=== PATIENT | female | born 1945 | race Caucasian/White ===

== ENCOUNTER → 2018-03-24 09:36 | Outpatient (CLI) | payer MEDICARE, SELFPAY ==
[2018-03-24 11:10] LABS: Add Manual Diff / Slide Review NO; Basophils Percent Auto 0.6 % (0-2); Eosinophils Percent Auto 1.4 % (2-4); Hematocrit 39.4 % (36-46); Hemoglobin 13.6 g/dL (12.0-16.0); Lymphocytes Percent Auto 14.6 % (25-40); Mean Corpuscular HGB Conc 34.4 % (30-36); Mean Corpuscular Hemoglobin 32.2 PG (26-34); Mean Corpuscular Volume 93.5 fL (80-100); Monocytes Percent Auto 11.1 % (3-14); Neutrophils Absolute Auto 6100 /uL (3000-5900); Neutrophils Percent Auto 72.3 % (50-75); Platelet Count 194 X10^3/uL (150-400); Red Blood Cell Count 4.21 X10^6/uL (4.0-5.2); Red Cell Distribution Width 13.6 % (11.6-14.8); White Blood Cell Count 8.5 X10^3/uL (4.5-11.0)
[2018-03-24 11:45] LABS: Alanine Aminotransferase 27 IU/L (9-52); Albumin 3.9 g/dL (3.5-5.0); Albumin Globulin Ratio 1.4 (1.0-2.8); Alkaline Phosphatase 66 U/L (38-126); Aspartate Aminotransferase 23 IU/L (14-36); BUN Creatinine Ratio 18.9 (6-22); Bilirubin Total 1.2 mg/dL (0.2-1.3); Blood Urea Nitrogen 17 mg/dL (7-17); Calcium 9.1 mg/dL (8.4-10.2); Carbon Dioxide 32 mmol/L (22-32); Chloride 102 mmol/L (98-107); Cholesterol 144 mg/dL (140-199); Estimated Glomerular Filt Rate > 60.0 mL/min (>60); Globulin 2.7 g/dL (1.7-4.1); Glucose 86 mg/dL (80-110); HDL Cholesterol 42 mg/dL (40-60); HEMOLYSIS < 15 (0-50); LDL Cholesterol Calculated 84 mg/dL (<100); Potassium 3.9 mmol/L (3.4-5.1); Sodium 142 mmol/L (137-145); Total Protein 6.6 g/dL (6.3-8.2); Triglycerides 92 mg/dL (35-150)
== END ==
PROVIDERS: Visit Provider Physician Assistant
DX: I10 Essential (primary) hypertension (principal); E78.2 Mixed hyperlipidemia
CPT/HCPCS: 36415; 80053; 80061; 85025

== ENCOUNTER 2018-05-20 07:08 | Day surgery (SDC) | payer MEDICARE, SELFPAY ==
[2018-05-20 08:13] VITALS: BP 179/83; PULSE 58; RESP 15; TEMP 36.6; O2SAT 98; BMI 34.0
[2018-05-20] MEDS: PROPARACAINE 0.5% OPHTH SOL 2 DROPS EYE-OP (08:20)
[2018-05-20] MEDS: CATARACT EYE COMPOUND (10 DROPS/SYRINGE) 3 DROPS EYE-OP (08:26)
--- NOTE | 2018-05-20 09:17 | PM.PREOP ---
Pre-operative Note Interval Note Changes: No
--- NOTE | 2018-05-20 09:18 | P.OP.PRE_ITS ---
Pre-operative Note Interval Note Changes: No
--- NOTE | 2018-05-20 09:18 | P.OP_ITS ---
Operative Date/Time/Diagnoses Pre-op diagnosis: Nuclear cataract right eye Procedure & Clinicians Procedure: Cataract Surgery Same procedure as scheduled: Yes Surgeon: Tommy Leiva Anesthesia Type: MAC +/- and Sedation Operative Notes Procedure in detail: Patient brought to the operating suite. Tetracaine drops placed in the right eye. Patient was prepped and draped in sterile manner. Wire lid speculum was placed in the eye. Betadine drops were placed on the eye. This was irrigated. Lidocaine jelly was placed on the eye. A paracentesis port was created with a side-port blade. 0.1 mL 1% preservative free lidocaine was injected into the anterior chamber. The anterior chamber was deepened with viscoelastic. 2.6 mm keratome was used to create a temporal clear corneal incision. Cystotome and Utrata forceps were used to create continuous tear capsulorrhexis. Balanced salt solution was used to hydro dissect the nucleus. The phacoemulsification handpiece was inserted and the nucleus was removed using the stop and chop technique. The irrigation aspiration handpiece was inserted and the remaining cortex was removed. Anterior chamber was deepened with viscoelastic. An Crowley ZCB00 intraocular lens with a power of 19.0 was injected into the capsular bag. Irrigation aspiration handpiece was inserted and the remaining viscoelastic was removed. Incision was hydrated with balanced salt solution and found to be leak free with pressure with Weck- Prisca sponges. 0.1 mL Vigamox injected anterior chamber. 0.3 mL Kenalog 10 mg was injected subconjunctivally. Lid speculum was removed. The patient left the operating room in excellent condition. Complications: none Condition: stable Disposition: same day surgery
[2018-05-20] MEDS: CHONDROIDTIN/SOD HYALURONATE 1.05 ML SYRINGE INTRAOCULA (09:32)
[2018-05-20] MEDS: LIDOCAINE JELLY 2% 5 ML 1 APPLIC TOP (09:33)
[2018-05-20] MEDS: PHENYLEPHRINE/LIDOCAINE VIAL (OR) 0.2 ML EYE-OP (09:33)
[2018-05-20] MEDS: MOXIFLOXACIN OPHTH DROPS 3 ML BOTTLE 2 DROPS INJ (09:33)
[2018-05-20] MEDS: BALANCED SALT IRRIG SOLN NO.2 500 ML, EPINEPHrine 1 MG IRR (09:34)
[2018-05-20] MEDS: TETRACAINE 0.5% OPHTH DROPS 15 ML 2 DROPS EYE-RIGHT (09:34)
[2018-05-20] MEDS: TRIAMCINOLONE 50 MG/5 ML VIAL INJ (09:34)
[2018-05-20 09:45] VITALS: BP 170/85; PULSE 60; RESP 16; TEMP 36.4; O2SAT 100
== END 2018-05-20 09:57 | disposition home or self-care (01) ==
LOC: OR 07:09
PROVIDERS: PCP Physician Assistant; Visit Provider Ophthalmology
DX: H25.11 Age-related nuclear cataract, right eye (principal); I10 Essential (primary) hypertension
CPT/HCPCS: J0171; J3301

== ENCOUNTER 2018-06-03 08:19 | Day surgery (SDC) | payer MEDICARE, SELFPAY ==
[2018-06-03 09:06] VITALS: BP 189/85; PULSE 63; RESP 16; TEMP 36.8; O2SAT 98; BMI 33.6
[2018-06-03] MEDS: CATARACT EYE COMPOUND (10 DROPS/SYRINGE) 3 DROPS EYE-OP (09:11)
[2018-06-03] MEDS: PROPARACAINE 0.5% OPHTH SOL 2 DROPS EYE-OP (09:11)
--- NOTE | 2018-06-03 09:50 | P.OP.PRE_ITS ---
Pre-operative Note Interval Note Changes: No
--- NOTE | 2018-06-03 09:50 | PM.PREOP ---
Pre-operative Note Interval Note Changes: No
--- NOTE | 2018-06-03 09:53 | P.OP_ITS ---
Operative Date/Time/Diagnoses Pre-op diagnosis: Nuclear Cataract Left eye Post-op diagnosis: same Procedure & Clinicians Surgeon: Tommy Leiva Anesthesia Type: MAC +/- and Sedation Operative Notes Procedure in detail: Patient brought to the operating suite. Tetracaine drops placed in the left eye. Patient was prepped and draped in sterile manner. Wire lid speculum was placed in the eye. Betadine drops were placed on the eye. This was irrigated. Lidocaine jelly was placed on the eye. A paracentesis port was created with a side-port blade. 0.1 mL 1% preservative free lidocaine was injected into the anterior chamber. The anterior chamber was deepened with viscoelastic. 2.6 mm keratome was used to create a temporal clear corneal incision. Cystotome and Utrata forceps were used to create continuous tear capsulorrhexis. Balanced salt solution was used to hydro dissect the nucleus. The phacoemulsification handpiece was inserted and the nucleus was removed using the stop and chop technique. The irrigation aspiration handpiece was inserted and the remaining cortex was removed. Anterior chamber was deepened with viscoelastic. An Crowley ZCB00 intraocular lens with a power of 20.5 was injected into the capsular bag. Irrigation aspiration handpiece was inserted and the remaining viscoelastic was removed. Incision was hydrated with balanced salt solution and found to be leak free with pressure with Weck- Prisca sponges. 0.1 mL Vigamox injected anterior chamber. 0.3 mL Kenalog 10 mg was injected subconjunctivally. Lid speculum was removed. The patient left the operating room in excellent condition. Complications: none Condition: stable Disposition: same day surgery
--- NOTE | 2018-06-03 10:01 | SUR.OPER ---
Supine on eye stretcher, head on extension cradle secured with tape. Arms tucked at sides with blanket. Pillow under knees.
[2018-06-03] MEDS: CHONDROIDTIN/SOD HYALURONATE 1.05 ML SYRINGE INTRAOCULA (10:03)
[2018-06-03] MEDS: MOXIFLOXACIN OPHTH DROPS 3 ML BOTTLE 2 DROPS INJ (10:04)
[2018-06-03] MEDS: LIDOCAINE JELLY 2% 5 ML 1 APPLIC TOP (10:04)
[2018-06-03] MEDS: TETRACAINE 0.5% OPHTH DROPS 15 ML 2 DROPS EYE-LEFT (10:04)
[2018-06-03] MEDS: PHENYLEPHRINE/LIDOCAINE VIAL (OR) 0.2 ML EYE-OP (10:04)
[2018-06-03] MEDS: TRIAMCINOLONE 50 MG/5 ML VIAL INJ (10:05)
[2018-06-03] MEDS: BALANCED SALT IRRIG SOLN NO.2 500 ML, EPINEPHrine 1 MG IRR (10:05)
[2018-06-03 10:20] VITALS: BP 132/72; PULSE 57; RESP 16; TEMP 36.6; O2SAT 98
== END 2018-06-03 10:30 | disposition home or self-care (01) ==
LOC: OR 08:22
PROVIDERS: PCP Physician Assistant; Visit Provider Ophthalmology
DX: H25.12 Age-related nuclear cataract, left eye (principal); I10 Essential (primary) hypertension
CPT/HCPCS: J0171; J2250; J3010; J3301

== ENCOUNTER → 2018-12-27 08:29 | Outpatient (CLI) | payer MEDICARE, SELFPAY ==
[2018-12-27 10:09] LABS: Add Manual Diff / Slide Review NO; Basophils Absolute Auto 0 /uL (0-100); Basophils Percent Auto 0.8 % (0-2); Eosinophils Absolute Auto 100 /uL (0-450); Eosinophils Percent Auto 3.4 % (2-4); Hematocrit 44.1 % (36-46); Hemoglobin 14.7 g/dL (12.0-16.0); Lymphocytes Absolute Auto 1600 /uL (1100-4500); Lymphocytes Percent Auto 36.7 % (25-40); Mean Corpuscular HGB Conc 33.3 % (30-36); Mean Corpuscular Hemoglobin 31.1 PG (26-34); Mean Corpuscular Volume 93.3 fL (80-100); Monocytes Absolute Auto 500 /uL (0-900); Monocytes Percent Auto 10.6 % (3-14); Neutrophils Absolute Auto 2100 /uL (1500-7000); Neutrophils Percent Auto 48.5 % (50-75); Platelet Count 214 X10^3/uL (150-400); Red Blood Cell Count 4.73 X10^6/uL (4.0-5.2); Red Cell Distribution Width 13.4 % (11.6-14.8); White Blood Cell Count 4.4 X10^3/uL (4.5-11.0)
[2018-12-27 10:30] LABS: Alanine Aminotransferase 25 IU/L (9-52); Albumin Globulin Ratio 1.6 (1.0-2.8); Alkaline Phosphatase 70 U/L (38-126); Aspartate Aminotransferase 21 IU/L (14-36); Bilirubin Total 1.1 mg/dL (0.2-1.3); Blood Urea Nitrogen 15 mg/dL (7-17); Calcium 9.1 mg/dL (8.4-10.2); Carbon Dioxide 31 mmol/L (22-32); Chloride 103 mmol/L (98-107); Cholesterol 174 mg/dL (140-199); Estimated Glomerular Filt Rate 54.5 mL/min (>60); Globulin 2.5 g/dL (1.7-4.1); Glucose 91 mg/dL (80-110); HDL Cholesterol 47 mg/dL (40-60); HEMOLYSIS < 15 (0-50); LDL Cholesterol Calculated 108 mg/dL (<100); Potassium 4.1 mmol/L (3.4-5.1); Sodium 141 mmol/L (137-145); Total Protein 6.5 g/dL (6.3-8.2); Triglycerides 97 mg/dL (35-150)
== END ==
PROVIDERS: PCP Physician Assistant; Visit Provider Physician Assistant
DX: I10 Essential (primary) hypertension (principal); E78.2 Mixed hyperlipidemia
CPT/HCPCS: 36415; 80053; 80061; 85025

== ENCOUNTER → 2020-04-07 19:34 | Outpatient (ROUT) | payer MEDICARE, SELFPAY ==
[2020-04-07 19:45] LABS: Add Manual Diff / Slide Review NO; Basophils Absolute Auto 0 /uL (0-100); Eosinophils Absolute Auto 200 /uL (0-450); Eosinophils Percent Auto 3.5 % (2-4); Hematocrit 40.9 % (36-46); Hemoglobin 13.5 g/dL (12.0-16.0); Lymphocytes Absolute Auto 1800 /uL (1100-4500); Lymphocytes Percent Auto 39.3 % (25-40); Mean Corpuscular HGB Conc 32.9 % (30-36); Mean Corpuscular Volume 94.2 fL (80-100); Monocytes Absolute Auto 600 /uL (0-900); Monocytes Percent Auto 12.2 % (3-14); Neutrophils Absolute Auto 2000 /uL (1500-7000); Platelet Count 192 X10^3/uL (150-400); Red Blood Cell Count 4.35 X10^6/uL (4.0-5.2); Red Cell Distribution Width 13.6 % (11.6-14.8); White Blood Cell Count 4.6 X10^3/uL (4.5-11.0)
[2020-04-07 19:52] LABS: Alanine Aminotransferase 21 IU/L (<35); Albumin 3.9 g/dL (3.5-5.0); Albumin Globulin Ratio 1.7 (1.0-2.8); Alkaline Phosphatase 63 U/L (38-126); Aspartate Aminotransferase 25 IU/L (14-36); BUN Creatinine Ratio 19.1 (6-22); Bilirubin Total 0.8 mg/dL (0.2-1.3); Blood Urea Nitrogen 17 mg/dL (7-17); Calcium 9.2 mg/dL (8.4-10.2); Carbon Dioxide 29 mmol/L (22-32); Chloride 105 mmol/L (98-107); Cholesterol 162 mg/dL (140-199); Estimated Glomerular Filt Rate > 60.0 mL/min (>60); Globulin 2.3 g/dL (1.7-4.1); Glucose 88 mg/dL (80-110); HDL Cholesterol 46 mg/dL (40-60); HEMOLYSIS 18 (0-50); LDL Cholesterol Calculated 99 mg/dL (<100); Potassium 4.3 mmol/L (3.4-5.1); Sodium 139 mmol/L (137-145); Total Protein 6.2 g/dL (6.3-8.2); Triglycerides 86 mg/dL (35-150)
== END ==
PROVIDERS: Visit Provider Physician Assistant
DX: I10 Essential (primary) hypertension (principal); E21.0 Primary hyperparathyroidism; E78.2 Mixed hyperlipidemia; K21.9 Gastro-esophageal reflux disease without esophagitis
CPT/HCPCS: 80053; 80061; 85025

== ENCOUNTER → 2021-10-26 15:19 | Outpatient (CLI) | payer MEDICARE, SELFPAY ==
--- NOTE | 2021-10-26 | DI.RAD.S_ITS ---
PROCEDURE: XR CHEST 2V INDICATIONS: shortness of breath on exertion TECHNIQUE: 2 views of the chest were acquired. COMPARISON: [facility], CR, XR CHEST 2 VIEWS, 10/05/2019, 10:52. [facility], CR, XR CHEST 2 VIEWS, 05/08/2021, 15:55. FINDINGS: Surgical changes and devices: None. Lungs and pleura: Lungs are clear, aside from right upper and right lower lobe scar-like opacity.. No pleural effusions or pneumothorax. Mediastinum: Mediastinal contours are normal. Heart size is normal. Bones and chest wall: No suspicious bony abnormalities. Soft tissues appear unremarkable. IMPRESSION: 1. Scar-like opacities within the right upper and right lower lobes which may represent postinflammatory scarring as this patient has had previous right pneumonia. Recommend continued radiographic follow-up to confirm stability. 2. No acute cardiopulmonary disease. Dictated by: Agusto Oneil RRA Interpreted: Rula Gomez MD on 10/26/2021 at 15:57 Transcribed by: MARIA LUISA on 10/26/2021 at 15:59 Approved by: Rula Gomez MD, PhD on 10/26/2021 at 16:18
== END ==
PROVIDERS: PCP Physician Assistant; Referring Provider Physician Assistant; Visit Provider Physician Assistant
DX: R06.02 Shortness of breath (principal)
CPT/HCPCS: 71046

== ENCOUNTER → 2022-02-23 09:10 | Outpatient (CLI) | payer OTHER, SELFPAY ==
--- NOTE | 2022-02-23 | DI.NM.S_ITS ---
PROCEDURE: NM JEFFERSON PERF SPECT R&S PHARM Rest and pharmacological stress myocardial perfusion SPECT with gated imaging and ejection fraction RADIOPHARMACEUTICAL: 12.6 mCi Tc-99m tetrafosmin IV at rest and 26.4 mCi Tc-99m tetrafosmin IV at peak effect of pharmacological stress. [id number] was performed. INDICATIONS: Shortness of breath TECHNIQUE: Radiopharmaceutical was injected at peak stress test, and also at rest. SPECT images were obtained. SPECT myocardial perfusion images were displayed in short axis, horizontal long axis, and vertical long axis views. Gated images were reviewed using BookNow software. COMPARISON: None. CARDIAC STRESS: A pharmacologic stress test was performed under the supervision of an attending staff, using an infusion of lexiscan 0.4mg IV X1. Hemodynamic data: There is normal blood pressure and heart rate response to pharmacologic stress. Symptoms: The patient denied anginal chest pain. Aminophylline: none EKG: No diagnostic changes of ischemia; no ectopy. FINDINGS: Raw data: There is good myocardial uptake of radiotracer. No significant motion artifacts. Left ventricle function: Gated images demonstrate normal left ventricular wall thickening. No segmental wall motion abnormalities. No transient ischemic dilation; TID is 0.95 (normal less than 1.3). Left ventricle resting end diastolic volume is 78 mL. Left ventricle stress ejection fraction is 77%; normal range is above 45%. Myocardial perfusion: There is normal distribution of activity in the right and left ventricular myocardium. No fixed or reversible perfusion defects. IMPRESSION: Low risk, normal pharmaceutical nuclear stress test 1) No perfusion evidence of ischemia or infarction based on normal stress prone images. 2) Normal left ventricular size, wall motion, and systolic function (EF post stress 77%). 3) No ST changes with lexiscan. 4) No angina during the study. 5) No prior nuclear stress test available for comparison. Dictated by: Velasquez Gaxiola MD on 02/26/2022 at 13:31 Approved by: Velasquez Gaxiola MD on 02/26/2022 at 13:32
[2022-02-23 10:01] LABS: COVID19 -Nasal RAPID Negative (Negative)
== END ==
PROVIDERS: PCP Physician Assistant; Referring Provider Physician Assistant; Visit Provider Physician Assistant
DX: R06.02 Shortness of breath (principal); Z20.822 Contact with and (suspected) exposure to COVID-19
CPT/HCPCS: 78452; 87635; 93017; A9502; J2785

== ENCOUNTER 2022-06-12 23:58 | Observation (INO) | payer OTHER, SELFPAY ==
[2022-06-13] VITALS (24 sets, daily range): BP systolic 112–145; BP diastolic 54–97; PULSE 90–155; RESP 10–26; TEMP 36–36.9; O2SAT 96–98; BMI 35.8
--- NOTE | 2022-06-13 00:04 | DI.RAD.S_ITS ---
PROCEDURE: XR CHEST 1V INDICATIONS: chest pain TECHNIQUE: One view of the chest was acquired. COMPARISON: [facility], CHEST 2 VIEW, 03/28/2012, 13:53. [facility], , XR CHEST 2V, 10/26/2021, 15:34. FINDINGS: Surgical changes and devices: None. Lungs and pleura: Lungs are clear. No pleural effusions or pneumothorax. Mediastinum: Mediastinal contours appear normal. Heart size is normal. Bones and chest wall: No suspicious bony lesions. Overlying soft tissues appear unremarkable. IMPRESSION: 1. No acute cardiopulmonary disease. Dictated by: Gregg Briggs M.D. on 06/13/2022 at 1:19 Approved by: Gregg Briggs M.D. on 06/13/2022 at 1:20
[2022-06-13] MEDS: dilTIAZem 5 MG/ML SDV 10 MG IV ×2 (00:23→00:30)
--- NOTE | 2022-06-13 00:24 | ED_ITS ---
HPI - Arrhythmia/Palpitations General Chief Complaint: Arrhythmia/Palpitations Stated Complaint: heartbeat over 150 Time Seen by Provider: 06/13/22 00:06 Source: patient Mode of arrival: Ambulatory History of Present Illness HPI narrative: Patient is a 77-year-old female who presents today with heart palpitations. She said it started just before midnight. She did has some strep mild shortness of breath no actual chest pain dizziness or lightheadedness. She was feeling well earlier. She does not remember if she has a history of atrial fibrillation there is no report of it. She is currently in AFib with RVR and heart rate in the 150s. She says she does not lie flat it sounds like it is more for comfort reason rather than orthopnea. She does have some mild peripheral edema noted. She states that she recently has had complete cardiac workup at [facility] including echocardiogram for some wheezing. She is unable to provide these records for me. Previous reports state that she with the metoprolol in 2019 unclear why. She thinks she may have had atrial fibrillation when she had COVID in 2019 not really sure. Related Data Home Medications Medication Instructions Recorded Confirmed ASPIRIN (Aspirin Low Dose) 81 mg PO Q DAY ##0 11/11/10 05/18/19 metoprolol succinate 50 mg 50 mg PO BID 05/20/18 05/18/19 tablet,extended release 24 hr Zicam intranasal 05/18/19 calcium carbonate 500 mg calcium 500 mg PO DAILY 05/18/19 05/18/19 (1,250 mg) tablet (Calcium 500) cholecalciferol (vitamin D3) 125 5,000 unit PO DAILY 05/18/19 05/18/19 mcg (5,000 unit) capsule estradiol 0.01% (0.1 mg/gram) 1 gram vaginal DAILY PRN 05/18/19 05/18/19 vaginal cream irbesartan 75 mg tablet 75 mg PO DAILY 05/18/19 05/18/19 mecobalamin (vitamin B12) 5,000 mcg PO 05/18/19 05/18/19 mcg disintegrating tablet omeprazole 20 mg capsule,delayed 20 mg PO DAILY 05/18/19 05/18/19 release tumeric root PO 05/18/19 Previous Rx's Medication Instructions Recorded meloxicam 7.5 mg tablet (Mobic) 7.5 mg PO [facility] 10 days #0 tabs 09/30/16 Allergies Allergy/AdvReac Type Severity Reaction Status Date / Time milk [MILK] Allergy Unknown ACHE ALL Unverified 05/18/19 16:13 OVER LIKE COMING DOWN WITH FLU X3 DAYS lisinopril [LISINOPRIL] AdvReac Unknown COUGH Unverified 05/18/19 16:13 Review of Systems Review of Systems Narrative: GENERAL: Denies chills, fatigue, malaise, fever, sweats, travel HEENT: Denies sinus pain, ear pain, sore throat, difficulty swallowing, neck pain RESPIRATORY: Denies dyspnea, cough, wheezing, hemoptysis, sputum. CARDIOVASCULAR: See HPI GASTROINTESTINAL: Denies nausea, vomiting, abdominal pain, diarrhea, constipation, melena. : Denies dysuria, frequency, incontinence, hematuria, urinary retention, flank pain. MUSCULOSKELETAL: Denies weakness, joint pain, or bony pain SKIN: No rash, no erythema, no pruritus NEUROLOGIC: Denies weakness, dizziness, headache, numbness, change in speech, confusion PSYCHIATRIC: No concerning psychosocial issues. 12 point review of systems is negative except for those stated above and HPI Patient History Medical History Pelvic relaxation Postmenopausal atrophic vaginitis Surgical History (Updated 06/13/22 @ 05:02 by NESTOR Pichardo) History of cataract surgery Social History household members: friend(s) Exam Initial Vital Signs Initial Vital Signs: Vital Signs Temperature 98.4 F 06/13/22 00:01 Pulse Rate 91 H 06/13/22 00:01 Respiratory Rate 22 06/13/22 00:01 Blood Pressure 144/86 H 06/13/22 00:01 Pulse Oximetry 97 06/13/22 00:01 Oxygen Delivery Method 06/13/22 00:01 GENERAL: Alert pleasant 77-year-old female and in no acute distress. HEENT: Head atraumatic,EOMI, pupils reactive, face symmetric, moist mucous membranes CARDIOVASCULAR: Tachycardic irregular no murmurs RESPIRATORY: Breath sounds equal bilaterally, no wheezes rales or rhonchi. ABDOMEN: Soft, nontender. Normoactive bowel sounds all 4 quadrants. No guarding or rebound. EXTREMITIES: Normal range of motion, no clubbing or edema. Neurovascularly intact NEUROLOGICAL: Alert and oriented x4.Normal gait and speech. SKIN: Warm, dry, no laceration, no petechiae, no rashes or lesions. Course Orders Ordered: ED Orders 06/13/22 00:04 XR chest 1V Stat EKG-12 Lead Stat 06/13/22 00:16 BNP [NT-proBNP (BNP-Adult 18+)] Stat Complete Blood Count AUTO DIFF Stat Comprehensive Metabolic Panel Stat Lipase Stat Magnesium Stat Troponin & CK Cardiac Panel Stat 06/13/22 04:23 Ethanol (ETOH) Urgent 06/13/22 04:26 Prothrombin Time INR Urgent 06/13/22 05:00 Basic Metabolic Panel Routine Free T4, Direct Thyroxine Routine Magnesium Routine Thyroid Stimulating Hormone Routine Troponin I Q6H 06/13/22 11:00 Troponin I Q6H Acetaminophen (Acetaminophen 325 Mg Tablet) 650 mg PO Q6H PRN PRN Reason: Fever/Mild Pain (1-3) Apixaban (Apixaban 5 Mg Tablet) 2.5 mg PO BID STACIE Metoprolol Succinate (Metoprolol Er 25 Mg Tablet) 75 mg PO BID STACIE Naloxone HCl (Naloxone 0.4 Mg/Ml Vial) 0.2 mg IV Q2MIN PRN PRN Reason: Opiate Reversal Discontinued Medications Diltiazem HCl (Diltiazem 5 Mg/Ml Sdv) 10 mg IV NOW ONE Stop: 06/13/22 00:15 Last Admin: 06/13/22 00:23 Dose: 10 mg Documented By: CRISTÓBAL Diltiazem HCl (Diltiazem 5 Mg/Ml Sdv) 10 mg IV NOW ONE Stop: 06/13/22 00:27 Last Admin: 06/13/22 00:30 Dose: 10 mg Documented By: CRISTÓBAL Metoprolol Succinate (Metoprolol Er 25 Mg Tablet) 25 mg PO NOW ONE Stop: 06/13/22 04:17 Last Admin: 06/13/22 04:40 Dose: 25 mg Documented By: SALONI Metoprolol Tartrate (Metoprolol Tartrate 5 Mg/5 Ml Inj) 5 mg IV NOW ONE Stop: 06/13/22 01:42 Last Admin: 06/13/22 01:45 Dose: 5 mg Documented By: MISTI Metoprolol Tartrate (Metoprolol Tartrate 5 Mg/5 Ml Inj) 5 mg IV NOW ONE Stop: 06/13/22 02:01 Last Admin: 06/13/22 02:03 Dose: 5 mg Documented By: MISTI Metoprolol Tartrate (Metoprolol Tartrate 5 Mg/5 Ml Inj) 5 mg IV NOW ONE Stop: 06/13/22 04:21 Last Admin: 06/13/22 04:40 Dose: 5 mg Documented By: SALONI Potassium Chloride (Potassium Chloride 20 Meq Tab) 40 meq PO NOW ONE Stop: 06/13/22 04:39 Propofol (Propofol 200 Mg/20 Ml Vial) 80 mg 1 mg/kg (80 mg) IV NOW ONE Stop: 06/13/22 02:55 Last Admin: 06/13/22 05:16 Dose: Not Given Documented By: SALONI Vital Signs Vital signs: Vital Signs - 8 hr 06/13/22 00:01 06/13/22 00:23 06/13/22 01:57 Temperature 98.4 F Pulse Rate 91 H 155 H 126 H Respiratory Rate 22 24 Blood Pressure 144/86 H 112/54 L 125/91 H Pulse Oximetry 97 97 96 Oxygen Delivery Method Room Air Room Air Room Air 06/13/22 01:57 06/13/22 02:00 06/13/22 02:00 Temperature Pulse Rate 125 H 128 H Respiratory Rate 13 10 L Blood Pressure 119/79 Pulse Oximetry 97 96 Oxygen Delivery Method 06/13/22 02:30 06/13/22 02:30 06/13/22 02:46 Temperature Pulse Rate 126 H Respiratory Rate 17 Blood Pressure 116/76 145/80 H Pulse Oximetry 96 Oxygen Delivery Method 06/13/22 02:46 06/13/22 03:00 06/13/22 03:00 Temperature Pulse Rate 124 H 128 H Respiratory Rate 18 19 Blood Pressure 133/89 Pulse Oximetry 96 97 Oxygen Delivery Method 06/13/22 03:15 06/13/22 03:15 06/13/22 03:30 Temperature Pulse Rate 130 H 130 H Respiratory Rate 13 13 Blood Pressure 136/89 Pulse Oximetry 97 97 Oxygen Delivery Method 06/13/22 03:31 06/13/22 03:31 06/13/22 03:45 Temperature Pulse Rate 129 H Respiratory Rate 12 Blood Pressure 137/85 143/87 H Pulse Oximetry 96 Oxygen Delivery Method 06/13/22 03:45 06/13/22 04:00 06/13/22 04:00 Temperature Pulse Rate 133 H 130 H Respiratory Rate 12 14 Blood Pressure 139/88 Pulse Oximetry 97 97 Oxygen Delivery Method 06/13/22 04:15 06/13/22 04:15 Temperature Pulse Rate 130 H Respiratory Rate 11 L Blood Pressure 131/94 H Pulse Oximetry 97 Oxygen Delivery Method MDM - Arrhythmia/Palpitations Lab Data Result diagrams: 06/13/22 00:16 06/13/22 00:16 Labs: Lab Results 06/13/22 06/13/22 06/13/22 Range/Units 00:16 00:16 00:16 WBC 8.2 (4.5-11.0) X10^3/uL RBC 4.76 (4.0-5.2) X10^6/uL Hgb 14.8 (12.0-16.0) g/dL Hct 44.1 (36-46) % MCV 92.7 (80-100) fL MCH 31.1 (26-34) PG MCHC 33.6 (30-36) % RDW 13.6 (11.6-14.8) % Plt Count 259 (150-400) X10^3/uL Neut % (Auto) 60.0 (50-75) % Lymph % (Auto) 28.2 (25-40) % [place] % (Auto) 9.0 (3-14) % Eos % (Auto) 2.1 (2-4) % Baso % (Auto) 0.7 (0-2) % Neut # (Auto) 4900 (6596-9336) /uL Lymph # (Auto) 2300 (0227-2979) /uL [place] # (Auto) 700 (0-900) /uL Eos # (Auto) 200 (0-450) /uL Baso # (Auto) 100 (0-100) /uL Sodium 139 (137-145) mmol/L Potassium 3.2 L (3.4-5.1) mmol/L Chloride 105 (98-107) mmol/L Carbon Dioxide 23 (22-32) mmol/L BUN 11 (7-17) mg/dL Creatinine 0.90 (0.52-1.04) mg/dL Estimated GFR > 60 (>60) mL/min BUN/Creatinine Ratio 12.2 (6-22) Glucose 108 (80-110) mg/dL Calcium 8.7 (8.4-10.2) mg/dL Magnesium 1.8 (1.6-2.3) mg/dL Total Bilirubin 0.9 (0.2-1.3) mg/dL AST 18 (14-36) IU/L ALT 18 (<35) IU/L Alkaline Phosphatase 73 (38-126) U/L Total Creatine Kinase 48 (30-135) U/L CK-MB (CK-2) TNP CK-MB (CK-2) Rel Index TNP Troponin I < 0.012 (0.01-0.034) ng/mL NT-Pro-B Natriuret Pep 404 (<450) pg/mL Total Protein 7.6 (6.3-8.2) g/dL Albumin 4.1 (3.5-5.0) g/dL Globulin 3.5 (1.7-4.1) g/dL Albumin/Globulin Ratio 1.2 (1.0-2.8) Lipase 106 (23-300) U/L Imaging Data Chest x-ray: Radiologist's Impresson: ODELL [place] [id number] XRay Report Signed Patient: Irma Agudelo MR#: [id number] : 1945 Acct:[id number] Age/Sex: 77 / F Date of Service: 06/13/22 Loc: Accession Number: [id number] ?? Procedure: XR chest 1V Ordering Provider: Kelly Sotelo D.O. PROCEDURE:? XR CHEST 1V ? INDICATIONS:? chest pain ? TECHNIQUE:? One view of the chest was acquired.? ? COMPARISON:? [facility], , CHEST 2 VIEW, 03/28/2012, 13:53.? Located within [facility], XR CHEST 2V, 10/26/2021, 15:34. ? FINDINGS:? ? Surgical changes and devices:? None.? ? Lungs and pleura:? Lungs are clear.? No pleural effusions or pneumothorax.? ? Mediastinum:? Mediastinal contours appear normal.? Heart size is normal.? ? Bones and chest wall:? No suspicious bony lesions.? Overlying soft tissues appear unremarkable.? ? IMPRESSION:? ? 1.? No acute cardiopulmonary disease. ? ? ? Dictated by: Gregg Briggs M.D. on 06/13/2022 at 1:19 ? ? ECG Data Interpretation: Atrial fibrillation rate 159 no priors to compare no ST changes MDM Narrative Medical decision making narrative: Unusually discussed cardioversion with patient. It sounded as though it started just a couple of hours ago which would make her a good candidate. However after further conversations with her patient is confused difficult to get history from even saying maybe this is her heart rhythm at night. Overall I do not feel comfortable cardioverting this patient. She is probably a poor candidate. She initially was given Cardizem 10 mg x 2 doses for rate control which she did not respond to. She then was given Lopressor which seemed to work much better. We discussed risk of stroke as well with atrial fibrillation. The patient's heart rate remained in the 120s to 130s after Lopressor never spontaneous we cardioverted. Admit to [facility] Discharge Plan Departure Patient Disposition: Admitted as Observation Clinical Impression: Atrial fibrillation with rapid ventricular response Admit Date/Time: 06/13/22 04:25 Admit Provider: Leora Walters
[2022-06-13 00:31] LABS: Add Manual Diff / Slide Review NO; Basophils Absolute Auto 100 /uL (0-100); Basophils Percent Auto 0.7 % (0-2); Eosinophils Absolute Auto 200 /uL (0-450); Eosinophils Percent Auto 2.1 % (2-4); Hematocrit 44.1 % (36-46); Hemoglobin 14.8 g/dL (12.0-16.0); Lymphocytes Absolute Auto 2300 /uL (1100-4500); Lymphocytes Percent Auto 28.2 % (25-40); Mean Corpuscular HGB Conc 33.6 % (30-36); Mean Corpuscular Hemoglobin 31.1 PG (26-34); Mean Corpuscular Volume 92.7 fL (80-100); Monocytes Absolute Auto 700 /uL (0-900); Neutrophils Absolute Auto 4900 /uL (1500-7000); Platelet Count 259 X10^3/uL (150-400); Red Blood Cell Count 4.76 X10^6/uL (4.0-5.2); Red Cell Distribution Width 13.6 % (11.6-14.8); White Blood Cell Count 8.2 X10^3/uL (4.5-11.0)
[2022-06-13 00:38] LABS: Alanine Aminotransferase 18 IU/L (<35); Albumin 4.1 g/dL (3.5-5.0); Albumin Globulin Ratio 1.2 (1.0-2.8); Alkaline Phosphatase 73 U/L (38-126); Aspartate Aminotransferase 18 IU/L (14-36); BUN Creatinine Ratio 12.2 (6-22); Bilirubin Total 0.9 mg/dL (0.2-1.3); Blood Urea Nitrogen 11 mg/dL (7-17); Calcium 8.7 mg/dL (8.4-10.2); Carbon Dioxide 23 mmol/L (22-32); Chloride 105 mmol/L (98-107); Creatine Kinase 48 U/L (30-135); Estimated Glomerular Filt Rate > 60 mL/min (>60); Globulin 3.5 g/dL (1.7-4.1); Glucose 108 mg/dL (80-110); HEMOLYSIS < 15 (0-50); Lipase 106 U/L (23-300); Magnesium 1.8 mg/dL (1.6-2.3); Potassium 3.2 mmol/L (3.4-5.1); Sodium 139 mmol/L (137-145); Total Protein 7.6 g/dL (6.3-8.2)
[2022-06-13 00:50] LABS: Troponin I < 0.012 ng/mL (0.01-0.034)
--- NOTE | 2022-06-13 01:30 | PC.NURSE ---
Ambulatory to the bathroom with steady gait - no needs voiced
[2022-06-13] MEDS: METOPROLOL TARTRATE 5 MG/5 ML INJ IV ×3 (01:45→04:40)
--- NOTE | 2022-06-13 02:00 | PC.NURSE ---
Resting quietly in her room - playing on her phone - no needs voiced - HR responsive very minimally to intervention - plan of treatment o cardiovert - NAD noted - pt speaking clearly - unclear if the HR is a new onset of a-fib or if she has had the rhythm for years - the pt does not seem to know.
[2022-06-13 02:22] LABS: NT-proBNP (BNP-Adult 18+) 404 pg/mL (<450)
--- NOTE | 2022-06-13 02:30 | PC.NURSE ---
No changes in pt status at this time - HR remains elevated and information from the pt changes as she interacts with staff - states that she has had irregular HR's before but 150 is high - does not show any signs/symptoms of distress - denies CP or shortness of breath - alert and oriented - speaking in full clear sentences with speech clear
--- NOTE | 2022-06-13 03:00 | PC.NURSE ---
No changes in pt status
--- NOTE | 2022-06-13 03:30 | PC.NURSE ---
No changes in pt status
--- NOTE | 2022-06-13 04:00 | PC.NURSE ---
At bedside to set up room for cardioversion - RT to bedside - MD at bedside speaking with pt - the patient states that she has had this rhythm her whole life - states that she has been told multiple times that her heart rate is fast and irregular - no previous diagnosis of atrial fibrillation per patient - cardioversion held at this time and POC changed for admission of the patient
--- NOTE | 2022-06-13 04:30 | PC.NURSE ---
COVID nasal swab performed - labelled at bedside and sent to lab - tolerated well
[2022-06-13] MEDS: METOPROLOL ER 25 MG TABLET PO (04:40)
--- NOTE | 2022-06-13 04:40 | PC.NURSE ---
Medicated and updated on status for admit - resting quietly in NAD - no needs voiced - denies pain or discomfort
--- NOTE | 2022-06-13 04:45 | PM.HP.1 ---
History of Present Illness History of Present Illness Date Patient Seen: 06/13/22 Time Patient Seen: 04:45 Chief complaint: heartbeat over 150 Narrative: Irma Sanis a 77-year-old female who presented to the ED complaining of heart palpitations, that started just before midnight. She initially reported to Dr. Sotelo that she had no known history of atrial fibrillation, and that the heart palpitations onset this evening. Then her story continued to change, that perhaps she did have a history of atrial fibrillation or not, and that she is been having these chest palpitations for some time or onset tonight, and that she may have had a recent complete cardiac workup/echocardiogram at [facility]. is her primary healthcare center. Last records in our system from 2019 (i personally reviewed) shows a medication list of aspirin, long-acting metoprolol 50 mg b.i.d., irbesartan, and omeprazole suggesting she has a history of hypertension, AFib, and GERD. She endorsed some mild shortness of breath, no chest pain, arm /jaw pain, dizziness or lightheadedness. She was found to be in AFib with RVR and heart rate in the 150s. And has some mild peripheral edema noted. Patient's laboratory workup an EKG have been unremarkable, other than her elevated heart rate she remained hemodynamically stable and asymptomatic. Patient is a poor historian, poor recall, and presenting story and history continued to change. The patient also appeared apprehensive regarding electrical cardioversion and so will attempt medication cardioversion with PO medication upon admit. Patient was given 2 doses of 10 mg Cardizem IV push, & 15 mg total metoprolol IVP, with additional extended release p.o. 25 mg metoprolol dose. As patient is a poor historian unable to obtain accurate HPI, ROS, medication, surgical, and or family history-will request [facility] records. Upon admit I found the patients interview equally confounding, unable to obtain accurate HPI, ROS, or medication reconciliation. Patient states that she is unable to recall her medications, and states that she had a complete cardiac workup because of her shortness of breath. She is up walking around the room using the restroom in no distress or discomfort. Patient currently denies chest pain, shortness in breath, headache, changes in vision, dizziness, lightheadedness, congestion, cough, URI symptoms, fever, body aches, chills, abdominal pain, nausea, vomiting, diarrhea, constipation, dysuria, urinary symptoms, recent illness injury or trauma, or skin infections. Temp 98.4?, BP 119/79, HR 128, RR 10, O2 saturation 96% on room air. Patient's CBC CMP Mag and liver panel are all WNL with the exception of potassium of 3.2, troponin, BNP, lipase are all within normal limits. Chest x-ray is negative for any acute cardiopulmonary processes. EKG demonstrates atrial fibrillation with a rate of [address] or T-wave changes. Patient admitted for atrial fibrillation with RVR (unsure if this is acute new onset or chronic), mild hypokalemia. Patient History Medical History Pelvic relaxation Postmenopausal atrophic vaginitis Surgical History (Updated 06/13/22 @ 05:02 by NESTOR Pichardo) History of cataract surgery Family & Social History Family History Mother Congestive heart failure Brother CAD (coronary artery disease) of artery bypass graft Social History: household members friend(s) Meds Home Medications and Allergies Home Medications Medication Instructions Recorded Confirmed Type ASPIRIN (Aspirin Low Dose) 81 mg PO Q DAY ##0 11/11/10 05/18/19 History meloxicam 7.5 mg tablet (Mobic) 7.5 mg PO [facility] 10 days #0 tabs 09/30/16 05/18/19 Rx metoprolol succinate 50 mg 50 mg PO BID 05/20/18 05/18/19 History tablet,extended release 24 hr Zicam intranasal 05/18/19 History calcium carbonate 500 mg calcium 500 mg PO DAILY 05/18/19 05/18/19 History (1,250 mg) tablet (Calcium 500) cholecalciferol (vitamin D3) 125 5,000 unit PO DAILY 05/18/19 05/18/19 History mcg (5,000 unit) capsule estradiol 0.01% (0.1 mg/gram) 1 gram vaginal DAILY PRN 05/18/19 05/18/19 History vaginal cream irbesartan 75 mg tablet 75 mg PO DAILY 05/18/19 05/18/19 History mecobalamin (vitamin B12) 5,000 mcg PO 05/18/19 05/18/19 History mcg disintegrating tablet omeprazole 20 mg capsule,delayed 20 mg PO DAILY 05/18/19 05/18/19 History release tumeric root PO 05/18/19 History Allergies Allergy/AdvReac Type Severity Reaction Status Date / Time milk [MILK] Allergy Unknown ACHE ALL Unverified 05/18/19 16:13 OVER LIKE COMING DOWN WITH FLU X3 DAYS lisinopril [LISINOPRIL] AdvReac Unknown COUGH Unverified 05/18/19 16:13 Review of Systems Review of Systems Narrative: Please note ROS may be inaccurate as pt is a very poor historian. All 12 point systems reviewed with the patient and are negative except otherwise documented. Exam Vital Signs (past 8 hours): - 06/13/22 00:01 06/13/22 00:23 06/13/22 01:57 Temperature 98.4 F Pulse Rate 91 H 155 H 126 H Respiratory Rate 22 24 Blood Pressure 144/86 H 112/54 L 125/91 H Pulse Oximetry 97 97 96 Oxygen Delivery Method Room Air Room Air Room Air 06/13/22 01:57 06/13/22 02:00 06/13/22 02:00 Temperature Pulse Rate 125 H 128 H Respiratory Rate 13 10 L Blood Pressure 119/79 Pulse Oximetry 97 96 Oxygen Delivery Method Oxygen Delivery Method Room Air Narrative Exam Narrative: General: Patient is a well-developed, well-nourished in no distress at this time. Patient was very restless at the time of admit was up walking around the room, in no distress. HEENT: Normocephalic, atraumatic, extraocular muscles intact, oral pharynx is clear and mucous membranes are moist. Neck is supple and symmetric, trachea is midline, no adenopathy, no thyroid enlargement, nontender, no masses palpated. Negative for JVD Chest: Normal AP diameter and contour without kyphoscoliosis, no nasal flaring, retractions, or tachypneic labored Lungs: Auscultation of all lung palm are clear without adventitious sounds, wheezes, rhonchi, or rales. Cardio: S1 & S2 with regular rate and rhythm without murmur, rubs, or gallops, no carotid bruit, no cardiac pulsations present. Abdomen: Soft nontender, negative for organomegaly, or masses. Bowel sounds are present in all 4 quadrants without guarding or rebound, no CVA tenderness. Musculoskeletal: Muscle strength and tone are equal within normal limits, no deformity, crepitus, effusions, cyanosis, clubbing present. Mild bilateral equal lower extremity edema, nonpitting. Full range of motion intact radial and pedal pulses are normal. Skin: Warm dry and intact without rashes, ulcerations or petechiae. Neuro: Alert and orientated x3, moves all extremities, sensation to touch intact, no gross deficits noted of cranial nerves. Psych: Patient has a well-kept appearance, odd affect, poor historian, erratic conflicting thought process, thought context and judgment are inappropriate for age. This does not appear to be either dementia or encephalopathy type altered mental status suspect more likely this is base line for the patient-mental health in origin. Objective Labs Result Diagrams: 06/13/22 00:16 06/13/22 00:16 Labs: Laboratory Results - last 24 hr 06/13/22 06/13/22 06/13/22 00:16 00:16 00:16 WBC 8.2 RBC 4.76 Hgb 14.8 Hct 44.1 MCV 92.7 MCH 31.1 MCHC 33.6 RDW 13.6 Plt Count 259 Neut % (Auto) 60.0 Lymph % (Auto) 28.2 [place] % (Auto) 9.0 Eos % (Auto) 2.1 Baso % (Auto) 0.7 Neut # (Auto) 4900 Lymph # (Auto) 2300 [place] # (Auto) 700 Eos # (Auto) 200 Baso # (Auto) 100 Sodium 139 Potassium 3.2 L Chloride 105 Carbon Dioxide 23 BUN 11 Creatinine 0.90 Estimated GFR > 60 BUN/Creatinine Ratio 12.2 Glucose 108 Calcium 8.7 Magnesium 1.8 Total Bilirubin 0.9 AST 18 ALT 18 Alkaline Phosphatase 73 Total Creatine Kinase 48 CK-MB (CK-2) TNP CK-MB (CK-2) Rel Index TNP Troponin I < 0.012 NT-Pro-B Natriuret Pep 404 Total Protein 7.6 Albumin 4.1 Globulin 3.5 Albumin/Globulin Ratio 1.2 Lipase 106 Assessment & Plan Assessment & Plan narrative: Irma Agudelo ?is a 77-year-old female who is a poor historian with poor recall who presented to the ED complaining of acute onset heart palpitations, that started just before midnight. She initially reported to Dr. Sotelo that she had no known history of atrial fibrillation, or maybe she did, and heart palpitations onset this evening or perhaps they have been chronic. Her HPI and ROS continued to change throughout her ED visit, reporting at 1 point that she had had a full cardiac workup at [facility] recently. Her admit was equally challenging and confusing. It is unclear if this is a new onset atrial fibrillation with RVR, I suspect that this is chronic that the patient in addition has essential hypertension and GERD. Very likely as patient is unable to recall medications or when she last took them that she has been noncompliant. Will admit the patient for observation to attempt oral medication cardioversion as she continues to be hemodynamically stable and asymptomatic. And will also obtain medical records/echocardiogram results from before ordering further cardiac workup. 1. Atrial fibrillation with RVR, acute versus chronic, with HTN, chronic, present on admission -patient is hemodynamically stable and asymptomatic without distress. -HR: 126-155 -EKG demonstrated atrial fibrillation rate [address] or T-wave changes no comparison EKGs available in chart. -initial troponin< 0.012, will trend x3 -Will request records from /echocardiogram -in ED 20 mg IVP Cardizem, 15 mg IVP metoprolol, p.o. 25 mg metoprolol extended release -initiate Eliquis 2.5 mg b.i.d., continue ASA -suspect possible medication noncompliance: Will attempt p.o. medication cardioversion: continue metoprolol extended release may increase to 75 mg b.i.d., continue irbesarten -Continue on tele monitoring -ordered: Urine tox, TSH free T4, UA, Mag, BNP, ETOH 2. Hypokalemia, mild, acute, present on admit -40 mEq p.o.Supplement ordered -monitor electrolytes 3. Essential hypertension, chronic, present on admission -continue irbesarten 4. GERD, chronic, present on admission -continue omeprazole Code status:Full Surrogate decision maker: Loc Agudelo- Family COVID PCR:Negative DVT/VTE prophylaxis:Eliquis & SCD's Disposition: Patient admitted for observation who obtain medication cardioversion for atrial fibrillation with RVR, expected length of stay less than 2 midnights. I have utilized all available immediate resources to obtain, update, or review the patient's medications, last documented in the chart notes from 2019. Exception-the patient is a poor historian impeding accurate Medical hx, HPI, ROS, and medication reconciliation. I confirmed that the patient's advanced care plan is present, Code status is documented and/or surrogate decision maker is listed in the patient's medical record. I have personally reviewed patient's chart notes from PCP, specialists, diagnostic imaging, and laboratory, Time Spent With Patient Critical Care time: I spent a total of [] minutes of critical care time on this patient's care today; this time is exclusive of procedural time.
--- NOTE | 2022-06-13 05:05 | PC.NURSE ---
Report called to ADIS Cain pt to be transported to room 220
[2022-06-13 06:11] LABS: INR 1.1 (0.9-1.3); Prothrombin Time 12.9 SECONDS (10.1-12.7)
[2022-06-13 06:17] LABS: Ethanol (ETOH) < 10 mg/dL
[2022-06-13 06:18] LABS: Appearance Urine UA CLEAR; Bilirubin Urine UA NEGATIVE (NEGATIVE); Color Urine UA YELLOW; Glucose Urine UA NEGATIVE (Negative); Ketones Urine UA TRACE (NEGATIVE); Leukocyte Esterase Urine UA TRACE (NEGATIVE); Nitrite Urine UA NEGATIVE (Negative); Occult Blood Urine UA TRACE-INTACT (Negative); Protein Urine UA NEGATIVE (Negative); Urobilinogen Urine UA 0.2 E.U./dL (0.2)
[2022-06-13] MEDS: POTASSIUM CHLORIDE 20 MEQ TAB 40 MEQ PO (06:21)
[2022-06-13] MEDS: PANTOPRAZOLE DR 20 MG TABLET PO (06:21)
[2022-06-13 06:27] LABS: pH Urine UA 7.5 (4.5-8.0)
[2022-06-13 06:28] LABS: BUN Creatinine Ratio 12.7 (6-22); Blood Urea Nitrogen 10 mg/dL (7-17); Calcium 8.6 mg/dL (8.4-10.2); Carbon Dioxide 25 mmol/L (22-32); Chloride 106 mmol/L (98-107); Estimated Glomerular Filt Rate > 60 mL/min (>60); Glucose 105 mg/dL (80-110); HEMOLYSIS < 15 (0-50); Potassium 3.7 mmol/L (3.4-5.1); Sodium 140 mmol/L (137-145)
[2022-06-13 06:29] LABS: UR Morphine/Opiate cutoff 300 Negative (Negative); Ur Creatinine 20 (Normal); Urine Amphetamines Negative (Negative); Urine Barbiturates Negative (Negative); Urine Benzodiazepines Negative (Negative); Urine Cocaine Negative (Negative); Urine MDMA Negative (Negative); Urine Methadone Negative (Negative); Urine Methamphetamines Negative (Negative); Urine Oxycodone Negative (Negative); Urine Phencyclidine Negative (Negative); Urine Tetrahydrocannabinol Negative (Negative); Urine Tricyclic Antidepressant Negative (Negative); Urine pH 7.5 (Normal)
[2022-06-13 06:38] LABS: NT-proBNP (BNP-Adult 18+) 597 pg/mL (<450)
[2022-06-13 06:41] LABS: Troponin I 0.036 ng/mL (0.01-0.034)
[2022-06-13 06:51] LABS: Free T4, Direct Thyroxine 1.31 ng/dL (0.78-2.19)
--- NOTE | 2022-06-13 07:03 | PC.NURSE ---
Admit/NOC Shift Note- Patient arrived to room via wheelchair at 0555. Patient alert and oriented and able to make needs known to staff. Patient very hard of hearing, did not bring hearing aids with her. Admit questions done, medications reviewed, physical assessment done, and skin check completed. Patient agrees to call for assistance. Patient oriented to bed and bed controls, room, bathroom, lights, phone, menu, and call martinez/tv remote. Bed alarm activated. Call martinez and phone within reach. will continue to monitor.
[2022-06-13 07:05] LABS: Thyroid Stimulating Hormone 3.84 uIU/mL (0.47-4.68)
[2022-06-13 07:06] LABS: Bacteria Urine None Seen; Culture Indicated Urine Specimen Cultured; RBC Urine None Seen (0-5/HPF); Squamous Epithelial Cell Urine 1-5 /HPF (0-5/HPF); WBC Urine 0-1/HPF (0-5/HPF)
[2022-06-13 07:41] LABS: COVID19 -Nasal RAPID Negative (Negative)
--- NOTE | 2022-06-13 08:46 | CM.DANOTE ---
DCP Assessment: PCP confirmed: Alda Cross MD Payor confirmed: [facility] Pt is a 77 y.o. F who presented to the ER with a complaint of heart palpitations. Pt was admitted for further evaluation and management of symptoms. DCP met with pt this morning to discuss discharge needs. Pt sitting up in bed eating breakfast. DCP introduced herself and role. Pt states she lives with a roommate in a duplex. Pt denies any steps in the home she uses other than the few to get into the house. Pt states that she rents a room from this roommate. Pt states that she still works and drives to [employer] often. Pt states that she is very active at baseline and does not use any DME at baseline. Pt denies any resources at this time but is aware of the resources if needed. White board updated and instructed to call. Pt thankful for discussion. P: Unclear needs at this time. DCP to continue to follow. Pt states she will drive herself home with POV and if cannot, her friend will come and pick her up. Ivon Sheth RN/SVITLANA Discharge Planning/Care Management Advanced directive, confirm from CLIN[facility] Start: 06/13/22 06:34 Freq: Q24H Status: Active Protocol: Document 06/13/22 06:34 AGW (Rec: 06/13/22 06:43 [email or web address] [id number]) Advance Directive, confirm on record Time 06:30 Person contacted patient Copy received No CM Discharge Assessment Start: 06/13/22 08:44 Freq: Status: Active Protocol: Document 06/13/22 08:45 DAVID (Rec: 06/13/22 08:45 AJ [id number]) Discharge Planning Assessment Assigned [employer] Ivon Sheth RN/SVITLANA Advance Directives? Yes Advance Directives on File No History Provided By Patient Prior Living Arrangements House Household Members friend(s) Comment Roommate. Pt states she rents a room from this friend. Type of transporation used prior to Drives own vehicle admit Independent with ADL's Yes Is patient alert and oriented? Yes Caregiver for Another No Discharge Plan Home Transportation Arrangement POV Referrals Initiated None needed Additional Comment At this time. Whiteboard Updated in Patient Room with Yes name and ext. 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
[2022-06-13] MEDS: METOPROLOL ER 50 MG TABLET PO (09:11)
[2022-06-13] MEDS: APIXABAN 5 MG TABLET 2.5 MG PO (09:11)
[2022-06-13] MEDS: LOSARTAN 25 MG TABLET PO (09:12)
[2022-06-13] MEDS: ASPIRIN EC 81 MG TABLET PO (09:12)
--- NOTE | 2022-06-13 18:13 | P.DS_ITS ---
History of Present Illness History of Present Illness Date Patient Seen: 06/13/22 Time Patient Seen: 04:45 Chief complaint: heartbeat over 150 Narrative: Per admitting provider: Irmasilvina Sanis a 77-year-old female who presented to the ED complaining of heart palpitations, that started just before midnight. She initially reported to Dr. Sotelo that she had no known history of atrial fibrillation, and that the heart palpitations onset this evening. Then her story continued to change, that perhaps she did have a history of atrial fibrillation or not, and that she is been having these chest palpitations for some time or onset tonight, and that she may have had a recent complete cardiac workup/echocardiogram at [facility]. is her primary healthcare center. Last records in our system from 2019 (i personally reviewed) shows a medication list of aspirin, long-acting metoprolol 50 mg b.i.d., irbesartan, and omeprazole suggesting she has a history of hypertension, AFib, and GERD. She endorsed some mild shortness of breath, no chest pain, arm /jaw pain, dizziness or lightheadedness. She was found to be in AFib with RVR and heart rate in the 150s. And has some mild peripheral edema noted. Patient's laboratory workup an EKG have been unremarkable, other than her elevated heart rate she remained hemodynamically stable and asymptomatic. Patient is a poor historian, poor recall, and presenting story and history continued to change. The patient also appeared apprehensive regarding electrical cardioversion and so will attempt med ication cardioversion with PO medication upon admit. Patient was given 2 doses of 10 mg Cardizem IV push, & 15 mg total metoprolol IVP, with additional extended release p.o. 25 mg metoprolol dose. As patient is a poor historian unable to obtain accurate HPI, ROS, medication, surgical, and or family history- will request [facility] records. Upon admit I found the patients interview equally confounding, unable to obtain accurate HPI, ROS, or medication reconciliation. Patient states that she is unable to recall her medications, and states that she had a complete cardiac workup because of her shortness of breath. She is up walking around the room using the restroom in no distress or discomfort. Patient currently denies chest pain, shortness in breath, headache, changes in vision, dizziness, lightheadedness, congestion, cough, URI symptoms, fever, body aches, chills, abdominal pain, nausea, vomiting, diarrhea, constipation, dysuria, urinary symptoms, recent illness injury or trauma, or skin infections. Temp 98.4?, BP 119/79, HR 128, RR 10, O2 saturation 96% on room air. Patient's CBC CMP Mag and liver panel are all WNL with the exception of potassium of 3.2, troponin, BNP, lipase are all within normal limits. Chest x-ray is negative for any acute cardiopulmonary processes. EKG demonstrates atrial fibrillation with a rate of [address] or T-wave changes. Patient admitted for atrial fibrillation with RVR (unsure if this is acute new onset or chronic), mild hypokalemia. Discharge Providers Provider Date of admission: 06/13/22 04:25 Discharge Date: 06/13/22 Primary care physician: Alda Cross PA-C Discharge provider: Dewayne Sandoval MD Summary Hospital Course Discharge Diagnosis: 1. Atrial fibrillation with RVR 2. Hypertension 3. GERD Hospital Course: Ms. Agudelo was admitted with tachycardia. She was noted to be in afib with RVR. The time course for this was not clear per her history. Therefore cardioversion was deemed not apporpriate. She was started on rate control medication and with oral metoprolol she converted back to sinus rhythm quickly. She was continued to her home dose of metoprolol and given a prescription for this. She was also started on apixaban for stroke prevention, and recommended to stop aspirin while taking apixaban. She had an ECHO per her within the last two weeks so a repeat was not indicated here. She was recommended to follow up with PCP within one week. Exam Vital Signs (past 8 hours): Oxygen Delivery Method Room Air Oxygen Flow Rate 0 Narrative Exam Narrative: GEN: no acute distress CV: regular rate and rhythm, no murmurs PULM: clear bilaterally ABD: soft, nontender, nondistended Objective Labs Result Diagrams: 06/13/22 00:16 06/13/22 05:42 Labs: Laboratory Results - last 24 hr 06/13/22 06/13/22 06/13/22 00:16 00:16 00:16 WBC 8.2 RBC 4.76 Hgb 14.8 Hct 44.1 MCV 92.7 MCH 31.1 MCHC 33.6 RDW 13.6 Plt Count 259 Neut % (Auto) 60.0 Lymph % (Auto) 28.2 [place] % (Auto) 9.0 Eos % (Auto) 2.1 Baso % (Auto) 0.7 Neut # (Auto) 4900 Lymph # (Auto) 2300 [place] # (Auto) 700 Eos # (Auto) 200 Baso # (Auto) 100 PT INR Sodium 139 Potassium 3.2 L Chloride 105 Carbon Dioxide 23 BUN 11 Creatinine 0.90 Estimated GFR > 60 BUN/Creatinine Ratio 12.2 Glucose 108 Calcium 8.7 Magnesium 1.8 Total Bilirubin 0.9 AST 18 ALT 18 Alkaline Phosphatase 73 Total Creatine Kinase 48 CK-MB (CK-2) TNP CK-MB (CK-2) Rel Index TNP Troponin I < 0.012 NT-Pro-B Natriuret Pep 404 Total Protein 7.6 Albumin 4.1 Globulin 3.5 Albumin/Globulin Ratio 1.2 Lipase 106 TSH Free T4 Urine Color Urine Appearance Urine pH Ur Specific [place] Urine Protein Urine Glucose (UA) Urine Ketones Urine Occult Blood Urine Nitrate Urine Bilirubin Urine Urobilinogen Ur Leukocyte Esterase Urine RBC Urine WBC Ur Squamous Epith Cells Urine Bacteria Ur Culture Indicated? U Opiates 300ng/mL cut Ur Oxycodone Screen Urine Methadone Screen Ur Barbiturates Screen U Tricyclic Antidepress Ur Phencyclidine Scrn Ur Amphetamines Screen U Methamphetamines Scrn Ur MDMA Scrn (Ecstasy) U Benzodiazepines Scrn Urine Cocaine Screen U Marijuana (THC) Screen Ethyl Alcohol SARS-CoV-2 (PCR) 06/13/22 06/13/22 06/13/22 04:50 05:42 05:42 WBC RBC Hgb Hct MCV MCH MCHC RDW Plt Count Neut % (Auto) Lymph % (Auto) [place] % (Auto) Eos % (Auto) Baso % (Auto) Neut # (Auto) Lymph # (Auto) [place] # (Auto) Eos # (Auto) Baso # (Auto) PT 12.9 H INR 1.1 Sodium Potassium Chloride Carbon Dioxide BUN Creatinine Estimated GFR BUN/Creatinine Ratio Glucose Calcium Magnesium Total Bilirubin AST ALT Alkaline Phosphatase Total Creatine Kinase CK-MB (CK-2) CK-MB (CK-2) Rel Index Troponin I NT-Pro-B Natriuret Pep Total Protein Albumin Globulin Albumin/Globulin Ratio Lipase TSH Free T4 Urine Color Urine Appearance Urine pH Ur Specific [place] Urine Protein Urine Glucose (UA) Urine Ketones Urine Occult Blood Urine Nitrate Urine Bilirubin Urine Urobilinogen Ur Leukocyte Esterase Urine RBC Urine WBC Ur Squamous Epith Cells Urine Bacteria Ur Culture Indicated? U Opiates 300ng/mL cut Ur Oxycodone Screen Urine Methadone Screen Ur Barbiturates Screen U Tricyclic Antidepress Ur Phencyclidine Scrn Ur Amphetamines Screen U Methamphetamines Scrn Ur MDMA Scrn (Ecstasy) U Benzodiazepines Scrn Urine Cocaine Screen U Marijuana (THC) Screen Ethyl Alcohol < 10 SARS-CoV-2 (PCR) Negative 06/13/22 06/13/22 06/13/22 05:42 05:42 05:42 WBC RBC Hgb Hct MCV MCH MCHC RDW Plt Count Neut % (Auto) Lymph % (Auto) [place] % (Auto) Eos % (Auto) Baso % (Auto) Neut # (Auto) Lymph # (Auto) [place] # (Auto) Eos # (Auto) Baso # (Auto) PT INR Sodium 140 Potassium 3.7 Chloride 106 Carbon Dioxide 25 BUN 10 Creatinine 0.79 Estimated GFR > 60 BUN/Creatinine Ratio 12.7 Glucose 105 Calcium 8.6 Magnesium 2.0 Total Bilirubin AST ALT Alkaline Phosphatase Total Creatine Kinase CK-MB (CK-2) CK-MB (CK-2) Rel Index Troponin I 0.036 H NT-Pro-B Natriuret Pep 597 H Total Protein Albumin Globulin Albumin/Globulin Ratio Lipase TSH 3.84 Free T4 1.31 Urine Color Urine Appearance Urine pH Ur Specific [place] Urine Protein Urine Glucose (UA) Urine Ketones Urine Occult Blood Urine Nitrate Urine Bilirubin Urine Urobilinogen Ur Leukocyte Esterase Urine RBC Urine WBC Ur Squamous Epith Cells Urine Bacteria Ur Culture Indicated? U Opiates 300ng/mL cut Ur Oxycodone Screen Urine Methadone Screen Ur Barbiturates Screen U Tricyclic Antidepress Ur Phencyclidine Scrn Ur Amphetamines Screen U Methamphetamines Scrn Ur MDMA Scrn (Ecstasy) U Benzodiazepines Scrn Urine Cocaine Screen U Marijuana (THC) Screen Ethyl Alcohol SARS-CoV-2 (PCR) 06/13/22 06/13/22 06:15 06:15 WBC RBC Hgb Hct MCV MCH MCHC RDW Plt Count Neut % (Auto) Lymph % (Auto) [place] % (Auto) Eos % (Auto) Baso % (Auto) Neut # (Auto) Lymph # (Auto) [place] # (Auto) Eos # (Auto) Baso # (Auto) PT INR Sodium Potassium Chloride Carbon Dioxide BUN Creatinine Estimated GFR BUN/Creatinine Ratio Glucose Calcium Magnesium Total Bilirubin AST ALT Alkaline Phosphatase Total Creatine Kinase CK-MB (CK-2) CK-MB (CK-2) Rel Index Troponin I NT-Pro-B Natriuret Pep Total Protein Albumin Globulin Albumin/Globulin Ratio Lipase TSH Free T4 Urine Color Yellow Urine Appearance Clear Urine pH 7.5 Ur Specific [place] 1.010 Urine Protein Negative Urine Glucose (UA) Negative Urine Ketones Trace H Urine Occult Blood Trace-intact Urine Nitrate Negative Urine Bilirubin Negative Urine Urobilinogen 0.2 Ur Leukocyte Esterase Trace H Urine RBC None seen Urine WBC 0-1/hpf Ur Squamous Epith Cells 1-5 /hpf Urine Bacteria None seen Ur Culture Indicated? Specimen cultured U Opiates 300ng/mL cut Negative Ur Oxycodone Screen Negative Urine Methadone Screen Negative Ur Barbiturates Screen Negative U Tricyclic Antidepress Negative Ur Phencyclidine Scrn Negative Ur Amphetamines Screen Negative U Methamphetamines Scrn Negative Ur MDMA Scrn (Ecstasy) Negative U Benzodiazepines Scrn Negative Urine Cocaine Screen Negative U Marijuana (THC) Screen Negative Ethyl Alcohol SARS-CoV-2 (PCR) [facility] Medical History Pelvic relaxation Postmenopausal atrophic vaginitis Surgical History (Updated 06/13/22 @ 05:02 by NESTOR Pichardo) History of cataract surgery Family History Mother Congestive heart failure Brother CAD (coronary artery disease) of artery bypass graft Social History household members: friend(s) Smoking Status: Never smoker Discharge Plan Discharge Plan Patient Disposition: Home Provider Discharge Comment: Ms. Agudelo came in to the hospital with feeling like her heart was racing. She had atrial fibrillation. Her heart rate flipped back to a normal rhythm with some pill medications. She is started on blood thinner to prevent strokes. Because of starting this new blood thinner she should stop aspirin. She should see her PCP this week or early next week. Discharge orders & Medications Prescriptions: New apixaban 5 mg tablet 5 mg PO BID Qty: 60 0RF Continued meloxicam [Mobic] 7.5 MG tablet 7.5 mg PO [facility] 10 Days Qty: 0 0RF calcium carbonate [Calcium 500] 500 mg calcium (1,250 mg) tablet 500 mg PO DAILY estradiol 0.01 % (0.1 mg/gram) cream 1 gram VAG DAILY PRN irbesartan 75 mg tablet 75 mg PO DAILY omeprazole 20 mg capsule,delayed release(DR/EC) 20 mg PO DAILY tumeric root PO mecobalamin (vitamin B12) 5,000 mcg tablet,disintegrating PO cholecalciferol (vitamin D3) 5,000 unit capsule 5,000 unit PO DAILY Zicam intranasal metoprolol succinate 50 mg Tablet Extended Release 24 Hr 50 mg PO BID Qty: 60 0RF Discontinued ASPIRIN (Aspirin Low Dose) 81 mg PO Q DAY Qty: 0 Follow up/Referrals: Alda Cross PA-C [Primary Care Provider] - 06/18/22 2:00 pm (Appt:06/18 @ 2:00 w/ kCl @ [address] [place] [address] please bring photo id and insurance card if you need to cancel please give 24 hr notice ) Diet/Activity/Treatments Diet: Regular Visit Report/Discharge Packet Instructions: DI for Atrial Fibrillation Discharge Data Primary Care Provider: Alda Cross Attending Provider: Leora Walters VTE Deep Vein Thrombosis/Pulmonary Embolism Present on Admission: No
== END 2022-06-13 09:41 | disposition home or self-care (01) ==
LOC: ED 06-13 04:22 → AC 06-13 04:26
PROVIDERS: Admitting Provider Nurse Practitioner Family; Emergency Provider Emergency Medicine; PCP Physician Assistant; Referring Provider Emergency Medicine; Visit Provider Nurse Practitioner Family
DX: I48.91 Unspecified atrial fibrillation (principal); E87.6 Hypokalemia; I10 Essential (primary) hypertension; K21.9 Gastro-esophageal reflux disease without esophagitis; Z20.822 Contact with and (suspected) exposure to COVID-19
CPT/HCPCS: 36415; 71045; 80048; 80053; 80305; 80320; 81001; 82550; 83690; 83735; 83880; 84439; 84443; 84484; 85025; 85610; 87086; 87635; 93005; 93010; 96374; 96375; 96376; 99284; C9803; G0378

== ENCOUNTER 2022-07-16 22:33 | Emergency (ER) | payer OTHER, SELFPAY ==
[2022-06-13 04:51] VITALS: BMI 35.8
[2022-07-16 22:53] VITALS: BP 125/93; PULSE 157; RESP 16; TEMP 36.6; O2SAT 97; BMI 77.0
--- NOTE | 2022-07-16 23:10 | DI.RAD.S_ITS ---
PROCEDURE: XR CHEST 1V INDICATIONS: chest pain TECHNIQUE: One view of the chest was acquired. COMPARISON: [facility], CR, XR CHEST 1V, 06/13/2022, 0:35. FINDINGS: Surgical changes and devices: None. Lungs and pleura: There are few scattered linear opacities redemonstrated within the right lung likely representing scarring. No definite acute consolidation. No pleural effusions or pneumothorax. Mediastinum: Mediastinal contours appear normal. Heart size is normal. Bones and chest wall: No suspicious bony lesions. Overlying soft tissues appear unremarkable. IMPRESSION: 1. No definite acute cardiopulmonary disease. 2. Probable linear areas of scarring redemonstrated in the right lung. Dictated by: Gregg Briggs M.D. on 07/17/2022 at 0:42 Approved by: Gregg Briggs M.D. on 07/17/2022 at 0:42
[2022-07-16 23:32] LABS: Prothrombin Time 11.6 SECONDS (10.1-12.7)
[2022-07-16 23:35] LABS: PTT Partial Thromboplastin Tim 31 SECONDS (26-36)
[2022-07-16 23:47] LABS: Add Manual Diff / Slide Review NO; Basophils Absolute Auto 100 /uL (0-100); Eosinophils Absolute Auto 200 /uL (0-450); Eosinophils Percent Auto 3.3 % (2-4); Hematocrit 42.3 % (36-46); Hemoglobin 14.2 g/dL (12.0-16.0); Lymphocytes Absolute Auto 2000 /uL (1100-4500); Lymphocytes Percent Auto 31.9 % (25-40); Mean Corpuscular HGB Conc 33.5 % (30-36); Mean Corpuscular Hemoglobin 31.3 PG (26-34); Mean Corpuscular Volume 93.4 fL (80-100); Monocytes Absolute Auto 600 /uL (0-900); Monocytes Percent Auto 10.1 % (3-14); Neutrophils Absolute Auto 3400 /uL (1500-7000); Neutrophils Percent Auto 53.7 % (50-75); Platelet Count 253 X10^3/uL (150-400); Red Blood Cell Count 4.52 X10^6/uL (4.0-5.2); Red Cell Distribution Width 13.6 % (11.6-14.8); White Blood Cell Count 6.4 X10^3/uL (4.5-11.0)
[2022-07-16 23:54] LABS: Alanine Aminotransferase 20 IU/L (<35); Albumin 4.3 g/dL (3.5-5.0); Albumin Globulin Ratio 1.4 (1.0-2.8); Alkaline Phosphatase 64 U/L (38-126); Aspartate Aminotransferase 26 IU/L (14-36); BUN Creatinine Ratio 12.9 (6-22); Bilirubin Total 0.6 mg/dL (0.2-1.3); Blood Urea Nitrogen 12 mg/dL (7-17); Carbon Dioxide 27 mmol/L (22-32); Chloride 106 mmol/L (98-107); Creatine Kinase 312 U/L (30-135); Estimated Glomerular Filt Rate > 60 mL/min (>60); Globulin 3.1 g/dL (1.7-4.1); Glucose 118 mg/dL (80-110); Lipase 126 U/L (23-300); Magnesium 1.9 mg/dL (1.6-2.3); Potassium 3.1 mmol/L (3.4-5.1); Sodium 141 mmol/L (137-145); Total Protein 7.4 g/dL (6.3-8.2)
[2022-07-16 23:59] VITALS: PULSE 138; RESP 8; O2SAT 97
[2022-07-17] VITALS (28 sets, daily range): BP systolic 93–163; BP diastolic 59–84; PULSE 44–144; RESP 8–35; O2SAT 93–98
[2022-07-17 00:06] LABS: Troponin I < 0.012 ng/mL (0.01-0.034)
[2022-07-17 00:09] LABS: CKMB % Relative Index 0.6 % (1.5-5.0); Creatine Kinase MB 1.78 ng/mL (<2.37); HEMOLYSIS 17 (0-50)
--- NOTE | 2022-07-17 00:13 | PC.NURSE ---
Pt states that she had her first episode of atrial fibrillation a month ago - was seen here and started on metoprolol and eliquis - no cardioversion performed - states that she was supposed to take the medication for a month and it ended 3 days ago - no episodes of atrial fibrillation while on the medication - states that she is not having any s/sx at this time - does not feel any more SOB then her normal level - states that she attempted to go back to sleep but the HR was up and down so she came in
--- NOTE | 2022-07-17 00:30 | PC.NURSE ---
Ambulatory to bathroom - steady gait
[2022-07-17] MEDS: ASPIRIN 81 MG CHEW TAB 324 MG PO (00:39)
--- NOTE | 2022-07-17 00:58 | ED.ARRPALP ---
HPI - Arrhythmia/Palpitations <Diego Logan MD - Last Filed: 07/18/22 06:30> General Chief Complaint: Arrhythmia/Palpitations Stated Complaint: States heartrate up to 176 Time Seen by Provider: 07/17/22 00:49 Source: patient Mode of arrival: Ambulatory History of Present Illness HPI narrative: Patient here for palpitations that started at 7:00 a.m. tonight. Denies any chest pain syncope or dyspnea. Patient admitted here last month for new onset atrial fibrillation. Family doctor had her on Eliquis twice a day as well as metoprolol however it was 1 month prescription and family doctor decided to discontinue metoprolol and Eliquis 3 days ago. Patient in no distress at this time. Patient EKG does show AFib with RVR. She does agree for admit and will try Cardizem drip. She did not get cardioverted last time. She states that she was told it was too high of a risk to cardiovert Related Data Home Medications Medication Instructions Recorded Confirmed Zicam intranasal 05/18/19 calcium carbonate 500 mg calcium 500 mg PO DAILY 05/18/19 05/18/19 (1,250 mg) tablet (Calcium 500) cholecalciferol (vitamin D3) 125 5,000 unit PO DAILY 05/18/19 05/18/19 mcg (5,000 unit) capsule estradiol 0.01% (0.1 mg/gram) 1 gram vaginal DAILY PRN 05/18/19 05/18/19 vaginal cream irbesartan 75 mg tablet 75 mg PO DAILY 05/18/19 05/18/19 mecobalamin (vitamin B12) 5,000 mcg PO 05/18/19 05/18/19 mcg disintegrating tablet omeprazole 20 mg capsule,delayed 20 mg PO DAILY 05/18/19 05/18/19 release tumeric root PO 05/18/19 Previous Rx's Medication Instructions Recorded meloxicam 7.5 mg tablet (Mobic) 7.5 mg PO [facility] 10 days #0 tabs 09/30/16 apixaban 5 mg tablet 5 mg PO BID #60 tabs 07/17/22 metoprolol succinate 50 mg 50 mg PO BID #60 tabs 07/17/22 tablet,extended release 24 hr Allergies Allergy/AdvReac Type Severity Reaction Status Date / Time milk [MILK] Allergy Unknown ACHE ALL Unverified 06/14/22 10:25 OVER LIKE COMING DOWN WITH FLU X3 DAYS lisinopril [LISINOPRIL] AdvReac Unknown COUGH Unverified 06/14/22 10:25 Review of Systems <Diego Logan MD - Last Filed: 07/18/22 06:30> Review of Systems Narrative: GENERAL: negative chills, fatigue, malaise, fever, sweats. HEENT: negative sinus pain, ear pain, sore throat RESPIRATORY: negative dyspnea, cough CARDIOVASCULAR: negative chest pain, positive palpitations GASTROINTESTINAL: negative nausea, vomiting, abdominal pain : negative dysuria, frequency, hematuria MUSCULOSKELETAL: negative muscle or bony pain SKIN: negative rash, skin lesions NEUROLOGIC: negative weakness, numbness ROS Unobtainable: All systems reviewed & are unremarkable except as noted in HPI and below Patient History <Diego Logan MD - Last Filed: 07/18/22 06:30> Medical History Pelvic relaxation Postmenopausal atrophic vaginitis Surgical History History of cataract surgery Family History Mother Congestive heart failure Brother CAD (coronary artery disease) of artery bypass graft Social History household members: friend(s) Smoking Status: Never smoker Smoking Status: Never smoker alcohol intake frequency: holidays/special occasions only Substance Use Type: does not use Exam <Diego Logan MD - Last Filed: 07/18/22 06:30> Narrative Exam Narrative: GENERAL: in no distress, not toxic not dyspneic HEAD: Normocephalic. EYES: Pupils equal round No scleral icterus. ENT: Mucous membranes moist. NECK: Trachea midline. CARDIOVASCULAR: Irregular irregular, tachycardic RESPIRATORY: Clear to auscultation. Breath sounds equal bilaterally. No wheezes, rales, or rhonchi. GASTROINTESTINAL: Abdomen soft, non-tender EXTREMITIES: No gross deformities. BACK: No flank tenderness. NEURO: AOx4. SKIN: Warm and dry PSYCH: Not anxious, is cooperative Initial Vital Signs Initial Vital Signs: Vital Signs Temperature 97.8 F 07/16/22 22:53 Pulse Rate 157 H 07/16/22 22:53 Respiratory Rate 16 07/16/22 22:53 Blood Pressure 125/93 H 07/16/22 22:53 Pulse Oximetry 97 07/16/22 22:53 Oxygen Delivery Method 07/16/22 22:53 <Kelly Sotelo DO - Last Filed: 07/17/22 19:33> Initial Vital Signs Initial Vital Signs: Vital Signs Temperature 97.8 F 07/16/22 22:53 Pulse Rate 157 H 07/16/22 22:53 Respiratory Rate 16 07/16/22 22:53 Blood Pressure 125/93 H 07/16/22 22:53 Pulse Oximetry 97 07/16/22 22:53 Oxygen Delivery Method 07/16/22 22:53 Course <Diego Logan MD - Last Filed: 07/18/22 06:30> Course Course Narrative: July 17, 2022 at 7:[address] Sotelo, patient currently on Cardizem drip as well as oral metoprolol. Rhythm has been transitioning between sinus rhythm and AFib. However will likely need admission, hospitalist was reviewing patient's case and would like to try more aggressive oral medication before admitting. Decision to Admit Date: 07/17/22 Decision to Admit time: 01:00 Orders Ordered: Discontinued Medications Apixaban (Apixaban 5 Mg Tablet) 5 mg PO NOW ONE Stop: 07/17/22 01:02 Last Admin: 07/17/22 01:10 Dose: 5 mg Documented By: SALONI Aspirin (Aspirin 81 Mg Chew Tab) 324 mg PO NOW ONE Stop: 07/16/22 23:11 Last Admin: 07/17/22 00:39 Dose: 324 mg Documented By: SALONI(2) Diltiazem HCl (Diltiazem 5 Mg/Ml Sdv) 10 mg IV NOW ONE Stop: 07/17/22 00:57 Last Admin: 07/17/22 01:06 Dose: 10 mg Documented By: SALONI DILTIAZEM (Diltiazem 125 Mg/125 Ml-D5w) 125 mg in 125 mls @ 5 mls/hr IV TITRATE STACIE; Protocol Last Titration: 07/17/22 08:38 Dose: 0 mg/hr, 0 mls/hr Documented By: Titration: 07/17/22 06:50 Dose: 15 mg/hr, 15 mls/hr Documented By: Titration: 07/17/22 04:45 Dose: 5 mg/hr, 5 mls/hr Documented By: Titration: 07/17/22 03:20 Dose: 15 mg/hr, 15 mls/hr Documented By: Titration: 07/17/22 02:40 Dose: 10 mg/hr, 10 mls/hr Documented By: Admin: 07/17/22 01:11 Dose: 5 mg/hr, 5 mls/hr Documented By: SB Metoprolol Succinate (Metoprolol Er 50 Mg Tablet) 50 mg PO NOW ONE Stop: 07/17/22 04:26 Last Admin: 07/17/22 05:55 Dose: 50 mg Documented By: SALONI Metoprolol Tartrate (Metoprolol Tartrate 5 Mg/5 Ml Inj) 5 mg IV NOW ONE Stop: 07/17/22 03:35 Last Admin: 07/17/22 04:15 Dose: 5 mg Documented By: SALONI Vital Signs Vital signs: Vital Signs - 8 hr 07/17/22 10:30 07/17/22 10:31 07/17/22 10:31 Pulse Rate 47 L 59 L Respiratory Rate 12 31 H Blood Pressure 122/67 Pulse Oximetry 97 96 07/17/22 11:00 Pulse Rate 53 L Respiratory Rate 27 H Blood Pressure Pulse Oximetry <Kelly Sotelo, - Last Filed: 07/17/22 19:33> Orders Ordered: Discontinued Medications Apixaban (Apixaban 5 Mg Tablet) 5 mg PO NOW ONE Stop: 07/17/22 01:02 Last Admin: 07/17/22 01:10 Dose: 5 mg Documented By: SALONI Aspirin (Aspirin 81 Mg Chew Tab) 324 mg PO NOW ONE Stop: 07/16/22 23:11 Last Admin: 07/17/22 00:39 Dose: 324 mg Documented By: SALONI(2) Diltiazem HCl (Diltiazem 5 Mg/Ml Sdv) 10 mg IV NOW ONE Stop: 07/17/22 00:57 Last Admin: 07/17/22 01:06 Dose: 10 mg Documented By: SALONI DILTIAZEM (Diltiazem 125 Mg/125 Ml-D5w) 125 mg in 125 mls @ 5 mls/hr IV TITRATE [facility]; Protocol Last Titration: 07/17/22 08:38 Dose: 0 mg/hr, 0 mls/hr Documented By: Titration: 07/17/22 06:50 Dose: 15 mg/hr, 15 mls/hr Documented By: Titration: 07/17/22 04:45 Dose: 5 mg/hr, 5 mls/hr Documented By: Titration: 07/17/22 03:20 Dose: 15 mg/hr, 15 mls/hr Documented By: Titration: 07/17/22 02:40 Dose: 10 mg/hr, 10 mls/hr Documented By: Admin: 07/17/22 01:11 Dose: 5 mg/hr, 5 mls/hr Documented By: SB Metoprolol Succinate (Metoprolol Er 50 Mg Tablet) 50 mg PO NOW ONE Stop: 07/17/22 04:26 Last Admin: 07/17/22 05:55 Dose: 50 mg Documented By: SB Metoprolol Tartrate (Metoprolol Tartrate 5 Mg/5 Ml Inj) 5 mg IV NOW ONE Stop: 07/17/22 03:35 Last Admin: 07/17/22 04:15 Dose: 5 mg Documented By: SB Vital Signs Vital signs: Vital Signs - 8 hr 07/17/22 10:30 07/17/22 10:31 07/17/22 10:31 Pulse Rate 47 L 59 L Respiratory Rate 12 31 H Blood Pressure 122/67 Pulse Oximetry 97 96 07/17/22 11:00 Pulse Rate 53 L Respiratory Rate 27 H Blood Pressure Pulse Oximetry MDM - Arrhythmia/Palpitations <Diego Logan MD - Last Filed: 07/18/22 06:30> Differential Diagnosis Differential diagnosis: Likely palpitations, anxiety, artial fibrillation, artial flutter, supraventricular tachycardia and ventricular tachycardia Lab Data Result diagrams: 07/16/22 23:08 07/16/22 23:08 Labs: Lab Results 07/16/22 07/16/22 07/16/22 Range/Units 23:08 23:08 23:08 WBC 6.4 (4.5-11.0) X10^3/uL RBC 4.52 (4.0-5.2) X10^6/uL Hgb 14.2 (12.0-16.0) g/dL Hct 42.3 (36-46) % MCV 93.4 (80-100) fL MCH 31.3 (26-34) PG MCHC 33.5 (30-36) % RDW 13.6 (11.6-14.8) % Plt Count 253 (150-400) X10^3/uL Neut % (Auto) 53.7 (50-75) % Lymph % (Auto) 31.9 (25-40) % [place] % (Auto) 10.1 (3-14) % Eos % (Auto) 3.3 (2-4) % Baso % (Auto) 1.0 (0-2) % Neut # (Auto) 3400 (8645-5157) /uL Lymph # (Auto) 2000 (5543-6750) /uL [place] # (Auto) 600 (0-900) /uL Eos # (Auto) 200 (0-450) /uL Baso # (Auto) 100 (0-100) /uL PT 11.6 (10.1-12.7) SECONDS INR 1.0 (0.9-1.3) APTT 31 (26-36) SECONDS Sodium 141 (137-145) mmol/L Potassium 3.1 L (3.4-5.1) mmol/L Chloride 106 (98-107) mmol/L Carbon Dioxide 27 (22-32) mmol/L BUN 12 (7-17) mg/dL Creatinine 0.93 (0.52-1.04) mg/dL Estimated GFR > 60 (>60) mL/min BUN/Creatinine Ratio 12.9 (6-22) Glucose 118 H (80-110) mg/dL Calcium 9.0 (8.4-10.2) mg/dL Magnesium 1.9 (1.6-2.3) mg/dL Total Bilirubin 0.6 (0.2-1.3) mg/dL AST 26 (14-36) IU/L ALT 20 (<35) IU/L Alkaline Phosphatase 64 (38-126) U/L Total Creatine Kinase 312 H (30-135) U/L CK-MB (CK-2) 1.78 (<2.37) ng/mL CK-MB (CK-2) Rel Index 0.6 L (1.5-5.0) % Troponin I < 0.012 (0.01-0.034) ng/mL Total Protein 7.4 (6.3-8.2) g/dL Albumin 4.3 (3.5-5.0) g/dL Globulin 3.1 (1.7-4.1) g/dL Albumin/Globulin Ratio 1.4 (1.0-2.8) Lipase 126 (23-300) U/L SARS-CoV-2 (PCR) (Negative) 07/17/22 Range/Units 01:15 WBC (4.5-11.0) X10^3/uL RBC (4.0-5.2) X10^6/uL Hgb (12.0-16.0) g/dL Hct (36-46) % MCV (80-100) fL MCH (26-34) PG MCHC (30-36) % RDW (11.6-14.8) % Plt Count (150-400) X10^3/uL Neut % (Auto) (50-75) % Lymph % (Auto) (25-40) % [place] % (Auto) (3-14) % Eos % (Auto) (2-4) % Baso % (Auto) (0-2) % Neut # (Auto) (0694-6094) /uL Lymph # (Auto) (3445-8126) /uL [place] # (Auto) (0-900) /uL Eos # (Auto) (0-450) /uL Baso # (Auto) (0-100) /uL PT (10.1-12.7) SECONDS INR (0.9-1.3) APTT (26-36) SECONDS Sodium (137-145) mmol/L Potassium (3.4-5.1) mmol/L Chloride (98-107) mmol/L Carbon Dioxide (22-32) mmol/L BUN (7-17) mg/dL Creatinine (0.52-1.04) mg/dL Estimated GFR (>60) mL/min BUN/Creatinine Ratio (6-22) Glucose (80-110) mg/dL Calcium (8.4-10.2) mg/dL Magnesium (1.6-2.3) mg/dL Total Bilirubin (0.2-1.3) mg/dL AST (14-36) IU/L ALT (<35) IU/L Alkaline Phosphatase (38-126) U/L Total Creatine Kinase (30-135) U/L CK-MB (CK-2) (<2.37) ng/mL CK-MB (CK-2) Rel Index (1.5-5.0) % Troponin I (0.01-0.034) ng/mL Total Protein (6.3-8.2) g/dL Albumin (3.5-5.0) g/dL Globulin (1.7-4.1) g/dL Albumin/Globulin Ratio (1.0-2.8) Lipase (23-300) U/L SARS-CoV-2 (PCR) Negative (Negative) Imaging Data Chest x-ray: Radiologist's Impresson: [address] [address] XRay Report Signed Patient: Irma Agudelo MR#: [id number] : 1945 Acct:[id number] Age/Sex: 77 / F Date of Service: 07/16/22 Loc: ED Accession Number: [id number] ?? Procedure: XR chest 1V Ordering Provider: Diego Logan MD PROCEDURE:? XR CHEST 1V ? INDICATIONS:? chest pain ? TECHNIQUE:? One view of the chest was acquired.? ? COMPARISON:? [facility], , XR CHEST 1V, 06/13/2022, 0:35. ? FINDINGS:? ? Surgical changes and devices:? None.? ? Lungs and pleura:? There are few scattered linear opacities redemonstrated within the right lung likely representing scarring.? No definite acute consolidation.? No pleural effusions or pneumothorax.? ? Mediastinum:? Mediastinal contours appear normal.? Heart size is normal.? ? Bones and chest wall:? No suspicious bony lesions.? Overlying soft tissues appear unremarkable.? ? IMPRESSION:? ? 1. No definite acute cardiopulmonary disease. ? 2. Probable linear areas of scarring redemonstrated in the right lung.? ? ? Dictated by: Gregg Briggs M.D. on 07/17/2022 at 0:42 ? ? Approved by: Gregg Briggs M.D. on 07/17/2022 at 0:42 ? ECG Data Interpretation: Atrial fibrillation with RVR rate 150 MDM Narrative Medical decision making narrative: Appropriate for admission for AFib with RVR on Cardizem drip. Patient denies any chest pain. <Kelly Sotelo, DO - Last Filed: 07/17/22 19:33> Lab Data Labs: Lab Results 07/16/22 07/16/22 07/16/22 Range/Units 23:08 23:08 23:08 WBC 6.4 (4.5-11.0) X10^3/uL RBC 4.52 (4.0-5.2) X10^6/uL Hgb 14.2 (12.0-16.0) g/dL Hct 42.3 (36-46) % MCV 93.4 (80-100) fL MCH 31.3 (26-34) PG MCHC 33.5 (30-36) % RDW 13.6 (11.6-14.8) % Plt Count 253 (150-400) X10^3/uL Neut % (Auto) 53.7 (50-75) % Lymph % (Auto) 31.9 (25-40) % [place] % (Auto) 10.1 (3-14) % Eos % (Auto) 3.3 (2-4) % Baso % (Auto) 1.0 (0-2) % Neut # (Auto) 3400 (4696-7815) /uL Lymph # (Auto) 2000 (7504-1979) /uL [place] # (Auto) 600 (0-900) /uL Eos # (Auto) 200 (0-450) /uL Baso # (Auto) 100 (0-100) /uL PT 11.6 (10.1-12.7) SECONDS INR 1.0 (0.9-1.3) APTT 31 (26-36) SECONDS Sodium 141 (137-145) mmol/L Potassium 3.1 L (3.4-5.1) mmol/L Chloride 106 (98-107) mmol/L Carbon Dioxide 27 (22-32) mmol/L BUN 12 (7-17) mg/dL Creatinine 0.93 (0.52-1.04) mg/dL Estimated GFR > 60 (>60) mL/min BUN/Creatinine Ratio 12.9 (6-22) Glucose 118 H (80-110) mg/dL Calcium 9.0 (8.4-10.2) mg/dL Magnesium 1.9 (1.6-2.3) mg/dL Total Bilirubin 0.6 (0.2-1.3) mg/dL AST 26 (14-36) IU/L ALT 20 (<35) IU/L Alkaline Phosphatase 64 (38-126) U/L Total Creatine Kinase 312 H (30-135) U/L CK-MB (CK-2) 1.78 (<2.37) ng/mL CK-MB (CK-2) Rel Index 0.6 L (1.5-5.0) % Troponin I < 0.012 (0.01-0.034) ng/mL Total Protein 7.4 (6.3-8.2) g/dL Albumin 4.3 (3.5-5.0) g/dL Globulin 3.1 (1.7-4.1) g/dL Albumin/Globulin Ratio 1.4 (1.0-2.8) Lipase 126 (23-300) U/L SARS-CoV-2 (PCR) (Negative) 07/17/22 Range/Units 01:15 WBC (4.5-11.0) X10^3/uL RBC (4.0-5.2) X10^6/uL Hgb (12.0-16.0) g/dL Hct (36-46) % MCV (80-100) fL MCH (26-34) PG MCHC (30-36) % RDW (11.6-14.8) % Plt Count (150-400) X10^3/uL Neut % (Auto) (50-75) % Lymph % (Auto) (25-40) % [place] % (Auto) (3-14) % Eos % (Auto) (2-4) % Baso % (Auto) (0-2) % Neut # (Auto) (4911-6730) /uL Lymph # (Auto) (2729-2270) /uL [place] # (Auto) (0-900) /uL Eos # (Auto) (0-450) /uL Baso # (Auto) (0-100) /uL PT (10.1-12.7) SECONDS INR (0.9-1.3) APTT (26-36) SECONDS Sodium (137-145) mmol/L Potassium (3.4-5.1) mmol/L Chloride (98-107) mmol/L Carbon Dioxide (22-32) mmol/L BUN (7-17) mg/dL Creatinine (0.52-1.04) mg/dL Estimated GFR (>60) mL/min BUN/Creatinine Ratio (6-22) Glucose (80-110) mg/dL Calcium (8.4-10.2) mg/dL Magnesium (1.6-2.3) mg/dL Total Bilirubin (0.2-1.3) mg/dL AST (14-36) IU/L ALT (<35) IU/L Alkaline Phosphatase (38-126) U/L Total Creatine Kinase (30-135) U/L CK-MB (CK-2) (<2.37) ng/mL CK-MB (CK-2) Rel Index (1.5-5.0) % Troponin I (0.01-0.034) ng/mL Total Protein (6.3-8.2) g/dL Albumin (3.5-5.0) g/dL Globulin (1.7-4.1) g/dL Albumin/Globulin Ratio (1.0-2.8) Lipase (23-300) U/L SARS-CoV-2 (PCR) Negative (Negative) ECG Data Interpretation: Atrial fibrillation with RVR rate 150 Sinus bradycardia rate 36 TN interval 100 QRS [address] changes or T-wave inversions MDM Narrative Medical decision making narrative: Appropriate for admission for AFib with RVR on Cardizem drip. Patient denies any chest pain. Patient signed out to me by Dr. Logan I have seen evaluated patient myself. She continues to be on a Cardizem drip at 15 milligrams/hour, despite oral metoprolol. Her heart rate is actually now well controlled in the 80s. However she is now been in the emergency department for 8 hours and continues to require diltiazem drip. She is been restarted on her Eliquis. She has no complaints at this time. Dr. Sandoval agrees to admission. Patient suddenly became bradycardic heart rate in the 30s. She did not feel well lightheaded. Diltiazem drip immediately stopped. Patient self converted into a normal sinus rhythm. Heart rate remained a little bit unstable in the 40s but seemed to level off and patient remained in sinus rhythm. Overall feeling better. Discharged home by hospitalist on Eliquis and metoprolol. Critical Care Time <Diego Logan MD - Last Filed: 07/18/22 06:30> Critical Care Time Attestation: Critical Care Time 35 minutes: Critical care time is separate from other billable procedures. This critical care time includes consultation with family and other consulting doctors, review of records, and interpretation of data from labs, EKGs, imaging, etc. Discharge Plan Departure Patient Disposition: Admitted as Observation Clinical Impression: Atrial fibrillation Visit Report Forms: Patient Portal/API, Stroke Signs & Symptoms
[2022-07-17] MEDS: dilTIAZem 5 MG/ML SDV 10 MG IV (01:06)
[2022-07-17] MEDS: APIXABAN 5 MG TABLET PO (01:10)
[2022-07-17] MEDS: DILTIAZEM 125 MG/125 ML PIGGYBACK IV (01:11)
--- NOTE | 2022-07-17 01:30 | PC.NURSE ---
Sitting on the bed in NAD - playing on her phone at this time - denies needs - denies s/sx of palpitations - denies SOB
[2022-07-17 01:57] LABS: COVID19 -Nasal RAPID Negative (Negative)
--- NOTE | 2022-07-17 02:30 | PC.NURSE ---
No changes in pt status - states that she is feeling fine - aware HR is elevated - no s/sx of distress noted
--- NOTE | 2022-07-17 03:30 | PC.NURSE ---
No changes in pt status at this time
[2022-07-17] MEDS: METOPROLOL TARTRATE 5 MG/5 ML INJ IV (04:15)
--- NOTE | 2022-07-17 04:30 | PC.NURSE ---
No changes in pt status at this time
--- NOTE | 2022-07-17 05:30 | PC.NURSE ---
Ambulatory to the bathroom with steady gait - tolerates well - NAD - no SOB
[2022-07-17] MEDS: METOPROLOL ER 50 MG TABLET PO (05:55)
--- NOTE | 2022-07-17 06:30 | PC.NURSE ---
Resting quietly in NAD - no needs voiced - PWD with respirations equal and unlabored bilaterally - no s/sx of distress noted
--- NOTE | 2022-07-17 07:30 | PC.NURSE ---
Resting quietly in NAD - no needs voiced - texting with son - laughing - denies concerns
--- NOTE | 2022-07-17 08:00 | PC.NURSE ---
at bedside for admit
--- NOTE | 2022-07-17 08:20 | P.HP_ITS ---
History of Present Illness History of Present Illness Date Patient Seen: 07/17/22 Time Patient Seen: 08:00 Chief complaint: States heartrate up to 176 Narrative: Ms. Agudelo is a 77W with PMH atrial fibrillation who presents to the hospital with palpitations and shortness of breath. She was admitted last month with similar presentation and was newly diagnosed with afib with RVR. She was started on a diltiazem drip and ultimately converted to sinus rhythm quickly and was discharged home. She was discharged with metoprolol and eliquis, and apparently saw her PCP who decided that she did not need to be on these medications longer than one month. She ran out of these medications 3 days ago and subsequently developed these symtpoms. In the ED workup was done, vitals notable initially for tachycardia with rate in the 150s. Labs notable for WBC 6.4, hgb 14.2, plts 253, creatinine 0.93. Trop negative. EKG showed afib with RVR. Chest xray showed no acute process. She was given IV diltiazem push, continued to be tachycardic and started on dilt gtt. Her heart rate improved to the 120s. She was given push dose of metoprolol which improved her heart rate below 100s. She was then started on oral metoprolol. Diltiazem had been maxed at 15mg/hr, and was then weaned to 5mg/hr. She then became tachycardic once again and dilt rate was increased to 15mg/hr. She was admitted for further treatment. Patient History Medical History Pelvic relaxation Postmenopausal atrophic vaginitis Surgical History History of cataract surgery Family & Social History Family History Mother Congestive heart failure Brother CAD (coronary artery disease) of artery bypass graft Social History: household members friend(s) Safety & Behavioral: Feels Safe in Current Yes Environment Been Physically Hurt or No Threatened By a Person Tobacco & Substance use: Smoking Status Never smoker alcohol intake frequency holiday/special occasion Substance Use Type does not use Meds Home Medications and Allergies Home Medications Medication Instructions Recorded Confirmed Type meloxicam 7.5 mg tablet (Mobic) 7.5 mg PO [facility] 10 days #0 tabs 09/30/16 05/18/19 Rx Zicam intranasal 05/18/19 History calcium carbonate 500 mg calcium 500 mg PO DAILY 05/18/19 05/18/19 History (1,250 mg) tablet (Calcium 500) cholecalciferol (vitamin D3) 125 5,000 unit PO DAILY 05/18/19 05/18/19 History mcg (5,000 unit) capsule estradiol 0.01% (0.1 mg/gram) 1 gram vaginal DAILY PRN 05/18/19 05/18/19 History vaginal cream irbesartan 75 mg tablet 75 mg PO DAILY 05/18/19 05/18/19 History mecobalamin (vitamin B12) 5,000 mcg PO 05/18/19 05/18/19 History mcg disintegrating tablet omeprazole 20 mg capsule,delayed 20 mg PO DAILY 05/18/19 05/18/19 History release tumeric root PO 05/18/19 History apixaban 5 mg tablet 5 mg PO BID #60 tabs 06/13/22 Rx metoprolol succinate 50 mg 50 mg PO BID #60 tabs 06/13/22 Rx tablet,extended release 24 hr Allergies Allergy/AdvReac Type Severity Reaction Status Date / Time milk [MILK] Allergy Unknown ACHE ALL Unverified 06/14/22 10:25 OVER LIKE COMING DOWN WITH FLU X3 DAYS lisinopril [LISINOPRIL] AdvReac Unknown COUGH Unverified 06/14/22 10:25 Review of Systems Review of Systems Narrative: 14 systems reviewed and negative aside from what is noted in HPI Exam Vital Signs (past 8 hours): - 07/17/22 00:30 07/17/22 00:30 07/17/22 01:00 Pulse Rate 138 H Respiratory Rate 8 L Blood Pressure 133/76 163/72 H Pulse Oximetry 98 07/17/22 01:00 07/17/22 01:30 07/17/22 01:31 Pulse Rate 144 H 133 H Respiratory Rate 18 21 Blood Pressure 120/69 Pulse Oximetry 97 96 07/17/22 01:31 07/17/22 02:00 07/17/22 02:00 Pulse Rate 134 H 139 H Respiratory Rate 14 12 Blood Pressure 129/84 Pulse Oximetry 96 98 07/17/22 02:30 07/17/22 02:30 07/17/22 03:00 Pulse Rate 129 H Respiratory Rate 12 Blood Pressure 141/64 H 125/65 Pulse Oximetry 97 07/17/22 03:00 07/17/22 03:30 07/17/22 03:30 Pulse Rate 137 H 133 H Respiratory Rate 13 16 Blood Pressure 114/74 Pulse Oximetry 93 95 07/17/22 04:00 07/17/22 04:00 07/17/22 04:30 Pulse Rate 125 H Respiratory Rate 10 L Blood Pressure 125/67 93/69 Pulse Oximetry 95 07/17/22 04:30 07/17/22 04:44 07/17/22 04:44 Pulse Rate 102 H 108 H Respiratory Rate 14 11 L Blood Pressure 95/72 Pulse Oximetry 94 94 07/17/22 05:00 07/17/22 05:00 07/17/22 05:30 Pulse Rate 95 H Respiratory Rate 8 L Blood Pressure 110/77 104/74 Pulse Oximetry 95 07/17/22 05:30 07/17/22 06:00 07/17/22 06:00 Pulse Rate 100 H 114 H Respiratory Rate 14 9 L Blood Pressure 93/66 Pulse Oximetry 95 95 07/17/22 06:30 07/17/22 06:30 07/17/22 07:00 Pulse Rate 109 H Respiratory Rate 24 Blood Pressure 119/75 120/78 Pulse Oximetry 95 07/17/22 07:00 Pulse Rate 107 H Respiratory Rate 16 Blood Pressure Pulse Oximetry 95 Oxygen Delivery Method Room Air Narrative Exam Narrative: GEN: no acute distress HEENT: moist mucous membranes, PERRL NECK: trachea midline, no JVD PULM: harsh breath sounds and cough CV: irregular ABD: soft, nontender, nondistended, no organomegaly EXT: warm and well perfused with no edema NEURO: awake, alert, oriented no focal deficits Objective Labs Result Diagrams: 07/16/22 23:08 07/16/22 23:08 Labs: Laboratory Results - last 24 hr 07/16/22 07/16/22 07/16/22 23:08 23:08 23:08 WBC 6.4 RBC 4.52 Hgb 14.2 Hct 42.3 MCV 93.4 MCH 31.3 MCHC 33.5 RDW 13.6 Plt Count 253 Neut % (Auto) 53.7 Lymph % (Auto) 31.9 [place] % (Auto) 10.1 Eos % (Auto) 3.3 Baso % (Auto) 1.0 Neut # (Auto) 3400 Lymph # (Auto) 2000 [place] # (Auto) 600 Eos # (Auto) 200 Baso # (Auto) 100 PT 11.6 INR 1.0 APTT 31 Sodium 141 Potassium 3.1 L Chloride 106 Carbon Dioxide 27 BUN 12 Creatinine 0.93 Estimated GFR > 60 BUN/Creatinine Ratio 12.9 Glucose 118 H Calcium 9.0 Magnesium 1.9 Total Bilirubin 0.6 AST 26 ALT 20 Alkaline Phosphatase 64 Total Creatine Kinase 312 H CK-MB (CK-2) 1.78 CK-MB (CK-2) Rel Index 0.6 L Troponin I < 0.012 Total Protein 7.4 Albumin 4.3 Globulin 3.1 Albumin/Globulin Ratio 1.4 Lipase 126 SARS-CoV-2 (PCR) 07/17/22 01:15 WBC RBC Hgb Hct MCV MCH MCHC RDW Plt Count Neut % (Auto) Lymph % (Auto) [place] % (Auto) Eos % (Auto) Baso % (Auto) Neut # (Auto) Lymph # (Auto) [place] # (Auto) Eos # (Auto) Baso # (Auto) PT INR APTT Sodium Potassium Chloride Carbon Dioxide BUN Creatinine Estimated GFR BUN/Creatinine Ratio Glucose Calcium Magnesium Total Bilirubin AST ALT Alkaline Phosphatase Total Creatine Kinase CK-MB (CK-2) CK-MB (CK-2) Rel Index Troponin I Total Protein Albumin Globulin Albumin/Globulin Ratio Lipase SARS-CoV-2 (PCR) Negative Assessment & Plan Assessment & Plan narrative: 1. Atrial fibrillation with RVR -exacerbated in setting of stopping both beta-era and eliquis -reordered eliquis, would recommend continue this indefinitely -rate improved with dilt gtt, have started oral metoprolol and plan to wean off diltiazem -once on oral medications can go home -ordered ECHO for further evaluation -tele monitoring 2. Hypertension CODE: FUll Proxy: Loc Agudelo, family I have utilized all available resources to reconcile the patient's home medications Time Spent With Patient Critical Care time: I spent a total of [] minutes of critical care time on this patient's care today; this time is exclusive of procedural time.
--- NOTE | 2022-07-17 08:36 | PC.NURSE ---
Pt's rhythm slows to 30 - states that she felt flushed and hot and not good - MD to bedside
--- NOTE | 2022-07-17 08:57 | PM.DS.1 ---
History of Present Illness History of Present Illness Chief complaint: States heartrate up to 176 Narrative: Ms. Agudelo is a 77W with PMH atrial fibrillation who presents to the hospital with palpitations and shortness of breath. She was admitted last month with similar presentation and was newly diagnosed with afib with RVR. She was started on a diltiazem drip and ultimately converted to sinus rhythm quickly and was discharged home. She was discharged with metoprolol and eliquis, and apparently saw her PCP who decided that she did not need to be on these medications longer than one month. She ran out of these medications 3 days ago and subsequently developed these symtpoms. In the ED workup was done, vitals notable initially for tachycardia with rate in the 150s. Labs notable for WBC 6.4, hgb 14.2, plts 253, creatinine 0.93. Trop negative. EKG showed afib with RVR. Chest xray showed no acute process. She was given IV diltiazem push, continued to be tachycardic and started on dilt gtt. Her heart rate improved to the 120s. She was given push dose of metoprolol which improved her heart rate below 100s. She was then started on oral metoprolol. Diltiazem had been maxed at 15mg/hr, and was then weaned to 5mg/hr. She then became tachycardic once again and dilt rate was increased to 15mg/hr. She was admitted for further treatment. Discharge Providers Provider Date of admission: 07/17/22 08:32 Discharge Date: 07/17/22 Primary care physician: Alda Cross PA-C Discharge provider: Dewayne Sandoval MD Summary Hospital Course Discharge Diagnosis: 1. Atrial fibrillation with RVR 2. Hypertension Hospital Course: Ms. Agudelo was admitted with tachycardia. She was noted to be in afib with RVR. She had just run out of her eliquis and metoprolol 3 days prior to admit and then switched back into atrial fibrillation from sinus which prompted her visit. She was started on rate control medication and with oral metoprolol she converted back to sinus rhythm quickly. After converting she did have some brief symptomatic sinus bradycardia. She was continued to her home dose of metoprolol and apixaban and given a prescription for this. She was recommended to follow up with PCP within one week. Exam Vital Signs (past 8 hours): - 12/13/22 01:00 07/17/22 01:00 07/17/22 01:30 Pulse Rate 144 H 133 H Respiratory Rate 18 21 Blood Pressure 163/72 H Pulse Oximetry 97 96 07/17/22 01:31 07/17/22 01:31 07/17/22 02:00 Pulse Rate 134 H Respiratory Rate 14 Blood Pressure 120/69 129/84 Pulse Oximetry 96 07/17/22 02:00 07/17/22 02:30 07/17/22 02:30 Pulse Rate 139 H 129 H Respiratory Rate 12 12 Blood Pressure 141/64 H Pulse Oximetry 98 97 07/17/22 03:00 07/17/22 03:00 07/17/22 03:30 Pulse Rate 137 H Respiratory Rate 13 Blood Pressure 125/65 114/74 Pulse Oximetry 93 07/17/22 03:30 07/17/22 04:00 07/17/22 04:00 Pulse Rate 133 H 125 H Respiratory Rate 16 10 L Blood Pressure 125/67 Pulse Oximetry 95 95 07/17/22 04:30 07/17/22 04:30 07/17/22 04:44 Pulse Rate 102 H Respiratory Rate 14 Blood Pressure 93/69 95/72 Pulse Oximetry 94 07/17/22 04:44 07/17/22 05:00 07/17/22 05:00 Pulse Rate 108 H 95 H Respiratory Rate 11 L 8 L Blood Pressure 110/77 Pulse Oximetry 94 95 07/17/22 05:30 07/17/22 05:30 07/17/22 06:00 Pulse Rate 100 H Respiratory Rate 14 Blood Pressure 104/74 93/66 Pulse Oximetry 95 07/17/22 06:00 07/17/22 06:30 07/17/22 06:30 Pulse Rate 114 H 109 H Respiratory Rate 9 L 24 Blood Pressure 119/75 Pulse Oximetry 95 95 07/17/22 07:00 07/17/22 07:00 Pulse Rate 107 H Respiratory Rate 16 Blood Pressure 120/78 Pulse Oximetry 95 Oxygen Delivery Method Room Air Narrative Exam Narrative: GEN: no acute distress HEENT: moist mucous membranes, PERRL NECK: trachea midline, no JVD PULM: harsh breath sounds and cough CV: irregular ABD: soft, nontender, nondistended, no organomegaly EXT: warm and well perfused with no edema NEURO: awake, alert, oriented no focal deficits Objective Labs Result Diagrams: 07/16/22 23:08 07/16/22 23:08 Labs: Laboratory Results - last 24 hr 07/16/22 07/16/22 07/16/22 23:08 23:08 23:08 WBC 6.4 RBC 4.52 Hgb 14.2 Hct 42.3 MCV 93.4 MCH 31.3 MCHC 33.5 RDW 13.6 Plt Count 253 Neut % (Auto) 53.7 Lymph % (Auto) 31.9 [place] % (Auto) 10.1 Eos % (Auto) 3.3 Baso % (Auto) 1.0 Neut # (Auto) 3400 Lymph # (Auto) 2000 [place] # (Auto) 600 Eos # (Auto) 200 Baso # (Auto) 100 PT 11.6 INR 1.0 APTT 31 Sodium 141 Potassium 3.1 L Chloride 106 Carbon Dioxide 27 BUN 12 Creatinine 0.93 Estimated GFR > 60 BUN/Creatinine Ratio 12.9 Glucose 118 H Calcium 9.0 Magnesium 1.9 Total Bilirubin 0.6 AST 26 ALT 20 Alkaline Phosphatase 64 Total Creatine Kinase 312 H CK-MB (CK-2) 1.78 CK-MB (CK-2) Rel Index 0.6 L Troponin I < 0.012 Total Protein 7.4 Albumin 4.3 Globulin 3.1 Albumin/Globulin Ratio 1.4 Lipase 126 SARS-CoV-2 (PCR) 07/17/22 01:15 WBC RBC Hgb Hct MCV MCH MCHC RDW Plt Count Neut % (Auto) Lymph % (Auto) [place] % (Auto) Eos % (Auto) Baso % (Auto) Neut # (Auto) Lymph # (Auto) [place] # (Auto) Eos # (Auto) Baso # (Auto) PT INR APTT Sodium Potassium Chloride Carbon Dioxide BUN Creatinine Estimated GFR BUN/Creatinine Ratio Glucose Calcium Magnesium Total Bilirubin AST ALT Alkaline Phosphatase Total Creatine Kinase CK-MB (CK-2) CK-MB (CK-2) Rel Index Troponin I Total Protein Albumin Globulin Albumin/Globulin Ratio Lipase SARS-CoV-2 (PCR) Negative [facility] Medical History Pelvic relaxation Postmenopausal atrophic vaginitis Surgical History History of cataract surgery Family History Mother Congestive heart failure Brother CAD (coronary artery disease) of artery bypass graft Social History household members: friend(s) Smoking Status: Never smoker Discharge Plan Discharge Plan Patient Disposition: Home Provider Discharge Comment: Ms. Agudelo came in to the hospital with a fast heart rate (atrial fibrillation). She was restarted on her medications and then converted back into sinus and was able to go home. She was restarted on her metoprolol and eliquis Discharge orders & Medications Prescriptions: Continued meloxicam [Mobic] 7.5 MG tablet 7.5 mg PO AMCC 10 Days Qty: 0 0RF calcium carbonate [Calcium 500] 500 mg calcium (1,250 mg) tablet 500 mg PO DAILY estradiol 0.01 % (0.1 mg/gram) cream 1 gram VAG DAILY PRN irbesartan 75 mg tablet 75 mg PO DAILY omeprazole 20 mg capsule,delayed release(DR/EC) 20 mg PO DAILY tumeric root PO mecobalamin (vitamin B12) 5,000 mcg tablet,disintegrating PO cholecalciferol (vitamin D3) 5,000 unit capsule 5,000 unit PO DAILY Zicam intranasal metoprolol succinate 50 mg Tablet Extended Release 24 Hr 50 mg PO BID Qty: 60 0RF apixaban 5 mg tablet 5 mg PO BID Qty: 60 0RF Follow up/Referrals: Alda Cross PA-C [Primary Care Provider] - 07/23/22 1:20 pm (APPT: 07/23 @ 1:20 w/[facility] for hospitalized for afib rvr) Diet/Activity/Treatments Diet: Regular Discharge Data Primary Care Provider: Alda Cross
--- NOTE | 2022-07-17 09:06 | PC.NURSE ---
pt in sinus rhythm - tolerating well report to dayshift RN team - care relinquished at this time
== END 2022-07-17 11:07 | disposition admitted as inpatient to this hospital (09) ==
LOC: ED 07-17 07:11 → AC 07-17 08:51
PROVIDERS: Emergency Medicine; Emergency Provider Emergency Medicine; PCP Physician Assistant; Referring Provider Emergency Medicine
DX: I48.91 Unspecified atrial fibrillation (principal); R00.1 Bradycardia, unspecified; R07.9 Chest pain, unspecified; Z79.01 Long term (current) use of anticoagulants; Z79.899 Other long term (current) drug therapy; Z20.822 Contact with and (suspected) exposure to COVID-19
CPT/HCPCS: 36415; 71045; 80053; 82550; 82553; 83690; 83735; 84484; 85025; 85610; 85730; 87635; 93005; 93010; 96365; 96366; 96375; 99284; 99291; C9803

== ENCOUNTER 2022-11-24 18:50 | Inpatient (IN) | payer OTHER, SELFPAY ==
[2022-06-13 04:51] VITALS: BMI 35.8
[2022-11-24] VITALS (18 sets, daily range): BP systolic 109–134; BP diastolic 56–91; PULSE 112–153; RESP 16–35; TEMP 37.1–37.2; O2SAT 89–92; BMI 35.4
--- NOTE | 2022-11-24 19:12 | DI.RAD.S_ITS ---
PROCEDURE: XR CHEST 1V INDICATIONS: chest pain TECHNIQUE: One view of the chest was acquired. COMPARISON: [facility], CR, XR CHEST 1V, 07/16/2022, 23:21. FINDINGS: Surgical changes and devices: None. Lungs and pleura: Infiltrate in the left lower lung zone. Bilateral interstitial prominence. No pleural effusions or pneumothorax. Mediastinum: Mediastinal contours appear normal. Heart size is normal. Bones and chest wall: No suspicious bony lesions. Overlying soft tissues appear unremarkable. IMPRESSION: Infiltrate in the left lower lung zone suspicious for pneumonia. Dictated by: Patrizia Berumen M.D. on 11/24/2022 at 19:59 Approved by: Patrizia Berumen M.D. on 11/24/2022 at 20:00
--- NOTE | 2022-11-24 19:40 | ED_ITS ---
HPI - Arrhythmia/Palpitations General Chief Complaint: Arrhythmia/Palpitations Stated Complaint: oxygen level dropped to 80/pulse 134 Time Seen by Provider: 11/24/22 19:30 Source: patient Mode of arrival: Family Vehicle History of Present Illness HPI narrative: 77-year-old female. Does have a history of paroxysmal atrial fibrillation. Is on anticoagulation and also metoprolol. States that on Saturday of this week started to have cough and shortness of breath. She thought that maybe she had pneumonia. Has a nonproductive cough. No chest pain or palpitations. Yesterday had a couple episodes where she did have palpitations that lasted a very short period of time resolved on its own. She was not having any chest pain at the time. No lightheadedness. She states that this morning she developed palpitations he states he has been consistent throughout the day. She is also having some shortness of breath on exertion. No chest pain. No lightheadedness. She has been taking all of her medications as directed. She does have a way of checking her oxygen saturations at home and she states she did so she noticed that her oxygen saturations were dipping down into the upper to mid 80s and she also had a fast heart rate. Related Data Home Medications Medication Instructions Recorded Confirmed Zicam intranasal 05/18/19 calcium carbonate 500 mg calcium 500 mg PO DAILY 05/18/19 05/18/19 (1,250 mg) tablet (Calcium 500) cholecalciferol (vitamin D3) 125 5,000 unit PO DAILY 05/18/19 05/18/19 mcg (5,000 unit) capsule estradiol 0.01% (0.1 mg/gram) 1 gram vaginal DAILY PRN 05/18/19 05/18/19 vaginal cream irbesartan 75 mg tablet 75 mg PO DAILY 05/18/19 05/18/19 mecobalamin (vitamin B12) 5,000 mcg PO 05/18/19 05/18/19 mcg disintegrating tablet omeprazole 20 mg capsule,delayed 20 mg PO DAILY 05/18/19 05/18/19 release tumeric root PO 05/18/19 Previous Rx's Medication Instructions Recorded meloxicam 7.5 mg tablet (Mobic) 7.5 mg PO [facility] 10 days #0 tabs 09/30/16 apixaban 5 mg tablet 5 mg PO BID #60 tabs 07/17/22 metoprolol succinate 50 mg 50 mg PO BID #60 tabs 07/17/22 tablet,extended release 24 hr Allergies Allergy/AdvReac Type Severity Reaction Status Date / Time milk [MILK] Allergy Unknown ACHE ALL Verified 11/24/22 19:04 OVER LIKE COMING DOWN WITH FLU X3 DAYS lisinopril [LISINOPRIL] AdvReac Unknown COUGH Verified 11/24/22 19:04 Review of Systems Constitutional Constitutional: Reports system reviewed and no additional complaints, except as documented Cardiovascular Cardiovascular: Reports system reviewed and no additional complaints, except as documented Respiratory Respiratory: Reports system reviewed and no additional complaints, except as documented Gastrointestinal Gastrointestinal: Reports system reviewed and no additional complaints, except as documented Integumentary/Breasts Skin/Breast: Reports system reviewed and no additional complaints, except as documented Neurologic Neurologic: Reports system reviewed and no additional complaints, except as documented Hematologic/Lymphatic On Anticoagulants: Yes Patient History Medical History Paroxysmal atrial fibrillation Pelvic relaxation Postmenopausal atrophic vaginitis Surgical History History of cataract surgery Family History Mother Congestive heart failure Brother CAD (coronary artery disease) of artery bypass graft Social History household members: friend(s) Smoking Status: Never smoker Smoking Status: Never smoker alcohol intake frequency: holidays/special occasions only Substance Use Type: does not use Exam Initial Vital Signs Initial Vital Signs: Vital Signs Temperature 98.8 F 11/24/22 19:05 Pulse Rate 146 H 11/24/22 19:05 Respiratory Rate 24 11/24/22 19:05 Blood Pressure 133/91 H 11/24/22 19:05 Pulse Oximetry 91 11/24/22 19:05 Oxygen Delivery Method Room Air 11/24/22 19:05 Const General: cooperative, comfortable and No ill appearing HENMT Head: normal to inspection and normocephalic Resp Effort & Inspection: normal respiratory effort Auscultation: clear to auscultation bilaterally Cardio Rate: tachycardic Rhythm: abnormal rhythm GI Inspection: normal to inspection Skin General: no rashes or lesions noted Neuro General: patient alert, patient awake, patient oriented x3 and moves all extremities Extrem General: normal to inspection and capillary refill normal Course Orders Ordered: ED Orders 11/24/22 19:12 XR chest 1V Stat EKG-12 Lead Stat 11/24/22 19:20 Respiratory Panel (Film Array) Stat 11/24/22 19:41 Lactate (Lactic Acid) Stat 11/24/22 19:42 Complete Blood Count AUTO DIFF Stat Comprehensive Metabolic Panel Stat Lipase Stat Magnesium Stat NT-proBNP (BNP-Adult 18+) Urgent PTT Partial Thromboplastin Lars Stat Procalcitonin Stat Prothrombin Time INR Stat Troponin & CK Cardiac Panel Stat 11/24/22 20:47 Blood Culture Stat 11/24/22 22:15 Education, smoking cessation ONGOING 11/24/22 22:26 Consult to Dietitian, Adult Routine Consult to Discharge Planning Routine 11/24/22 23:16 Urinalysis and Microscopic Urgent 11/25/22 05:00 Basic Metabolic Panel Routine Complete Blood Count AUTO DIFF Routine Thyroid Stimulating Hormone Routine Acetaminophen (Acetaminophen 325 Mg Tablet) 650 mg PO Q6H PRN PRN Reason: Fever/Mild Pain (1-3) Albuterol/Ipratropium (Albuterol/Ipratropium 3 Ml Ampul) 3 ml INH [id number] PRN PRN Reason: Cough Apixaban (Apixaban 5 Mg Tablet) 5 mg PO BID [facility] Last Admin: 11/25/22 00:23 Dose: 5 mg Documented By: BENJAMIN Benzonatate (Benzonatate 100 Mg Capsule) 100 mg PO TID PRN PRN Reason: Cough Last Admin: 11/25/22 00:20 Dose: 100 mg Documented By: BENJAMIN Guaifenesin/Codeine Phosphate (Codeine/Guaifenesin Liquid 5ml Udc) 5 ml PO Q6H PRN PRN Reason: Cough DILTIAZEM (Diltiazem 125 Mg/125 Ml-D5w) 125 mg in 125 mls @ 5 mls/hr IV TITRATE [facility]; Protocol Last Titration: 11/25/22 01:44 Dose: 5 mg/hr, 5 mls/hr Documented By: Titration: 11/25/22 01:06 Dose: 0 mg/hr, 0 mls/hr Documented By: Titration: 11/25/22 00:59 Dose: 5 mg/hr, 5 mls/hr Documented By: Titration: 11/25/22 00:27 Dose: 10 mg/hr, 10 mls/hr Documented By: Titration: 11/24/22 21:15 Dose: 15 mg/hr, 15 mls/hr Documented By: Titration: 11/24/22 20:45 Dose: 10 mg/hr, 10 mls/hr Documented By: Admin: 11/24/22 20:36 Dose: 5 mg/hr, 5 mls/hr Documented By: STEPHANIE Sodium Chloride (Normal Saline 0.9%) 1,000 mls @ 60 mls/hr IV CONT STACIE Stop: 11/25/22 08:00 Last Admin: 11/24/22 20:39 Dose: 125 mls/hr Documented By: STEPHANIE Losartan Potassium (Losartan 25 Mg Tablet) 25 mg PO DAILY [facility] Metoprolol Succinate (Metoprolol Er 50 Mg Tablet) 50 mg PO BID [facility] Naloxone HCl (Naloxone 0.4 Mg/Ml Vial) 0.2 mg IV Q2MIN PRN PRN Reason: Opiate Reversal Ondansetron HCl (Ondansetron 4 Mg Odt) 4 mg PO Q8HR PRN PRN Reason: Nausea And Vomiting Pantoprazole Sodium (Pantoprazole Dr 20 Mg Tablet) 20 mg PO DAILY [facility] Prednisone (Prednisone 20 Mg Tablet) 50 mg PO DAILY [facility] Stop: 11/29/22 08:59 Sennosides (Sennosides 8.6 Mg Tablet) 17.2 mg PO BEDTIME [facility] Discontinued Medications Aspirin (Aspirin 81 Mg Chew Tab) 324 mg PO NOW ONE Stop: 11/24/22 19:13 Last Admin: 11/24/22 19:46 Dose: 324 mg Documented By: MISTI Diltiazem HCl (Diltiazem 5 Mg/Ml Sdv) 10 mg IV NOW ONE Stop: 11/24/22 19:42 Last Admin: 11/24/22 19:46 Dose: 10 mg Documented By: MISTI Azithromycin 500 mg/ Dextrose 250 mls @ 250 mls/hr IV NOW ONE Stop: 11/24/22 20:07 Last Infusion: 11/24/22 22:04 Dose: 0 mls/hr Documented By: Admin: 11/24/22 20:40 Dose: 250 mls/hr Documented By: STEPHANIE Metoprolol Succinate (Metoprolol Er 50 Mg Tablet) 50 mg PO NOW ONE Stop: 11/24/22 23:57 Last Admin: 11/25/22 00:20 Dose: 50 mg Documented By: AC Vital Signs Vital signs: Vital Signs - 8 hr 11/24/22 19:05 11/24/22 19:46 11/24/22 19:18 Temperature 98.8 F Pulse Rate 146 H 145 H 153 H Respiratory Rate 24 30 H Blood Pressure 133/91 H 133/73 Pulse Oximetry 91 Oxygen Delivery Method Room Air 11/24/22 19:30 11/24/22 19:45 11/24/22 19:48 Temperature Pulse Rate 143 H 137 H 138 H Respiratory Rate 21 28 H 19 Blood Pressure Pulse Oximetry 92 91 92 Oxygen Delivery Method 11/24/22 19:48 11/24/22 20:00 11/24/22 20:00 Temperature Pulse Rate 132 H Respiratory Rate 26 H Blood Pressure 133/73 131/69 Pulse Oximetry 91 Oxygen Delivery Method Room Air 11/24/22 20:15 11/24/22 20:30 11/24/22 20:30 Temperature Pulse Rate 134 H 136 H Respiratory Rate 25 H 29 H Blood Pressure 134/75 Pulse Oximetry 91 91 Oxygen Delivery Method 11/24/22 20:45 11/24/22 21:00 11/24/22 21:00 Temperature Pulse Rate 131 H 130 H Respiratory Rate 31 H 28 H Blood Pressure 109/74 Pulse Oximetry 91 91 Oxygen Delivery Method 11/24/22 21:15 11/24/22 21:30 11/24/22 21:30 Temperature Pulse Rate 128 H 121 H Respiratory Rate 28 H 35 H Blood Pressure 130/56 L Pulse Oximetry 91 Oxygen Delivery Method 11/24/22 21:45 11/24/22 22:00 11/24/22 22:00 Temperature Pulse Rate 112 H 122 H Respiratory Rate 21 30 H Blood Pressure 129/66 Pulse Oximetry 91 Oxygen Delivery Method 11/24/22 22:18 Temperature 99.0 F Pulse Rate 120 H Respiratory Rate 25 H Blood Pressure 130/70 Pulse Oximetry 91 Oxygen Delivery Method MDM - Arrhythmia/Palpitations Medical Records Attestation: I reviewed the patient's medical records. Lab Data Attestation: I reviewed the patient's lab results. 11/24/22 19:42 11/24/22 19:42 Labs: Lab Results 11/24/22 11/24/2223 Range/Units 19:20 19:41 19:42 WBC 5.7 (4.5-11.0) X10^3/uL RBC 4.58 (4.0-5.2) X10^6/uL Hgb 14.2 (12.0-16.0) g/dL Hct 40.8 (36-46) % MCV 89.0 (80-100) fL MCH 31.0 (26-34) PG MCHC 34.8 (30-36) % RDW 13.3 (11.6-14.8) % Plt Count 196 (150-400) X10^3/uL Neut % (Auto) 64.4 (50-75) % Lymph % (Auto) 17.4 L (25-40) % [place] % (Auto) 16.2 H (3-14) % Eos % (Auto) 1.3 L (2-4) % Baso % (Auto) 0.7 (0-2) % Neut # (Auto) 3700 (9037-9700) /uL Lymph # (Auto) 1000 L (2652-0084) /uL [place] # (Auto) 900 (0-900) /uL Eos # (Auto) 100 (0-450) /uL Baso # (Auto) 0 (0-100) /uL PT (10.1-12.7) SECONDS INR (0.9-1.3) APTT (26-36) SECONDS Sodium (137-145) mmol/L Potassium (3.4-5.1) mmol/L Chloride (98-107) mmol/L Carbon Dioxide (22-32) mmol/L BUN (7-17) mg/dL Creatinine (0.52-1.04) mg/dL Estimated GFR (>60) mL/min BUN/Creatinine Ratio (6-22) Glucose (80-110) mg/dL Lactate 1.5 (0.7-2.1) mmol/L Calcium (8.4-10.2) mg/dL Magnesium (1.6-2.3) mg/dL Total Bilirubin (0.2-1.3) mg/dL AST (14-36) IU/L ALT (<35) IU/L Alkaline Phosphatase (38-126) U/L Total Creatine Kinase (30-135) U/L CK-MB (CK-2) (<2.37) ng/mL CK-MB (CK-2) Rel Index (1.5-5.0) % Troponin I (0.01-0.034) ng/mL NT-Pro-B Natriuret Pep (<450) pg/mL Total Protein (6.3-8.2) g/dL Albumin (3.5-5.0) g/dL Globulin (1.7-4.1) g/dL Albumin/Globulin Ratio (1.0-2.8) Lipase (23-300) U/L Procalcitonin (<0.5) ng/mL Chlamy pneumoniae PCR Not detected (Not Detect) Adenovirus (PCR) Not detected (Not Detect) B. pertussis DNA (PCR) Not detected (Not Detecte) B.parapertussis DNA PCR Not detected (Not Detecte) Coronavirus OC43 (PCR) Not detected (Not Detect) Coronavirus HKU1 (PCR) Not detected (Not Detect) Coronavirus 229E (PCR) Not detected (Not Detect) SARS-CoV-2 (PCR) Not detected (Not Detecte) Coronavirus NL63 (PCR) Not detected (Not Detect) Human Metapneumovir PCR Detected H (Not Detect) Influenza Type A (PCR) Not detected (Not Detect) Influenza Type B (PCR) Not detected (Not Detect) M. pneumoniae (PCR) Not detected (Not Detect) Parainfluenza 1 (PCR) Not detected (Not Detect) Parainfluenza 2 (PCR) Not detected (Not Detect) Parainfluenza 3 (PCR) Not detected (Not Detect) Parainfluenza 4 (PCR) Not detected (Not Detect) RSV (PCR) Not detected (Not Detect) Entero/Rhino (PCR) Not detected (Not Detect) 11/24/22 11/24/22 11/24/22 Range/Units 19:42 19:42 19:42 WBC (4.5-11.0) X10^3/uL RBC (4.0-5.2) X10^6/uL Hgb (12.0-16.0) g/dL Hct (36-46) % MCV (80-100) fL MCH (26-34) PG MCHC (30-36) % RDW (11.6-14.8) % Plt Count (150-400) X10^3/uL Neut % (Auto) (50-75) % Lymph % (Auto) (25-40) % [place] % (Auto) (3-14) % Eos % (Auto) (2-4) % Baso % (Auto) (0-2) % Neut # (Auto) (2580-7427) /uL Lymph # (Auto) (0123-5775) /uL [place] # (Auto) (0-900) /uL Eos # (Auto) (0-450) /uL Baso # (Auto) (0-100) /uL PT 17.0 H (10.1-12.7) SECONDS INR 1.5 H (0.9-1.3) APTT 32 (26-36) SECONDS Sodium 131 L (137-145) mmol/L Potassium 3.8 (3.4-5.1) mmol/L Chloride 99 (98-107) mmol/L Carbon Dioxide 25 (22-32) mmol/L BUN 11 (7-17) mg/dL Creatinine 0.81 (0.52-1.04) mg/dL Estimated GFR > 60 (>60) mL/min BUN/Creatinine Ratio 13.6 (6-22) Glucose 127 H (80-110) mg/dL Lactate (0.7-2.1) mmol/L Calcium 8.4 (8.4-10.2) mg/dL Magnesium 1.8 (1.6-2.3) mg/dL Total Bilirubin 1.0 (0.2-1.3) mg/dL AST 23 (14-36) IU/L ALT 20 (<35) IU/L Alkaline Phosphatase 59 (38-126) U/L Total Creatine Kinase 127 (30-135) U/L CK-MB (CK-2) 1.11 (<2.37) ng/mL CK-MB (CK-2) Rel Index 0.9 L (1.5-5.0) % Troponin I < 0.012 (0.01-0.034) ng/mL NT-Pro-B Natriuret Pep (<450) pg/mL Total Protein 7.0 (6.3-8.2) g/dL Albumin 4.0 (3.5-5.0) g/dL Globulin 3.0 (1.7-4.1) g/dL Albumin/Globulin Ratio 1.3 (1.0-2.8) Lipase 137 (23-300) U/L Procalcitonin 0.05 (<0.5) ng/mL Chlamy pneumoniae PCR (Not Detect) Adenovirus (PCR) (Not Detect) B. pertussis DNA (PCR) (Not Detecte) B.parapertussis DNA PCR (Not Detecte) Coronavirus OC43 (PCR) (Not Detect) Coronavirus HKU1 (PCR) (Not Detect) Coronavirus 229E (PCR) (Not Detect) SARS-CoV-2 (PCR) (Not Detecte) Coronavirus NL63 (PCR) (Not Detect) Human Metapneumovir PCR (Not Detect) Influenza Type A (PCR) (Not Detect) Influenza Type B (PCR) (Not Detect) M. pneumoniae (PCR) (Not Detect) Parainfluenza 1 (PCR) (Not Detect) Parainfluenza 2 (PCR) (Not Detect) Parainfluenza 3 (PCR) (Not Detect) Parainfluenza 4 (PCR) (Not Detect) RSV (PCR) (Not Detect) Entero/Rhino (PCR) (Not Detect) 11/24/22 Range/Units 19:42 WBC (4.5-11.0) X10^3/uL RBC (4.0-5.2) X10^6/uL Hgb (12.0-16.0) g/dL Hct (36-46) % MCV (80-100) fL MCH (26-34) PG MCHC (30-36) % RDW (11.6-14.8) % Plt Count (150-400) X10^3/uL Neut % (Auto) (50-75) % Lymph % (Auto) (25-40) % [place] % (Auto) (3-14) % Eos % (Auto) (2-4) % Baso % (Auto) (0-2) % Neut # (Auto) (6093-8056) /uL Lymph # (Auto) (7545-9188) /uL [place] # (Auto) (0-900) /uL Eos # (Auto) (0-450) /uL Baso # (Auto) (0-100) /uL PT (10.1-12.7) SECONDS INR (0.9-1.3) APTT (26-36) SECONDS Sodium (137-145) mmol/L Potassium (3.4-5.1) mmol/L Chloride (98-107) mmol/L Carbon Dioxide (22-32) mmol/L BUN (7-17) mg/dL Creatinine (0.52-1.04) mg/dL Estimated GFR (>60) mL/min BUN/Creatinine Ratio (6-22) Glucose (80-110) mg/dL Lactate (0.7-2.1) mmol/L Calcium (8.4-10.2) mg/dL Magnesium (1.6-2.3) mg/dL Total Bilirubin (0.2-1.3) mg/dL AST (14-36) IU/L ALT (<35) IU/L Alkaline Phosphatase (38-126) U/L Total Creatine Kinase (30-135) U/L CK-MB (CK-2) (<2.37) ng/mL CK-MB (CK-2) Rel Index (1.5-5.0) % Troponin I (0.01-0.034) ng/mL NT-Pro-B Natriuret Pep 3560 H (<450) pg/mL Total Protein (6.3-8.2) g/dL Albumin (3.5-5.0) g/dL Globulin (1.7-4.1) g/dL Albumin/Globulin Ratio (1.0-2.8) Lipase (23-300) U/L Procalcitonin (<0.5) ng/mL Chlamy pneumoniae PCR (Not Detect) Adenovirus (PCR) (Not Detect) B. pertussis DNA (PCR) (Not Detecte) B.parapertussis DNA PCR (Not Detecte) Coronavirus OC43 (PCR) (Not Detect) Coronavirus HKU1 (PCR) (Not Detect) Coronavirus 229E (PCR) (Not Detect) SARS-CoV-2 (PCR) (Not Detecte) Coronavirus NL63 (PCR) (Not Detect) Human Metapneumovir PCR (Not Detect) Influenza Type A (PCR) (Not Detect) Influenza Type B (PCR) (Not Detect) M. pneumoniae (PCR) (Not Detect) Parainfluenza 1 (PCR) (Not Detect) Parainfluenza 2 (PCR) (Not Detect) Parainfluenza 3 (PCR) (Not Detect) Parainfluenza 4 (PCR) (Not Detect) RSV (PCR) (Not Detect) Entero/Rhino (PCR) (Not Detect) Imaging Data Chest x-ray: Radiologist's Impresson: PROCEDURE:? XR CHEST 1V ? INDICATIONS:? chest pain ? TECHNIQUE:? One view of the chest was acquired.? ? COMPARISON:? [facility], , XR CHEST 1V, 07/16/2022, 23:21. ? FINDINGS:? ? Surgical changes and devices:? None.? ? Lungs and pleura:? Infiltrate in the left lower lung zone.? Bilateral interstitial prominence.? No pleural effusions or pneumothorax.? ? Mediastinum:? Mediastinal contours appear normal.? Heart size is normal.? ? Bones and chest wall:? No suspicious bony lesions.? Overlying soft tissues appear unremarkable.? ? IMPRESSION:? Infiltrate in the left lower lung zone suspicious for pneumonia. ECG Data Attestation: I personally reviewed and interpreted this ECG as follows: Interpretation: Atrial fibrillation Ventricular rate 141 Normal axis Normal QRS Nonspecific ST T wave changes MDM Narrative Medical decision making narrative: Patient not hypoxic. The ER but is tachycardic and in atrial fibrillation. She is on anti coagulation so I did discuss with her that she is a candidate for rhythm control/cardioversion. We discussed the risks and benefits of this however the patient states she does not want cardioverted. She states she was concerned about ?jumping off the bed? when the cardioversion occurred. She was informed that she would be sedated during the received your however after this discussion she still stated that she does not want to be cardioverted. She understands that we do need to rate control her this could potentially mean admission to the hospital versus discharge home. She was again expressed understanding of this. Patient was started on a Cardizem drip. Her heart rate did improve somewhat. Patient's chest x-ray is also concerning for pneumonia. She was given azithromycin. This very well could be why she is in atrial fibrillation. Blood cultures were obtained. Her respiratory panel was positive for human metapneumovirus. This could be the cause of her pneumonia but given the issues that she is having namely the atrial fibrillation in the admission to the hospital we will continue with the antibiotics. I did discuss the case with the GENERATION TECHNICIAN Romeo the night hospitalist. Will admit for further evaluation treatment. The patient expressed understanding and agreement with this plan. Discharge Plan Departure Patient Disposition: Admitted As Inpatient Clinical Impression: Atrial fibrillation, Pneumonia, Infection due to human metapneumovirus (hMPV) Admit Date/Time: 11/24/22 22:23 Admit Provider: Leora Walters
[2022-11-24] MEDS: dilTIAZem 5 MG/ML SDV 10 MG IV (19:46)
[2022-11-24] MEDS: ASPIRIN 81 MG CHEW TAB 324 MG PO (19:46)
[2022-11-24 19:49] LABS: Add Manual Diff / Slide Review NO; Basophils Absolute Auto 0 /uL (0-100); Basophils Percent Auto 0.7 % (0-2); Eosinophils Absolute Auto 100 /uL (0-450); Eosinophils Percent Auto 1.3 % (2-4); Hematocrit 40.8 % (36-46); Hemoglobin 14.2 g/dL (12.0-16.0); Lymphocytes Absolute Auto 1000 /uL (1100-4500); Lymphocytes Percent Auto 17.4 % (25-40); Mean Corpuscular HGB Conc 34.8 % (30-36); Monocytes Absolute Auto 900 /uL (0-900); Monocytes Percent Auto 16.2 % (3-14); Neutrophils Absolute Auto 3700 /uL (1500-7000); Neutrophils Percent Auto 64.4 % (50-75); Platelet Count 196 X10^3/uL (150-400); Red Blood Cell Count 4.58 X10^6/uL (4.0-5.2); Red Cell Distribution Width 13.3 % (11.6-14.8); White Blood Cell Count 5.7 X10^3/uL (4.5-11.0)
[2022-11-24 19:58] LABS: INR 1.5 (0.9-1.3)
[2022-11-24 20:01] LABS: PTT Partial Thromboplastin Tim 32 SECONDS (26-36)
[2022-11-24 20:03] LABS: Alanine Aminotransferase 20 IU/L (<35); Albumin Globulin Ratio 1.3 (1.0-2.8); Alkaline Phosphatase 59 U/L (38-126); Aspartate Aminotransferase 23 IU/L (14-36); BUN Creatinine Ratio 13.6 (6-22); Blood Urea Nitrogen 11 mg/dL (7-17); Calcium 8.4 mg/dL (8.4-10.2); Carbon Dioxide 25 mmol/L (22-32); Chloride 99 mmol/L (98-107); Creatine Kinase 127 U/L (30-135); Estimated Glomerular Filt Rate > 60 mL/min (>60); Glucose 127 mg/dL (80-110); HEMOLYSIS < 15 (0-50); Lipase 137 U/L (23-300); Magnesium 1.8 mg/dL (1.6-2.3); Potassium 3.8 mmol/L (3.4-5.1); Sodium 131 mmol/L (137-145)
[2022-11-24 20:14] LABS: Troponin I < 0.012 ng/mL (0.01-0.034)
[2022-11-24 20:18] LABS: CKMB % Relative Index 0.9 % (1.5-5.0); Creatine Kinase MB 1.11 ng/mL (<2.37)
[2022-11-24 20:26] LABS: Adenovirus Not Detected (Not Detect); B. parapertussis Not Detected (Not Detecte); Bordetella pertussis Not Detected (Not Detecte); Chlamydophila pneumoniae Not Detected (Not Detect); Coronavirus 229E Not Detected (Not Detect); Coronavirus HKU1 Not Detected (Not Detect); Coronavirus NL 63 Not Detected (Not Detect); Coronavirus OC43 Not Detected (Not Detect); Human Metapneumovirus Detected (Not Detect); Human Rhinovirus/Enterovirus Not Detected (Not Detect); Influenza A Not Detected (Not Detect); Influenza B Not Detected (Not Detect); Mycoplasma pneumoniae Not Detected (Not Detect); Parainfluenza Virus 1 Not Detected (Not Detect); Parainfluenza Virus 2 Not Detected (Not Detect); Parainfluenza Virus 3 Not Detected (Not Detect); Parainfluenza Virus 4 Not Detected (Not Detect); Respiratory Syncytial Virus Not Detected (Not Detect); SARS- CoV-2 Not Detected (Not Detecte)
[2022-11-24 20:30] LABS: Lactate (Lactic Acid) 1.5 mmol/L (0.7-2.1)
[2022-11-24] MEDS: DILTIAZEM 125 MG/125 ML PIGGYBACK IV (20:36)
[2022-11-24] MEDS: SODIUM CHLORIDE 0.9% 1,000 ML 125 ML IV (20:39)
[2022-11-24] MEDS: AZITHROMYCIN 500 MG in DEXTROSE 5% IN WATER 250 ML 250 MG IV (20:40)
[2022-11-24 20:48] LABS: Procalcitonin 0.05 ng/mL (<0.5)
--- NOTE | 2022-11-24 22:28 | DI.ECHO.S_ITS ---
[facility] +---------+ [facility] +---------+ : : [address] [place] [address] : : : : [id number] : : : : Phone: [phone] Echocardiogram Report + + :Name: MEGHNA ROSALES Study Date: 11/25/2022 Height: 59 in : :[facility] ReadingLocation: Weight: 175 lb : : Gender: Female BSA: 1.7 m2 : :: 1945 Age: 77 yrs BP: 138/77 mmHg: :Reason For Study: ATRIAL FIBRILLATION : :Ordering Physician: ZHANNA, : :RASTA Performed By: Gwendolyn Fuentes : :Referring: RASTA CHAO : + + Interpretation Summary The patient was in sinus bradycardia with heart rates between 49-61 bpm during the exam. The patient had frequent PACs during the exam. The patient had occasional PVCs during the exam. The left ventricle is normal in size and wall thickness. The ejection fraction is estimated to be 50-55%. There appears to be hypokinesis of mid to distal inferior lateral wall. During PVCs, LV dyssynchrony seen. The right ventricle is normal in size and function. There is mild to moderate mitral regurgitation. There is moderate tricuspid regurgitation. Right ventricular systolic pressure is estimated to be 25 mmHg plus the clinically estimated CVP which cannot be estimated on this exam. Mild atherosclerotic plaque(s) in the aortic arch. Procedure: A two-dimensional transthoracic echocardiogram with color flow and Doppler was performed. The study quality was technically adequate. There is no prior echocardiogram noted for this patient. The patient was in sinus bradycardia with heart rates between 49-61 bpm during the exam. The patient had frequent PACs during the exam. The patient had occasional PVCs during the exam. Left Ventricle: The left ventricle is normal in size and wall thickness. There is no thrombus. The ejection fraction is estimated to be 50-55%. There appears to be hypokinesis of mid to distal inferior lateral wall. During PVCs, LV dyssynchrony seen. Diastolic parameters suggest probable normal left ventricular diastolic function and normal filling pressures. Right Ventricle: The right ventricle is normal in size and function. Atria: The left atrium is moderately dilated. The right atrium is mild to moderately dilated. There is no Doppler evidence for an interatrial shunt. Mitral Valve: There is mild mitral annular calcification. There is mild to moderate mitral regurgitation. Aortic Valve: The aortic valve is trileaflet. The aortic valve opens well. There is no aortic valve stenosis. No aortic regurgitation is present. Tricuspid Valve: The tricuspid valve is not well visualized, but is grossly normal. There is moderate tricuspid regurgitation. Right ventricular systolic pressure is estimated to be 25 mmHg plus the clinically estimated CVP which cannot be estimated on this exam. Pulmonic Valve: The pulmonic valve is not well seen, but is grossly normal. There is trace pulmonic regurgitation. Great Vessels: The aortic root is normal size. The dimensions of the ascending aorta are normal. Mild atherosclerotic plaque(s) in the aortic arch. The inferior vena cava was not well visualized. Pericardium/ Pleura There is no pericardial effusion. There is an anterior echo-free space consistent with a fat pad. There is no pleural effusion. MMode/2D Measurements & Calculations LVIDd: 4.3 cm LVOT diam: 1.9 cm LVIDs: 2.9 cm Ao root diam: 2.7 cm FS: 33.5 % asc Aorta Diam: 2.8 cm EPSS: 0.50 cm IVSd: 0.65 cm LVPWd: 0.71 cm LV brown. diameter/BSA (cm/m^2): 2.5 LV sys. diameter/BSA (cm/m^2): 1.7 LA A2 area: 23.8 cm2 RA long axis: 5.4 cm LA A4 area: 23.5 cm2 RA area: 19.7 cm2 LA length (vol): 6.3 cm RA vol: 60.7 ml LA vol: 75.5 ml RA : 34.8 ml/m2 LA vol index: 43.3 ml/m2 RVD1 (basal): 3.3 cm RVD2 (mid): 2.3 cm TAPSE: 2.0 cm Doppler Measurements & Calculations Ao V2 max: 115.3 cm/sec LVOT Max Christopher: 84.9 cm/sec Ao V2 mean: 79.2 cm/sec LV V1 max P.9 mmHg Ao max P.3 mmHg LV V1 VTI: 19.8 cm Ao mean P.9 mmHg LA(I,D): 2.1 cm2 Ao V2 VTI: 27.7 cm LA(V,D): 2.2 cm2 sev ratio: 0.71 LA indexed to BSA (cm^2/m^2): 1.2 MV E max christopher: 82.8 cm/sec TR max christopher: 248.5 cm/sec MV A max christopher: 39.5 cm/sec TR max P.7 mmHg MV E/A: 2.1 PA V2 max: 66.9 cm/sec Med Peak E' Christopher: 11.3 cm/sec PA V2 mean: 49.6 cm/sec E/E' med: 7.3 PA mean P.1 mmHg Lat Peak E' Christopher: 7.6 cm/sec PA pr(Accel): 10.5 mmHg E/E' lat: 10.9 E/e' average: 9.1 MV dec time: 0.21 sec SV(LVOT): 58.6 ml Reading Physician:12:05 PM
--- NOTE | 2022-11-24 22:34 | P.HP_ITS ---
History of Present Illness History of Present Illness Date Patient Seen: 11/24/22 Time Patient Seen: 21:45 Chief complaint: oxygen level dropped to 80/pulse 134 Narrative: Irma Agudelo is a 77-year-old female with a history of proximal atrial fibrillation on Eliquis, has had repeated hospitalizations for AFib with RVR last 1 being 07/26/2022, presented to the ED with 1 week of cough shortness of breath feeling poorly and episodes of rapid heart rate patient reported being hypoxic at home, was not found to be hypoxic in the ED but was found to have [place] b with RVR HR 130-140. Patient refused cardioversion in the ED as she was concerned for her safety as she would jump off the bed. Patient was given 10 mg bolus of diltiazem with some minor improvement and then was placed on diltiazem drip. Patient's laboratory findings were unremarkable, lactate and procalcitonin were negative, chest x-ray demonstrated left lower lobe focal infiltrate possible pneumonia, respiratory panel was positive for human metapneumovirus, she was also mildly hyponatremic sodium of 131, troponins were negative. On admit patient denies chest pain, headache, changes in vision, difficulty swallowing, speech impairment,numbness, tingling, difficulty with ambulation, recent falls, head injury, LOC, fever, body aches, chills, recent exposure to illness, abdominal pain, nausea, vomiting, urinary incontinence/retention, dysuria, frequency, urgency, hematuria, bowel changes, constipation, incontinence, melena, rashes, recent changes to medication, illness, injury, or trauma. Patient admitted for proximal atrial fibrillation with RVR, human metapneumovirus, and mild hyponatremia. [facility] Medical History Paroxysmal atrial fibrillation Pelvic relaxation Postmenopausal atrophic vaginitis Surgical History History of cataract surgery Family History Mother Congestive heart failure Brother CAD (coronary artery disease) of artery bypass graft Social History household members: friend(s) Smoking Status: Never smoker Meds Home Medications and Allergies Home Medications Medication Instructions Recorded Confirmed Type meloxicam 7.5 mg tablet (Mobic) 7.5 mg PO AMCC 10 days #0 tabs 09/30/16 05/18/19 Rx Zicam intranasal 05/18/19 History calcium carbonate 500 mg calcium 500 mg PO DAILY 05/18/19 05/18/19 History (1,250 mg) tablet (Calcium 500) cholecalciferol (vitamin D3) 125 5,000 unit PO DAILY 05/18/19 05/18/19 History mcg (5,000 unit) capsule estradiol 0.01% (0.1 mg/gram) 1 gram vaginal DAILY PRN 05/18/19 05/18/19 History vaginal cream irbesartan 75 mg tablet 75 mg PO DAILY 05/18/19 05/18/19 History mecobalamin (vitamin B12) 5,000 mcg PO 05/18/19 05/18/19 History mcg disintegrating tablet omeprazole 20 mg capsule,delayed 20 mg PO DAILY 05/18/19 05/18/19 History release tumeric root PO 05/18/19 History apixaban 5 mg tablet 5 mg PO BID #60 tabs 07/17/22 Rx metoprolol succinate 50 mg 50 mg PO BID #60 tabs 07/17/22 Rx tablet,extended release 24 hr Allergies Allergy/AdvReac Type Severity Reaction Status Date / Time milk [MILK] Allergy Unknown ACHE ALL Verified 11/24/22 19:04 OVER LIKE COMING DOWN WITH FLU X3 DAYS lisinopril [LISINOPRIL] AdvReac Unknown COUGH Verified 11/24/22 19:04 Review of Systems Review of Systems Narrative: All 12 point systems reviewed with the patient and are negative except otherwise documented. Exam Vital Signs (past 8 hours): - 11/24/22 19:05 11/24/22 19:46 11/24/22 19:18 Temperature 98.8 F Pulse Rate 146 H 145 H 153 H Respiratory Rate 24 30 H Blood Pressure 133/91 H 133/73 Pulse Oximetry 91 Oxygen Delivery Method Room Air 11/24/22 19:30 11/24/22 19:45 11/24/22 19:48 Temperature Pulse Rate 143 H 137 H 138 H Respiratory Rate 21 28 H 19 Blood Pressure Pulse Oximetry 92 91 92 Oxygen Delivery Method 11/24/22 19:48 11/24/22 20:00 11/24/22 20:00 Temperature Pulse Rate 132 H Respiratory Rate 26 H Blood Pressure 133/73 131/69 Pulse Oximetry 91 Oxygen Delivery Method Room Air 11/24/22 20:15 11/24/22 20:30 11/24/22 20:30 Temperature Pulse Rate 134 H 136 H Respiratory Rate 25 H 29 H Blood Pressure 134/75 Pulse Oximetry 91 91 Oxygen Delivery Method 11/24/22 20:45 11/24/22 21:00 11/24/22 21:00 Temperature Pulse Rate 131 H 130 H Respiratory Rate 31 H 28 H Blood Pressure 109/74 Pulse Oximetry 91 91 Oxygen Delivery Method 11/24/22 21:15 11/24/22 21:30 11/24/22 21:30 Temperature Pulse Rate 128 H 121 H Respiratory Rate 28 H 35 H Blood Pressure 130/56 L Pulse Oximetry 91 Oxygen Delivery Method 11/24/22 21:45 11/24/22 22:00 11/24/22 22:00 Temperature Pulse Rate 112 H 122 H Respiratory Rate 21 30 H Blood Pressure 129/66 Pulse Oximetry 91 Oxygen Delivery Method Oxygen Delivery Method Room Air Narrative Exam Narrative: General: Patient is a well-developed, well-nourished in no distress at this time. HEENT: Normocephalic, atraumatic, extraocular muscles intact, oral pharynx is clear and mucous membranes are moist. Neck is supple and symmetric, trachea is midline, no adenopathy, no thyroid enlargement, nontender, no masses palpated. Negative for JVD Chest: Normal AP diameter and contour without kyphoscoliosis, no nasal flaring, retractions, or tachypneic labored Lungs: Auscultation of all lung palm are clear without adventitious sounds, wheezes, rhonchi, or rales. Cardio: Irregular rate (afib) and rhythm without murmur, rubs, or gallops, no carotid bruit, no cardiac pulsations present. Abdomen: Soft nontender, negative for organomegaly, or masses. Bowel sounds a re present in all 4 quadrants without guarding or rebound, no CVA tenderness. Musculoskeletal: Muscle strength and tone are equal within normal limits, no deformity, crepitus, effusions, cyanosis, clubbing or edema present. Full range of motion intact radial and pedal pulses are normal. Skin: Warm dry and intact without rashes, ulcerations or petechiae. Neuro: Alert and orientated x3, moves all extremities, sensation to touch intact, no gross deficits noted of cranial nerves. Psych: Patient has a well-kept appearance, very anxious, mental status attitude thought context and judgment are some what appropriate for age. Objective Labs 11/24/22 19:42 11/24/22 19:42 Labs: Laboratory Results - last 24 hr 11/24/22 11/24/22 11/24/22 19:20 19:41 19:42 WBC 5.7 RBC 4.58 Hgb 14.2 Hct 40.8 MCV 89.0 MCH 31.0 MCHC 34.8 RDW 13.3 Plt Count 196 Neut % (Auto) 64.4 Lymph % (Auto) 17.4 L [place] % (Auto) 16.2 H Eos % (Auto) 1.3 L Baso % (Auto) 0.7 Neut # (Auto) 3700 Lymph # (Auto) 1000 L [place] # (Auto) 900 Eos # (Auto) 100 Baso # (Auto) 0 PT INR APTT Sodium Potassium Chloride Carbon Dioxide BUN Creatinine Estimated GFR BUN/Creatinine Ratio Glucose Lactate 1.5 Calcium Magnesium Total Bilirubin AST ALT Alkaline Phosphatase Total Creatine Kinase CK-MB (CK-2) CK-MB (CK-2) Rel Index Troponin I Total Protein Albumin Globulin Albumin/Globulin Ratio Lipase Procalcitonin Chlamy pneumoniae PCR Not detected Adenovirus (PCR) Not detected B. pertussis DNA (PCR) Not detected B.parapertussis DNA PCR Not detected Coronavirus OC43 (PCR) Not detected Coronavirus HKU1 (PCR) Not detected Coronavirus 229E (PCR) Not detected SARS-CoV-2 (PCR) Not detected Coronavirus NL63 (PCR) Not detected Human Metapneumovir PCR Detected H Influenza Type A (PCR) Not detected Influenza Type B (PCR) Not detected M. pneumoniae (PCR) Not detected Parainfluenza 1 (PCR) Not detected Parainfluenza 2 (PCR) Not detected Parainfluenza 3 (PCR) Not detected Parainfluenza 4 (PCR) Not detected RSV (PCR) Not detected Entero/Rhino (PCR) Not detected 11/24/22 11/24/22 11/24/22 19:42 19:42 19:42 WBC RBC Hgb Hct MCV MCH MCHC RDW Plt Count Neut % (Auto) Lymph % (Auto) [place] % (Auto) Eos % (Auto) Baso % (Auto) Neut # (Auto) Lymph # (Auto) [place] # (Auto) Eos # (Auto) Baso # (Auto) PT 17.0 H INR 1.5 H APTT 32 Sodium 131 L Potassium 3.8 Chloride 99 Carbon Dioxide 25 BUN 11 Creatinine 0.81 Estimated GFR > 60 BUN/Creatinine Ratio 13.6 Glucose 127 H Lactate Calcium 8.4 Magnesium 1.8 Total Bilirubin 1.0 AST 23 ALT 20 Alkaline Phosphatase 59 Total Creatine Kinase 127 CK-MB (CK-2) 1.11 CK-MB (CK-2) Rel Index 0.9 L Troponin I < 0.012 Total Protein 7.0 Albumin 4.0 Globulin 3.0 Albumin/Globulin Ratio 1.3 Lipase 137 Procalcitonin 0.05 Chlamy pneumoniae PCR Adenovirus (PCR) B. pertussis DNA (PCR) B.parapertussis DNA PCR Coronavirus OC43 (PCR) Coronavirus HKU1 (PCR) Coronavirus 229E (PCR) SARS-CoV-2 (PCR) Coronavirus NL63 (PCR) Human Metapneumovir PCR Influenza Type A (PCR) Influenza Type B (PCR) M. pneumoniae (PCR) Parainfluenza 1 (PCR) Parainfluenza 2 (PCR) Parainfluenza 3 (PCR) Parainfluenza 4 (PCR) RSV (PCR) Entero/Rhino (PCR) Assessment & Plan Assessment & Plan narrative: 1. Atrial fibrillation with RVR, paroxysmal, acute on chronic, present on admission -last admit for AFib with RVR 07/07/2022 -suspect possible medication noncompliance, dehydration & virus resulting in atrial fibrillation irritability. -rate improved with dilt gtt, have started oral metoprolol and plan to wean off diltiazem -once on oral medications can go home -ordered ECHO for further evaluation-as echo was not performed on last admit -tele monitoring -PT 17, INR 1.5, PTT 32 2. Hyponatremia, mild, acute, present on admission -sodium 131-1 L bolus provided, followed by 100 cc/hr initial -gentle rehydration NS at 60 cc/HR -likely secondary to dehydration 3. Human metapneumovirus, acute, present on admission -supportive care-Tessalon Perles, guaifenesin with codeine -respiratory consult PRN -DuoNeb q.4 hours while awake as needed -prednisone 50 mg q.day times 3 days -incentive spirometry 4. Hypertension, essential, chronic, present on admission -continue irbesartan 5. Obesity, moderate, acute on chronic, present on admission -BMI 35.4 -dietary consult ordered regarding nutritional education and information for dietary, lifestyle, exercise, and weight changes. -the patient is at much higher risk for medical and surgical complications due to obesity as it relates to chronic illnesses:, and acute illness. The patient's obesity increases the difficulty and complexity of medical and/or surgical interventions, management and increases the chances of poor outcome such as morbidity and mortality as well as impaired wound healing. 6. GERD, chronic, present on admission -continue omeprazole CODE: FUll Proxy: Loc Agudelo, family CARLITAID PCR: Negative DVT/VTE prophylaxis: Patient on Eliquis, SCDs only Disposition: Patient admitted to ICU for observation expected length of stay less than 2 midnights. I have utilized all available immediate resources to obtain, update, or review the patient's current medications. I confirmed that the patient's advanced care plan is present, Code status is documented and/or surrogate decision maker is listed in the patient's medical record. I have personally reviewed patient's chart notes from PCP, specialists, diagnostic imaging, and laboratory results.
[2022-11-24 22:54] LABS: NT-proBNP (BNP-Adult 18+) 3560 pg/mL (<450)
[2022-11-24 23:38] LABS: Appearance Urine UA CLEAR; Bilirubin Urine UA NEGATIVE (NEGATIVE); Color Urine UA YELLOW; Glucose Urine UA NEGATIVE (Negative); Ketones Urine UA NEGATIVE (NEGATIVE); Leukocyte Esterase Urine UA NEGATIVE (NEGATIVE); Nitrite Urine UA NEGATIVE (Negative); Occult Blood Urine UA TRACE-INTACT (Negative); Protein Urine UA TRACE (Negative); Urobilinogen Urine UA 0.2 E.U./dL (0.2)
[2022-11-24 23:47] LABS: Bacteria Urine None Seen; Culture Indicated Urine Cult Not Indicated; Mucus Urine 2+ (Negative); RBC Urine 0-1/HPF (0-5/HPF); Squamous Epithelial Cell Urine 1-5 /HPF (0-5/HPF); WBC Urine None Seen (0-5/HPF)
[2022-11-25] VITALS (76 sets, daily range): BP systolic 117–171; BP diastolic 64–91; PULSE 48–134; RESP 14–46; TEMP 36.6–37.3; O2SAT 87–95
[2022-11-25] MEDS: METOPROLOL ER 50 MG TABLET PO (00:20)
[2022-11-25] MEDS: BENZONATATE 100 MG CAPSULE PO ×2 (00:20→21:26)
[2022-11-25] MEDS: APIXABAN 5 MG TABLET PO ×3 (00:23→21:26)
[2022-11-25 00:57] LABS: MRSA (Nasal) PCR Not Detected (Not Detect)
[2022-11-25 05:26] LABS: BUN Creatinine Ratio 13.3 (6-22); Blood Urea Nitrogen 8 mg/dL (7-17); C-Reactive Protein Quant 5.1 mg/dL (<1.0); Calcium 7.8 mg/dL (8.4-10.2); Carbon Dioxide 24 mmol/L (22-32); Chloride 103 mmol/L (98-107); Estimated Glomerular Filt Rate > 60 mL/min (>60); Glucose 115 mg/dL (80-110); HEMOLYSIS < 15 (0-50); Potassium 3.2 mmol/L (3.4-5.1); Sodium 134 mmol/L (137-145)
[2022-11-25 05:27] LABS: Add Manual Diff / Slide Review NO; Basophils Absolute Auto 0 /uL (0-100); Basophils Percent Auto 0.6 % (0-2); Eosinophils Absolute Auto 200 /uL (0-450); Eosinophils Percent Auto 3.3 % (2-4); Hematocrit 38.7 % (36-46); Hemoglobin 13.2 g/dL (12.0-16.0); Lymphocytes Absolute Auto 1200 /uL (1100-4500); Lymphocytes Percent Auto 20.2 % (25-40); Mean Corpuscular HGB Conc 34.1 % (30-36); Mean Corpuscular Hemoglobin 30.7 PG (26-34); Mean Corpuscular Volume 89.8 fL (80-100); Monocytes Absolute Auto 900 /uL (0-900); Monocytes Percent Auto 16.1 % (3-14); Neutrophils Absolute Auto 3400 /uL (1500-7000); Neutrophils Percent Auto 59.8 % (50-75); Platelet Count 174 X10^3/uL (150-400); Red Blood Cell Count 4.31 X10^6/uL (4.0-5.2); Red Cell Distribution Width 13.3 % (11.6-14.8); White Blood Cell Count 5.7 X10^3/uL (4.5-11.0)
[2022-11-25 05:28] LABS: Lactate (Lactic Acid) 0.8 mmol/L (0.7-2.1)
[2022-11-25 05:35] LABS: Troponin I < 0.012 ng/mL (0.01-0.034)
[2022-11-25 05:40] LABS: Procalcitonin 0.05 ng/mL (<0.5)
[2022-11-25] MEDS: DILTIAZEM 125 MG/125 ML PIGGYBACK 12.5 MG IV (05:40)
[2022-11-25 06:00] LABS: Thyroid Stimulating Hormone 2.07 uIU/mL (0.47-4.68)
[2022-11-25] MEDS: POTASSIUM CHLORIDE 20 MEQ TAB 40 MEQ PO (07:47)
[2022-11-25] MEDS: PANTOPRAZOLE DR 20 MG TABLET PO (08:29)
[2022-11-25] MEDS: LOSARTAN 25 MG TABLET PO (08:29)
[2022-11-25] MEDS: METOPROLOL IR 25 MG TABLET PO ×3 (08:29→21:28)
[2022-11-25] MEDS: predniSONE 20 MG TABLET 50 MG PO (08:29)
[2022-11-25] MEDS: CODEINE/GUAIFENESIN LIQUID 5ML UDC 5 ML PO (11:37)
--- NOTE | 2022-11-25 11:39 | CM.DANOTE ---
Initial Discharge Assessment Note: Case reviewed, met with patient. Introduced self and role. Payer: [facility] and Self Pay PCP: Alda Cross 77 yo female with hx Afib with RVR (on Eliquis) admitted with human metapneumovirus and mild hyponatremia. Patient feeling weak, fatigued. Patient lives in a rented portion of her friend's house in [place]. She is independent at baseline and drives. She works 80 hours a week for [employer]. Plan: When medically cleared, discharge home to previous living arrangement. Friend to transport. Discharge Planning/Care Management CM Discharge Assessment Start: 11/25/22 11:38 Freq: Status: Active Protocol: Document 11/25/22 11:38 (Rec: 11/25/22 11:39 [id number]) Discharge Planning Assessment Assigned Concreter Qi Soto RN/DCP Advance Directives? Yes Advance Directives on File No History Provided By Patient Prior Living Arrangements Other Comment renting room in [place] [facility]hold Members friend(s) Comment Lives alone in her unit Type of transporation used prior to Drives own vehicle admit Independent with ADL's Yes Is patient alert and oriented? Yes Caregiver for Another No Discharge Plan Home Transportation Arrangement POV Referrals Initiated None needed Additional Comment At this time. Review Status In Process Next Review Type Continued Stay Review
[2022-11-25 11:44] LABS: Troponin I < 0.012 ng/mL (0.01-0.034)
[2022-11-25] MEDS: ALBUTEROL/IPRATROPIUM 3 ML AMPUL INH ×2 (12:03→20:32)
--- NOTE | 2022-11-25 16:23 | P.PN_ITS ---
Exam Vital Signs (past 8 hours): - 11/25/22 08:29 11/25/22 08:30 11/25/22 08:45 Temperature Pulse Rate 98 H 119 H 121 H Respiratory Rate 27 H 29 H Blood Pressure 154/74 H Pulse Oximetry 93 93 Oxygen Delivery Method Oxygen Flow Rate 11/25/22 09:00 11/25/22 09:00 11/25/22 10:00 Temperature Pulse Rate 117 H 60 Respiratory Rate 26 H 22 Blood Pressure 151/87 H 138/77 Pulse Oximetry 93 92 Oxygen Delivery Method Oxygen Flow Rate 1 11/25/22 12:03 11/25/22 09:15 11/25/22 09:30 Temperature Pulse Rate 66 112 H 96 H Respiratory Rate 14 35 H 33 H Blood Pressure Pulse Oximetry 92 93 93 Oxygen Delivery Method Nasal Cannula Oxygen Flow Rate 2 11/25/22 09:45 11/25/22 10:00 11/25/22 10:00 Temperature Pulse Rate 87 83 Respiratory Rate 36 H 27 H Blood Pressure 138/77 Pulse Oximetry 93 93 Oxygen Delivery Method Oxygen Flow Rate 11/25/22 10:15 11/25/22 10:30 11/25/22 10:45 Temperature Pulse Rate 69 48 L 51 L Respiratory Rate 21 21 35 H Blood Pressure Pulse Oximetry 93 92 92 Oxygen Delivery Method Oxygen Flow Rate 11/25/22 11:00 11/25/22 11:00 11/25/22 11:15 Temperature Pulse Rate 63 59 L Respiratory Rate 46 H 46 H Blood Pressure 153/89 H Pulse Oximetry 90 L 90 L Oxygen Delivery Method Oxygen Flow Rate 11/25/22 11:30 11/25/22 11:45 11/25/22 12:00 Temperature Pulse Rate 66 62 62 Respiratory Rate Blood Pressure Pulse Oximetry 87 L 92 93 Oxygen Delivery Method Oxygen Flow Rate 11/25/22 12:02 11/25/22 12:02 11/25/22 12:15 Temperature Pulse Rate 64 65 Respiratory Rate Blood Pressure 140/74 Pulse Oximetry 92 93 Oxygen Delivery Method Oxygen Flow Rate 11/25/22 12:30 11/25/22 12:45 11/25/22 13:00 Temperature Pulse Rate 67 65 69 Respiratory Rate Blood Pressure Pulse Oximetry 94 94 93 Oxygen Delivery Method Oxygen Flow Rate 11/25/22 13:00 11/25/22 13:15 11/25/22 13:30 Temperature Pulse Rate 69 70 Respiratory Rate Blood Pressure 144/72 H Pulse Oximetry 94 94 Oxygen Delivery Method Oxygen Flow Rate 11/25/22 13:45 11/25/22 14:00 11/25/22 14:00 Temperature 97.8 F Pulse Rate 67 67 Respiratory Rate 18 Blood Pressure 138/67 Pulse Oximetry 95 95 Oxygen Delivery Method Oxygen Flow Rate 11/25/22 14:15 11/25/22 14:30 11/25/22 14:45 Temperature Pulse Rate 72 71 67 Respiratory Rate Blood Pressure Pulse Oximetry 94 94 95 Oxygen Delivery Method Oxygen Flow Rate 11/25/22 15:00 11/25/22 15:00 11/25/22 15:15 Temperature Pulse Rate 67 67 Respiratory Rate Blood Pressure 131/87 Pulse Oximetry 94 94 Oxygen Delivery Method Oxygen Flow Rate 11/25/22 15:30 Temperature 98 F Pulse Rate 67 Respiratory Rate 17 Blood Pressure Pulse Oximetry 95 Oxygen Delivery Method Oxygen Flow Rate Oxygen Delivery Method Nasal Cannula Oxygen Flow Rate 2 Objective Labs 11/25/22 04:25 11/25/22 04:25 Labs: Laboratory Results - last 24 hr 11/24/22 11/24/22 11/24/22 19:20 19:41 19:42 WBC 5.7 RBC 4.58 Hgb 14.2 Hct 40.8 MCV 89.0 MCH 31.0 MCHC 34.8 RDW 13.3 Plt Count 196 Neut % (Auto) 64.4 Lymph % (Auto) 17.4 L [place] % (Auto) 16.2 H Eos % (Auto) 1.3 L Baso % (Auto) 0.7 Neut # (Auto) 3700 Lymph # (Auto) 1000 L [place] # (Auto) 900 Eos # (Auto) 100 Baso # (Auto) 0 PT INR APTT Sodium Potassium Chloride Carbon Dioxide BUN Creatinine Estimated GFR BUN/Creatinine Ratio Glucose Lactate 1.5 Calcium Magnesium Total Bilirubin AST ALT Alkaline Phosphatase Total Creatine Kinase CK-MB (CK-2) CK-MB (CK-2) Rel Index Troponin I C-Reactive Protein NT-Pro-B Natriuret Pep Total Protein Albumin Globulin Albumin/Globulin Ratio Lipase Procalcitonin TSH Urine Color Urine Appearance Urine pH Ur Specific [place] Urine Protein Urine Glucose (UA) Urine Ketones Urine Occult Blood Urine Nitrate Urine Bilirubin Urine Urobilinogen Ur Leukocyte Esterase Urine RBC Urine WBC Ur Squamous Epith Cells Urine Bacteria Urine Mucus Ur Culture Indicated? Nasal Screen MRSA (PCR) Chlamy pneumoniae PCR Not detected Adenovirus (PCR) Not detected B. pertussis DNA (PCR) Not detected B.parapertussis DNA PCR Not detected Coronavirus OC43 (PCR) Not detected Coronavirus HKU1 (PCR) Not detected Coronavirus 229E (PCR) Not detected SARS-CoV-2 (PCR) Not detected Coronavirus NL63 (PCR) Not detected Human Metapneumovir PCR Detected H Influenza Type A (PCR) Not detected Influenza Type B (PCR) Not detected M. pneumoniae (PCR) Not detected Parainfluenza 1 (PCR) Not detected Parainfluenza 2 (PCR) Not detected Parainfluenza 3 (PCR) Not detected Parainfluenza 4 (PCR) Not detected RSV (PCR) Not detected Entero/Rhino (PCR) Not detected 11/24/22 11/24/22 11/24/22 19:42 19:42 19:42 WBC RBC Hgb Hct MCV MCH MCHC RDW Plt Count Neut % (Auto) Lymph % (Auto) [place] % (Auto) Eos % (Auto) Baso % (Auto) Neut # (Auto) Lymph # (Auto) [place] # (Auto) Eos # (Auto) Baso # (Auto) PT 17.0 H INR 1.5 H APTT 32 Sodium 131 L Potassium 3.8 Chloride 99 Carbon Dioxide 25 BUN 11 Creatinine 0.81 Estimated GFR > 60 BUN/Creatinine Ratio 13.6 Glucose 127 H Lactate Calcium 8.4 Magnesium 1.8 Total Bilirubin 1.0 AST 23 ALT 20 Alkaline Phosphatase 59 Total Creatine Kinase 127 CK-MB (CK-2) 1.11 CK-MB (CK-2) Rel Index 0.9 L Troponin I < 0.012 C-Reactive Protein NT-Pro-B Natriuret Pep Total Protein 7.0 Albumin 4.0 Globulin 3.0 Albumin/Globulin Ratio 1.3 Lipase 137 Procalcitonin 0.05 TSH Urine Color Urine Appearance Urine pH Ur Specific [place] Urine Protein Urine Glucose (UA) Urine Ketones Urine Occult Blood Urine Nitrate Urine Bilirubin Urine Urobilinogen Ur Leukocyte Esterase Urine RBC Urine WBC Ur Squamous Epith Cells Urine Bacteria Urine Mucus Ur Culture Indicated? Nasal Screen MRSA (PCR) Chlamy pneumoniae PCR Adenovirus (PCR) B. pertussis DNA (PCR) B.parapertussis DNA PCR Coronavirus OC43 (PCR) Coronavirus HKU1 (PCR) Coronavirus 229E (PCR) SARS-CoV-2 (PCR) Coronavirus NL63 (PCR) Human Metapneumovir PCR Influenza Type A (PCR) Influenza Type B (PCR) M. pneumoniae (PCR) Parainfluenza 1 (PCR) Parainfluenza 2 (PCR) Parainfluenza 3 (PCR) Parainfluenza 4 (PCR) RSV (PCR) Entero/Rhino (PCR) 11/24/22 11/24/22 11/24/22 19:42 23:16 23:41 WBC RBC Hgb Hct MCV MCH MCHC RDW Plt Count Neut % (Auto) Lymph % (Auto) [place] % (Auto) Eos % (Auto) Baso % (Auto) Neut # (Auto) Lymph # (Auto) [place] # (Auto) Eos # (Auto) Baso # (Auto) PT INR APTT Sodium Potassium Chloride Carbon Dioxide BUN Creatinine Estimated GFR BUN/Creatinine Ratio Glucose Lactate Calcium Magnesium Total Bilirubin AST ALT Alkaline Phosphatase Total Creatine Kinase CK-MB (CK-2) CK-MB (CK-2) Rel Index Troponin I C-Reactive Protein NT-Pro-B Natriuret Pep 3560 H Total Protein Albumin Globulin Albumin/Globulin Ratio Lipase Procalcitonin TSH Urine Color Yellow Urine Appearance Clear Urine pH 6.0 Ur Specific [place] 1.020 Urine Protein Trace H Urine Glucose (UA) Negative Urine Ketones Negative Urine Occult Blood Trace-intact Urine Nitrate Negative Urine Bilirubin Negative Urine Urobilinogen 0.2 Ur Leukocyte Esterase Negative Urine RBC 0-1/hpf Urine WBC None seen Ur Squamous Epith Cells 1-5 /hpf Urine Bacteria None seen Urine Mucus 2+ H Ur Culture Indicated? Cult not indicated Nasal Screen MRSA (PCR) Not detected Chlamy pneumoniae PCR Adenovirus (PCR) B. pertussis DNA (PCR) B.parapertussis DNA PCR Coronavirus OC43 (PCR) Coronavirus HKU1 (PCR) Coronavirus 229E (PCR) SARS-CoV-2 (PCR) Coronavirus NL63 (PCR) Human Metapneumovir PCR Influenza Type A (PCR) Influenza Type B (PCR) M. pneumoniae (PCR) Parainfluenza 1 (PCR) Parainfluenza 2 (PCR) Parainfluenza 3 (PCR) Parainfluenza 4 (PCR) RSV (PCR) Entero/Rhino (PCR) 11/25/22 11/25/2223 04:25 04:25 04:25 WBC 5.7 RBC 4.31 Hgb 13.2 Hct 38.7 MCV 89.8 MCH 30.7 MCHC 34.1 RDW 13.3 Plt Count 174 Neut % (Auto) 59.8 Lymph % (Auto) 20.2 L [place] % (Auto) 16.1 H Eos % (Auto) 3.3 Baso % (Auto) 0.6 Neut # (Auto) 3400 Lymph # (Auto) 1200 [place] # (Auto) 900 Eos # (Auto) 200 Baso # (Auto) 0 PT INR APTT Sodium 134 L Potassium 3.2 L Chloride 103 Carbon Dioxide 24 BUN 8 Creatinine 0.60 Estimated GFR > 60 BUN/Creatinine Ratio 13.3 Glucose 115 H Lactate 0.8 Calcium 7.8 L Magnesium Total Bilirubin AST ALT Alkaline Phosphatase Total Creatine Kinase CK-MB (CK-2) CK-MB (CK-2) Rel Index Troponin I C-Reactive Protein 5.1 H NT-Pro-B Natriuret Pep Total Protein Albumin Globulin Albumin/Globulin Ratio Lipase Procalcitonin 0.05 TSH Urine Color Urine Appearance Urine pH Ur Specific [place] Urine Protein Urine Glucose (UA) Urine Ketones Urine Occult Blood Urine Nitrate Urine Bilirubin Urine Urobilinogen Ur Leukocyte Esterase Urine RBC Urine WBC Ur Squamous Epith Cells Urine Bacteria Urine Mucus Ur Culture Indicated? Nasal Screen MRSA (PCR) Chlamy pneumoniae PCR Adenovirus (PCR) B. pertussis DNA (PCR) B.parapertussis DNA PCR Coronavirus OC43 (PCR) Coronavirus HKU1 (PCR) Coronavirus 229E (PCR) SARS-CoV-2 (PCR) Coronavirus NL63 (PCR) Human Metapneumovir PCR Influenza Type A (PCR) Influenza Type B (PCR) M. pneumoniae (PCR) Parainfluenza 1 (PCR) Parainfluenza 2 (PCR) Parainfluenza 3 (PCR) Parainfluenza 4 (PCR) RSV (PCR) Entero/Rhino (PCR) 11/25/22 11/25/22 11/25/22 04:25 04:25 11:05 WBC RBC Hgb Hct MCV MCH MCHC RDW Plt Count Neut % (Auto) Lymph % (Auto) [place] % (Auto) Eos % (Auto) Baso % (Auto) Neut # (Auto) Lymph # (Auto) [place] # (Auto) Eos # (Auto) Baso # (Auto) PT INR APTT Sodium Potassium Chloride Carbon Dioxide BUN Creatinine Estimated GFR BUN/Creatinine Ratio Glucose Lactate Calcium Magnesium Total Bilirubin AST ALT Alkaline Phosphatase Total Creatine Kinase CK-MB (CK-2) CK-MB (CK-2) Rel Index Troponin I < 0.012 < 0.012 C-Reactive Protein NT-Pro-B Natriuret Pep Total Protein Albumin Globulin Albumin/Globulin Ratio Lipase Procalcitonin TSH 2.07 Urine Color Urine Appearance Urine pH Ur Specific [place] Urine Protein Urine Glucose (UA) Urine Ketones Urine Occult Blood Urine Nitrate Urine Bilirubin Urine Urobilinogen Ur Leukocyte Esterase Urine RBC Urine WBC Ur Squamous Epith Cells Urine Bacteria Urine Mucus Ur Culture Indicated? Nasal Screen MRSA (PCR) Chlamy pneumoniae PCR Adenovirus (PCR) B. pertussis DNA (PCR) B.parapertussis DNA PCR Coronavirus OC43 (PCR) Coronavirus HKU1 (PCR) Coronavirus 229E (PCR) SARS-CoV-2 (PCR) Coronavirus NL63 (PCR) Human Metapneumovir PCR Influenza Type A (PCR) Influenza Type B (PCR) M. pneumoniae (PCR) Parainfluenza 1 (PCR) Parainfluenza 2 (PCR) Parainfluenza 3 (PCR) Parainfluenza 4 (PCR) RSV (PCR) Entero/Rhino (PCR) [facility] Medical History Paroxysmal atrial fibrillation Pelvic relaxation Postmenopausal atrophic vaginitis Surgical History History of cataract surgery Family History Mother Congestive heart failure Brother CAD (coronary artery disease) of artery bypass graft Social History household members: friend(s) Smoking Status: Never smoker Assessment & Plan Assessment & Plan narrative: 1. Atrial fibrillation with RVR, paroxysmal, acute on chronic, present on admission -last admit for AFib with RVR 07/07/2022 -suspect possible medication noncompliance, dehydration & virus resulting in atrial fibrillation irritability. -rate improved with dilt gtt, have started oral metoprolol and plan to wean off diltiazem -once on oral medications can go home when stable -ordered ECHO for further evaluation-as echo was not performed on last admit - ejection fraction 50-55% -tele monitoring -PT 17, INR 1.5, PTT 32 2. Hyponatremia, mild, acute, present on admission -sodium 131-1 L bolus provided, followed by 100 cc/hr initial, improved today to 134 -gentle rehydration NS at 60 cc/HR -likely secondary to dehydration 3. Human metapneumovirus, acute, present on admission -supportive care-Tessalon Perles, guaifenesin with codeine -respiratory consult PRN -DuoNeb q.4 hours while awake as needed -prednisone 50 mg q.day times 3 days -incentive spirometry -azithromycin given in the ER but continuation of antibiotics not warranted. 4. Hypertension, essential, chronic, present on admission -stable today -continue irbesartan 5. Obesity, moderate, acute on chronic, present on admission -BMI 35.4 -dietary consult ordered regarding nutritional education and information for dietary, lifestyle, exercise, and weight changes. -the patient is at much higher risk for medical and surgical complications due to obesity as it relates to chronic illnesses:, and acute illness.? The patient's obesity increases the difficulty and complexity of medical and/or surgical interventions, management and increases the chances of poor outcome such as morbidity and mortality as well as impaired wound healing.? 6. GERD, chronic, present on admission -continue omeprazole Follow labs and stability of the patient with possible discharge tomorrow. CODE: FUll Proxy: Loc Agudelo, family COVID PCR:? Negative DVT/VTE prophylaxis:? Patient on Eliquis, SCDs only Quality VTE Deep Vein Thrombosis/Pulmonary Embolism Present on Admission: No
[2022-11-25] MEDS: SENNOSIDES 8.6 MG TABLET 17.2 MG PO (21:26)
[2022-11-26] VITALS (19 sets, daily range): BP systolic 108–180; BP diastolic 65–92; PULSE 66–136; RESP 14–28; TEMP 36.6–37.3; O2SAT 92–95
[2022-11-26] MEDS: METOPROLOL IR 25 MG TABLET PO ×3 (03:39→14:54)
[2022-11-26] MEDS: CODEINE/GUAIFENESIN LIQUID 5ML UDC 5 ML PO ×3 (03:39→20:11)
[2022-11-26 04:41] LABS: Add Manual Diff / Slide Review NO; Basophils Absolute Auto 0 /uL (0-100); Basophils Percent Auto 0.2 % (0-2); Eosinophils Absolute Auto 0 /uL (0-450); Hematocrit 37.4 % (36-46); Hemoglobin 12.9 g/dL (12.0-16.0); Lymphocytes Absolute Auto 1000 /uL (1100-4500); Lymphocytes Percent Auto 19.1 % (25-40); Mean Corpuscular HGB Conc 34.6 % (30-36); Mean Corpuscular Hemoglobin 30.8 PG (26-34); Monocytes Absolute Auto 600 /uL (0-900); Monocytes Percent Auto 10.8 % (3-14); Neutrophils Absolute Auto 3700 /uL (1500-7000); Neutrophils Percent Auto 69.9 % (50-75); Platelet Count 197 X10^3/uL (150-400); Red Cell Distribution Width 13.6 % (11.6-14.8); White Blood Cell Count 5.3 X10^3/uL (4.5-11.0)
[2022-11-26 04:53] LABS: BUN Creatinine Ratio 19.1 (6-22); Blood Urea Nitrogen 13 mg/dL (7-17); Calcium 8.5 mg/dL (8.4-10.2); Carbon Dioxide 25 mmol/L (22-32); Chloride 103 mmol/L (98-107); Estimated Glomerular Filt Rate > 60 mL/min (>60); Glucose 129 mg/dL (80-110); HEMOLYSIS < 15 (0-50); Potassium 4.1 mmol/L (3.4-5.1); Sodium 134 mmol/L (137-145)
[2022-11-26] MEDS: LOSARTAN 25 MG TABLET PO (09:32)
[2022-11-26] MEDS: PANTOPRAZOLE DR 20 MG TABLET PO (09:33)
[2022-11-26] MEDS: predniSONE 20 MG TABLET 50 MG PO (09:33)
[2022-11-26] MEDS: APIXABAN 5 MG TABLET PO ×2 (09:34→20:11)
[2022-11-26] MEDS: SODIUM CHLORIDE 0.9% FLUSH 10 ML IV ×3 (09:55→20:11)
[2022-11-26] MEDS: dilTIAZem 5 MG/ML SDV 20 MG IV ×2 (11:57→13:19)
--- NOTE | 2022-11-26 12:59 | PC.NURSE ---
Addendum entered by Tulio Alonso R.N. 11/26/22 13:18: Verified with Dr. Plascencia to give 2nd dose of IV diltiazem as ordered. COntinue to monitor patient. Original Note: Notified by ICU that patient had converted to AFIB rate of 120-130's. BP stable upon assessment at 130/80's. Patient denies chest pain or palpitations but endorses fatigue and lightheaded today. Dr. Plascencia notified, VORB for IV cardizem 20mg received and given. At 1300 heart rate remains upto 110-130 while patient resting in bed. Dr. Plascencia updated on vital signs. Will continue to monitor patient and watch for orders.
--- NOTE | 2022-11-26 13:26 | PM.PN.1 ---
Subjective Subjective Interval history: Patient getting intermittent increase in heart rate then sustained atrial fibrillation at greater than 130 today. Initially given a push of diltiazem 20 mg. This is not sustain a lower rate. A 2nd dose has been ordered at this time. If that is not so will transitioned to a infusion at 5 milligrams/hour increasing to 15 milligrams/hour needed based on heart rate response. Otherwise the patient is feeling better today. More energy and not as much coughing. Exam Vital Signs (past 8 hours): - 11/26/22 08:00 11/26/22 11:57 Temperature 98.0 F Pulse Rate 72 131 H Respiratory Rate 24 Blood Pressure 168/77 H 126/82 Pulse Oximetry 95 Oxygen Flow Rate 0 Oxygen Delivery Method Nasal Cannula Oxygen Flow Rate 0 Narrative Exam Narrative: General:? Patient is a well-developed, well-nourished in no distress at this time, although feeling somewhat agitated from the elevated heart rate. HEENT:? Normocephalic, atraumatic, extraocular muscles intact, oral pharynx is clear and mucous membranes are moist.? Neck is supple and symmetric, trachea is midline, no adenopathy, no thyroid enlargement, nontender, no masses palpated.? Negative for JVD Chest:? Normal AP diameter and contour without kyphoscoliosis, no nasal flaring, retractions, or tachypneic labored Lungs:? Auscultation of all lung palm are clear without adventitious sounds, wheezes, rhonchi, or rales. Cardio:? Irregular rate (afib) and rhythm without murmur, rubs, or gallops, no carotid bruit, no cardiac pulsations present. Tachycardia present. Abdomen:? Soft nontender, negative for organomegaly, or masses.? Bowel sounds are present in all 4 quadrants without guarding or rebound, no CVA tenderness. Musculoskeletal:? Muscle strength and tone are equal within normal limits, no deformity, crepitus, effusions, cyanosis, clubbing or edema present.? Full range of motion intact radial and pedal pulses are normal. Skin:? Warm dry and intact without rashes, ulcerations or petechiae.? Neuro:? Alert and orientated x3, moves all extremities, sensation to touch intact, no gross deficits noted of cranial nerves. Psych:? Patient has a well-kept appearance, very anxious, mental status attitude thought context and judgment are some what appropriate for age. Objective Labs 11/26/22 04:18 11/26/22 04:18 Labs: Laboratory Results - last 24 hr 11/26/22 11/26/22 04:18 04:18 WBC 5.3 RBC 4.20 Hgb 12.9 Hct 37.4 MCV 89.0 MCH 30.8 MCHC 34.6 RDW 13.6 Plt Count 197 Neut % (Auto) 69.9 Lymph % (Auto) 19.1 L [place] % (Auto) 10.8 Eos % (Auto) 0.0 L Baso % (Auto) 0.2 Neut # (Auto) 3700 Lymph # (Auto) 1000 L [place] # (Auto) 600 Eos # (Auto) 0 Baso # (Auto) 0 Sodium 134 L Potassium 4.1 Chloride 103 Carbon Dioxide 25 BUN 13 Creatinine 0.68 Estimated GFR > 60 BUN/Creatinine Ratio 19.1 Glucose 129 H Calcium 8.5 PFSH Medical History Paroxysmal atrial fibrillation Pelvic relaxation Postmenopausal atrophic vaginitis Surgical History History of cataract surgery Family History Mother Congestive heart failure Brother CAD (coronary artery disease) of artery bypass graft Social History household members: friend(s) Smoking Status: Never smoker Assessment & Plan Assessment & Plan narrative: 1. Atrial fibrillation with RVR, paroxysmal, acute on chronic, present on admission -last admit for AFib with RVR 07/07/2022 -suspect possible medication noncompliance, dehydration & virus resulting in atrial fibrillation irritability. -rate improved with dilt gtt, have started oral metoprolol and was weaned off diltiazem, however this morning patient had atrial fibrillation again with a rate greater than 130 and sustained. Now treating with diltiazem IV -once on oral medications can go home when stable -ECHO-as echo was not performed on last admit -ejection fraction 50-55% -tele monitoring -PT 17, INR 1.5, PTT 32 on presentation. 2. Hyponatremia, mild, acute, present on admission -sodium 131-1 L bolus provided, followed by 100 cc/hr initial, improved today to 134 -gentle rehydration NS at 60 cc/HR -likely secondary to dehydration 3. Human metapneumovirus, acute, present on admission -supportive care-Tessalon Perles, guaifenesin with codeine -respiratory consult PRN -DuoNeb q.4 hours while awake as needed -prednisone 50 mg q.day times 3 days -incentive spirometry -azithromycin given in the ER but continuation of antibiotics not warranted. 4. Hypertension, essential, chronic, present on admission -stable today -continue irbesartan 5. Obesity, moderate, acute on chronic, present on admission -BMI 35.4 -dietary consult ordered regarding nutritional education and information for dietary, lifestyle, exercise, and weight changes. -the patient is at much higher risk for medical and surgical complications due to obesity as it relates to chronic illnesses:, and acute illness.? The patient's obesity increases the difficulty and complexity of medical and/or surgical interventions, management and increases the chances of poor outcome such as morbidity and mortality as well as impaired wound healing.? 6. GERD, chronic, present on admission -continue omeprazole Follow labs and stability of the patient. CODE: FUll Proxy: Loc Agudelo, family COVID PCR:? Negative DVT/VTE prophylaxis:? Patient on Eliquis, SCDs only Quality VTE Deep Vein Thrombosis/Pulmonary Embolism Present on Admission: No
[2022-11-26] MEDS: BENZONATATE 100 MG CAPSULE PO (14:54)
--- NOTE | 2022-11-26 20:08 | PC.NURSE ---
1949: [employer] made this Rn aware of tele reading, 130s afib. This RN made Hospitalist Dr. Sandoval aware. 50mg metoprolol ER ordered BID.
[2022-11-26] MEDS: SENNOSIDES 8.6 MG TABLET 17.2 MG PO (20:10)
[2022-11-26] MEDS: METOPROLOL ER 50 MG TABLET PO (20:11)
[2022-11-26] MEDS: DIGOXIN 500 MCG/2 ML AMPUL 250 MCG IV (22:16)
[2022-11-26] MEDS: dilTIAZem 5 MG/ML SDV 10 MG IV (23:21)
[2022-11-27] VITALS (53 sets, daily range): BP systolic 96–142; BP diastolic 56–95; PULSE 72–133; RESP 16–44; TEMP 36.3–37.1; O2SAT 92–95
[2022-11-27] MEDS: dilTIAZem 30 MG TABLET PO ×2 (00:36→06:50)
[2022-11-27] MEDS: METOPROLOL ER 50 MG TABLET PO ×2 (03:08→20:36)
[2022-11-27 04:57] LABS: Add Manual Diff / Slide Review NO; Basophils Absolute Auto 0 /uL (0-100); Basophils Percent Auto 0.2 % (0-2); Eosinophils Absolute Auto 0 /uL (0-450); Hematocrit 37.8 % (36-46); Hemoglobin 13.1 g/dL (12.0-16.0); Lymphocytes Absolute Auto 1300 /uL (1100-4500); Lymphocytes Percent Auto 16.5 % (25-40); Mean Corpuscular HGB Conc 34.6 % (30-36); Mean Corpuscular Hemoglobin 31.1 PG (26-34); Mean Corpuscular Volume 89.9 fL (80-100); Monocytes Absolute Auto 500 /uL (0-900); Monocytes Percent Auto 6.5 % (3-14); Neutrophils Absolute Auto 6100 /uL (1500-7000); Neutrophils Percent Auto 76.8 % (50-75); Platelet Count 257 X10^3/uL (150-400); Red Blood Cell Count 4.21 X10^6/uL (4.0-5.2); Red Cell Distribution Width 13.4 % (11.6-14.8)
[2022-11-27 05:04] LABS: BUN Creatinine Ratio 23.4 (6-22); Blood Urea Nitrogen 18 mg/dL (7-17); Calcium 8.4 mg/dL (8.4-10.2); Carbon Dioxide 23 mmol/L (22-32); Chloride 105 mmol/L (98-107); Estimated Glomerular Filt Rate > 60 mL/min (>60); Glucose 115 mg/dL (80-110); HEMOLYSIS < 15 (0-50); Potassium 3.9 mmol/L (3.4-5.1); Sodium 136 mmol/L (137-145)
[2022-11-27] MEDS: DILTIAZEM 125 MG/125 ML PIGGYBACK IV (08:14)
[2022-11-27] MEDS: APIXABAN 5 MG TABLET PO ×2 (09:10→20:36)
[2022-11-27] MEDS: predniSONE 20 MG TABLET 50 MG PO (09:22)
[2022-11-27] MEDS: SODIUM CHLORIDE 0.9% FLUSH 10 ML IV ×2 (09:24→20:42)
[2022-11-27] MEDS: PANTOPRAZOLE DR 20 MG TABLET PO (09:24)
--- NOTE | 2022-11-27 09:44 | P.PN_ITS ---
Subjective Subjective Interval history: HR still in 120-130's at rest so placed back on dilt drip. Now in 80-90's at 10mg/hr. Patient feels well currently and denies palpitations or CP. Exam Vital Signs (past 8 hours): - 11/27/22 03:08 11/27/22 04:00 11/27/22 06:50 Temperature 97.3 F L Pulse Rate 121 H 89 125 H Respiratory Rate 19 Blood Pressure 104/73 96/75 142/91 H Pulse Oximetry 95 Oxygen Flow Rate 11/27/22 08:00 11/27/22 08:00 11/27/22 08:00 Temperature 98.3 F Pulse Rate 133 H 108 H Respiratory Rate 16 Blood Pressure 140/95 H 139/78 Pulse Oximetry 94 92 Oxygen Flow Rate 0 11/27/22 08:15 11/27/22 08:27 11/27/22 08:27 Temperature Pulse Rate 103 H 130 H Respiratory Rate 22 Blood Pressure 140/95 H Pulse Oximetry 92 94 Oxygen Flow Rate 11/27/22 08:30 11/27/22 08:45 11/27/22 09:00 Temperature Pulse Rate 112 H 119 H 87 Respiratory Rate 21 19 23 Blood Pressure Pulse Oximetry 94 93 93 Oxygen Flow Rate Oxygen Delivery Method Room Air Oxygen Flow Rate 0 Narrative Exam Narrative: General:? Patient is a well-developed, well-nourished in no distress at this time, although feeling somewhat agitated from the elevated heart rate. HEENT:? Normocephalic, atraumatic, extraocular muscles intact, oral pharynx is clear and mucous membranes are moist.? Neck is supple and symmetric, trachea is midline, no adenopathy, no thyroid enlargement, nontender, no masses palpated.? Negative for JVD Chest:? Normal AP diameter and contour without kyphoscoliosis, no nasal flaring, retractions, or tachypneic labored Lungs:? Auscultation of all lung palm are clear without adventitious sounds, wheezes, rhonchi, or rales. Cardio:? Irregular rate (afib) and rhythm without murmur, rubs, or gallops, no carotid bruit, no cardiac pulsations present. Tachycardia present. Abdomen:? Soft nontender, negative for organomegaly, or masses.? Bowel sounds are present in all 4 quadrants without guarding or rebound, no CVA tenderness. Musculoskeletal:? Muscle strength and tone are equal within normal limits, no deformity, crepitus, effusions, cyanosis, clubbing or edema present.? Full range of motion intact radial and pedal pulses are normal. Skin:? Warm dry and intact without rashes, ulcerations or petechiae.? Neuro:? Alert and orientated x3, moves all extremities, sensation to touch intact, no gross deficits noted of cranial nerves. Psych:? Patient has a well-kept appearance, very anxious, mental status attitude thought context and judgment are some what appropriate for age. Objective Labs 11/27/22 04:23 11/27/22 04:23 Labs: Laboratory Results - last 24 hr 11/27/22 11/27/22 04: 04:23 WBC 8.0 D RBC 4.21 Hgb 13.1 Hct 37.8 MCV 89.9 MCH 31.1 MCHC 34.6 RDW 13.4 Plt Count 257 Neut % (Auto) 76.8 H Lymph % (Auto) 16.5 L [place] % (Auto) 6.5 Eos % (Auto) 0.0 L Baso % (Auto) 0.2 Neut # (Auto) 6100 Lymph # (Auto) 1300 [place] # (Auto) 500 Eos # (Auto) 0 Baso # (Auto) 0 Sodium 136 L Potassium 3.9 Chloride 105 Carbon Dioxide 23 BUN 18 H Creatinine 0.77 Estimated GFR > 60 BUN/Creatinine Ratio 23.4 H Glucose 115 H Calcium 8.4 PFSH Medical History Paroxysmal atrial fibrillation Pelvic relaxation Postmenopausal atrophic vaginitis Surgical History History of cataract surgery Family History Mother Congestive heart failure Brother CAD (coronary artery disease) of artery bypass graft Social History household members: friend(s) Smoking Status: Never smoker Assessment & Plan Assessment & Plan narrative: 1. Atrial fibrillation with RVR, paroxysmal, acute on chronic, present on admission -last admit for AFib with RVR 07/07/2022 -suspect possible medication noncompliance, dehydration & virus resulting in atrial fibrillation irritability. -rate improved with dilt gtt, and now transitioning to po long acting dilt plus home metoprolol -start dilt po ER 300mg daily -ECHO-as echo was not performed on last admit -ejection fraction 50-55% -tele monitoring 2. Hyponatremia, mild, acute, present on admission -sodium 131-1 L bolus provided, followed by 100 cc/hr initial, improved today to 134 -gentle rehydration NS at 60 cc/HR -likely secondary to dehydration 3. Human metapneumovirus, acute, present on admission -supportive care-Tessalon Perles, guaifenesin with codeine -respiratory consult PRN -DuoNeb q.4 hours while awake as needed -incentive spirometry -azithromycin given in the ER but continuation of antibiotics not warranted. 4. Hypertension, essential, chronic, present on admission -continue irbesartan 5. Obesity, moderate, acute on chronic, present on admission -BMI 35.4 -dietary consult ordered regarding nutritional education and information for dietary, lifestyle, exercise, and weight changes. -the patient is at much higher risk for medical and surgical complications due to obesity as it relates to chronic illnesses:, and acute illness.? The patient's obesity increases the difficulty and complexity of medical and/or surgical interventions, management and increases the chances of poor outcome such as morbidity and mortality as well as impaired wound healing.? 6. GERD, chronic, present on admission -continue omeprazole CODE: FUll Proxy: Loc Agudelo, family COVID PCR:? Negative DVT/VTE prophylaxis:? Patient on Eliquis, SCDs only Dispo: Home in 1-2 days pending improvement in HR. Quality VTE Deep Vein Thrombosis/Pulmonary Embolism Present on Admission: No
[2022-11-27] MEDS: POTASSIUM CHLORIDE 20 MEQ TAB PO (10:45)
[2022-11-27] MEDS: MAGNESIUM SULFATE 2 GM/50 ML PIGGYBACK IV (11:05)
[2022-11-27] MEDS: dilTIAZem CD 120 MG CAP PO (14:17)
[2022-11-27] MEDS: dilTIAZem CD 180 MG CAP PO (14:17)
--- NOTE | 2022-11-27 14:21 | PC.NURSE ---
Reviewed medication cardizem orders with Dr. Delarosa. He states to give oral cardizem as ordered and wait and hour to turn off cardizem gtt as tolerated. Patient agrees with plan of care. Call light within reach.
--- NOTE | 2022-11-27 14:35 | CM.DPC ---
DCP Cont: Per MD, pt's AFIB remains uncontrolled and moved back to ICU status for having to go back on Dilt Drip and not medically stable to discharge today. Plan: SW to follow for plan of d/c home when medically stable and any further identified needs. MANJINDER [place]
[2022-11-27] MEDS: SENNOSIDES 8.6 MG TABLET 17.2 MG PO (20:36)
[2022-11-27] MEDS: BENZONATATE 100 MG CAPSULE PO (21:06)
[2022-11-27] MEDS: CODEINE/GUAIFENESIN LIQUID 5ML UDC 5 ML PO (21:06)
[2022-11-28] VITALS: BP 124/65; PULSE 103; RESP 16; TEMP 36.5; O2SAT 94
[2022-11-28 04:00] VITALS: BP 126/74; PULSE 111; RESP 21; TEMP 37.1; O2SAT 93
[2022-11-28 05:21] LABS: Add Manual Diff / Slide Review NO; Basophils Absolute Auto 0 /uL (0-100); Basophils Percent Auto 0.1 % (0-2); Eosinophils Absolute Auto 0 /uL (0-450); Hematocrit 38.7 % (36-46); Hemoglobin 13.2 g/dL (12.0-16.0); Lymphocytes Absolute Auto 1500 /uL (1100-4500); Lymphocytes Percent Auto 11.8 % (25-40); Mean Corpuscular HGB Conc 34.1 % (30-36); Mean Corpuscular Hemoglobin 30.4 PG (26-34); Mean Corpuscular Volume 89.2 fL (80-100); Monocytes Absolute Auto 900 /uL (0-900); Monocytes Percent Auto 7.2 % (3-14); Neutrophils Absolute Auto 10300 /uL (1500-7000); Neutrophils Percent Auto 80.9 % (50-75); Platelet Count 287 X10^3/uL (150-400); Red Blood Cell Count 4.34 X10^6/uL (4.0-5.2); Red Cell Distribution Width 13.5 % (11.6-14.8); White Blood Cell Count 12.7 X10^3/uL (4.5-11.0)
[2022-11-28 05:25] LABS: Magnesium 2.2 mg/dL (1.6-2.3)
[2022-11-28 05:26] LABS: BUN Creatinine Ratio 23.9 (6-22); Blood Urea Nitrogen 21 mg/dL (7-17); Calcium 8.2 mg/dL (8.4-10.2); Carbon Dioxide 25 mmol/L (22-32); Chloride 103 mmol/L (98-107); Estimated Glomerular Filt Rate > 60 mL/min (>60); Glucose 108 mg/dL (80-110); HEMOLYSIS < 15 (0-50); Potassium 4.2 mmol/L (3.4-5.1); Sodium 135 mmol/L (137-145)
--- NOTE | 2022-11-28 06:05 | PC.NURSE ---
Patient with heart rate stable, increasing rapidly to 110's after walking to bathroom or coughing, but quickly decreasing to 70-90's.
[2022-11-28 08:24] VITALS: BP 122/83; PULSE 76
[2022-11-28] MEDS: PANTOPRAZOLE DR 20 MG TABLET PO (08:24)
[2022-11-28] MEDS: dilTIAZem CD 120 MG CAP PO (08:24)
[2022-11-28] MEDS: APIXABAN 5 MG TABLET PO (08:24)
[2022-11-28] MEDS: METOPROLOL ER 50 MG TABLET PO (08:24)
[2022-11-28] MEDS: dilTIAZem CD 180 MG CAP PO (08:25)
[2022-11-28] MEDS: SODIUM CHLORIDE 0.9% FLUSH 10 ML IV (08:26)
[2022-11-28 08:32] VITALS: BP 122/83; PULSE 76; RESP 17; TEMP 36.6; O2SAT 94
[2022-11-28 09:44] VITALS: BP 122/83; PULSE 76
--- NOTE | 2022-11-28 12:33 | P.DS_ITS ---
History of Present Illness History of Present Illness Date Patient Seen: 11/24/22 Time Patient Seen: 21:45 Chief complaint: oxygen level dropped to 80/pulse 134 Narrative: Irma Agudelo is a 77-year-old female with a history of proximal atrial fibrillation on Eliquis, has had repeated hospitalizations for AFib with RVR last 1 being 07/26/2022, presented to the ED with 1 week of cough shortness of breath feeling poorly and episodes of rapid heart rate patient reported being hypoxic at home, was not found to be hypoxic in the ED but was found to have [place] b with RVR HR 130-140. Patient refused cardioversion in the ED as she was concerned for her safety as she would jump off the bed. Patient was given 10 mg bolus of diltiazem with some minor improvement and then was placed on diltiazem drip. Patient's laboratory findings were unremarkable, lactate and procalcitonin were negative, chest x-ray demonstrated left lower lobe focal infiltrate possible pneumonia, respiratory panel was positive for human metapneumovirus, she was also mildly hyponatremic sodium of 131, troponins were negative. On admit patient denies chest pain, headache, changes in vision, difficulty swallowing, speech impairment,numbness, tingling, difficulty with ambulation, recent falls, head injury, LOC, fever, body aches, chills, recent exposure to illness, abdominal pain, nausea, vomiting, urinary incontinence/retention, dysuria, frequency, urgency, hematuria, bowel changes, constipation, incontinence, melena, rashes, recent changes to medication, illness, injury, or trauma. Patient admitted for proximal atrial fibrillation with RVR, human metapneumovirus, and mild hyponatremia. Discharge Providers Provider Date of admission: 11/24/22 22:23 Discharge Date: 11/28/22 Primary care physician: Alda Cross PA-C Consults: 11/24/22 22:26 Consult to Dietitian, Adult Routine Comment: Reason For Exam: BMI 35.4 Consult to Discharge Planning Routine Comment: Discharge provider: Luis F Delarosa DO Summary Hospital Course Discharge Diagnosis: 1. Atrial fibrillation with RVR, paroxysmal, acute on chronic, present on admission -last admit for AFib with RVR 07/07/2022 -suspect possible medication noncompliance, dehydration & virus resulting in atrial fibrillation irritability. -rate improved with dilt gtt, and now transitioning to po long acting dilt plus home metoprolol -start dilt po ER 300mg daily -ECHO-as echo was not performed on last admit -ejection fraction 50-55% -tele monitoring 2. Hyponatremia, mild, acute, present on admission -sodium 131-1 L bolus provided, followed by 100 cc/hr initial, improved today to 134 -gentle rehydration NS at 60 cc/HR -likely secondary to dehydration 3. Human metapneumovirus, acute, present on admission -supportive care-Tessalon Perles, guaifenesin with codeine -respiratory consult PRN -DuoNeb q.4 hours while awake as needed -incentive spirometry -azithromycin given in the ER but continuation of antibiotics not warranted. 4. Hypertension, essential, chronic, present on admission -continue irbesartan 5. Obesity, moderate, acute on chronic, present on admission -BMI 35.4 -dietary consult ordered regarding nutritional education and information for dietary, lifestyle, exercise, and weight changes. -the patient is at much higher risk for medical and surgical complications due to obesity as it relates to chronic illnesses:, and acute illness.? The patient's obesity increases the difficulty and complexity of medical and/or surgical interventions, management and increases the chances of poor outcome such as morbidity and mortality as well as impaired wound healing.? 6. GERD, chronic, present on admission -continue omeprazole Hospital Course: Admitted for A-fib RVR requiring dilt drip in ICU. Found to have metopneumovirus given supportive care. Responded well but attempt to transition to po metoprolol failed and patient had to go back on dilt drip. Started on po dilt XR 300mg along with home metop 50mg BID and HR remained in 80-90's. Discharged home to f/u with cardiology. Time Spent with Patient Time spent: Greater than 30 minutes Exam Vital Signs (past 8 hours): - 11/28/22 08:24 11/28/22 08:32 11/28/22 07:00 Temperature 98 F Pulse Rate 76 76 Respiratory Rate 17 Blood Pressure 122/83 122/83 Pulse Oximetry 94 Oxygen Delivery Method Room Air Oxygen Flow Rate 0 11/28/22 09:44 Temperature Pulse Rate 76 Respiratory Rate Blood Pressure 122/83 Pulse Oximetry Oxygen Delivery Method Oxygen Flow Rate Oxygen Delivery Method Room Air Oxygen Flow Rate 0 Narrative Exam Narrative: General:? Patient is a well-developed, well-nourished in no distress at this time, although feeling somewhat agitated from the elevated heart rate. HEENT:? Normocephalic, atraumatic, extraocular muscles intact, oral pharynx is clear and mucous membranes are moist.? Neck is supple and symmetric, trachea is midline, no adenopathy, no thyroid enlargement, nontender, no masses palpated.? Negative for JVD Chest:? Normal AP diameter and contour without kyphoscoliosis, no nasal flaring, retractions, or tachypneic labored Lungs:? Auscultation of all lung palm are clear without adventitious sounds, wheezes, rhonchi, or rales. Cardio:? Irregular rate (afib) and rhythm without murmur, rubs, or gallops, no carotid bruit, no cardiac pulsations present. Tachycardia present. Abdomen:? Soft nontender, negative for organomegaly, or masses.? Bowel sounds are present in all 4 quadrants without guarding or rebound, no CVA tenderness. Musculoskeletal:? Muscle strength and tone are equal within normal limits, no deformity, crepitus, effusions, cyanosis, clubbing or edema present.? Full range of motion intact radial and pedal pulses are normal. Skin:? Warm dry and intact without rashes, ulcerations or petechiae.? Neuro:? Alert and orientated x3, moves all extremities, sensation to touch intact, no gross deficits noted of cranial nerves. Psych:? Patient has a well-kept appearance, very anxious, mental status attitude thought context and judgment are some what appropriate for age. Objective Labs 11/28/22 04:31 11/28/22 04:31 Labs: Laboratory Results - last 24 hr 11/28/22 11/28/22 11/28/22 04:31 04:31 04:31 WBC 12.7 H D RBC 4.34 Hgb 13.2 Hct 38.7 MCV 89.2 MCH 30.4 MCHC 34.1 RDW 13.5 Plt Count 287 Neut % (Auto) 80.9 H Lymph % (Auto) 11.8 L [place] % (Auto) 7.2 Eos % (Auto) 0.0 L Baso % (Auto) 0.1 Neut # (Auto) 13416 H Lymph # (Auto) 1500 [place] # (Auto) 900 Eos # (Auto) 0 Baso # (Auto) 0 Sodium 135 L Potassium 4.2 Chloride 103 Carbon Dioxide 25 BUN 21 H Creatinine 0.88 Estimated GFR > 60 BUN/Creatinine Ratio 23.9 H Glucose 108 Calcium 8.2 L Magnesium 2.2 PFSH Medical History Paroxysmal atrial fibrillation Pelvic relaxation Postmenopausal atrophic vaginitis Surgical History History of cataract surgery Family History Mother Congestive heart failure Brother CAD (coronary artery disease) of artery bypass graft Social History household members: friend(s) Smoking Status: Never smoker Discharge Plan Discharge Plan Patient Disposition: Home Provider Discharge Comment: You were admitted for rapid A-fib in the setting of human metapneumovirus infection. This improved with diltiazem medication in addition to your metoprolol so you will now be going home on daily diltiazem plus metoprolol to control your heart rate. Goal is heart rate <110 at rest. Please follow-up with your brine tank tender for ongoing management of your A-fib. Discharge orders & Medications Prescriptions: New diltiazem HCl 300 mg capsule,extended release 24hr 300 mg PO DAILY Qty: 30 0RF Continued irbesartan 75 mg tablet 75 mg PO DAILY omeprazole 20 mg capsule,delayed release(DR/EC) 20 mg PO DAILY tumeric root 500 mg capsule 500 mg PO 1XD Zicam 1 dose intranasal 1XD amlodipine [Norvasc] 5 mg Tablet 5 mg PO DAILY garlic Capsule 1 cap PO 1XD clobetasol [Temovate] 0.05 % Ointment 1 applic TOPICAL BID acetylcysteine 600 mg Capsule 600 mg PO DAILY diclofenac sodium 1 % Gel 4 g TOPICAL 3-4XD triamcinolone acetonide 0.1 % Cream 1 applic TOPICAL BID quercetin 500 mg Capsule 50 mg PO 1XD metoprolol succinate 50 mg Tablet Extended Release 24 Hr 50 mg PO BID Qty: 60 0RF apixaban 5 mg tablet 5 mg PO BID Qty: 60 0RF No Action diclofenac sodium [Arthritis Pain (diclofenac)] 1 % gel 2 g topical QID PRN (Reason: arm pain) Qty: 100 0RF Rx Instructions: apply to arm as needed for pain hydrocodone-acetaminophen 5-325 mg tablet 1 tab PO TID PRN (Reason: pain) Qty: 10 0RF Follow up/Referrals: Alda Cross PA-C [Primary Care Provider] - 2 Weeks Visit Report/Discharge Packet Stand Alone Forms: Patient Portal/API, Stroke Signs & Symptoms Discharge Data Primary Care Provider: Alda Cross Discharges patient from system. Discharge Date/Time: 11/28/22 13:46 Quality VTE Deep Vein Thrombosis/Pulmonary Embolism Present on Admission: No
== END 2022-11-28 13:46 | disposition home or self-care (01) | DRG 309 ==
LOC: ED 20:29 → ICU 11-25 10:59 → AC 11-26 09:29 → ICU 11-26 09:29
PROVIDERS: Neuromusculoskeletal Medicine, Sports Medicine; Student in an Organized Health Care Education/Training Program; Admitting Provider Nurse Practitioner Family; Emergency Provider Emergency Medicine; PCP Physician Assistant; Visit Provider Nurse Practitioner Family
DX: I48.0 Paroxysmal atrial fibrillation (principal); E87.1 Hypo-osmolality and hyponatremia; B97.81 Human metapneumovirus as the cause of diseases classified elsewhere; I10 Essential (primary) hypertension; E66.9 Obesity, unspecified; K21.9 Gastro-esophageal reflux disease without esophagitis; E86.0 Dehydration; Z79.01 Long term (current) use of anticoagulants; Z20.822 Contact with and (suspected) exposure to COVID-19; Z91.148 Patient's other noncompliance with medication regimen for other reason; Z68.35 Body mass index [BMI] 35.0-35.9, adult
CPT/HCPCS: 36415; 71045; 80048; 80053; 81001; 82550; 82553; 83605; 83690; 83735; 83880; 84145; 84443; 84484; 85025; 85610; 85730; 86140; 87040; 87633; 87797; 93005; 93010; 93306; 94640; 94667; 96365; 96367; 96368; 96376; 99284; J1160; J3475

== ENCOUNTER 2022-11-29 12:06 | Emergency (ER) | payer MEDICARE, SELFPAY ==
[2022-11-24 22:37] VITALS: BMI 35.4
[2022-11-29 12:18] VITALS: BP 125/62; PULSE 70; RESP 24; TEMP 36.6; O2SAT 93; BMI 35.5
--- NOTE | 2022-11-29 12:55 | DI.US.S_ITS ---
PROCEDURE: US PERIPH VENOUS UP EXTREM LT INDICATIONS: thrombophlebitis vs cellulitis TECHNIQUE: Real-time imaging, as well as color and pulse Doppler interrogation, was performed of the left upper extremity deep veins from the inferior neck to the antecubital fossa. COMPARISON: None. FINDINGS: The internal jugular vein, visualized portions of the subclavian vein, axillary, and brachial veins are free of intraluminal thrombus. Where physically possible, the veins are normally compressible. Color and pulse Doppler demonstrate normal intraluminal flow, with expected phasicity and pulsatility. Within the left cephalic vein from the mid arm through the antecubital fossa, there is occlusive superficial venous thrombosis seen. IMPRESSION: Negative for deep venous thrombosis. Superficial venous thrombosis can be seen within the cephalic vein. Dictated by: Adelfo Casas M.D. on 11/29/2022 at 12:39 Approved by: Adelfo Casas M.D. on 11/29/2022 at 12:41
[2022-11-29] MEDS: cephALEXin 250 MG CAPSULE 500 MG PO (13:05)
[2022-11-29] MEDS: LIDOCAINE/PRILOCAINE 5 GM TOP (13:05)
[2022-11-29] MEDS: HYDROCODONE/ACET 5/325 TABLET 1 TAB PO (13:06)
--- NOTE | 2022-11-29 13:24 | ED_ITS ---
HPI - Skin/Abscess/Foreign Bdy <July Winter, KNUCKLER - Last Filed: 11/29/22 13:53> General Chief complaint: Skin/Abscess/Foreign Body Stated complaint: Infected arm Time Seen by Provider: 11/29/22 12:46 Source: patient Mode of arrival: Ambulatory Limitations: no limitations History of Present Illness HPI narrative: This is a 77-year-old female presents to the emergency department the day after hospital admission for atrial fibrillation due to viral illness who is now anticoagulated on apixaban and presents for concern about left arm redness, swelling, pain from an IV that was in her left AC yesterday. She states that the IV was discontinued and put into her right hand but she is had increased pain and swelling since this and came back today for this. She is not had recent antibiotics, denies history of skin infections in the past, is not currently on antibiotics and states that she has had good pain control with [id number] remedies. She denies any drainage, denies fever, Related Data Home Medications Medication Instructions Recorded Confirmed Zicam 1 dose intranasal 1XD 05/18/19 11/25/22 irbesartan 75 mg tablet 75 mg PO DAILY 05/18/19 11/25/22 omeprazole 20 mg capsule,delayed 20 mg PO DAILY 05/18/19 11/25/22 release tumeric root 500 mg PO 1XD 05/18/19 11/25/22 acetylcysteine 600 mg capsule 600 mg PO DAILY 11/25/22 11/25/22 amlodipine 5 mg tablet (Norvasc) 5 mg PO DAILY 11/25/22 11/25/22 clobetasol 0.05 % topical ointment 1 applic topical BID 11/25/22 11/25/22 (Temovate) diclofenac sodium 1 % topical gel 4 g topical 3-4XD 11/25/22 11/25/22 garlic 1 cap PO 1XD 11/25/22 11/25/22 quercetin 500 mg capsule 50 mg PO 1XD 11/25/22 11/25/22 triamcinolone acetonide 0.1 % 1 applic topical BID 11/25/22 11/25/22 topical cream Previous Rx's Medication Instructions Recorded apixaban 5 mg tablet 5 mg PO BID #60 tabs 07/17/22 metoprolol succinate 50 mg 50 mg PO BID #60 tabs 07/17/22 tablet,extended release 24 hr diltiazem HCl 300 mg 300 mg PO DAILY #30 caps 11/28/22 capsule,extended release 24 hr diclofenac sodium 1 % topical gel 2 g topical QID PRN arm pain #100 11/29/22 (Arthritis Pain (diclofenac)) grams hydrocodone 5 mg-acetaminophen 325 1 tab PO TID PRN pain #10 tabs 11/29/22 mg tablet Allergies Allergy/AdvReac Type Severity Reaction Status Date / Time milk [MILK] Allergy Unknown ACHE ALL Verified 11/29/22 12:24 OVER LIKE COMING DOWN WITH FLU X3 DAYS lisinopril [LISINOPRIL] AdvReac Unknown COUGH Verified 11/29/22 12:24 Review of Systems <TERENCE Madrigal - Last Filed: 11/29/22 13:53> Review of Systems ROS Unobtainable: All systems reviewed & are unremarkable except as noted in HPI and below Patient History <TERENCE Madrigal - Last Filed: 11/29/22 13:53> Medical History Paroxysmal atrial fibrillation Pelvic relaxation Postmenopausal atrophic vaginitis Surgical History History of cataract surgery Family History Mother Congestive heart failure Brother CAD (coronary artery disease) of artery bypass graft Social History household members: friend(s) Smoking Status: Never smoker Smoking Status: Never smoker alcohol intake frequency: holidays/special occasions only Substance Use Type: does not use Exam <TERENCE Madrigal - Last Filed: 11/29/22 13:53> Narrative Exam Narrative: Reviewed vitals signs and nursing notes. General: Pleasant, sitting upright, in no acute distress, well groomed, afebrile HEENT: symmetrical facial expressions, moist mucous membranes, neck is supple MSK: moves all extremities, no weakness, normal tone, ambulatory without deficit Skin: brisk capillary refill, without rash or wound Neuro: clear speech and normal cognition, A&O x3, GCS 15, no focal motor or sensation deficits Initial Vital Signs Initial Vital Signs: Vital Signs Temperature 97.9 F 11/29/22 12:18 Pulse Rate 70 11/29/22 12:18 Respiratory Rate 24 11/29/22 12:18 Blood Pressure 125/62 11/29/22 12:18 Pulse Oximetry 93 11/29/22 12:18 Oxygen Delivery Method Room Air 11/29/22 12:18 <Brien Jones DO - Last Filed: 11/29/22 22:18> Initial Vital Signs Initial Vital Signs: Vital Signs Temperature 97.9 F 11/29/22 12:18 Pulse Rate 70 11/29/22 12:18 Respiratory Rate 24 11/29/22 12:18 Blood Pressure 125/62 11/29/22 12:18 Pulse Oximetry 93 11/29/22 12:18 Oxygen Delivery Method Room Air 11/29/22 12:18 Course <TERENCE Madrigal - Last Filed: 11/29/22 13:53> Orders Ordered: Discontinued Medications Hydrocodone Bitart/Acetaminophen (Hydrocodone/Acet 5/325 Tablet) 1 tab PO NOW ONE Stop: 11/29/22 12:56 Last Admin: 11/29/22 13:06 Dose: 1 tab Documented By: LIU Cephalexin HCl (Cephalexin 250 Mg Capsule) 500 mg PO NOW ONE Stop: 11/29/22 13:00 Last Admin: 11/29/22 13:05 Dose: 250 mg Documented By: LIU Lidocaine/Prilocaine (Lidocaine/Prilocaine 5 Gm) 5 gm TOP NOW ONE Stop: 11/29/22 12:53 Last Admin: 11/29/22 13:05 Dose: 5 gm Documented By: LIU Vital Signs Vital signs: Vital Signs - 8 hr 11/29/22 12:18 Temperature 97.9 F Pulse Rate 70 Respiratory Rate 24 Blood Pressure 125/62 Pulse Oximetry 93 Oxygen Delivery Method Room Air <Brien Jones DO - Last Filed: 11/29/22 22:18> Orders Ordered: Discontinued Medications Hydrocodone Bitart/Acetaminophen (Hydrocodone/Acet 5/325 Tablet) 1 tab PO NOW ONE Stop: 11/29/22 12:56 Last Admin: 11/29/22 13:06 Dose: 1 tab Documented By: LIU Cephalexin HCl (Cephalexin 250 Mg Capsule) 500 mg PO NOW ONE Stop: 11/29/22 13:00 Last Admin: 11/29/22 13:05 Dose: 250 mg Documented By: LIU Lidocaine/Prilocaine (Lidocaine/Prilocaine 5 Gm) 5 gm TOP NOW ONE Stop: 11/29/22 12:53 Last Admin: 11/29/22 13:05 Dose: 5 gm Documented By: LIU Vital Signs Vital signs: Vital Signs - 8 hr 11/29/22 12:18 Temperature 97.9 F Pulse Rate 70 Respiratory Rate 24 Blood Pressure 125/62 Pulse Oximetry 93 Oxygen Delivery Method Room Air MDM - Skin/Abscess/Foreign Bdy <July Winter, KNUCKLER - Last Filed: 11/29/22 13:53> MDM Narrative Medical decision making narrative: Chief Complaint: arm pain Independent historian: Patient Multiple etiologies for patient's symptoms considered including, but not limited to: Cellulitis, gout, superficial thrombophlebitis I have independently reviewed the patient's vital signs and nursing notes as well as prior records if available. Pertinent records include: History showing patient takes apixaban daily since July 2022 My interpretation of imaging: Ultrasound of upper extremity is positive for superficial venous thrombosis greater than 10 cm in length Consultations: Consultion with Dr. Hurst from hematology about superficial thrombosis on anticoagulation breakthrough regarding treatment Course of care: Ultrasound of patient's left upper arm is positive for superficial thrombosis approximately 10 cm in length, consultation with Dr. Hurst who recommends continuing with Eliquis, no dose adjustments, patient has been taking this dose since July 2022 and has not missed any doses. She states that she still feels well, no fever, no chills, no increased fatigue, and no streaking up her arm. There is no crepitus or wound drainage, appears to be t hrombophlebitis without cellulitis at this time. She is recommended to return to the emergency department for new worsening condition, fever chills, or any streaking up her arm. Social considerations that may affect disposition: none Questions are addressed and there is agreement with the plan and for follow-up. I consulted with the ED attending physician Dr. Jones as needed for higher level of care considerations and they were available for discussion and recommendations regarding plan of care and diagnostic testing. Patient is appropriate for outpatient management. Discharge Plan Departure Patient Disposition: Home Clinical Impression: Superficial venous thrombosis of arm Qualifiers: Laterality: left Qualified Code(s): I82.612 - Acute embolism and thrombosis of superficial veins of left upper extremity Instructions: Superficial Thrombophlebitis Activity Restrictions/Additional Instructions: *You have been diagnosed with a superficial venous thrombosis although you are anticoagulated on Eliquis. Since this is superficial, it is not dangerous like a deep vein thrombosis as it can not travel. The superficial vein becomes inflammatory and causes all of the pain that you have. Please use cool compresses, topical diclofenac gel, arnica, or other topical agent of your choice. Use Tylenol and hydrocodone as needed for your pain, and follow-up with her primary care provider tomorrow. I have spoke with the Hematology doctors who do not recommend any change to your Eliquis at this time. They recommend continuing with your normal dosing and do not miss those doses. I wish you a good rest of the week, no antibiotics are indicated. I hope you feel better soon. *What to do: *Please continue to take your regular medications as directed. [x ] New medication prescriptions sent to your pharmacy: [[facility] ] [ ] New medication written as a paper prescription [ ] No new medications given *Please call and schedule follow up with your primary care provider in 2-3 days, at least for an update. Let them know you were seen in the Emergency Department for the above problem. We will electronically transmit a record of today's note if your PCP or specialist is in our system. *If you do not have a primary care provider please contact [phone] to establish care with one of the [facility] primary care providers. *Return to the Emergency Department for worsening symptoms, inability to keep liquids down, fever greater than 101F, chills, or other concerning symptom. Prescriptions: New diclofenac sodium [Arthritis Pain (diclofenac)] 1 % gel 2 g topical QID PRN (Reason: arm pain) Qty: 100 0RF Rx Instructions: apply to arm as needed for pain hydrocodone-acetaminophen 5-325 mg tablet 1 tab PO TID PRN (Reason: pain) Qty: 10 0RF No Action irbesartan 75 mg tablet 75 mg PO DAILY omeprazole 20 mg capsule,delayed release(DR/EC) 20 mg PO DAILY tumeric root 500 mg capsule 500 mg PO 1XD Zicam 1 dose intranasal 1XD amlodipine [Norvasc] 5 mg Tablet 5 mg PO DAILY garlic Capsule 1 cap PO 1XD clobetasol [Temovate] 0.05 % Ointment 1 applic TOPICAL BID acetylcysteine 600 mg Capsule 600 mg PO DAILY diclofenac sodium 1 % Gel 4 g TOPICAL 3-4XD triamcinolone acetonide 0.1 % Cream 1 applic TOPICAL BID quercetin 500 mg Capsule 50 mg PO 1XD diltiazem HCl 300 mg capsule,extended release 24hr 300 mg PO DAILY Qty: 30 0RF metoprolol succinate 50 mg Tablet Extended Release 24 Hr 50 mg PO BID Qty: 60 0RF apixaban 5 mg tablet 5 mg PO BID Qty: 60 0RF Referrals: Alda Cross PA-C [Primary Care Provider] - Sammy Zarate MD [Physician] - Stand Alone Forms: Patient Portal/API <Brien Jones DO - Last Filed: 11/29/22 22:18> Cosign ED Attending Gil Attestation: I was immediately available in the department for consultation. Documentation has been reviewed. I agree with assessment and plan.
[2022-11-29 14:08] VITALS: BP 100/67; PULSE 70; RESP 16; O2SAT 95
== END 2022-11-29 14:09 | disposition home or self-care (01) ==
PROVIDERS: Emergency Provider Nurse Practitioner Critical Care Medicine; PCP Physician Assistant
DX: I82.612 Acute embolism and thrombosis of superficial veins of left upper extremity (principal); Z79.01 Long term (current) use of anticoagulants
CPT/HCPCS: 93971; 99283; 99284

== ENCOUNTER 2022-12-12 18:19 | Emergency (ER) | payer MEDICARE, SELFPAY ==
[2022-11-24 22:37] VITALS: BMI 35.4
[2022-12-12] VITALS (12 sets, daily range): BP systolic 124–148; BP diastolic 60–68; PULSE 46–60; RESP 13–24; TEMP 37.1; O2SAT 93–99; BMI 35.5
--- NOTE | 2022-12-12 18:40 | DI.RAD.S_ITS ---
PROCEDURE: XR CHEST 1V INDICATIONS: chest pain TECHNIQUE: One view of the chest was acquired. COMPARISON: [facility], CR, XR CHEST 1V, 11/24/2022, 19:14. [facility], CR, XR CHEST 1V, 07/16/2022, 23:21. FINDINGS: Surgical changes and devices: None. Lungs and pleura: Low lung volumes, limiting evaluation. Decreased left lower lobe opacity. Mediastinum: Mediastinal contours appear normal. Heart size is normal. Bones and chest wall: No suspicious bony lesions. Overlying soft tissues appear unremarkable. IMPRESSION: Decreased left lower lung opacity. Consider future imaging surveillance to assess for resolution. Low lung volumes, limiting evaluation. Dictated by: Jaya Gage M.D. on 12/12/2022 at 19:13 Approved by: Jaya Gage M.D. on 12/12/2022 at 19:14
[2022-12-12 18:54] LABS: Add Manual Diff / Slide Review NO; Basophils Absolute Auto 100 /uL (0-100); Basophils Percent Auto 1.1 % (0-2); Eosinophils Absolute Auto 200 /uL (0-450); Eosinophils Percent Auto 2.8 % (2-4); Hematocrit 39.7 % (36-46); Hemoglobin 13.4 g/dL (12.0-16.0); Lymphocytes Absolute Auto 2300 /uL (1100-4500); Lymphocytes Percent Auto 32.6 % (25-40); Mean Corpuscular HGB Conc 33.8 % (30-36); Mean Corpuscular Hemoglobin 30.9 PG (26-34); Mean Corpuscular Volume 91.4 fL (80-100); Monocytes Absolute Auto 700 /uL (0-900); Monocytes Percent Auto 9.5 % (3-14); Neutrophils Absolute Auto 3800 /uL (1500-7000); Platelet Count 320 X10^3/uL (150-400); Red Blood Cell Count 4.35 X10^6/uL (4.0-5.2); Red Cell Distribution Width 14.1 % (11.6-14.8)
--- NOTE | 2022-12-12 18:59 | ED_ITS ---
HPI - Arrhythmia/Palpitations General Chief Complaint: Arrhythmia/Palpitations Stated Complaint: low blood pressure/low heart beat/wic sent Time Seen by Provider: 12/12/22 18:44 Source: patient Mode of arrival: Family Vehicle History of Present Illness HPI narrative: 77-year-old man with a history of paroxysmal atrial fibrillation currently on apixaban, hypertension with hospitalization on November 24 with recurrent atrial fibrillation. She was discharged home and self converted to sinus rhythm approximately 24 hours after discharge. She was seen on November 29, the day after discharge with the superficial thrombophlebitis and placed on antibiotics. She completed her antibiotics yesterday. She notes that she is been increasingly fatigued over the last 3 days to the point that she has difficulty even walking out to her car. She does not describe significant dyspnea, more simply fatigue. She is been checking heart rate and oxygen saturations regularly and is noticing rates as low as the mid 30s. She does not report fevers, cough, orthopnea, change to her chronic lower extremity edema. He is having no headaches no chest pain. She does note that she is been having soft stool 2 or 3 times a day since being on the antibiotics. Related Data Home Medications Medication Instructions Recorded Confirmed Zicam 1 dose intranasal 1XD 05/18/19 11/25/22 irbesartan 75 mg tablet 75 mg PO DAILY 05/18/19 11/25/22 omeprazole 20 mg capsule,delayed 20 mg PO DAILY 05/18/19 11/25/22 release tumeric root 500 mg PO 1XD 05/18/19 11/25/22 acetylcysteine 600 mg capsule 600 mg PO DAILY 11/25/22 11/25/22 amlodipine 5 mg tablet (Norvasc) 5 mg PO DAILY 11/25/22 11/25/22 clobetasol 0.05 % topical ointment 1 applic topical BID 11/25/22 11/25/22 (Temovate) diclofenac sodium 1 % topical gel 4 g topical 3-4XD 11/25/22 11/25/22 garlic 1 cap PO 1XD 11/25/22 11/25/22 quercetin 500 mg capsule 50 mg PO 1XD 11/25/22 11/25/22 triamcinolone acetonide 0.1 % 1 applic topical BID 11/25/22 11/25/22 topical cream Previous Rx's Medication Instructions Recorded apixaban 5 mg tablet 5 mg PO BID #60 tabs 07/17/22 metoprolol succinate 50 mg 50 mg PO BID #60 tabs 07/17/22 tablet,extended release 24 hr diltiazem HCl 300 mg 300 mg PO DAILY #30 caps 11/28/22 capsule,extended release 24 hr diclofenac sodium 1 % topical gel 2 g topical QID PRN arm pain #100 11/29/22 (Arthritis Pain (diclofenac)) grams hydrocodone 5 mg-acetaminophen 325 1 tab PO TID PRN pain #10 tabs 11/29/22 mg tablet Allergies Allergy/AdvReac Type Severity Reaction Status Date / Time milk [MILK] Allergy Unknown ACHE ALL Verified 12/12/22 18:33 OVER LIKE COMING DOWN WITH FLU X3 DAYS lisinopril [LISINOPRIL] AdvReac Unknown COUGH Verified 12/12/22 18:33 Review of Systems Review of Systems Narrative: Pertinent positive and negative findings as per HPI Patient History Medical History Paroxysmal atrial fibrillation Pelvic relaxation Postmenopausal atrophic vaginitis Surgical History History of cataract surgery Family History Mother Congestive heart failure Brother CAD (coronary artery disease) of artery bypass graft Social History household members: friend(s) Smoking Status: Never smoker Smoking Status: Never smoker alcohol intake frequency: holidays/special occasions only Substance Use Type: does not use Exam Initial Vital Signs Initial Vital Signs: Vital Signs Temperature 98.8 F 12/12/22 18:33 Pulse Rate 46 L 12/12/22 18:33 Respiratory Rate 20 12/12/22 18:33 Blood Pressure 145/68 H 12/12/22 18:33 Pulse Oximetry 99 12/12/22 18:33 Oxygen Delivery Method Room Air 12/12/22 18:33 General: Fatigued and somewhat pale but otherwise in no acute distress. Able to give a complete and coherent history. HEENT: Moist mucous membranes, normal sclera with reactive pupils, Neck: No JVD, supple Respiratory: Lungs with minor bibasilar crackles but no wheezing or rhonchi. Full and symmetrical air movement Cardiac: Bradycardic without murmurs. Abdomen: Soft, nontender, good bowel tones, no flank pain Skin: Warm and dry, no rashes Neurologic: Grossly neurologically intact with no obvious asymmetries or abnormalities Extremities: No trauma, well perfused, 1+ bilateral lower extremity edema that patient feels is her baseline Psych: Cooperative, appropriate insight and affect Course Orders Ordered: ED Orders 12/12/22 18:40 XR chest 1V Stat COVID19 -Nasal RAPID Stat 12/12/22 18:45 Complete Blood Count AUTO DIFF Stat Comprehensive Metabolic Panel Stat Lipase Stat Magnesium Stat PTT Partial Thromboplastin Lars Stat Prothrombin Time INR Stat Troponin & CK Cardiac Panel Stat 12/12/22 18:51 EKG-12 Lead Stat Discontinued Medications Aspirin (Aspirin 81 Mg Chew Tab) 324 mg PO NOW ONE Stop: 12/12/22 18:41 Last Admin: 12/12/22 20:27 Dose: Not Given Documented By: SB Vital Signs Vital signs: Vital Signs - 8 hr 12/12/22 18:33 12/12/22 18:42 12/12/22 18:47 Temperature 98.8 F Pulse Rate 46 L 51 L 53 L Respiratory Rate 20 24 17 Blood Pressure 145/68 H Pulse Oximetry 99 96 96 Oxygen Delivery Method Room Air 12/12/22 18:47 12/12/22 19:00 12/12/22 19:00 Temperature Pulse Rate 50 L Respiratory Rate 19 Blood Pressure 136/66 124/63 Pulse Oximetry 95 Oxygen Delivery Method Room Air 12/12/22 19:30 12/12/22 19:30 12/12/22 20:00 Temperature Pulse Rate 54 L Respiratory Rate 18 Blood Pressure 124/60 137/65 Pulse Oximetry 96 Oxygen Delivery Method 12/12/22 20:00 12/12/22 20:30 12/12/22 20:30 Temperature Pulse Rate 58 L 60 Respiratory Rate 17 13 Blood Pressure 141/66 H Pulse Oximetry 97 96 Oxygen Delivery Method 12/12/22 21:00 12/12/22 21:00 12/12/22 21:30 Temperature Pulse Rate 59 L Respiratory Rate 21 Blood Pressure 145/68 H 148/68 H Pulse Oximetry 96 Oxygen Delivery Method 12/12/22 21:30 Temperature Pulse Rate 60 Respiratory Rate 15 Blood Pressure Pulse Oximetry 96 Oxygen Delivery Method MDM - Arrhythmia/Palpitations Lab Data 12/12/22 18:45 12/12/22 18:45 Labs: Lab Results 12/12/22 12/12/22 12/12/22 Range/Units 18:45 18:45 18:45 WBC 7.0 (4.5-11.0) X10^3/uL RBC 4.35 (4.0-5.2) X10^6/uL Hgb 13.4 (12.0-16.0) g/dL Hct 39.7 (36-46) % MCV 91.4 (80-100) fL MCH 30.9 (26-34) PG MCHC 33.8 (30-36) % RDW 14.1 (11.6-14.8) % Plt Count 320 (150-400) X10^3/uL Neut % (Auto) 54.0 (50-75) % Lymph % (Auto) 32.6 (25-40) % [place] % (Auto) 9.5 (3-14) % Eos % (Auto) 2.8 (2-4) % Baso % (Auto) 1.1 (0-2) % Neut # (Auto) 3800 (0527-5202) /uL Lymph # (Auto) 2300 (8786-3474) /uL [place] # (Auto) 700 (0-900) /uL Eos # (Auto) 200 (0-450) /uL Baso # (Auto) 100 (0-100) /uL PT 13.6 H (10.1-12.7) SECONDS INR 1.2 (0.9-1.3) APTT 31 (26-36) SECONDS Sodium 139 (137-145) mmol/L Potassium 4.4 (3.4-5.1) mmol/L Chloride 105 (98-107) mmol/L Carbon Dioxide 26 (22-32) mmol/L BUN 17 (7-17) mg/dL Creatinine 1.20 H (0.52-1.04) mg/dL Estimated GFR 47 L (>60) mL/min BUN/Creatinine Ratio 14.2 (6-22) Glucose 120 H (80-110) mg/dL Calcium 9.4 (8.4-10.2) mg/dL Magnesium 2.1 (1.6-2.3) mg/dL Total Bilirubin 0.5 (0.2-1.3) mg/dL AST 24 (14-36) IU/L ALT 33 (<35) IU/L Alkaline Phosphatase 71 (38-126) U/L Total Creatine Kinase 35 (30-135) U/L CK-MB (CK-2) TNP CK-MB (CK-2) Rel Index TNP Troponin I < 0.012 (0.01-0.034) ng/mL Total Protein 6.9 (6.3-8.2) g/dL Albumin 4.1 (3.5-5.0) g/dL Globulin 2.8 (1.7-4.1) g/dL Albumin/Globulin Ratio 1.5 (1.0-2.8) Lipase 169 (23-300) U/L MDM Narrative Medical decision making narrative: CC: Bradycardia with significant fatigue, new problem uncertain prognosis Complicating co-morbidities: Recent hospitalization for atrial fibrillation with medications recently added. She appears to be in sinus rhythm at this time. Data collected from: patient, Medical records reviewed: Discharge from November 24. 300 mg of extended release diltiazem was added to her prior dose of metoprolol succinate 50 mg twice a day Differential considered: Symptomatic bradycardia, third-degree block 2nd degree block, sinus Babatunde secondary to medications, acute coronary syndrome Exam documented above, pertinent findings include: Bradycardic, minimal bibasilar crackles no overt signs of congestive heart failure otherwise unremarkable Lab Test results independently reviewed as above. Pertinent findings: CBC is unremarkable Chemistries reveal an acute jump in her creatinine from 0.8-1.2. Remainder of chemistries are unremarkable Troponin is initially unremarkable Independently reviewed EKG sinus Babatunde at a rate of 51, no acute ischemic changes, normal axis. Imaging studies independently reviewed: Chest x-ray today is consistent with decreased overall lung volumes. Echocardiogram from November 24 shows frequent PACs and PVCs. Patient was in a sinus bradycardia at the time and ejection fraction was estimated at 50-55% Treatments: Withholding evening metoprolol, Discussion: Patient is re-evaluated. She is feeling better at this time. His reassured by watching her heart rate and blood pressure on the monitor. Reviewed labs with her including all benign findings. No evidence of infection, heart attack, severe life-threatening bradycardic heart rhythms, heart failure. I suspect that now that she is out of her paroxysmal atrial fibrillation and back into a sinus rhythm the extra dose of diltiazem is no longer required in his likely causing her symptoms. To that end, I suggested that she hold the diltiazem as well as tonight's metoprolol. Beginning in the morning continuing with the b.i.d. metoprolol she had been doing prior to recent admission. She does have a follow-up with her new primary care provider next Saturday. She keeps track of daily blood pressures and heart rate and will be able to review this with her provider as well as the fact that she has discontinued the diltiazem. Questions are answered and she is safe for discharge home Discharge Plan Departure Patient Disposition: Home Clinical Impression: Bradycardia, PAF (paroxysmal atrial fibrillation) Instructions: DI for Bradycardia Activity Restrictions/Additional Instructions: Thank you for coming in today Your workup was very reassuring. You are back in sinus rhythm and I suspect that the diltiazem that had been added with your recent hospitalization to control your heart rate when you are in atrial fibrillation is no longer necessary. It may be that when you are on sinus rhythm you do not need this medication and when you are in atrial fibrillation you will. At this point, I think that that is probably causing your relatively slow heart rate and the relatively slow heart rate is causing your significant fatigue . There is no evidence of heart attack, heart failure, other infection or reason for hospitalization today. Please hold the diltiazem for now. Do not take tonight's dose of metoprolol. Beginning tomorrow continue your metoprolol morning and night as you had been doing. Please continue monitoring your heart rate and blood pressure and review these numbers with your new primary care provider when you meet next week. If you find that you are getting worse or develop any new symptoms, please feel free to return to the emergency department for further evaluation. Prescriptions: No Action irbesartan 75 mg tablet 75 mg PO DAILY omeprazole 20 mg capsule,delayed release(DR/EC) 20 mg PO DAILY tumeric root 500 mg capsule 500 mg PO 1XD Zicam 1 dose intranasal 1XD amlodipine [Norvasc] 5 mg Tablet 5 mg PO DAILY garlic Capsule 1 cap PO 1XD clobetasol [Temovate] 0.05 % Ointment 1 applic TOPICAL BID acetylcysteine 600 mg Capsule 600 mg PO DAILY diclofenac sodium 1 % Gel 4 g TOPICAL 3-4XD triamcinolone acetonide 0.1 % Cream 1 applic TOPICAL BID quercetin 500 mg Capsule 50 mg PO 1XD diltiazem HCl 300 mg capsule,extended release 24hr 300 mg PO DAILY Qty: 30 0RF diclofenac sodium [Arthritis Pain (diclofenac)] 1 % gel 2 g topical QID PRN (Reason: arm pain) Qty: 100 0RF Rx Instructions: apply to arm as needed for pain hydrocodone-acetaminophen 5-325 mg tablet 1 tab PO TID PRN (Reason: pain) Qty: 10 0RF metoprolol succinate 50 mg Tablet Extended Release 24 Hr 50 mg PO BID Qty: 60 0RF apixaban 5 mg tablet 5 mg PO BID Qty: 60 0RF Referrals: Alda Cross PA-C [Primary Care Provider] - Stand Alone Forms: Patient Portal/API
[2022-12-12 19:00] LABS: INR 1.2 (0.9-1.3); Prothrombin Time 13.6 SECONDS (10.1-12.7)
[2022-12-12 19:03] LABS: PTT Partial Thromboplastin Tim 31 SECONDS (26-36)
[2022-12-12 19:05] LABS: Alanine Aminotransferase 33 IU/L (<35); Albumin 4.1 g/dL (3.5-5.0); Albumin Globulin Ratio 1.5 (1.0-2.8); Alkaline Phosphatase 71 U/L (38-126); Aspartate Aminotransferase 24 IU/L (14-36); BUN Creatinine Ratio 14.2 (6-22); Bilirubin Total 0.5 mg/dL (0.2-1.3); Blood Urea Nitrogen 17 mg/dL (7-17); Calcium 9.4 mg/dL (8.4-10.2); Carbon Dioxide 26 mmol/L (22-32); Chloride 105 mmol/L (98-107); Creatine Kinase 35 U/L (30-135); Estimated Glomerular Filt Rate 47 mL/min (>60); Globulin 2.8 g/dL (1.7-4.1); Glucose 120 mg/dL (80-110); HEMOLYSIS < 15 (0-50); Lipase 169 U/L (23-300); Magnesium 2.1 mg/dL (1.6-2.3); Potassium 4.4 mmol/L (3.4-5.1); Sodium 139 mmol/L (137-145); Total Protein 6.9 g/dL (6.3-8.2)
[2022-12-12 19:15] LABS: Troponin I < 0.012 ng/mL (0.01-0.034)
== END 2022-12-12 23:18 | disposition home or self-care (01) ==
PROVIDERS: Emergency Provider Emergency Medicine; PCP Physician Assistant
DX: I48.0 Paroxysmal atrial fibrillation (principal); R00.1 Bradycardia, unspecified
CPT/HCPCS: 36415; 71045; 80053; 82550; 83690; 83735; 84484; 85025; 85610; 85730; 93005; 99283; 99284

== ENCOUNTER 2022-12-28 13:00 | Emergency (ER) | payer MEDICARE, SELFPAY ==
[2022-11-24 22:37] VITALS: BMI 35.4
[2022-12-28] VITALS (11 sets, daily range): BP systolic 131–197; BP diastolic 63–90; PULSE 61–71; RESP 15–21; TEMP 36.6; O2SAT 94–98; BMI 35.3
--- NOTE | 2022-12-28 13:09 | DI.CT.S_ITS ---
PROCEDURE: CT HEAD/BRAIN WO CON INDICATIONS: dizzy, on eliquis TECHNIQUE: Noncontrast 4.5 mm thick angled axial sections acquired from the foramen magnum to the vertex, with coronal and sagittal reformats. For radiation dose reduction, the following was used: automated exposure control, adjustment of mA and/or kV according to patient size. COMPARISON: None. FINDINGS: Image quality: Excellent. CSF spaces: Basal cisterns are patent. No extra-axial fluid collections. The ventricles are symmetric in size and shape. Brain: No intracranial bleeds or masses. There is cerebral volume loss for age, with resultant ventricular and sulcal prominence. There are periventricular and deep white matter chronic small vessel ischemic changes. There is intracranial internal carotid artery atherosclerosis. Skull and face: Calvarium and visualized facial bones appear intact, without suspicious lesions. Sinuses: Visualized sinuses and mastoids are clear. IMPRESSION: 1. No acute intracranial abnormalities. 2. Cerebral volume loss and chronic microvascular ischemic changes. Dictated by: Patrizia Berumen M.D. on 12/28/2022 at 13:42 Approved by: Patrizia Berumen M.D. on 12/28/2022 at 13:42
[2022-12-28 13:29] LABS: Add Manual Diff / Slide Review NO; Basophils Absolute Auto 100 /uL (0-100); Basophils Percent Auto 1.2 % (0-2); Eosinophils Absolute Auto 200 /uL (0-450); Eosinophils Percent Auto 3.7 % (2-4); Hemoglobin 14.3 g/dL (12.0-16.0); Lymphocytes Absolute Auto 2000 /uL (1100-4500); Lymphocytes Percent Auto 34.7 % (25-40); Mean Corpuscular HGB Conc 34.2 % (30-36); Mean Corpuscular Hemoglobin 31.3 PG (26-34); Mean Corpuscular Volume 91.7 fL (80-100); Monocytes Absolute Auto 600 /uL (0-900); Monocytes Percent Auto 11.1 % (3-14); Neutrophils Absolute Auto 2900 /uL (1500-7000); Neutrophils Percent Auto 49.3 % (50-75); Platelet Count 265 X10^3/uL (150-400); Red Blood Cell Count 4.58 X10^6/uL (4.0-5.2); Red Cell Distribution Width 14.7 % (11.6-14.8); White Blood Cell Count 5.8 X10^3/uL (4.5-11.0)
[2022-12-28] MEDS: MECLIZINE HCL 12.5 MG TABLET 50 MG PO (13:32)
--- NOTE | 2022-12-28 13:39 | ED_ITS ---
HPI - General Adult General Chief complaint: Dizziness Stated complaint: per pt vertigo Time Seen by Provider: 12/28/22 13:09 Mode of arrival: Family Vehicle History of Present Illness HPI narrative: 77-year-old female nonsmoker with history of atrial fibrillation on anticoagulation presents from her physical therapy office with a chief complaint of vertigo. She states she is been having trouble for least a week and was actually at physical therapy receiving the David maneuver in an attempt to help treat her vertigo and when it was unsuccessful she was sent here for evaluation. She is had no trauma or injury. She denies any blurred vision or trouble with speech. She states she has intense dizziness when she moves her head and improvement with rest. She denies any runny nose, sore throat or cough. She has no ear pain or drainage. She denies chest pain, shortness of breath, palpitations or irregular heartbeat. She is had no nausea, vomiting or diarrhea. She denies dysuria, frequency or urgency Related Data Home Medications Medication Instructions Recorded Confirmed Zicam 1 dose intranasal 1XD 05/18/19 11/25/22 irbesartan 75 mg tablet 75 mg PO DAILY 05/18/19 11/25/22 omeprazole 20 mg capsule,delayed 20 mg PO DAILY 05/18/19 11/25/22 release tumeric root 500 mg PO 1XD 05/18/19 11/25/22 acetylcysteine 600 mg capsule 600 mg PO DAILY 11/25/22 11/25/22 amlodipine 5 mg tablet (Norvasc) 5 mg PO DAILY 11/25/22 11/25/22 clobetasol 0.05 % topical ointment 1 applic topical BID 11/25/22 11/25/22 (Temovate) diclofenac sodium 1 % topical gel 4 g topical 3-4XD 11/25/22 11/25/22 garlic 1 cap PO 1XD 11/25/22 11/25/22 quercetin 500 mg capsule 50 mg PO 1XD 11/25/22 11/25/22 triamcinolone acetonide 0.1 % 1 applic topical BID 11/25/22 11/25/22 topical cream Previous Rx's Medication Instructions Recorded apixaban 5 mg tablet 5 mg PO BID #60 tabs 07/17/22 metoprolol succinate 50 mg 50 mg PO BID #60 tabs 07/17/22 tablet,extended release 24 hr diltiazem HCl 300 mg 300 mg PO DAILY #30 caps 11/28/22 capsule,extended release 24 hr diclofenac sodium 1 % topical gel 2 g topical QID PRN arm pain #100 11/29/22 (Arthritis Pain (diclofenac)) grams hydrocodone 5 mg-acetaminophen 325 1 tab PO TID PRN pain #10 tabs 11/29/22 mg tablet meclizine 25 mg tablet 25 mg PO BID-TID PRN dizziness #14 12/28/22 tabs Allergies Allergy/AdvReac Type Severity Reaction Status Date / Time milk [MILK] Allergy Unknown ACHE ALL Verified 12/28/22 13:12 OVER LIKE COMING DOWN WITH FLU X3 DAYS lisinopril [LISINOPRIL] AdvReac Unknown COUGH Verified 12/28/22 13:12 Review of Systems Review of Systems Narrative: GENERAL: Denies chills, fatigue, malaise, fever, sweats. HEENT: See HPI RESPIRATORY: Denies dyspnea, cough, wheezing, hemoptysis, sputum. CARDIOVASCULAR: Denies chest pain, palpitations, orthopnea, edema, GASTROINTESTINAL: Denies nausea, vomiting, abdominal pain, diarrhea, constipation, melena. : Denies dysuria, frequency, incontinence, hematuria, urinary retention. MUSCULOSKELETAL: denies weakness, joint pain, or bony pain SKIN: Denies rash, skin lesions, or other NEUROLOGIC: See HPI PSYCHIATRIC: No concerning psychosocial issues. 12 point review of systems is negative except for those stated above Patient History Medical History Paroxysmal atrial fibrillation Pelvic relaxation Postmenopausal atrophic vaginitis Surgical History History of cataract surgery Family History Mother Congestive heart failure Brother CAD (coronary artery disease) of artery bypass graft Social History household members: friend(s) Smoking Status: Never smoker Smoking Status: Never smoker alcohol intake frequency: holidays/special occasions only Substance Use Type: does not use Exam Narrative Exam Narrative: GENERAL: [77] year old patient appears stated age. Well-developed patient, in mild distress. HEAD: Atraumatic. Normocephalic. EYES: Pupils equal round and reactive. Extraocular motions intact. No scleral icterus. No injection or drainage. Lateral nystagmus with fast which to the left, elicited with head motion ENT: Nose without bleeding, purulent drainage. Throat without erythema, tonsillar hypertrophy or exudate. Airway patent. NECK: Trachea midline. Non tender CARDIOVASCULAR: Regular rate and rhythm without murmurs, gallops, or rubs. RESPIRATORY: Clear to auscultation. Breath sounds equal bilaterally. No wheezes, rales, or rhonchi. GASTROINTESTINAL: Abdomen soft, non-tender, nondistended. EXTREMITIES: No edema or joint tenderness. BACK: Nontender without deformity or crepitance. No flank tenderness. NEURO: AOx3. SKIN: No rash or erythema of visible areas NIH Stroke Scale 1a. LOC: Patient is alert and keenly responsive (0) 1b. LOC Questions: Patient answers both LOC questions accurately (0) 1c. LOC Commands: Patient performs both tasks correctly (0) 2. Best Gaze: Normal (0) 3. Visual: No visual loss (0) 4. Facial palsy: Normal symmetrical movements (0) 5. Motor arm: No drift (0) 6. Motor leg: No drift (0) 7. Limb ataxia: Absent (0) 8. Sensory: Normal (0) 9. Best language: No aphasia; normal (0) 10. Dysarthria: Normal (0) 11. Extinction and inattention: No abnormality (0) NIHSS: 0 Initial Vital Signs Initial Vital Signs: Vital Signs Pulse Oximetry 95 12/28/22 13:04 Course Orders Ordered: ED Orders 12/28/22 13:09 CT head/brain wo con Stat 12/28/22 13:15 Complete Blood Count AUTO DIFF Stat Comprehensive Metabolic Panel Stat Lipase Stat Magnesium Stat Troponin & CK Cardiac Panel Stat Discontinued Medications Sodium Chloride (Normal Saline 0.9%) 500 mls @ 1,000 mls/hr IV BOLUS ONE Stop: 12/28/22 13:38 Last Admin: 12/28/22 13:25 Dose: Not Given Documented By: RB Meclizine HCl (Meclizine Hcl 12.5 Mg Tablet) 50 mg PO NOW ONE Stop: 12/28/22 13:10 Last Admin: 12/28/22 13:32 Dose: 50 mg Documented By: RB Vital Signs Vital signs: Vital Signs - 8 hr 12/28/22 13:09 12/28/22 13:04 12/28/22 13:05 Temperature 97.9 F Pulse Rate 71 61 Respiratory Rate 16 Blood Pressure 175/90 H Pulse Oximetry 94 95 94 Oxygen Delivery Method Room Air 12/28/22 13:05 12/28/22 13:25 12/28/22 13:25 Temperature Pulse Rate 63 Respiratory Rate Blood Pressure 175/90 H 142/72 H Pulse Oximetry 96 Oxygen Delivery Method 12/28/22 13:30 12/28/22 13:30 12/28/22 13:52 Temperature Pulse Rate 64 62 Respiratory Rate 15 Blood Pressure 131/63 Pulse Oximetry 95 98 Oxygen Delivery Method 12/28/22 13:52 Temperature Pulse Rate Respiratory Rate Blood Pressure 197/82 H Pulse Oximetry Oxygen Delivery Method Medical Decision Making Lab Data 12/28/22 13:15 12/28/22 13:15 Labs: Lab Results 12/28/22 12/28/22 12/28/22 Range/Units 13:15 13:15 13:15 WBC 5.8 (4.5-11.0) X10^3/uL RBC 4.58 (4.0-5.2) X10^6/uL Hgb 14.3 (12.0-16.0) g/dL Hct 42.0 (36-46) % MCV 91.7 (80-100) fL MCH 31.3 (26-34) PG MCHC 34.2 (30-36) % RDW 14.7 (11.6-14.8) % Plt Count 265 (150-400) X10^3/uL Neut % (Auto) 49.3 L (50-75) % Lymph % (Auto) 34.7 (25-40) % [place] % (Auto) 11.1 (3-14) % Eos % (Auto) 3.7 (2-4) % Baso % (Auto) 1.2 (0-2) % Neut # (Auto) 2900 (5125-4585) /uL Lymph # (Auto) 2000 (9544-8521) /uL [place] # (Auto) 600 (0-900) /uL Eos # (Auto) 200 (0-450) /uL Baso # (Auto) 100 (0-100) /uL Sodium 140 (137-145) mmol/L Potassium 3.9 (3.4-5.1) mmol/L Chloride 105 (98-107) mmol/L Carbon Dioxide 24 (22-32) mmol/L BUN 11 (7-17) mg/dL Creatinine 0.74 (0.52-1.04) mg/dL Estimated GFR > 60 (>60) mL/min BUN/Creatinine Ratio 14.9 (6-22) Glucose 103 (80-110) mg/dL Calcium 9.5 (8.4-10.2) mg/dL Magnesium 2.1 (1.6-2.3) mg/dL Total Bilirubin 0.9 (0.2-1.3) mg/dL AST 28 (14-36) IU/L ALT 28 (<35) IU/L Alkaline Phosphatase 72 (38-126) U/L Total Creatine Kinase 34 (30-135) U/L CK-MB (CK-2) TNP CK-MB (CK-2) Rel Index TNP Troponin I < 0.012 (0.01-0.034) ng/mL Total Protein 7.4 (6.3-8.2) g/dL Albumin 4.4 (3.5-5.0) g/dL Globulin 3.0 (1.7-4.1) g/dL Albumin/Globulin Ratio 1.5 (1.0-2.8) Lipase 123 (23-300) U/L Urine Dip Bedside Urine Glucose Negative Bedside Urine Bilirubin - Negative Bedside Urine Ketone - Negative Urine Specific [place] 1.015 Bedside Urine Occult Blood - Negative Bedside Urine pH 5.5 Bedside Urine Protein - Negative Bedside Urine Urobilinogen - Negative Bedside Urine Nitrite - Negative Bedside Urine Leukocytes - Negative Esterase Point of care testing: Urine Dip Bedside Urine Glucose Negative Bedside Urine Bilirubin - Negative Bedside Urine Ketone - Negative Urine Specific [place] 1.015 Bedside Urine Occult Blood - Negative Bedside Urine pH 5.5 Bedside Urine Protein - Negative Bedside Urine Urobilinogen - Negative Bedside Urine Nitrite - Negative Bedside Urine Leukocytes - Negative Esterase MDM Narrative Medical decision making narrative: [77] year old patient presents with vertigo Multiple etiologies for patient's symptoms considered including, but not limited to: [Peripheral vertigo versus cardiac etiology versus] Prior Charts reviewed in our EMR Primary Historian: patient Labs reviewed and interpreted by myself: No significant abnormal findings Imaging reviewed: CT of the head without acute findings Patient's symptoms improved over duration of stay with above-stated therapies. Patient no longer with visible nystagmus, no symptoms when turning her head, she is ambulatory through the department walking a straight line and no complaints o f dizziness or ataxia Multiple diagnoses considered as noted above, however the lateral gaze nystagm us, reproducibility and fatigability in the absence of other neurologic symptoms are highly suspicious of a peripheral vertigo. Furthermore her NIH stroke scale is 0, labs are unremarkable, head CT without acute findings and patient has had significant improvement in symptoms with meclizine. Findings and discharge diagnosis discussed with patient/family followed by verbalization of understanding Return precautions discussed with patient/family whom verbalize understanding of diagnosis and plan Discharge Plan Departure Patient Disposition: Home Clinical Impression: Vertigo Instructions: DI for Vertigo Activity Restrictions/Additional Instructions: *You have been diagnosed with [dizziness. As we discussed your history and physical exam, labs, CT scan and response to therapies are very reassuring.] *What to do: *Please continue to take your regular medications as directed. [x ] New medication prescriptions sent to your pharmacy: [ [facility]] [ ] New medication written as a paper prescription [ ] No new medications given *Please follow up with your primary care provider in 2-3 days, call for an appointment. Let them know you were seen in the Emergency Department and that we ask that you be seen in follow up. We will electronically transmit a record of today's note if your PCP is in our system *If you do not have a primary care provider please contact the [facility] Resource line at [phone]. They will ask some questions about your medical history and help get you set up with a doctor in the community. *Return to Emergency Department if you should have any new, worsening or concerning symptoms, such as [fever greater than 101 F, shaking chills, worsening pain, persistent vomiting or other bothersome symptoms] Prescriptions: New meclizine 25 mg tablet 25 mg PO BID-TID PRN (Reason: dizziness) Qty: 14 0RF No Action irbesartan 75 mg tablet 75 mg PO DAILY omeprazole 20 mg capsule,delayed release(DR/EC) 20 mg PO DAILY tumeric root 500 mg capsule 500 mg PO 1XD Zicam 1 dose intranasal 1XD amlodipine [Norvasc] 5 mg Tablet 5 mg PO DAILY garlic Capsule 1 cap PO 1XD clobetasol [Temovate] 0.05 % Ointment 1 applic TOPICAL BID acetylcysteine 600 mg Capsule 600 mg PO DAILY diclofenac sodium 1 % Gel 4 g TOPICAL 3-4XD triamcinolone acetonide 0.1 % Cream 1 applic TOPICAL BID quercetin 500 mg Capsule 50 mg PO 1XD diltiazem HCl 300 mg capsule,extended release 24hr 300 mg PO DAILY Qty: 30 0RF diclofenac sodium [Arthritis Pain (diclofenac)] 1 % gel 2 g topical QID PRN (Reason: arm pain) Qty: 100 0RF Rx Instructions: apply to arm as needed for pain hydrocodone-acetaminophen 5-325 mg tablet 1 tab PO TID PRN (Reason: pain) Qty: 10 0RF metoprolol succinate 50 mg Tablet Extended Release 24 Hr 50 mg PO BID Qty: 60 0RF apixaban 5 mg tablet 5 mg PO BID Qty: 60 0RF Referrals: Augustine Duque MD [Physician] - Vanessa Merino PA-C [Primary Care Provider] - Stand Alone Forms: Patient Portal/API
[2022-12-28 13:40] LABS: Alanine Aminotransferase 28 IU/L (<35); Albumin 4.4 g/dL (3.5-5.0); Albumin Globulin Ratio 1.5 (1.0-2.8); Alkaline Phosphatase 72 U/L (38-126); Aspartate Aminotransferase 28 IU/L (14-36); BUN Creatinine Ratio 14.9 (6-22); Bilirubin Total 0.9 mg/dL (0.2-1.3); Blood Urea Nitrogen 11 mg/dL (7-17); Calcium 9.5 mg/dL (8.4-10.2); Carbon Dioxide 24 mmol/L (22-32); Chloride 105 mmol/L (98-107); Estimated Glomerular Filt Rate > 60 mL/min (>60); Glucose 103 mg/dL (80-110); HEMOLYSIS 26 (0-50); Potassium 3.9 mmol/L (3.4-5.1); Sodium 140 mmol/L (137-145); Total Protein 7.4 g/dL (6.3-8.2)
[2022-12-28 13:41] LABS: Creatine Kinase 34 U/L (30-135); Lipase 123 U/L (23-300); Magnesium 2.1 mg/dL (1.6-2.3)
[2022-12-28 13:52] LABS: Troponin I < 0.012 ng/mL (0.01-0.034)
== END 2022-12-28 14:46 | disposition home or self-care (01) ==
PROVIDERS: Emergency Provider Emergency Medicine; PCP Physician Assistant
DX: R42 Dizziness and giddiness (principal)
CPT/HCPCS: 36415; 70450; 80053; 81003; 82550; 83690; 83735; 84484; 85025; 99283; 99284

== ENCOUNTER 2023-02-11 16:30 | Outpatient (RCR) | payer MEDICARE, SELFPAY ==
[2022-11-24 22:37] VITALS: BMI 35.4
--- NOTE | 2023-01-21 17:28 | PT.OIE ---
Current Diagnoses Benign paroxysmal vertigo, right ear (01/21/23) Dizziness and giddiness (01/21/23) Past Medical History (Last Reviewed 12/28/22 @ 13:41 by Brien Jones DO) Paroxysmal atrial fibrillation Pelvic relaxation Postmenopausal atrophic vaginitis Past Surgical History (Last Reviewed 12/28/22 @ 13:41 by Brien Jones DO) History of cataract surgery Visit Care Team Role Provider Type Vanessa Merino PA-C Attending Provider Advanced Slinger Sequins Family Provider Primary Care Provider Referring Provider Specialty: Medical Address: [address] [place] [address], [id number] Email: Physical Therapy Initial Evaluation PT-OP-A Visit Information Start: 01/21/23 17:12 Freq: Status: Active Protocol: Document 01/21/23 16:30 DCW (Rec: 01/21/23 17:27 DCW [id number]) Out-Patient Physical Therapy Visit Information Visit Information Visit Type Initial Evaluation Visit Start Time 16:30 Visit Stop Time 17:10 Total Visit Minutes 40 Visit Number 1 Number of GRINDER AND HONER OPERATOR AUTOMATIC Visits 0 Evaluation Information Evaluation Date 01/21/23 PT-OP-B Current Condition Start: 01/21/23 17:12 Freq: Status: Active Protocol: Document 01/21/23 16:30 DCW (Rec: 01/21/23 17:27 DCW [id number]) Current Condition History of Current Condition Onset Date Three week history Current Complaints Position-dependent vertigo History of Current Condition Pt is a 77 year old female complaining of a three week history of motion-induced vertigo. Pt reports episodes last about three seconds. Symptoms are provoked by changing position in bed , or looking up/down. Pt denies recent hearing changes, tinnitus, diplopia, dysarthria , discoordination, or decreased mentation/ consciousness. Prior Treatments and Tests Brain CT scan: IMPRESSION: 1. No acute intracranial abnormalities. 2. Cerebral volume loss and chronic microvascular ischemic changes . per Patrizia Berumen M.D. on 12/28 Future Testing and Treatments Planned Brain MRI scheduled next month Treatment Goals Patient/Caregiver Goals Eliminate dizziness PT-OP-C Subjective Start: 01/21/23 17:12 Freq: Status: Active Protocol: Document 01/21/23 16:30 DCW (Rec: 01/21/23 17:27 DCW [id number]) OP-PT Subjective Patient Comments Patient Comments I did see the ENT this morning, and he's pretty sure it's the crystals in my right ear. PT-OP-O Vestibular Start: 01/21/23 17:12 Freq: Status: Active Protocol: Document 01/21/23 16:30 DCW (Rec: 01/21/23 17:27 DCW [id number]) Vestibular Assessment Screening Tests Vestibular Artery Screen Negative Auditory Tests Monreal Test Within normal limits Rinne Test Negative Air Conduction Results Equal Visual Testing Smooth Pursuits Horizontal Negative Smooth Pursuits Vertical Negative Saccades Horizontal Negative Positional Testing Halifax-Hallpike Positive Right,Negative Left, Upbeating,< 60 Seconds PT-OP-Q Treatments Start: 01/21/23 17:12 Freq: Status: Active Protocol: Document 01/21/23 16:30 DCW (Rec: 01/21/23 17:27 DCW [id number]) Canalithic Repositioning BPPV Treatment David Affected Canal(s) Right posterior Reps x2 Comments Modified David PT-OP-T Assessment and Plan Start: 01/21/23 17:12 Freq: Status: Active Protocol: Document 01/21/23 16:30 DCW (Rec: 01/21/23 17:27 DCW [id number]) Physical Therapy Assessment Rehab Potential Rehabilitation Potential Excellent Evaluation Complexity Number of Personal Factors/Comorbidities 0 Number of Body Systems Impaired 1-2 Clinical Presentation at Evaluation Unstable Impairments Impairments Balance,Vestibular Goals Two Impairment Pt presents with positive right Paz-Hallpike Urban Sociologist Goal (LTG) Bilateral positional testing to be negative LTG Duration 02/11/23 One Impairment Pt experiences rotational vertigo with positional changes Short Term Goal (STG) Pt to report no position- dependent vertigo over one week STG Duration 01/28/23 Assessment Summary Assessment During right Halifax-Hallpike test , pt complained of vertigo and demonstrated up-beating, torsional nystagmus lasting approximately 5 seconds, consistent with diagnosis of right-sided posterior canal BPPV, canalithiasis-type. Pt was treated with a right-sided modified David maneuver. Pt complained of symptoms in the first and third position, which is normally indicative of a successful treatment. Further positional testing was largely negative, however both during initial Hallpike, following up-beating torsional nystagmus, as well as during re-testing, pt demonstrated a baseline, constant left- beating nystagmus when supine. Pt report feeling completely asymptomatic while this was present. Non-direction changing horizontal nystagmus could be a sign of potential centrally-caused vertigo, however it is also a fairly common age-related finding. With recent unremarkable CT scan, an upcoming MRI, and no symptoms associated with this nystagmus, it does not appear to be clinically significant at this time. Pt was educated on BPPV, expectations for treatment, possible recurrence (BPPV has a ~50% recurrence rate in the five years following treatment), and post -David restrictions. Pt to return in ~1 week for a follow -up appointment, and intermittently afterward as indicated for treatment of BPPV. Physical Therapy Plan Frequency and Duration Frequency of Treatment 1x/Week Plan of Care Start Date 01/21/23 Plan of Care End Date 02/11/23 Therapeutic Interventions Therapeutic Interventions Balance Training,Canalithic Repositioning,Home Exercise Program,Manual Therapy, Neuromuscular Re-education, Patient/Caregiver Education, Self-Care/Home Management, Therapeutic Activities, Therapeutic Exercises, Vestibular Rehabilitation Next Visit Focus/Plan Next Note Type Treatment Note Next Visit Plan Positional testing, CRM as indicated
--- NOTE | 2023-01-21 17:28 | PT.OPPOC ---
Physical, Occupational & Speech Therapy At [facility] Current Diagnoses Benign paroxysmal vertigo, right ear (01/21/23) Dizziness and giddiness (01/21/23) Visit Care Team Role Provider Type Vanessa Merino PA-C Attending Provider Advanced Straw Hat Plunger Operator Family Provider Primary Care Provider Referring Provider Specialty: Medical Address: [address] [place] [address], [facility] Email: Plan Of Care PT-OP-T Assessment and Plan Start: 01/21/23 17:12 Freq: Status: Active Protocol: Document 01/21/23 16:30 DCW (Rec: 01/21/23 17:27 DCW [id number]) Physical Therapy Assessment Rehab Potential Rehabilitation Potential Excellent Evaluation Complexity Number of Personal Factors/Comorbidities 0 Number of Body Systems Impaired 1-2 Clinical Presentation at Evaluation Unstable Impairments Impairments Balance,Vestibular Goals Two Impairment Pt presents with positive right Paz-Hallpike Scheduler Maintenance Goal (LTG) Bilateral positional testing to be negative LTG Duration 02/11/23 One Impairment Pt experiences rotational vertigo with positional changes Short Term Goal (STG) Pt to report no position- dependent vertigo over one week STG Duration 01/28/23 Assessment Summary Assessment During right Paz-Hallpike test , pt complained of vertigo and demonstrated up-beating, torsional nystagmus lasting approximately 5 seconds, consistent with diagnosis of right-sided posterior canal BPPV, canalithiasis-type. Pt was treated with a right-sided modified David maneuver. Pt complained of symptoms in the first and third position, which is normally indicative of a successful treatment. Further positional testing was largely negative, however both during initial Hallpike, following up-beating torsional nystagmus, as well as during re-testing, pt demonstrated a baseline, constant left- beating nystagmus when supine. Pt report feeling completely asymptomatic while this was present. Non-direction changing horizontal nystagmus could be a sign of potential centrally-caused vertigo, however it is also a fairly common age-related finding. With recent unremarkable CT scan, an upcoming MRI, and no symptoms associated with this nystagmus, it does not appear to be clinically significant at this time. Pt was educated on BPPV, expectations for treatment, possible recurrence (BPPV has a ~50% recurrence rate in the five years following treatment), and post -David restrictions. Pt to return in ~1 week for a follow -up appointment, and intermittently afterward as indicated for treatment of BPPV. Physical Therapy Plan Frequency and Duration Frequency of Treatment 1x/Week Plan of Care Start Date 01/21/23 Plan of Care End Date 02/11/23 Therapeutic Interventions Therapeutic Interventions Balance Training,Canalithic Repositioning,Home Exercise Program,Manual Therapy, Neuromuscular Re-education, Patient/Caregiver Education, Self-Care/Home Management, Therapeutic Activities, Therapeutic Exercises, Vestibular Rehabilitation Next Visit Focus/Plan Next Note Type Treatment Note Next Visit Plan Positional testing, CRM as indicated Plan of Care Dates Plan of Care Start Date 01/21/23 Plan of Care End Date 02/11/23 Electronically Signed by: Que Roberto, PT 01/21/23 4015 If you are in agreement with this Plan of Care, please return a signed and dated copy. I have reviewed this Plan of Care and certify that the skilled therapy services above are required to meet the patient?s needs. Physician Signature Date Printed Name and Credentials Clinical Instructor Signature Printed Name and Credentials
--- NOTE | 2023-01-23 11:01 | PT.OTN ---
Current Diagnoses Benign paroxysmal vertigo, right ear (01/23/23) Dizziness and giddiness (01/23/23) Physical Therapy Treatment Note PT-OP-A Visit Information Start: 01/21/23 17:12 Freq: Status: Active Protocol: Document 01/23/23 10:15 DCW (Rec: 01/23/23 11:01 DCW [id number]) Out-Patient Physical Therapy Visit Information Visit Information Visit Type Progress Note Visit Start Time 10:15 Visit Stop Time 11:00 Total Visit Minutes 45 Visit Number 2 Number of WINDOWS SECURITY ENGINEER Visits 0 Evaluation Information Evaluation Date 01/21/23 PT-OP-B Current Condition Start: 01/21/23 17:12 Freq: Status: Active Protocol: Document 01/21/23 16:30 DCW (Rec: 01/21/23 17:27 DCW [id number]) Current Condition History of Current Condition Onset Date Three week history Current Complaints Position-dependent vertigo History of Current Condition Pt is a 77 year old female complaining of a three week history of motion-induced vertigo. Pt reports episodes last about three seconds. Symptoms are provoked by changing position in bed , or looking up/down. Pt denies recent hearing changes, tinnitus, diplopia, dysarthria , discoordination, or decreased mentation/ consciousness. Prior Treatments and Tests Brain CT scan: IMPRESSION: 1. No acute intracranial abnormalities. 2. Cerebral volume loss and chronic microvascular ischemic changes . per Patrizia Berumen M.D. on 12/28 Future Testing and Treatments Planned Brain MRI scheduled next month Treatment Goals Patient/Caregiver Goals Eliminate dizziness PT-OP-C Subjective Start: 01/21/23 17:12 Freq: Status: Active Protocol: Document 01/23/23 10:15 DCW (Rec: 01/23/23 11:00 DCW [id number]) OP-PT Subjective Patient Comments Patient Comments Pt felt great yesterday, was able to go to bed with no symptoms last night, but then woke up this morning with a recurrence of symptoms, but reports they were worse, is feeling off balance even when sitting if she moves her head. PT-OP-O Vestibular Start: 01/21/23 17:12 Freq: Status: Active Protocol: Document 01/23/23 10:15 DCW (Rec: 01/23/23 11:00 DCW [id number]) Vestibular Assessment Positional Testing [place]-Hallpike Negative Left,Negative Right Rolling Test Positive Left,Positive Right, Ageotropic,> 60 Seconds PT-OP-Q Treatments Start: 01/21/23 17:12 Freq: Status: Active Protocol: Document 01/23/23 10:15 DCW (Rec: 01/23/23 11:00 DCW [id number]) Canalithic Repositioning BPPV Treatment Gufoni Affected Canal(s) Right lateral Reps x3 Comments Ageotropic Gufoni x2 Geotropic Gufoni x1 PT-OP-T Assessment and Plan Start: 01/21/23 17:12 Freq: Status: Active Protocol: Document 01/23/23 10:15 DCW (Rec: 01/23/23 11:00 DCW [id number]) Physical Therapy Assessment Impairments Impairments Balance,Vestibular Goals Two Impairment Pt presents with positive right Paz-Hallpike Sales Administration Specialist Goal (LTG) Bilateral positional testing to be negative LTG Duration 02/11/23 One Impairment Pt experiences rotational vertigo with positional changes Short Term Goal (STG) Pt to report no position- dependent vertigo over one week STG Duration 01/28/23 Assessment Summary Assessment Pt presented today with ageotropic nystagmus bilaterally on the roll test, lasting 60+ seconds, right worse than left, consistent with diagnosis of right-sided horizontal canal BPPV, cupulolithiasis-type. Ageotropic Gufoni maneuver was performed x2, followed by geotropic Gufoni x1. Pt noted feeling significantly better following last CRM. POC frequency was amended today due to recurrence of symptoms, changed from 1x/week to 1-3x/ week. Pt instructed to return for scheduled follow-up , but should also call clinic if symptoms change or worsen. Physical Therapy Plan Frequency and Duration Frequency of Treatment 1-3x/week Plan of Care Start Date 01/21/23 Plan of Care End Date 02/11/23 Therapeutic Interventions Therapeutic Interventions Balance Training,Canalithic Repositioning,Home Exercise Program,Manual Therapy, Neuromuscular Re-education, Patient/Caregiver Education, Self-Care/Home Management, Therapeutic Activities, Therapeutic Exercises, Vestibular Rehabilitation Next Visit Focus/Plan Next Note Type Treatment Note Next Visit Plan Positional testing, CRM as indicated
--- NOTE | 2023-01-23 11:01 | PT.OPPOC ---
Physical, Occupational & Speech Therapy At [facility] Current Diagnoses Benign paroxysmal vertigo, right ear (01/23/23) Dizziness and giddiness (01/23/23) Visit Care Team Role Provider Type Vanessa Merino PA-C Attending Provider Advanced Enrollment Management Director Family Provider Primary Care Provider Referring Provider Specialty: Medical Address: [address] [place] [address], [id number] Email: Plan Of Care PT-OP-T Assessment and Plan Start: 01/21/23 17:12 Freq: Status: Active Protocol: Document 01/23/23 10:15 DCW (Rec: 01/23/23 11:00 DCW [id number]) Physical Therapy Assessment Impairments Impairments Balance,Vestibular Goals Two Impairment Pt presents with positive right Paz-Hallpike Salesforce Consultant Goal (LTG) Bilateral positional testing to be negative LTG Duration 02/11/23 One Impairment Pt experiences rotational vertigo with positional changes Short Term Goal (STG) Pt to report no position- dependent vertigo over one week STG Duration 01/28/23 Assessment Summary Assessment Pt presented today with ageotropic nystagmus bilaterally on the roll test, lasting 60+ seconds, right worse than left, consistent with diagnosis of right-sided horizontal canal BPPV, cupulolithiasis-type. Ageotropic Gufoni maneuver was performed x2, followed by geotropic Gufoni x1. Pt noted feeling significantly better following last CRM. POC frequency was amended today due to recurrence of symptoms, changed from 1x/week to 1-3x/ week. Pt instructed to return for scheduled follow-up , but should also call clinic if symptoms change or worsen. Physical Therapy Plan Frequency and Duration Frequency of Treatment 1-3x/week Plan of Care Start Date 01/21/23 Plan of Care End Date 02/11/23 Therapeutic Interventions Therapeutic Interventions Balance Training,Canalithic Repositioning,Home Exercise Program,Manual Therapy, Neuromuscular Re-education, Patient/Caregiver Education, Self-Care/Home Management, Therapeutic Activities, Therapeutic Exercises, Vestibular Rehabilitation Next Visit Focus/Plan Next Note Type Treatment Note Next Visit Plan Positional testing, CRM as indicated Plan of Care Dates Plan of Care Start Date 01/21/23 Plan of Care End Date 02/11/23 Electronically Signed by: Que Roberto, PT 01/23/23 1101 If you are in agreement with this Plan of Care, please return a signed and dated copy. I have reviewed this Plan of Care and certify that the skilled therapy services above are required to meet the patient?s needs. Physician Signature Date Printed Name and Credentials Clinical Instructor Signature Printed Name and Credentials
--- NOTE | 2023-01-28 17:01 | PT.OTN ---
Current Diagnoses Benign paroxysmal vertigo, right ear (01/28/23) Dizziness and giddiness (01/28/23) Physical Therapy Treatment Note PT-OP-A Visit Information Start: 01/21/23 17:12 Freq: Status: Active Protocol: Document 01/28/23 16:30 DCW (Rec: 01/28/23 17:01 DCW [id number]) Out-Patient Physical Therapy Visit Information Visit Information Visit Type Treatment Note Visit Start Time 16:30 Visit Stop Time 16:55 Total Visit Minutes 25 Visit Number 3 Number of HANDBAG PARTS CUTTER Visits 0 Evaluation Information Evaluation Date 01/21/23 PT-OP-B Current Condition Start: 01/21/23 17:12 Freq: Status: Active Protocol: Document 01/21/23 16:30 DCW (Rec: 01/21/23 17:27 DCW [id number]) Current Condition History of Current Condition Onset Date Three week history Current Complaints Position-dependent vertigo History of Current Condition Pt is a 77 year old female complaining of a three week history of motion-induced vertigo. Pt reports episodes last about three seconds. Symptoms are provoked by changing position in bed , or looking up/down. Pt denies recent hearing changes, tinnitus, diplopia, dysarthria , discoordination, or decreased mentation/ consciousness. Prior Treatments and Tests Brain CT scan: IMPRESSION: 1. No acute intracranial abnormalities. 2. Cerebral volume loss and chronic microvascular ischemic changes . per Patrizia Berumen M.D. on 12/28 Future Testing and Treatments Planned Brain MRI scheduled next month Treatment Goals Patient/Caregiver Goals Eliminate dizziness PT-OP-C Subjective Start: 01/21/23 17:12 Freq: Status: Active Protocol: Document 01/28/23 16:30 DCW (Rec: 01/28/23 17:01 DCW [id number]) OP-PT Subjective Patient Comments Patient Comments Pretty good, but not perfect. It was fine and Saturday and most of Saturday, and we were out to eat, and I just had this dizzy sensation, but not like the room was spinning, more like it was the inside of my head. PT-OP-O Vestibular Start: 01/21/23 17:12 Freq: Status: Active Protocol: Document 01/28/23 16:30 DCW (Rec: 01/28/23 17:01 DCW [id number]) Vestibular Assessment Positional Testing [place]-Hallpike Positive Right,Negative Left, Upbeating,< 60 Seconds PT-OP-Q Treatments Start: 01/21/23 17:12 Freq: Status: Active Protocol: Document 01/28/23 16:30 DCW (Rec: 01/28/23 17:01 DCW [id number]) Canalithic Repositioning BPPV Treatment David Affected Canal(s) Right posterior Reps x2 Comments Modified David PT-OP-T Assessment and Plan Start: 01/21/23 17:12 Freq: Status: Active Protocol: Document 01/28/23 16:30 DCW (Rec: 01/28/23 17:01 DC [id number]) Physical Therapy Assessment Impairments Impairments Balance,Vestibular Goals Two Impairment Pt presents with positive right [place]-Hallpike Retirement Goal (LTG) Bilateral positional testing to be negative LTG Duration 02/11/23 One Impairment Pt experiences rotational vertigo with positional changes Short Term Goal (STG) Pt to report no position- dependent vertigo over one week STG Duration 01/28/23 Assessment Summary Assessment Pt once again demonstrated up- beating, torsional nystagmus lasting approximately 5 seconds during R Paz-Hallpike, consistent with diagnosis of right-sided posterior canal BPPV, canalithiasis-type. Pt was treated with a right-sided modified David maneuver. Pt complained of symptoms in the first and third position, which is normally indicative of a successful treatment. Further positional testing was largely negative Physical Therapy Plan Frequency and Duration Frequency of Treatment 1-3x/week Plan of Care Start Date 01/21/23 Plan of Care End Date 02/11/23 Therapeutic Interventions Therapeutic Interventions Balance Training,Canalithic Repositioning,Home Exercise Program,Manual Therapy, Neuromuscular Re-education, Patient/Caregiver Education, Self-Care/Home Management, Therapeutic Activities, Therapeutic Exercises, Vestibular Rehabilitation Next Visit Focus/Plan Next Note Type Treatment Note Next Visit Plan Positional testing, CRM as indicated
--- NOTE | 2023-02-11 16:58 | PT.OTN ---
Current Diagnoses Benign paroxysmal vertigo, right ear (02/11/23) Dizziness and giddiness (02/11/23) Physical Therapy Treatment Note PT-OP-A Visit Information Start: 01/21/23 17:12 Freq: Status: Active Protocol: Document 02/11/23 16:30 DCW (Rec: 02/11/23 16:58 DCW [id number]) Out-Patient Physical Therapy Visit Information Visit Information Visit Type Discharge Summary Visit Start Time 16:30 Visit Stop Time 16:55 Total Visit Minutes 25 Visit Number 4 Number of SWITCH REPAIRER Visits 0 Evaluation Information Evaluation Date 01/21/23 PT-OP-B Current Condition Start: 01/21/23 17:12 Freq: Status: Active Protocol: Document 01/21/23 16:30 DCW (Rec: 01/21/23 17:27 DCW [id number]) Current Condition History of Current Condition Onset Date Three week history Current Complaints Position-dependent vertigo History of Current Condition Pt is a 77 year old female complaining of a three week history of motion-induced vertigo. Pt reports episodes last about three seconds. Symptoms are provoked by changing position in bed , or looking up/down. Pt denies recent hearing changes, tinnitus, diplopia, dysarthria , discoordination, or decreased mentation/ consciousness. Prior Treatments and Tests Brain CT scan: IMPRESSION: 1. No acute intracranial abnormalities. 2. Cerebral volume loss and chronic microvascular ischemic changes . per Patrizia Berumen M.D. on 12/28 Future Testing and Treatments Planned Brain MRI scheduled next month Treatment Goals Patient/Caregiver Goals Eliminate dizziness PT-OP-C Subjective Start: 01/21/23 17:12 Freq: Status: Active Protocol: Document 02/11/23 16:30 DCW (Rec: 02/11/23 16:58 DCW [id number]) OP-PT Subjective Patient Comments Patient Comments Just a little symptomatic, but nothing at night. PT-OP-O Vestibular Start: 01/21/23 17:12 Freq: Status: Active Protocol: Document 02/11/23 16:30 DCW (Rec: 02/11/23 16:58 DCW [id number]) Vestibular Assessment Positional Testing [place]-Hallpike Negative Left,Negative Right Rolling Test Negative Left,Negative Right PT-OP-Q Treatments Start: 01/21/23 17:12 Freq: Status: Active Protocol: Document 01/28/23 16:30 DCW (Rec: 01/28/23 17:01 DCW [id number]) Canalithic Repositioning BPPV Treatment David Affected Canal(s) Right posterior Reps x2 Comments Modified David PT-OP-T Assessment and Plan Start: 01/21/23 17:12 Freq: Status: Active Protocol: Document 02/11/23 16:30 DCW (Rec: 02/11/23 16:58 DCW [id number]) Physical Therapy Assessment Impairments Impairments Balance,Vestibular Goals Two Impairment Pt presents with positive right Paz-Hallpike Diabetes Manager Goal (LTG) Bilateral positional testing to be negative LTG Duration Negative One Impairment Pt experiences rotational vertigo with positional changes Short Term Goal (STG) Pt to report no position- dependent vertigo over one week STG Duration Negative Progress Towards Goals Progress Towards Goals Goals Met Assessment Summary Assessment Positional testing negative today, no complaints of vertigo with [place]-Hallpike and Roll testing. Discussed with pt importance of challenging her balance in order to maintain current mobility and function. Pt no longer exhibiting signs or symptoms of ongoing BPPV. Pt to be discharged at this time. Physical Therapy Plan Frequency and Duration Frequency of Treatment 1-3x/week Plan of Care Start Date 01/21/23 Plan of Care End Date 02/11/23 Therapeutic Interventions Therapeutic Interventions Balance Training,Canalithic Repositioning,Home Exercise Program,Manual Therapy, Neuromuscular Re-education, Patient/Caregiver Education, Self-Care/Home Management, Therapeutic Activities, Therapeutic Exercises, Vestibular Rehabilitation Discharge Physical Therapy Discharge Reasons Goals Met Next Visit Focus/Plan Next Note Type Discharge Summary
== END 2023-02-12 10:08 | disposition home or self-care (01) ==
LOC: PHYS 16:30
PROVIDERS: Absent Provider Physician Assistant; Family Provider Physician Assistant; PCP Physician Assistant; Referring Provider Physician Assistant; Visit Provider Physician Assistant
DX: R42 Dizziness and giddiness (principal); H81.11 Benign paroxysmal vertigo, right ear
CPT/HCPCS: 95992; 97140; 97161

== ENCOUNTER 2023-02-14 01:51 | Observation (INO) | payer OTHER, SELFPAY ==
[2022-11-24 22:37] VITALS: BMI 35.4
[2023-02-14] VITALS (60 sets, daily range): BP systolic 109–165; BP diastolic 55–105; PULSE 55–132; RESP 9–28; TEMP 36.3–36.8; O2SAT 92–99; BMI 36.1
--- NOTE | 2023-02-14 02:00 | DI.RAD.S_ITS ---
PROCEDURE: XR CHEST 1V INDICATIONS: chest pain TECHNIQUE: One view of the chest was acquired. COMPARISON: [facility], CR, XR CHEST 1V, 12/12/2022, 18:36. FINDINGS: Surgical changes and devices: None. Lungs and pleura: Lungs are clear. No pleural effusions or pneumothorax. Mediastinum: Mediastinal contours appear normal. Heart size is normal. Bones and chest wall: No suspicious bony lesions. Overlying soft tissues appear unremarkable. IMPRESSION: No acute cardiopulmonary pathology. Dictated by: Milton Olea M.D. on 02/14/2023 at 8:32 Approved by: Milton Olea M.D. on 02/14/2023 at 8:37
--- NOTE | 2023-02-14 02:09 | PC.NURSE ---
pt states she was checking her pulse at home with the rate ranging from 120-140, denies cp states she just feels like she cant catch her breath and it goes thru to her back
[2023-02-14] MEDS: ASPIRIN 81 MG CHEW TAB 324 MG PO (02:15)
[2023-02-14 02:16] LABS: Add Manual Diff / Slide Review NO; Basophils Absolute Auto 100 /uL (0-100); Basophils Percent Auto 0.8 % (0-2); Eosinophils Absolute Auto 300 /uL (0-450); Eosinophils Percent Auto 4.4 % (2-4); Hematocrit 40.1 % (36-46); Hemoglobin 13.8 g/dL (12.0-16.0); Lymphocytes Absolute Auto 2500 /uL (1100-4500); Lymphocytes Percent Auto 38.6 % (25-40); Mean Corpuscular HGB Conc 34.4 % (30-36); Mean Corpuscular Hemoglobin 31.3 PG (26-34); Mean Corpuscular Volume 91.1 fL (80-100); Monocytes Absolute Auto 600 /uL (0-900); Monocytes Percent Auto 8.6 % (3-14); Neutrophils Absolute Auto 3100 /uL (1500-7000); Neutrophils Percent Auto 47.6 % (50-75); Platelet Count 221 X10^3/uL (150-400); Red Cell Distribution Width 14.4 % (11.6-14.8); White Blood Cell Count 6.5 X10^3/uL (4.5-11.0)
[2023-02-14 02:17] LABS: INR 1.1 (0.9-1.3); Prothrombin Time 12.4 SECONDS (10.1-12.7)
[2023-02-14 02:19] LABS: PTT Partial Thromboplastin Tim 34 SECONDS (26-36)
[2023-02-14 02:22] LABS: Alanine Aminotransferase 25 IU/L (<35); Albumin 4.4 g/dL (3.5-5.0); Albumin Globulin Ratio 1.5 (1.0-2.8); Alkaline Phosphatase 85 U/L (38-126); Aspartate Aminotransferase 29 IU/L (14-36); BUN Creatinine Ratio 23.7 (6-22); Bilirubin Total 0.7 mg/dL (0.2-1.3); Blood Urea Nitrogen 22 mg/dL (7-17); Calcium 8.9 mg/dL (8.4-10.2); Carbon Dioxide 27 mmol/L (22-32); Chloride 105 mmol/L (98-107); Creatine Kinase 78 U/L (30-135); Estimated Glomerular Filt Rate > 60 mL/min (>60); Glucose 106 mg/dL (80-110); HEMOLYSIS 29 (0-50); Lipase 195 U/L (23-300); Magnesium 2.1 mg/dL (1.6-2.3); Potassium 3.6 mmol/L (3.4-5.1); Sodium 141 mmol/L (137-145); Total Protein 7.4 g/dL (6.3-8.2)
[2023-02-14 02:33] LABS: Troponin I < 0.012 ng/mL (0.01-0.034)
--- NOTE | 2023-02-14 03:08 | ED_ITS ---
HPI - Arrhythmia/Palpitations General Chief Complaint: Arrhythmia/Palpitations Stated Complaint: AFIB Time Seen by Provider: 02/14/23 03:00 Source: patient Mode of arrival: Ambulatory History of Present Illness HPI narrative: Patient has history atrial fibrillation on Eliquis. Patient felt palpitations and onset of atrial fibrillation at 1:00 a.m. today. She is been seen multiple times last year for the same and has been admitted for rate control Cardizem drip. Patient does not want to be cardioverted. 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 Denies any recent illness or changes in her medications. No recent cough cold congestion fever chills. Related Data Home Medications Medication Instructions Recorded Confirmed Zicam 1 dose intranasal 1XD 05/18/19 02/14/23 irbesartan 75 mg tablet 75 mg PO DAILY 05/18/19 02/14/23 omeprazole 20 mg capsule,delayed 20 mg PO DAILY 05/18/19 02/14/23 release tumeric root 500 mg PO 1XD 05/18/19 02/14/23 acetylcysteine 600 mg capsule 600 mg PO DAILY 11/25/22 02/14/23 amlodipine 5 mg tablet (Norvasc) 5 mg PO DAILY 11/25/22 02/14/23 clobetasol 0.05 % topical ointment 1 applic topical BID 11/25/22 02/14/23 (Temovate) garlic 1 cap PO 1XD 11/25/22 02/14/23 quercetin 500 mg capsule 50 mg PO 1XD 11/25/22 02/14/23 triamcinolone acetonide 0.1 % 1 applic topical BID 11/25/22 02/14/23 topical cream Vitamin B-12 5,000 mcg sublingual DAILY 02/14/23 02/14/23 atorvastatin 20 mg tablet 20 mg PO DAILY 02/14/23 02/14/23 metoprolol succinate 50 mg 12.5 mg PO BID 02/14/23 02/14/23 tablet,extended release 24 hr Previous Rx's Medication Instructions Recorded apixaban 5 mg tablet 5 mg PO BID #60 tabs 07/17/22 diclofenac sodium 1 % topical gel 2 g topical QID PRN arm pain #100 11/29/22 (Arthritis Pain (diclofenac)) grams hydrocodone 5 mg-acetaminophen 325 1 tab PO TID PRN pain #10 tabs 11/29/22 mg tablet meclizine 25 mg tablet 25 mg PO BID-TID PRN dizziness #14 12/28/22 tabs Allergies Allergy/AdvReac Type Severity Reaction Status Date / Time milk [MILK] Allergy Unknown ACHE ALL Verified 12/28/22 13:12 OVER LIKE COMING DOWN WITH FLU X3 DAYS lisinopril [LISINOPRIL] AdvReac Unknown COUGH Verified 12/28/22 13:12 Review of Systems Review of Systems Narrative: GENERAL: negative chills, fatigue, malaise, fever, sweats. HEENT: negative sinus pain, ear pain, sore throat RESPIRATORY: negative dyspnea, cough CARDIOVASCULAR: Positive chest pain, palpitations GASTROINTESTINAL: negative nausea, vomiting, abdominal pain : negative dysuria, frequency, hematuria MUSCULOSKELETAL: negative muscle or bony pain SKIN: negative rash, skin lesions NEUROLOGIC: negative weakness, numbness ROS Unobtainable: All systems reviewed & are unremarkable except as noted in HPI and below Patient History Medical History Paroxysmal atrial fibrillation Pelvic relaxation Postmenopausal atrophic vaginitis Surgical History History of cataract surgery Family History Mother Congestive heart failure Brother CAD (coronary artery disease) of artery bypass graft Social History household members: friend(s) Smoking Status: Never smoker Smoking Status: Never smoker alcohol intake frequency: holidays/special occasions only Substance Use Type: does not use Exam Narrative Exam Narrative: GENERAL: in no distress, not toxic not dyspneic HEAD: Normocephalic. EYES: Pupils equal round ENT: Mucous membranes moist. NECK: Trachea midline. CARDIOVASCULAR: Tachycardia, irregularly irregular RESPIRATORY: Clear to auscultation. Breath sounds equal bilaterally. No wheezes, rales, or rhonchi. GASTROINTESTINAL: Abdomen soft, non-tender EXTREMITIES: No gross deformities. BACK: No flank tenderness. NEURO: AOx4. SKIN: Warm and dry PSYCH: Not anxious, is cooperative Initial Vital Signs Initial Vital Signs: Vital Signs Pulse Oximetry 94 02/14/23 01:56 Course Orders Ordered: ED Orders 02/15/23 05:00 Basic Metabolic Panel Routine Acetaminophen (Acetaminophen 325 Mg Tablet) 650 mg PO Q6H PRN PRN Reason: Fever/Mild Pain (1-3) Al Hydrox/Mg Hydrox/Simethicone (Mag Hydrox/Alum/Simeth 30 Ml Udc) 30 ml PO Q6HR PRN PRN Reason: Dyspepsia Apixaban (Apixaban 5 Mg Tablet) 5 mg PO BID [facility] Last Admin: 02/14/23 21:16 Dose: 5 mg Documented By: Admin: 02/14/23 09:14 Dose: 5 mg Documented By: GARTH Atorvastatin Calcium (Atorvastatin 20 Mg Tablet) 20 mg PO BEDTIME [facility] Last Admin: 02/14/23 21:16 Dose: 20 mg Documented By: LN Calcium Carbonate (Calcium Carbonate 500 Mg Tab) 1,000 mg PO Q4HR PRN PRN Reason: Dyspepsia DILTIAZEM (Diltiazem 125 Mg/125 Ml-D5w) 125 mg in 125 mls @ 5 mls/hr IV TITRATE [facility]; Protocol Last Titration: 02/14/23 12:10 Dose: 0 mg/hr, 0 mls/hr Documented By: Titration: 02/14/23 09:10 Dose: 5 mg/hr, 5 mls/hr Documented By: Titration: 02/14/23 08:40 Dose: 10 mg/hr, 10 mls/hr Documented By: Titration: 02/14/23 07:45 Dose: 12 mg/hr, 12 mls/hr Documented By: Titration: 02/14/23 04:56 Dose: 10 mg/hr, 10 mls/hr Documented By: Admin: 02/14/23 03:43 Dose: 5 mg/hr, 5 mls/hr Documented By: GC Metoprolol Succinate (Metoprolol Er 25 Mg Tablet) 25 mg PO BID [facility] Last Admin: 02/14/23 21:16 Dose: 12.5 mg Documented By: LN Naloxone HCl (Naloxone 0.4 Mg/Ml Vial) 0.2 mg IV Q2MIN PRN PRN Reason: Opiate Reversal Ondansetron HCl (Ondansetron 4 Mg/2 Ml Inj) 4 mg IV Q8HR PRN PRN Reason: Nausea And Vomiting Sennosides (Sennosides 8.6 Mg Tablet) 17.2 mg PO BEDTIME [facility] Last Admin: 02/14/23 20:04 Dose: Not Given Documented By: LN Discontinued Medications Aspirin (Aspirin 81 Mg Chew Tab) 324 mg PO NOW ONE Stop: 02/14/23 02:00 Last Admin: 02/14/23 02:15 Dose: 324 mg Documented By: JOSETTE Diltiazem HCl (Diltiazem 5 Mg/Ml Sdv) 15 mg IV NOW ONE Stop: 02/14/23 03:08 Last Admin: 02/14/23 03:20 Dose: 15 mg Documented By: JOSETTE Metoprolol Succinate (Metoprolol Er 25 Mg Tablet) 12.5 mg PO BID [facility] Last Admin: 02/14/23 12:34 Dose: 12.5 mg Documented By: GARTH Metoprolol Succinate (Metoprolol Er 25 Mg Tablet) 12.5 mg PO NOW ONE Stop: 02/14/23 13:18 Last Admin: 02/14/23 13:33 Dose: 12.5 mg Documented By: GARTH Vital Signs Vital signs: Vital Signs - 8 hr 02/14/23 02:00 02/14/23 01:56 02/14/23 01:57 Temperature 97.7 F Pulse Rate 124 H 124 H Respiratory Rate 19 Blood Pressure 164/105 H Pulse Oximetry 95 94 95 Oxygen Delivery Method Room Air 02/14/23 01:57 02/14/23 02:00 02/14/23 02:00 Temperature Pulse Rate 120 H Respiratory Rate Blood Pressure 165/105 H 165/90 H Pulse Oximetry 94 Oxygen Delivery Method Room Air 02/14/23 02:30 02/14/23 02:30 02/14/23 03:20 Temperature Pulse Rate 128 H 132 H Respiratory Rate 11 L Blood Pressure 154/73 H 147/94 H Pulse Oximetry 94 Oxygen Delivery Method MDM - Arrhythmia/Palpitations Lab Data 02/14/23 02:00 02/14/23 02:00 Labs: Lab Results 02/14/23 02/14/23 02/14/23 Range/Units 02:00 02:00 02:00 WBC 6.5 (4.5-11.0) X10^3/uL RBC 4.40 (4.0-5.2) X10^6/uL Hgb 13.8 (12.0-16.0) g/dL Hct 40.1 (36-46) % MCV 91.1 (80-100) fL MCH 31.3 (26-34) PG MCHC 34.4 (30-36) % RDW 14.4 (11.6-14.8) % Plt Count 221 (150-400) X10^3/uL Neut % (Auto) 47.6 L (50-75) % Lymph % (Auto) 38.6 (25-40) % Menard % (Auto) 8.6 (3-14) % Eos % (Auto) 4.4 H (2-4) % Baso % (Auto) 0.8 (0-2) % Neut # (Auto) 3100 (3597-5835) /uL Lymph # (Auto) 2500 (9789-2272) /uL Menard # (Auto) 600 (0-900) /uL Eos # (Auto) 300 (0-450) /uL Baso # (Auto) 100 (0-100) /uL PT 12.4 (10.1-12.7) SECONDS INR 1.1 (0.9-1.3) APTT 34 (26-36) SECONDS Sodium 141 (137-145) mmol/L Potassium 3.6 (3.4-5.1) mmol/L Chloride 105 (98-107) mmol/L Carbon Dioxide 27 (22-32) mmol/L BUN 22 H (7-17) mg/dL Creatinine 0.93 (0.52-1.04) mg/dL Estimated GFR > 60 (>60) mL/min BUN/Creatinine Ratio 23.7 H (6-22) Glucose 106 (80-110) mg/dL Calcium 8.9 (8.4-10.2) mg/dL Magnesium 2.1 (1.6-2.3) mg/dL Total Bilirubin 0.7 (0.2-1.3) mg/dL AST 29 (14-36) IU/L ALT 25 (<35) IU/L Alkaline Phosphatase 85 (38-126) U/L Total Creatine Kinase 78 (30-135) U/L Troponin I < 0.012 (0.01-0.034) ng/mL NT-Pro-B Natriuret Pep (<450) pg/mL Total Protein 7.4 (6.3-8.2) g/dL Albumin 4.4 (3.5-5.0) g/dL Globulin 3.0 (1.7-4.1) g/dL Albumin/Globulin Ratio 1.5 (1.0-2.8) Triglycerides (35-150) mg/dL Cholesterol (140-199) mg/dL LDL Cholesterol, Calc (<100) mg/dL HDL Cholesterol (40-60) mg/dL Lipase 195 (23-300) U/L TSH (0.47-4.68) uIU/mL Free T4 (0.78-2.19) ng/dL 02/14/23 02/14/23 02/14/23 Range/Units 02:00 02:00 02:00 WBC (4.5-11.0) X10^3/uL RBC (4.0-5.2) X10^6/uL Hgb (12.0-16.0) g/dL Hct (36-46) % MCV (80-100) fL MCH (26-34) PG MCHC (30-36) % RDW (11.6-14.8) % Plt Count (150-400) X10^3/uL Neut % (Auto) (50-75) % Lymph % (Auto) (25-40) % Menard % (Auto) (3-14) % Eos % (Auto) (2-4) % Baso % (Auto) (0-2) % Neut # (Auto) (3958-7923) /uL Lymph # (Auto) (9842-7991) /uL Menard # (Auto) (0-900) /uL Eos # (Auto) (0-450) /uL Baso # (Auto) (0-100) /uL PT (10.1-12.7) SECONDS INR (0.9-1.3) APTT (26-36) SECONDS Sodium (137-145) mmol/L Potassium (3.4-5.1) mmol/L Chloride (98-107) mmol/L Carbon Dioxide (22-32) mmol/L BUN (7-17) mg/dL Creatinine (0.52-1.04) mg/dL Estimated GFR (>60) mL/min BUN/Creatinine Ratio (6-22) Glucose (80-110) mg/dL Calcium (8.4-10.2) mg/dL Magnesium (1.6-2.3) mg/dL Total Bilirubin (0.2-1.3) mg/dL AST (14-36) IU/L ALT (<35) IU/L Alkaline Phosphatase (38-126) U/L Total Creatine Kinase (30-135) U/L Troponin I (0.01-0.034) ng/mL NT-Pro-B Natriuret Pep 325 (<450) pg/mL Total Protein (6.3-8.2) g/dL Albumin (3.5-5.0) g/dL Globulin (1.7-4.1) g/dL Albumin/Globulin Ratio (1.0-2.8) Triglycerides 134 (35-150) mg/dL Cholesterol 136 L (140-199) mg/dL LDL Cholesterol, Calc 54 (<100) mg/dL HDL Cholesterol 55 (40-60) mg/dL Lipase (23-300) U/L TSH 5.17 H (0.47-4.68) uIU/mL Free T4 1.03 (0.78-2.19) ng/dL Imaging Data Chest x-ray: Radiologist's Impresson: No acute finding MDM Narrative Medical decision making narrative: Patient has history atrial fibrillation on Eliquis. Patient felt palpitations and onset of atrial fibrillation at 1:00 a.m. today. She is been seen multiple times last year for the same and has been admitted for rate control Cardizem drip. Patient does not want to be cardioverted. 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 Denies any recent illness or changes in her medications. No recent cough cold congestion fever chills. After history and exam CBC CMP magnesium troponin chest x-ray EKG PT INR Cardizem MDM CC: Palpitations Complicating co-morbidities: Atrial fibrillation Data collected from: Patient Medical records reviewed: ER visits here for atrial fibrillation July 17, 2022, June 13, 2022 Differential considered: Includes but not limited to AFib with RVR STEMI non- STEMI angina Exam documented above, pertinent findings include: Tachycardia with irregular irregular rate and rhythm Lab Test results independently reviewed as above. Pertinent findings: WBC 6.5 hemoglobin 13.8 INR 1.1 sodium 141 potassium 3.6 troponin less than 0.012 Independently reviewed EKG atrial fibrillation with RVR rate [address] elevation or depression Imaging studies independently reviewed: Chest x-ray no acute finding. Consultations: 4 a.m., spoke with nurse practitioner hospitalist, eLora, she will see patient for admission Treatments: Cardizem and Cardizem drip Re-evaluations: Heart rate is improved. Now average 100. Discussion: Appropriate for admission, patient does not want be cardioverted. Patient will be on Cardizem drip. I did review with patient and she desires to be admitted. Reviewed with hospitalist and agrees to see patient for admission Diagnosis: AFib with RVR Critical Care Time Critical Care Time Attestation: Critical Care Time 35 minutes: Critical care time is separate from other billable procedures. This critical care time includes consultation with family and other consulting doctors, review of records, and interpretation of data from labs, EKGs, imaging, etc. Discharge Plan Departure Patient Disposition: Admitted as Observation Clinical Impression: Atrial fibrillation with rapid ventricular response Admit Date/Time: 02/14/23 03:59 Admit Provider: Leora Walters
[2023-02-14] MEDS: dilTIAZem 5 MG/ML SDV 15 MG IV (03:20)
[2023-02-14] MEDS: DILTIAZEM 125 MG/125 ML PIGGYBACK IV (03:43)
--- NOTE | 2023-02-14 04:14 | P.HP_ITS ---
History of Present Illness History of Present Illness Date Patient Seen: 02/14/23 Time Patient Seen: 04:14 Chief complaint: AFIB RVR Narrative: Irma Agudelo is a 77-year-old female with a history of GERD, HTN, HLD, and proximal atrial fibrillation on Eliquis, has had repeated hospitalizations for AFib with RVR last 1 being 11/24/2022, she frequently in the past has been non compliant with her medications. Patient reports that she felt rapid heart rate with chest tightness and mild SOB, at approximately 0130 this morning. She reports that she may have missed a few doses of her medication 2 weeks ago or 1 week ago, she is unable to recall. I will note that she stated the same on previous admit. She presented to the ED with heart rates between 130-150, hypertensive urgency 164/105. Patient was given initial push dose of diltiazem, and subsequently placed on diltiazem drip. Patient has been seen repeatedly in the ED she often initially responds to medical intervention but heart rate will spike back up requiring to go back on a drip. On admit patient denies chest pain, shortness in breath, headache, changes in vision, difficulty swallowing, speech impairment, weakness, numbness, tingling, difficulty with ambulation, recent falls, head injury, LOC, fever, body aches, chills, cough, recent exposure to illness, abdominal pain, nausea, vomiting, urinary incontinence/retention, dysuria, frequency, urgency, hematuria, bowel changes, constipation, incontinence, melena, rashes, recent changes to medication, illness, injury, or trauma. At the time of admit blood pressure has improved temp 97.7?, 147/94, HR 132, RR 11, O2 saturation 94% on room air. Patient's laboratory findings are reassuringly normal. Initial troponin negative, I personally reviewed EKG and imaging CXR negative, EKG atrial fibrillation with RVR rate [address] and T-wave abnormalities slight change from previous EKG 12/12/2022. Patient admitted for atrial fibrillation with RVR. [facility] Medical History Paroxysmal atrial fibrillation Pelvic relaxation Postmenopausal atrophic vaginitis Surgical History History of cataract surgery Family History Mother Congestive heart failure Brother CAD (coronary artery disease) of artery bypass graft Social History household members: friend(s) Smoking Status: Never smoker Meds Home Medications and Allergies Home Medications Medication Instructions Recorded Confirmed Type Zicam 1 dose intranasal 1XD 05/18/19 11/25/22 History irbesartan 75 mg tablet 75 mg PO DAILY 05/18/19 11/25/22 History omeprazole 20 mg capsule,delayed 20 mg PO DAILY 05/18/19 11/25/22 History release tumeric root 500 mg PO 1XD 05/18/19 11/25/22 History apixaban 5 mg tablet 5 mg PO BID #60 tabs 07/17/22 11/25/22 Rx metoprolol succinate 50 mg 50 mg PO BID #60 tabs 07/17/22 11/25/22 Rx tablet,extended release 24 hr acetylcysteine 600 mg capsule 600 mg PO DAILY 11/25/22 11/25/22 History amlodipine 5 mg tablet (Norvasc) 5 mg PO DAILY 11/25/22 11/25/22 History clobetasol 0.05 % topical ointment 1 applic topical BID 11/25/22 11/25/22 History (Temovate) diclofenac sodium 1 % topical gel 4 g topical 3-4XD 11/25/22 11/25/22 History garlic 1 cap PO 1XD 11/25/22 11/25/22 History quercetin 500 mg capsule 50 mg PO 1XD 11/25/22 11/25/22 History triamcinolone acetonide 0.1 % 1 applic topical BID 11/25/22 11/25/22 History topical cream diltiazem HCl 300 mg 300 mg PO DAILY #30 caps 11/28/22 Rx capsule,extended release 24 hr diclofenac sodium 1 % topical gel 2 g topical QID PRN arm pain #100 11/29/22 Rx (Arthritis Pain (diclofenac)) grams hydrocodone 5 mg-acetaminophen 325 1 tab PO TID PRN pain #10 tabs 11/29/22 Rx mg tablet meclizine 25 mg tablet 25 mg PO BID-TID PRN dizziness #14 05/26/23 Rx tabs Allergies Allergy/AdvReac Type Severity Reaction Status Date / Time milk [MILK] Allergy Unknown ACHE ALL Verified 12/28/22 13:12 OVER LIKE COMING DOWN WITH FLU X3 DAYS lisinopril [LISINOPRIL] AdvReac Unknown COUGH Verified 12/28/22 13:12 Review of Systems Review of Systems Narrative: All 12 point systems reviewed with the patient and are negative except otherwise documented. Exam Vital Signs (past 8 hours): - 02/14/23 02:00 02/14/23 01:56 02/14/23 01:57 Temperature 97.7 F Pulse Rate 124 H 124 H Respiratory Rate 19 Blood Pressure 164/105 H Pulse Oximetry 95 94 95 Oxygen Delivery Method Room Air 02/14/23 01:57 02/14/23 02:00 02/14/23 02:00 Temperature Pulse Rate 120 H Respiratory Rate Blood Pressure 165/105 H 165/90 H Pulse Oximetry 94 Oxygen Delivery Method Room Air 02/14/23 02:30 02/14/23 02:30 02/14/23 03:20 Temperature Pulse Rate 128 H 132 H Respiratory Rate 11 L Blood Pressure 154/73 H 147/94 H Pulse Oximetry 94 Oxygen Delivery Method Oxygen Delivery Method Room Air Narrative Exam Narrative: General:? Patient is a well-developed, well-nourished in no distress at this time. HEENT:? Normocephalic, atraumatic, extraocular muscles intact, oral pharynx is clear and mucous membranes are moist.? Neck is supple and symmetric, trachea is midline, no adenopathy, no thyroid enlargement, nontender, no masses palpated.? Negative for JVD Chest:? Normal AP diameter and contour without kyphoscoliosis, no nasal flaring, retractions, or tachypneic labored Lungs:? Auscultation of all lung palm are clear without adventitious sounds, wheezes, rhonchi, or rales. Cardio:? Irregular rate (afib) and rhythm without murmur, rubs, or gallops, no carotid bruit, no cardiac pulsations present. Abdomen:? Soft nontender, negative for organomegaly, or masses.? Bowel sounds are present in all 4 quadrants without guarding or rebound, no CVA tenderness. Musculoskeletal:? Muscle strength and tone are equal within normal limits, no deformity, crepitus, effusions, cyanosis, clubbing or edema present.? Full range of motion intact radial and pedal pulses are normal. Skin:? Warm dry and intact without rashes, ulcerations or petechiae.? Neuro:? Alert and orientated x3, moves all extremities, sensation to touch intact, no gross deficits noted of cranial nerves. Psych:? Patient has a well-kept appearance, very anxious, mental status attitude thought context and judgment are some what appropriate for age. Objective Labs 02/14/23 02:00 02/14/23 02:00 Labs: Laboratory Results - last 24 hr 02/14/23 02/14/23 02/14/23 02:00 02:00 02:00 WBC 6.5 RBC 4.40 Hgb 13.8 Hct 40.1 MCV 91.1 MCH 31.3 MCHC 34.4 RDW 14.4 Plt Count 221 Neut % (Auto) 47.6 L Lymph % (Auto) 38.6 Hartley % (Auto) 8.6 Eos % (Auto) 4.4 H Baso % (Auto) 0.8 Neut # (Auto) 3100 Lymph # (Auto) 2500 Hartley # (Auto) 600 Eos # (Auto) 300 Baso # (Auto) 100 PT 12.4 INR 1.1 APTT 34 Sodium 141 Potassium 3.6 Chloride 105 Carbon Dioxide 27 BUN 22 H Creatinine 0.93 Estimated GFR > 60 BUN/Creatinine Ratio 23.7 H Glucose 106 Calcium 8.9 Magnesium 2.1 Total Bilirubin 0.7 AST 29 ALT 25 Alkaline Phosphatase 85 Total Creatine Kinase 78 Troponin I < 0.012 Total Protein 7.4 Albumin 4.4 Globulin 3.0 Albumin/Globulin Ratio 1.5 Lipase 195 Assessment & Plan Assessment & Plan narrative: ?Irma Agudelo is a 77-year-old female with a history of GERD, HTN, proximal atrial fibrillation on Eliquis, has had repeated hospitalizations for AFib with RVR. Admitted to ICU OBS for atrial fib w/rvr. Atrial fibrillation with RVR, paroxysmal, acute on chronic, present on admission * last admit for AFib with RVR 11/24/2022 * suspect possible inadvertent medication noncompliance, I have placed DISTANCE EDUCATION FACULTY LIAISON consult as I think pt would benefit from some assistance with medication management. * admitted on dilt gtt protocol- transition onto oral meds * once on oral medications can go home * Last Echo:11/24/2022 sinus Babatunde, frequent PACs, occasional PVCs, EF 50-55% * Continue eliquis Hypertensive urgency, in the setting of Hypertension, essential, acute on chronic, present on admission * ED:164/105 * hold while on drip irbesartan, Norvasc Hyperlipidemia, chronic, present on admission * Continue Lipitor Obesity, moderate, acute on chronic, present on admission * BMI 36.2 * dietary consult ordered regarding nutritional education and information for dietary, lifestyle, exercise, and weight changes. * the patient is at much higher risk for medical and surgical complications due to obesity as it relates to chronic illnesses:, and acute illness.? The patient's obesity increases the difficulty and complexity of medical and/or lane rgical interventions, management and increases the chances of poor outcome such as morbidity and mortality as well as impaired wound healing.? GERD, chronic, present on admission * continue omeprazole CODE: FUll Proxy: family Zenia COVID PCR:? Negative DVT/VTE prophylaxis: Eliquis, SCDs only Disposition:? Patient admitted to ICU for observation expected length of stay less than 2 midnights. I have utilized all available immediate resources to obtain, update, or review the patient's current medications. I confirmed that the patient's advanced care plan is present, Code status is documented and/or surrogate decision maker is listed in the patient's medical record. I have personally reviewed patient's chart notes from PCP, specialists, diagnostic imaging, and laboratory results. suspect possible medication noncompliance. -rate improved with dilt gtt -once on oral medications can go home Hypertension, essential, chronic, present on admission -continue irbesartan Obesity, moderate, acute on chronic, present on admission -BMI 36.2 -dietary consult ordered regarding nutritional education and information for dietary, lifestyle, exercise, and weight changes. -the patient is at much higher risk for medical and surgical complications due to obesity as it relates to chronic illnesses:, and acute illness.? The patient's obesity increases the difficulty and complexity of medical and/or surgical interventions, management and increases the chances of poor outcome such as morbidity and mortality as well as impaired wound healing.? 6. GERD, chronic, present on admission -continue omeprazole CODE: FUll Proxy: family Zenia DVT/VTE prophylaxis:? Patient on Eliquis, SCDs only Disposition:? Patient admitted to ICU for observation expected length of stay less than 2 midnights. I have utilized all available immediate resources to obtain, update, or review the patient's current medications. I confirmed that the patient's advanced care plan is present, Code status is documented and/or surrogate decision maker is listed in the patient's medical record. I have personally reviewed patient's chart notes from PCP, specialists, diagnostic imaging, and laboratory results.
[2023-02-14 04:26] LABS: Cholesterol 136 mg/dL (140-199); HDL Cholesterol 55 mg/dL (40-60); LDL Cholesterol Calculated 54 mg/dL (<100); Triglycerides 134 mg/dL (35-150)
[2023-02-14 04:36] LABS: NT-proBNP (BNP-Adult 18+) 325 pg/mL (<450)
[2023-02-14 04:58] LABS: Thyroid Stimulating Hormone 5.17 uIU/mL (0.47-4.68)
[2023-02-14 05:00] LABS: Free T4, Direct Thyroxine 1.03 ng/dL (0.78-2.19)
[2023-02-14 05:13] LABS: Bilirubin Urine UA NEGATIVE (NEGATIVE); Color Urine UA YELLOW; Glucose Urine UA NEGATIVE (Negative); Ketones Urine UA NEGATIVE (NEGATIVE); Leukocyte Esterase Urine UA NEGATIVE (NEGATIVE); Nitrite Urine UA NEGATIVE (Negative); Occult Blood Urine UA NEGATIVE (Negative); Protein Urine UA NEGATIVE (Negative); Urobilinogen Urine UA 0.2 E.U./dL (0.2)
[2023-02-14 05:17] LABS: Appearance Urine UA SL CLOUDY; Bacteria Urine None Seen; RBC Urine None Seen (0-5/HPF); Squamous Epithelial Cell Urine 0-1 /HPF (0-5/HPF); WBC Urine None Seen (0-5/HPF); pH Urine UA 7.5 (4.5-8.0)
[2023-02-14 05:18] LABS: Amorphous Sediment Urine 2+; Culture Indicated Urine Cult Not Indicated
--- NOTE | 2023-02-14 08:07 | OT.IPNOTE ---
Pt in A-fib and to hold OT eval and to check on pt later or tomorrow as appropriate.
--- NOTE | 2023-02-14 08:07 | PT-IP ANOTE ---
Talked to RN who noted pt still in Afib w/RVR and is not appropriate for PT this AM. Plan for PT to check back later today.
[2023-02-14 08:44] LABS: Troponin I < 0.012 ng/mL (0.01-0.034)
[2023-02-14] MEDS: APIXABAN 5 MG TABLET PO ×2 (09:14→21:16)
[2023-02-14 09:16] LABS: MRSA (Nasal) PCR Not Detected (Not Detect)
--- NOTE | 2023-02-14 10:06 | OT.IPNOTE ---
Per Dr. Oneil, no OT eval needed for pt, therefore discharge OT eval orders.
[2023-02-14] MEDS: METOPROLOL ER 25 MG TABLET 12.5 MG PO ×2 (12:34→13:33)
--- NOTE | 2023-02-14 16:14 | PT-IP ANOTE ---
Per rounds, hospitalist stated no PT needs for pt and to d/c eval order.
--- NOTE | 2023-02-14 18:01 | PC.NURSE ---
Day shift: pt admitted at approximately 0720, attached to telemetry, BP taken, in Afib RVR on monitor, BP stable, afebrile. Pt A&ox4, ambulatory to BR. Pt c/o dizziness upon standing but subsides with movement, steady on feet. Diltiazem gtt titrated as charted (See MAR), paused during afternoon. Pt given PO medications as documented (See MAR). Pt converted to sinus chantal at approximately 16:00 after a 4 second pause, provider notified and aware. ECG obtained and verified sinus chantal. Pt asymptomatic with pause, BP stable. Pt tolerating a heart healthy diet, resting comfortably. Denies pain, SOB, or any more dizziness. Bed alarm active, call light within reach and pt verbalized and demonstrated understanding on use of call light, bed locked and in low position. VSS. Care ongoing.
[2023-02-14] MEDS: ATORVASTATIN 20 MG TABLET PO (21:16)
[2023-02-14] MEDS: METOPROLOL ER 25 MG TABLET PO (21:16)
[2023-02-15] VITALS (19 sets, daily range): BP systolic 115–146; BP diastolic 57–69; PULSE 59–68; RESP 12–27; TEMP 36.1–36.7; O2SAT 93–97
[2023-02-15 04:52] LABS: Add Manual Diff / Slide Review NO; Basophils Absolute Auto 100 /uL (0-100); Eosinophils Absolute Auto 300 /uL (0-450); Eosinophils Percent Auto 5.3 % (2-4); Hematocrit 37.9 % (36-46); Lymphocytes Absolute Auto 1900 /uL (1100-4500); Lymphocytes Percent Auto 33.4 % (25-40); Mean Corpuscular HGB Conc 34.2 % (30-36); Mean Corpuscular Hemoglobin 31.3 PG (26-34); Mean Corpuscular Volume 91.5 fL (80-100); Monocytes Absolute Auto 700 /uL (0-900); Monocytes Percent Auto 11.5 % (3-14); Neutrophils Absolute Auto 2800 /uL (1500-7000); Neutrophils Percent Auto 48.8 % (50-75); Platelet Count 203 X10^3/uL (150-400); Red Blood Cell Count 4.14 X10^6/uL (4.0-5.2); Red Cell Distribution Width 14.7 % (11.6-14.8); White Blood Cell Count 5.7 X10^3/uL (4.5-11.0)
[2023-02-15 05:03] LABS: BUN Creatinine Ratio 27.2 (6-22); Blood Urea Nitrogen 22 mg/dL (7-17); Calcium 8.2 mg/dL (8.4-10.2); Carbon Dioxide 26 mmol/L (22-32); Chloride 106 mmol/L (98-107); Estimated Glomerular Filt Rate > 60 mL/min (>60); Glucose 95 mg/dL (80-110); HEMOLYSIS < 15 (0-50); Potassium 3.7 mmol/L (3.4-5.1); Sodium 138 mmol/L (137-145)
--- NOTE | 2023-02-15 07:39 | PM.DS.1 ---
History of Present Illness History of Present Illness Date Patient Seen: 02/15/23 Time Patient Seen: 07:39 Chief complaint: AFIB RVR Narrative: Per admitting provider, Irma Agudelo is a 77-year-old female with a history of GERD, HTN, HLD, and proximal atrial fibrillation on Eliquis, has had repeated hospitalizations for AFib with RVR last 1 being 11/24/2022, she frequently in the past has been non compliant with her medications. Patient reports that she felt rapid heart rate with chest tightness and mild SOB, at approximately 0130 this morning. She reports that she may have missed a few doses of her medication 2 weeks ago or 1 week ago, she is unable to recall. I will note that she stated the same on previous admit. She presented to the ED with heart rates between 130-150, hypertensive urgency 164/105. Patient was given initial push dose of diltiazem, and subsequently placed on diltiazem drip. Patient has been seen repeatedly in the ED she often initially responds to medical intervention but heart rate will spike back up requiring to go back on a drip. On admit patient denies chest pain, shortness in breath, headache, changes in vision, difficulty swallowing, speech impairment, weakness, numbness, tingling, difficulty with ambulation, recent falls, head injury, LOC, fever, body aches, chills, cough, recent exposure to illness, abdominal pain, nausea, vomiting, urinary incontinence/retention, dysuria, frequency, urgency, hematuria, bowel changes, constipation, incontinence, melena, rashes, recent changes to medication, illness, injury, or trauma. At the time of admit blood pressure has improved temp 97.7?, 147/94, HR 132, RR 11, O2 saturation 94% on room air. Patient's laboratory findings are reassuringly normal. Initial troponin negative, I personally reviewed EKG and imaging CXR negative, EKG atrial fibrillation with RVR rate [address] and T-wave abnormalities slight change from previous EKG 12/12/2022. Patient admitted for atrial fibrillation with RVR. Discharge Providers Provider Date of admission: 02/14/23 03:59 Discharge Date: 02/15/23 Primary care physician: Vanessa Merino PA-C Consults: 02/14/23 04:12 Consult to Dietitian, Adult Routine Comment: Reason For Exam: BMI 36.2 Consult to Discharge Planning Routine Comment: Consult to [employer] - Administrative Support Technician Routine Comment: patient in the past has been noncompliant w/meds Consult to Occupational Therapy Evaluate & Treat Comment: Physician Instructions: Evaluate and treat Consult to Physical Therapy Evaluate & Treat Comment: Physician Instructions: Evaluate and Treat Discharge provider: Octavio Oneil DO Summary Hospital Course Discharge Diagnosis: Atrial fibrillation with RVR, paroxysmal, acute on chronic, present on admission Hypertensive urgency, in the setting of Hypertension, essential, acute on chronic, present on admission Hyperlipidemia, chronic, present on admission Obesity, moderate, acute on chronic, present on admission GERD, chronic, present on admission Hospital Course: This is a 77 year old female with PMH of HTN, obesity, paroxysmal atrial fibrillation who was admitted with afib with RVR. She was initially on a diltiazem infusion. She has had multiple medication changes recently with metoprolol and diltiazem changes due to bradycardia. She was able to be weaned from dilitiazem infusion quickly and was put on 25 mg BID of oral metoprolol. She eventually converted to sinus rhythm. She was monitored after beta blockade for further evidence of bradycardia, for which there was none. She was discharged to continue home anticoagulation with apixaban, and metoprolol 25 mg BID. Time Spent with Patient Time spent: Greater than 30 minutes Exam Vital Signs (past 8 hours): - 02/15/23 00:00 02/15/23 04:00 Temperature 98.1 F 97.0 F L Pulse Rate 65 65 Respiratory Rate 17 13 Blood Pressure 115/57 L 146/66 H Pulse Oximetry 95 95 Oxygen Flow Rate 0 0 Oxygen Delivery Method Room Air Oxygen Flow Rate 0 Narrative Exam Narrative: Gen: NAD CV: RRR no m/r/g Pulm: CTA b/l Ext: trace edema Neuro: no focal deficits, alert Objective Labs 02/15/23 04:12 02/15/23 04:12 Labs: Laboratory Results - last 24 hr 02/14/23 02/14/23 02/15/23 07:48 08:09 04:12 WBC 5.7 RBC 4.14 Hgb 13.0 Hct 37.9 MCV 91.5 MCH 31.3 MCHC 34.2 RDW 14.7 Plt Count 203 Neut % (Auto) 48.8 L Lymph % (Auto) 33.4 [place] % (Auto) 11.5 Eos % (Auto) 5.3 H Baso % (Auto) 1.0 Neut # (Auto) 2800 Lymph # (Auto) 1900 [place] # (Auto) 700 Eos # (Auto) 300 Baso # (Auto) 100 Sodium Potassium Chloride Carbon Dioxide BUN Creatinine Estimated GFR BUN/Creatinine Ratio Glucose Calcium Magnesium Troponin I < 0.012 Nasal Screen MRSA (PCR) Not detected 02/15/23 02/15/23 04:12 04:12 WBC RBC Hgb Hct MCV MCH MCHC RDW Plt Count Neut % (Auto) Lymph % (Auto) [place] % (Auto) Eos % (Auto) Baso % (Auto) Neut # (Auto) Lymph # (Auto) [place] # (Auto) Eos # (Auto) Baso # (Auto) Sodium 138 Potassium 3.7 Chloride 106 Carbon Dioxide 26 BUN 22 H Creatinine 0.81 Estimated GFR > 60 BUN/Creatinine Ratio 27.2 H Glucose 95 Calcium 8.2 L Magnesium 2.0 Troponin I Nasal Screen MRSA (PCR) [facility] Medical History Paroxysmal atrial fibrillation Pelvic relaxation Postmenopausal atrophic vaginitis Surgical History History of cataract surgery Family History Mother Congestive heart failure Brother CAD (coronary artery disease) of artery bypass graft Social History household members: friend(s) Smoking Status: Never smoker Discharge Plan Discharge Plan Patient Disposition: Home Provider Discharge Comment: You were admitted to the hospital with fast atrial fibrillation. Your medications were adjusted with improvement to sinus rhythm. Discharge orders & Medications Prescriptions: New metoprolol succinate 25 mg tablet extended release 24 hr 25 mg PO BID 30 Days Qty: 60 0RF Continued irbesartan 75 mg tablet 75 mg PO DAILY omeprazole 20 mg capsule,delayed release(DR/EC) 20 mg PO DAILY tumeric root 500 mg capsule 500 mg PO 1XD Zicam 1 dose intranasal 1XD amlodipine [Norvasc] 5 mg Tablet 5 mg PO DAILY garlic Capsule 1 cap PO 1XD clobetasol [Temovate] 0.05 % Ointment 1 applic TOPICAL BID acetylcysteine 600 mg Capsule 600 mg PO DAILY triamcinolone acetonide 0.1 % Cream 1 applic TOPICAL BID quercetin 500 mg Capsule 50 mg PO 1XD diclofenac sodium [Arthritis Pain (diclofenac)] 1 % gel 2 g topical QID PRN (Reason: arm pain) Qty: 100 0RF Rx Instructions: apply to arm as needed for pain hydrocodone-acetaminophen 5-325 mg tablet 1 tab PO TID PRN (Reason: pain) Qty: 10 0RF meclizine 25 mg tablet 25 mg PO BID-TID PRN (Reason: dizziness) Qty: 14 0RF apixaban 5 mg tablet 5 mg PO BID Qty: 60 0RF atorvastatin 20 mg tablet 20 mg PO DAILY Vitamin B-12 5,000 mcg sublingual DAILY Discontinued metoprolol succinate 50 mg tablet extended release 24 hr 12.5 mg PO BID Follow up/Referrals: Vanessa Merino, KELLY [Primary Care Provider] - (Appt on Monday, February 26 at 4:30pm with . Please provide ID and Insurance cards at check-in. [phone]) Diet/Activity/Treatments Diet: Diet as Tolerated and Low-sodium Activity: As tolerated no restrictions Visit Report/Discharge Packet Instructions: DI for Atrial Fibrillation, How to Prevent Falls, Metoprolol Stand Alone Forms: Patient Portal/API, Stroke Signs & Symptoms Discharge Data Primary Care Provider: Vanessa Merino Attending Provider: Leora Walters Admit Date/Time: 02/14/23 03:59 Discharges patient from system. Discharge Date/Time: 02/15/23 09:23 Quality VTE Deep Vein Thrombosis/Pulmonary Embolism Present on Admission: No
[2023-02-15] MEDS: METOPROLOL ER 25 MG TABLET PO (08:20)
[2023-02-15] MEDS: APIXABAN 5 MG TABLET PO (08:20)
--- NOTE | 2023-02-15 09:24 | PC.NURSE ---
Discharge: Education provided to pt on medication adjustments, fall prevention, follow up appt, and worsening symptoms. Pt verbalizes understanding and is agreeable to plan. IV discontinued, telemetry removed, pt dressed independently. Pt wheeled via wheelchair to private vehicle at approximately 09:23. Pt to drive self home in private vehicle, denies dizziness, lightheadedness and fatigue. Pt verbalizes no other transportation option. 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
== END 2023-02-15 09:23 | disposition home or self-care (01) ==
LOC: ED 03:00 → AC 04:00 → ICU 07:15
PROVIDERS: Internal Medicine; Admitting Provider Nurse Practitioner Family; Emergency Provider Emergency Medicine; Family Provider Physician Assistant; PCP Physician Assistant; Referring Provider Emergency Medicine; Visit Provider Nurse Practitioner Family
DX: I48.20 Chronic atrial fibrillation, unspecified (principal); I10 Essential (primary) hypertension; E78.5 Hyperlipidemia, unspecified; Z79.01 Long term (current) use of anticoagulants; Z79.82 Long term (current) use of aspirin
CPT/HCPCS: 36415; 71045; 80048; 80053; 80061; 81001; 82550; 83690; 83735; 83880; 84439; 84443; 84484; 85025; 85610; 85730; 87797; 93005; 96365; 96366; 96375; 99284; 99291; G0378

== ENCOUNTER 2023-03-02 09:13 | Emergency (ER) | payer OTHER, SELFPAY ==
[2023-02-14 07:28] VITALS: BMI 36.1
[2023-03-02 09:18] VITALS: BP 137/65; PULSE 60; RESP 15; TEMP 36.6; O2SAT 96; BMI 36.1
[2023-03-02 09:26] VITALS: PULSE 62; RESP 15
[2023-03-02 09:27] VITALS: BP 137/65; PULSE 60; RESP 13; O2SAT 96
[2023-03-02 09:30] VITALS: BP 135/62; PULSE 61; RESP 19; O2SAT 96
--- NOTE | 2023-03-02 09:34 | ED.GENADULT ---
HPI - General Adult General Chief complaint: Arrhythmia/Palpitations Stated complaint: Afib Time Seen by Provider: 03/02/23 09:14 History of Present Illness HPI narrative: 77-year-old female with history of AFib on Eliquis presents with a chief complaint of AFib. She was here few weeks ago and had successful cardioversion. She states that she had been in her normal state of health but her watch gave her warning this morning stating that she had been in AFib which was brief and resolved prior to her arrival. She states that she was feeling hot but denies current palpitations, chest pain or shortness of breath. She is not dizzy nor weak or lightheaded. She denies any fever or chills. She did not take her Eliquis this morning but otherwise denies any change in medications or diet Related Data Home Medications Medication Instructions Recorded Confirmed Zicam 1 dose intranasal 1XD 05/18/19 02/14/23 irbesartan 75 mg tablet 75 mg PO DAILY 05/18/19 02/14/23 omeprazole 20 mg capsule,delayed 20 mg PO DAILY 05/18/19 02/14/23 release tumeric root 500 mg PO 1XD 05/18/19 02/14/23 acetylcysteine 600 mg capsule 600 mg PO DAILY 11/25/22 02/14/23 amlodipine 5 mg tablet (Norvasc) 5 mg PO DAILY 11/25/22 02/14/23 clobetasol 0.05 % topical ointment 1 applic topical BID 11/25/22 02/14/23 (Temovate) garlic 1 cap PO 1XD 11/25/22 02/14/23 quercetin 500 mg capsule 50 mg PO 1XD 11/25/22 02/14/23 triamcinolone acetonide 0.1 % 1 applic topical BID 11/25/22 02/14/23 topical cream Vitamin B-12 5,000 mcg sublingual DAILY 02/14/23 02/14/23 atorvastatin 20 mg tablet 20 mg PO DAILY 02/14/23 02/14/23 Previous Rx's Medication Instructions Recorded apixaban 5 mg tablet 5 mg PO BID #60 tabs 07/17/22 diclofenac sodium 1 % topical gel 2 g topical QID PRN arm pain #100 11/29/22 (Arthritis Pain (diclofenac)) grams hydrocodone 5 mg-acetaminophen 325 1 tab PO TID PRN pain #10 tabs 11/29/22 mg tablet meclizine 25 mg tablet 25 mg PO BID-TID PRN dizziness #14 12/28/22 tabs metoprolol succinate 25 mg 25 mg PO BID 30 days #60 tabs 02/15/23 tablet,extended release 24 hr Allergies Allergy/AdvReac Type Severity Reaction Status Date / Time milk [MILK] Allergy Unknown ACHE ALL Verified 03/02/23 09:30 OVER LIKE COMING DOWN WITH FLU X3 DAYS lisinopril [LISINOPRIL] AdvReac Unknown COUGH Verified 03/02/23 09:30 Review of Systems Review of Systems Narrative: GENERAL see HPI HEENT: Denies sinus pain, ear pain, sore throat, difficulty swallowing, dizziness. RESPIRATORY: Denies dyspnea, cough, wheezing, hemoptysis, sputum. CARDIOVASCULAR: See HPI GASTROINTESTINAL: Denies nausea, vomiting, abdominal pain, diarrhea, constipation, melena. : Denies dysuria, frequency, incontinence, hematuria, urinary retention. MUSCULOSKELETAL: denies weakness, joint pain, or bony pain SKIN: Denies rash, skin lesions, or other NEUROLOGIC: Denies weakness, headache, numbness, change in speech, confusion, seizures, incoordination. PSYCHIATRIC: No concerning psychosocial issues. 12 point review of systems is negative except for those stated above Patient History Medical History Paroxysmal atrial fibrillation Pelvic relaxation Postmenopausal atrophic vaginitis Surgical History History of cataract surgery Family History Mother Congestive heart failure Brother CAD (coronary artery disease) of artery bypass graft Social History household members: friend(s) Smoking Status: Never smoker Smoking Status: Never smoker alcohol intake frequency: holidays/special occasions only Substance Use Type: does not use Exam Narrative Exam Narrative: GENERAL: [77] year old patient appears stated age. Well-developed patient, in mild distress. HEAD: Atraumatic. Normocephalic. EYES: Pupils equal round and reactive. Extraocular motions intact. No scleral icterus. No injection or drainage. ENT: Nose without bleeding, purulent drainage. Throat without erythema, tonsillar hypertrophy or exudate. Airway patent. NECK: Trachea midline. Non tender CARDIOVASCULAR: Regular rate and rhythm without murmurs, gallops, or rubs. RESPIRATORY: Clear to auscultation. Breath sounds equal bilaterally. No wheezes, rales, or rhonchi. GASTROINTESTINAL: Abdomen soft, non-tender, nondistended. EXTREMITIES: No edema or joint tenderness. BACK: Nontender without deformity or crepitance. No flank tenderness. NEURO: AOx3. SKIN: No rash or erythema of visible areas Initial Vital Signs Initial Vital Signs: Vital Signs Temperature 97.8 F 03/02/23 09:18 Pulse Rate 60 03/02/23 09:18 Respiratory Rate 15 03/02/23 09:18 Blood Pressure 137/65 03/02/23 09:18 Pulse Oximetry 96 03/02/23 09:18 Oxygen Delivery Method Room Air 03/02/23 09:18 Course Orders Ordered: ED Orders 03/02/23 09:45 Complete Blood Count AUTO DIFF Stat Comprehensive Metabolic Panel Stat Magnesium Stat NT-proBNP (BNP-Adult 18+) Stat Troponin & CK Cardiac Panel Stat Vital Signs Vital signs: Vital Signs - 8 hr 03/02/23 09:18 Temperature 97.8 F Pulse Rate 60 Respiratory Rate 15 Blood Pressure 137/65 Pulse Oximetry 96 Oxygen Delivery Method Room Air Medical Decision Making Lab Data 03/02/23 09:45 03/02/23 09:45 Labs: Lab Results 03/02/23 03/02/23 Range/Units 09:45 09:45 WBC 5.7 (4.5-11.0) X10^3/uL RBC 4.27 (4.0-5.2) X10^6/uL Hgb 13.3 (12.0-16.0) g/dL Hct 38.6 (36-46) % MCV 90.4 (80-100) fL MCH 31.2 (26-34) PG MCHC 34.6 (30-36) % RDW 14.2 (11.6-14.8) % Plt Count 206 (150-400) X10^3/uL Neut % (Auto) 57.5 (50-75) % Lymph % (Auto) 26.7 (25-40) % [place] % (Auto) 9.1 (3-14) % Eos % (Auto) 5.4 H (2-4) % Baso % (Auto) 1.3 (0-2) % Neut # (Auto) 3300 (1593-4982) /uL Lymph # (Auto) 1500 (8603-9006) /uL [place] # (Auto) 500 (0-900) /uL Eos # (Auto) 300 (0-450) /uL Baso # (Auto) 100 (0-100) /uL Sodium 141 (137-145) mmol/L Potassium 3.4 (3.4-5.1) mmol/L Chloride 107 (98-107) mmol/L Carbon Dioxide 27 (22-32) mmol/L BUN 13 (7-17) mg/dL Creatinine 0.79 (0.52-1.04) mg/dL Estimated GFR > 60 (>60) mL/min BUN/Creatinine Ratio 16.5 (6-22) Glucose 111 H (80-110) mg/dL Calcium 8.8 (8.4-10.2) mg/dL Magnesium 1.9 (1.6-2.3) mg/dL Total Bilirubin 1.0 (0.2-1.3) mg/dL AST 26 (14-36) IU/L ALT 24 (<35) IU/L Alkaline Phosphatase 66 (38-126) U/L Total Creatine Kinase 44 (30-135) U/L Troponin I < 0.012 (0.01-0.034) ng/mL NT-Pro-B Natriuret Pep 406 (<450) pg/mL Total Protein 6.9 (6.3-8.2) g/dL Albumin 4.1 (3.5-5.0) g/dL Globulin 2.8 (1.7-4.1) g/dL Albumin/Globulin Ratio 1.5 (1.0-2.8) MDM Narrative Medical decision making narrative: CC: 77-year-old female with very few symptoms and a watch that warned her of AFib Complicating co-morbidities: AFib on Eliquis, hypertension, hyperlipidemia Data collected from: Patient Medical records reviewed: Prior notes reviewed in our EMR Differential considered, but not limited to: AFib versus other arrhythmia versus myocardial infarction versus electrolyte abnormality versus other Exam documented above, pertinent findings include: Heart rate regular, lungs clear, slightly anxious, abdomen soft Lab Test results independently reviewed as above. Pertinent findings: Independently reviewed EKG as above Imaging studies independently reviewed: Chest x-ray without acute findings Discussion: 77-year-old female with known AFib and anticoagulation presents with a concern that she had been in AFib over the course of the night, thankfully this had resolved prior to her arrival. She is in a normal sinus rhythm for the duration of her visit, EKGs unremarkable, labs with no significant findings and patient remains asymptomatic. No further evaluation needed Disposition: see below, along with detailed discharge instructions that have been reviewed with patient as well as indications for ED re-evaluation and additional outpatient follow up Discharge Plan Departure Patient Disposition: Home Clinical Impression: Paroxysmal atrial fibrillation Instructions: DI for Atrial Fibrillation Activity Restrictions/Additional Instructions: *You have been diagnosed with [atrial fibrillation, resolved. as we discussed your history and physical exam are reassuring and labs are unremarkable. At this time there is no indication to perform further workup. ] *What to do: *Please continue to take your regular medications as directed. *Please follow up with your primary care provider in 2-3 days, call for an appointment. Let them know you were seen in the Emergency Department and that we ask that you be seen in follow up. We will electronically transmit a record of today's note if your PCP is in our system *If you do not have a primary care provider please contact the [facility] Resource line at [phone]. They will ask some questions about your medical history and help get you set up with a doctor in the community. *Return to Emergency Department if you should have any new, worsening or concerning symptoms, such as [fever greater than 101 F, shaking chills, worsening pain, persistent vomiting or other bothersome symptoms] Prescriptions: No Action irbesartan 75 mg tablet 75 mg PO DAILY omeprazole 20 mg capsule,delayed release(DR/EC) 20 mg PO DAILY tumeric root 500 mg capsule 500 mg PO 1XD Zicam 1 dose intranasal 1XD amlodipine [Norvasc] 5 mg Tablet 5 mg PO DAILY garlic Capsule 1 cap PO 1XD clobetasol [Temovate] 0.05 % Ointment 1 applic TOPICAL BID acetylcysteine 600 mg Capsule 600 mg PO DAILY triamcinolone acetonide 0.1 % Cream 1 applic TOPICAL BID quercetin 500 mg Capsule 50 mg PO 1XD diclofenac sodium [Arthritis Pain (diclofenac)] 1 % gel 2 g topical QID PRN (Reason: arm pain) Qty: 100 0RF Rx Instructions: apply to arm as needed for pain hydrocodone-acetaminophen 5-325 mg tablet 1 tab PO TID PRN (Reason: pain) Qty: 10 0RF meclizine 25 mg tablet 25 mg PO BID-TID PRN (Reason: dizziness) Qty: 14 0RF apixaban 5 mg tablet 5 mg PO BID Qty: 60 0RF atorvastatin 20 mg tablet 20 mg PO DAILY Vitamin B-12 5,000 mcg sublingual DAILY metoprolol succinate 25 mg tablet extended release 24 hr 25 mg PO BID 30 Days Qty: 60 0RF Referrals: Vanessa Merino [email or web address] [Primary Care Provider] - Stand Alone Forms: Patient Portal/API
[2023-03-02 09:54] LABS: Add Manual Diff / Slide Review NO; Basophils Absolute Auto 100 /uL (0-100); Basophils Percent Auto 1.3 % (0-2); Eosinophils Absolute Auto 300 /uL (0-450); Eosinophils Percent Auto 5.4 % (2-4); Hematocrit 38.6 % (36-46); Hemoglobin 13.3 g/dL (12.0-16.0); Lymphocytes Absolute Auto 1500 /uL (1100-4500); Lymphocytes Percent Auto 26.7 % (25-40); Mean Corpuscular HGB Conc 34.6 % (30-36); Mean Corpuscular Hemoglobin 31.2 PG (26-34); Mean Corpuscular Volume 90.4 fL (80-100); Monocytes Absolute Auto 500 /uL (0-900); Monocytes Percent Auto 9.1 % (3-14); Neutrophils Absolute Auto 3300 /uL (1500-7000); Neutrophils Percent Auto 57.5 % (50-75); Platelet Count 206 X10^3/uL (150-400); Red Blood Cell Count 4.27 X10^6/uL (4.0-5.2); Red Cell Distribution Width 14.2 % (11.6-14.8); White Blood Cell Count 5.7 X10^3/uL (4.5-11.0)
[2023-03-02 10:00] VITALS: BP 134/62; PULSE 57; RESP 20; O2SAT 98
[2023-03-02 10:06] LABS: Alanine Aminotransferase 24 IU/L (<35); Albumin 4.1 g/dL (3.5-5.0); Albumin Globulin Ratio 1.5 (1.0-2.8); Alkaline Phosphatase 66 U/L (38-126); Aspartate Aminotransferase 26 IU/L (14-36); BUN Creatinine Ratio 16.5 (6-22); Blood Urea Nitrogen 13 mg/dL (7-17); Calcium 8.8 mg/dL (8.4-10.2); Carbon Dioxide 27 mmol/L (22-32); Chloride 107 mmol/L (98-107); Creatine Kinase 44 U/L (30-135); Estimated Glomerular Filt Rate > 60 mL/min (>60); Globulin 2.8 g/dL (1.7-4.1); Glucose 111 mg/dL (80-110); HEMOLYSIS < 15 (0-50); Magnesium 1.9 mg/dL (1.6-2.3); Potassium 3.4 mmol/L (3.4-5.1); Sodium 141 mmol/L (137-145); Total Protein 6.9 g/dL (6.3-8.2)
[2023-03-02 10:17] LABS: NT-proBNP (BNP-Adult 18+) 406 pg/mL (<450); Troponin I < 0.012 ng/mL (0.01-0.034)
[2023-03-02 10:30] VITALS: BP 141/65; PULSE 54; RESP 12; O2SAT 98
== END 2023-03-02 10:52 | disposition home or self-care (01) ==
PROVIDERS: Emergency Provider Emergency Medicine; Family Provider Physician Assistant; PCP Physician Assistant
DX: I48.0 Paroxysmal atrial fibrillation (principal); Z79.01 Long term (current) use of anticoagulants
CPT/HCPCS: 36415; 80053; 82550; 83735; 83880; 84484; 85025; 93005; 99283; 99284

== ENCOUNTER 2023-05-29 08:45 | Emergency (ER) | payer OTHER, SELFPAY ==
[2023-02-14 07:28] VITALS: BMI 36.1
[2023-05-29] VITALS (49 sets, daily range): BP systolic 92–145; BP diastolic 56–95; PULSE 49–123; RESP 7–36; TEMP 37.2; O2SAT 93–99; BMI 37.0
--- NOTE | 2023-05-29 09:05 | DI.RAD.S_ITS ---
PROCEDURE: XR CHEST 1V INDICATIONS: a fib rvr TECHNIQUE: One view of the chest was acquired. COMPARISON: [facility], CR, XR CHEST 1V, 02/14/2023, 1:55. FINDINGS: Surgical changes and devices: None. Lungs and pleura: Lungs are clear. No pleural effusions or pneumothorax. Mediastinum: Mediastinal contours appear normal. Heart size is enlarged. Bones and chest wall: No suspicious bony lesions. Overlying soft tissues appear unremarkable. IMPRESSION: Portable chest within normal limits for age. Dictated by: Maribel Galan M.D. on 05/29/2023 at 9:39 Approved by: Maribel Galan M.D. on 05/29/2023 at 9:39
--- NOTE | 2023-05-29 09:06 | ED.GENADULT ---
HPI - General Adult General Chief complaint: Arrhythmia/Palpitations Stated complaint: Thinks she has AFIB Time Seen by Provider: 05/29/23 08:48 History of Present Illness HPI narrative: 77yoF with PMH atrial fibrillation presents by private vehicle for a fib. Patient states that she took her vitals this morning and noticed that her heart rate was elevated. She decided to present for evaluation. States that she is been in her usual state of health until today, she is been compliant with all of her medications, although she did not take her Eliquis or her metoprolol this morning since she knew she was coming to the hospital. Related Data Home Medications Medication Instructions Recorded Confirmed Zicam 1 dose intranasal 1XD 05/18/19 02/14/23 irbesartan 75 mg tablet 75 mg PO DAILY 05/18/19 02/14/23 omeprazole 20 mg capsule,delayed 20 mg PO DAILY 05/18/19 02/14/23 release tumeric root 500 mg PO 1XD 05/18/19 02/14/23 acetylcysteine 600 mg capsule 600 mg PO DAILY 11/25/22 02/14/23 amlodipine 5 mg tablet (Norvasc) 5 mg PO DAILY 11/25/22 02/14/23 clobetasol 0.05 % topical ointment 1 applic topical BID 11/25/22 02/14/23 (Temovate) garlic 1 cap PO 1XD 11/25/22 02/14/23 quercetin 500 mg capsule 50 mg PO 1XD 11/25/22 02/14/23 triamcinolone acetonide 0.1 % 1 applic topical BID 11/25/22 02/14/23 topical cream Vitamin B-12 5,000 mcg sublingual DAILY 02/14/23 02/14/23 atorvastatin 20 mg tablet 20 mg PO DAILY 02/14/23 02/14/23 Previous Rx's Medication Instructions Recorded apixaban 5 mg tablet 5 mg PO BID #60 tabs 07/17/22 diclofenac sodium 1 % topical gel 2 g topical QID PRN arm pain #100 11/29/22 (Arthritis Pain (diclofenac)) grams hydrocodone 5 mg-acetaminophen 325 1 tab PO TID PRN pain #10 tabs 11/29/22 mg tablet meclizine 25 mg tablet 25 mg PO BID-TID PRN dizziness #14 12/28/22 tabs metoprolol succinate 50 mg 50 mg PO BID #60 tabs 05/29/23 tablet,extended release 24 hr Allergies Allergy/AdvReac Type Severity Reaction Status Date / Time milk [MILK] Allergy Unknown ACHE ALL Verified 03/02/23 09:30 OVER LIKE COMING DOWN WITH FLU X3 DAYS lisinopril [LISINOPRIL] AdvReac Unknown COUGH Verified 03/02/23 09:30 Review of Systems Review of Systems Narrative: CONSTITUTIONAL- Denies: fever, chills, fatigue HEENT- Denies: sore throat, nosebleed, vision changes RESPIRATORY- Denies: shortness of breath, cough, wheezing CARDIAC- Denies: chest pain, edema, orthopnea GI- Denies: abdominal pain, nausea, vomiting, constipation, diarrhea - Denies: frequency, dysuria, hematuria, flank pain MSK- Denies: extremity pain, extremity swelling, joint pain, joint swelling SKIN- Denies: rash, itching, burn, swelling NEUROLOGICAL- Denies: headache, numbness, weakness, dizziness PSYCHIATRIC- Denies: anxiety, depression, suicidal ideation, homicidal ideation Patient History Medical History Paroxysmal atrial fibrillation Pelvic relaxation Postmenopausal atrophic vaginitis Surgical History History of cataract surgery Family History Mother Congestive heart failure Brother CAD (coronary artery disease) of artery bypass graft Social History household members: friend(s) Smoking Status: Never smoker Smoking Status: Never smoker alcohol intake frequency: holidays/special occasions only Substance Use Type: does not use Exam Initial Vital Signs Initial Vital Signs: Vital Signs Pulse Rate 121 H 05/29/23 08:52 Blood Pressure 135/82 05/29/23 08:52 Pulse Oximetry 93 05/29/23 08:52 Const: Awake, alert, no acute distress, nontoxic appearing Eyes: PERRL, EOMI, conjunctiva normal ENT: Atraumatic, dentition normal, mucous membranes moist Cardiac: Tachycardia, irregularly irregular RESP: unlabored, clear bilaterally, no wheezing GI: Atraumatic, soft, nontender, nondistended, no rebound, no guarding MSK: Atraumatic, full range of motion, pulses equal Skin: Warm, Dry, intact, no rashes Neuro: AO x3, CN II-XII grossly intact, moves all extremities Psych: affect normal, mood normal, not suicidal, not homicidal Procedures Cardioversion Consent Signed: Yes Indication: a fib Stability: Stable Number of attempts (shocks): 1 Joules used: 120 Cardiac rhythm post-cardioversion: sinus bradycardia Procedural Sedation Consent signed: Yes Time out performed: Yes Indication: cardioversion ASA Class: III Mallampati Airway Classification: Class II Time of Last PO Intake: 08:00 Preparation: lease examiner applied, pulse oximeter, capnometry used, supplemental O2 applied, suction/airway equipment at bedside and IV secured IV Propofol dose (mg): 100 Intraservice time/total sedation time (min): 20 ED Sedation Level: Moderate (Concious) Patient Tolerated Procedure: Well and No complications Complications: none Interventions: Assist by BVM and Oxygen applied Additional Comments: Successful cardioversion Course Course Course Narrative: Atrial fibrillation with RVR, patient states she is known history of atrial fibrillation. Laboratory work is reviewed, no acute abnormalities identified. Initially attempted 2 doses of IV metoprolol, this was unable to successfully cardiovert patient. Patient was given a bolus of diltiazem, which improved the heart rate, however she continued to be in atrial fibrillation at a rate between 80-110 beats per minute. I was able to contact patient's breaker hand at [facility], who stated that patient is actually normally in normal sinus rhythm and at her last check she has been in sinus rhythm the whole time. Her breaker hand recommended electric cardioversion to transfer patient to sinus rhythm, subsequently patient can increase her metoprolol to 50 mg b.i.d. from 25 mg b.i.d.. Discussed with patient, who reported apprehension, but did agree to the cardioversion procedure. Orders Ordered: Discontinued Medications Diltiazem HCl (Diltiazem 5 Mg/Ml Sdv) 10 mg IV NOW ONE Stop: 05/29/23 10:22 Last Admin: 05/29/23 10:55 Dose: 10 mg Documented By: AUDREY Metoprolol Tartrate (Metoprolol Tartrate 5 Mg/5 Ml Inj) 5 mg IV NOW ONE Stop: 05/29/23 09:06 Last Admin: 05/29/23 09:21 Dose: 5 mg Documented By: AUDREY Metoprolol Tartrate (Metoprolol Tartrate 5 Mg/5 Ml Inj) 5 mg IV NOW ONE Stop: 05/29/23 09:39 Last Admin: 05/29/23 10:10 Dose: 5 mg Documented By: AUDREY Metoprolol Tartrate (Metoprolol Ir 25 Mg Tablet) 50 mg PO NOW ONE Stop: 05/29/23 11:40 Last Admin: 05/29/23 12:02 Dose: 50 mg Documented By: AUDREY Propofol (Propofol 200 Mg/20 Ml Vial) 80 mg IV NOW ONE Stop: 05/29/23 12:06 Last Admin: 05/29/23 12:52 Dose: Not Given Documented By: AUDREY Propofol (Propofol 200 Mg/20 Ml Vial) 100 mg IV NOW ONE Stop: 05/29/23 12:49 Last Admin: 05/29/23 12:34 Dose: 100 mg Documented By: AUDREY Reevaluation(s) Reevaluation #1: Patient successfully cardioverted, improved post sedation. Patient has friend coming to pick her up and who will help her at home while she recovers from sedation. Medication changes requested by Cardiology discussed at bedside. Refill of medication sent to pharmacy. Vital Signs Vital signs: Vital Signs - 8 hr 05/29/23 11:25 05/29/23 11:25 05/29/23 11:30 Pulse Rate 106 H 102 H Respiratory Rate 10 L 9 L Blood Pressure 128/84 Pulse Oximetry 95 96 05/29/23 11:30 05/29/23 11:35 05/29/23 11:35 Pulse Rate 103 H Respiratory Rate 10 L Blood Pressure 129/79 138/71 Pulse Oximetry 95 05/29/23 11:40 05/29/23 11:40 05/29/23 11:45 Pulse Rate 95 H Respiratory Rate 8 L Blood Pressure 145/67 H 129/72 Pulse Oximetry 95 05/29/23 11:45 05/29/23 11:50 05/29/23 11:50 Pulse Rate 103 H 107 H Respiratory Rate 10 L 12 Blood Pressure 115/65 Pulse Oximetry 95 95 05/29/23 11:55 05/29/23 11:55 05/29/23 12:00 Pulse Rate 99 H Respiratory Rate 8 L Blood Pressure 112/63 122/85 Pulse Oximetry 96 05/29/23 12:00 05/29/23 12:20 05/29/23 12:20 Pulse Rate 108 H 115 H Respiratory Rate 21 17 Blood Pressure 127/75 Pulse Oximetry 96 05/29/23 12:30 05/29/23 12:30 05/29/23 12:35 Pulse Rate 117 H Respiratory Rate 25 H Blood Pressure 145/95 H 136/75 Pulse Oximetry 99 05/29/23 12:35 05/29/23 12:39 05/29/23 12:39 Pulse Rate 109 H 58 L Respiratory Rate 22 16 Blood Pressure 136/65 Pulse Oximetry 99 95 05/29/23 12:40 05/29/23 12:40 05/29/23 12:45 Pulse Rate 99 H 58 L Respiratory Rate 17 22 Blood Pressure 129/60 Pulse Oximetry 94 94 05/29/23 12:45 05/29/23 12:50 05/29/23 12:50 Pulse Rate 57 L Respiratory Rate 15 Blood Pressure 109/59 L 99/57 L Pulse Oximetry 95 05/29/23 12:55 05/29/23 12:55 05/29/23 13:00 Pulse Rate 53 L 51 L Respiratory Rate 20 30 H Blood Pressure 92/56 L Pulse Oximetry 96 94 05/29/23 13:01 05/29/23 13:01 05/29/23 13:05 Pulse Rate 52 L Respiratory Rate 36 H Blood Pressure 120/61 129/66 Pulse Oximetry 93 05/29/23 13:05 05/29/23 13:10 05/29/23 13:10 Pulse Rate 52 L 50 L Respiratory Rate 18 29 H Blood Pressure 120/66 Pulse Oximetry 94 95 05/29/23 13:15 05/29/23 13:15 05/29/23 13:20 Pulse Rate 49 L Respiratory Rate 21 Blood Pressure 119/60 125/62 Pulse Oximetry 95 05/29/23 13:20 05/29/23 13:25 05/29/23 13:25 Pulse Rate 50 L 56 L Respiratory Rate 10 L Blood Pressure 134/65 Pulse Oximetry 95 Medical Decision Making Differential Diagnosis Differential Diagnosis: Atrial fibrillation, AFib with RVR, electrolyte abnormality Lab Data 05/29/23 09:03 05/29/23 09:03 Labs: Lab Results 05/29/23 Range/Units 09:03 WBC 4.9 (4.5-11.0) X10^3/uL RBC 4.54 (4.0-5.2) X10^6/uL Hgb 14.1 (12.0-16.0) g/dL Hct 41.2 (36-46) % MCV 90.8 (80-100) fL MCH 31.1 (26-34) PG MCHC 34.2 (30-36) % RDW 13.4 (11.6-14.8) % Plt Count 245 (150-400) X10^3/uL Neut % (Auto) 48.1 L (50-75) % Lymph % (Auto) 34.3 (25-40) % [place] % (Auto) 12.3 (3-14) % Eos % (Auto) 4.0 (2-4) % Baso % (Auto) 1.3 (0-2) % Neut # (Auto) 2300 (0205-9379) /uL Lymph # (Auto) 1700 (2581-5286) /uL [place] # (Auto) 600 (0-900) /uL Eos # (Auto) 200 (0-450) /uL Baso # (Auto) 100 (0-100) /uL Sodium 139 (137-145) mmol/L Potassium 4.0 (3.4-5.1) mmol/L Chloride 107 (98-107) mmol/L Carbon Dioxide 24 (22-32) mmol/L BUN 16 (7-17) mg/dL Creatinine 0.84 (0.52-1.04) mg/dL Estimated GFR > 60 (>60) mL/min BUN/Creatinine Ratio 19.0 (6-22) Glucose 108 (80-110) mg/dL Calcium 9.1 (8.4-10.2) mg/dL Magnesium 2.0 (1.6-2.3) mg/dL Total Bilirubin 0.9 (0.2-1.3) mg/dL AST 27 (14-36) IU/L ALT 20 (<35) IU/L Alkaline Phosphatase 63 (38-126) U/L Total Creatine Kinase 69 (30-135) U/L Troponin I < 0.012 (0.01-0.034) ng/mL Total Protein 7.0 (6.3-8.2) g/dL Albumin 4.1 (3.5-5.0) g/dL Globulin 2.9 (1.7-4.1) g/dL Albumin/Globulin Ratio 1.4 (1.0-2.8) TSH 2.84 (0.47-4.68) uIU/mL Urine Dip Bedside Urine Glucose Negative Bedside Urine Bilirubin - Negative Bedside Urine Ketone - Negative Urine Specific [place] 1.010 Bedside Urine Occult Blood - Negative Bedside Urine pH 7.0 Bedside Urine Protein - Negative Bedside Urine Urobilinogen - Negative Bedside Urine Nitrite - Negative Bedside Urine Leukocytes - Negative Esterase Point of care testing: Urine Dip Bedside Urine Glucose Negative Bedside Urine Bilirubin - Negative Bedside Urine Ketone - Negative Urine Specific [place] 1.010 Bedside Urine Occult Blood - Negative Bedside Urine pH 7.0 Bedside Urine Protein - Negative Bedside Urine Urobilinogen - Negative Bedside Urine Nitrite - Negative Bedside Urine Leukocytes - Negative Esterase ECG Data Interpretation: Atrial fibrillation with RVR, no ST T wave changes, no STEMI EKG 2: Sinus bradycardia rate 55 beats per minute. No ST T wave changes, no ischemia Discharge Plan Departure Patient Disposition: Home Clinical Impression: Paroxysmal atrial fibrillation Instructions: DI for Atrial Fibrillation, DI for Moderate Sedation Activity Restrictions/Additional Instructions: YOUR LABORATORY WORK TODAY WAS NORMAL. I SPOKE TO YOUR MEDICAL IMAGING TECHNOLOGIST AND HE RECOMMENDS INCREASING HER METOPROLOL TO 50 MG TWICE DAILY. PLEASE MONITOR YOUR HEART RATE AND BLOOD PRESSURE, IF YOUR BLOOD PRESSURE IS TOO LOW THEN YOU MAY DECREASE YOUR METOPROLOL BACK TO 25 MG TWICE DAILY. Prescriptions: New metoprolol succinate 50 mg tablet extended release 24 hr 50 mg PO BID Qty: 60 0RF No Action irbesartan 75 mg tablet 75 mg PO DAILY omeprazole 20 mg capsule,delayed release(DR/EC) 20 mg PO DAILY tumeric root 500 mg capsule 500 mg PO 1XD Zicam 1 dose intranasal 1XD amlodipine [Norvasc] 5 mg Tablet 5 mg PO DAILY garlic Capsule 1 cap PO 1XD clobetasol [Temovate] 0.05 % Ointment 1 applic TOPICAL BID acetylcysteine 600 mg Capsule 600 mg PO DAILY triamcinolone acetonide 0.1 % Cream 1 applic TOPICAL BID quercetin 500 mg Capsule 50 mg PO 1XD diclofenac sodium [Arthritis Pain (diclofenac)] 1 % gel 2 g topical QID PRN (Reason: arm pain) Qty: 100 0RF Rx Instructions: apply to arm as needed for pain hydrocodone-acetaminophen 5-325 mg tablet 1 tab PO TID PRN (Reason: pain) Qty: 10 0RF meclizine 25 mg tablet 25 mg PO BID-TID PRN (Reason: dizziness) Qty: 14 0RF apixaban 5 mg tablet 5 mg PO BID Qty: 60 0RF atorvastatin 20 mg tablet 20 mg PO DAILY Vitamin B-12 5,000 mcg sublingual DAILY Referrals: Aye Liu MD [Primary Care Provider] - Stand Alone Forms: Patient Portal/API
[2023-05-29 09:19] LABS: Add Manual Diff / Slide Review NO; Basophils Absolute Auto 100 /uL (0-100); Basophils Percent Auto 1.3 % (0-2); Eosinophils Absolute Auto 200 /uL (0-450); Hematocrit 41.2 % (36-46); Hemoglobin 14.1 g/dL (12.0-16.0); Lymphocytes Absolute Auto 1700 /uL (1100-4500); Lymphocytes Percent Auto 34.3 % (25-40); Mean Corpuscular HGB Conc 34.2 % (30-36); Mean Corpuscular Hemoglobin 31.1 PG (26-34); Mean Corpuscular Volume 90.8 fL (80-100); Monocytes Absolute Auto 600 /uL (0-900); Monocytes Percent Auto 12.3 % (3-14); Neutrophils Absolute Auto 2300 /uL (1500-7000); Neutrophils Percent Auto 48.1 % (50-75); Platelet Count 245 X10^3/uL (150-400); Red Blood Cell Count 4.54 X10^6/uL (4.0-5.2); Red Cell Distribution Width 13.4 % (11.6-14.8); White Blood Cell Count 4.9 X10^3/uL (4.5-11.0)
[2023-05-29] MEDS: METOPROLOL TARTRATE 5 MG/5 ML INJ IV ×2 (09:21→10:10)
[2023-05-29 09:30] LABS: Alanine Aminotransferase 20 IU/L (<35); Albumin 4.1 g/dL (3.5-5.0); Albumin Globulin Ratio 1.4 (1.0-2.8); Alkaline Phosphatase 63 U/L (38-126); Aspartate Aminotransferase 27 IU/L (14-36); Bilirubin Total 0.9 mg/dL (0.2-1.3); Blood Urea Nitrogen 16 mg/dL (7-17); Calcium 9.1 mg/dL (8.4-10.2); Carbon Dioxide 24 mmol/L (22-32); Chloride 107 mmol/L (98-107); Creatine Kinase 69 U/L (30-135); Estimated Glomerular Filt Rate > 60 mL/min (>60); Globulin 2.9 g/dL (1.7-4.1); Glucose 108 mg/dL (80-110); HEMOLYSIS 39 (0-50); Sodium 139 mmol/L (137-145)
[2023-05-29 09:42] LABS: Troponin I < 0.012 ng/mL (0.01-0.034)
[2023-05-29 10:13] LABS: Thyroid Stimulating Hormone 2.84 uIU/mL (0.47-4.68)
[2023-05-29] MEDS: dilTIAZem 5 MG/ML SDV 10 MG IV (10:55)
[2023-05-29] MEDS: METOPROLOL IR 25 MG TABLET 50 MG PO (12:02)
[2023-05-29] MEDS: propofoL 200 MG/20 ML VIAL 100 MG IV (12:34)
== END 2023-05-29 13:34 | disposition home or self-care (01) ==
PROVIDERS: Emergency Provider Emergency Medicine; Family Provider Physician Assistant; PCP Internal Medicine
DX: I48.0 Paroxysmal atrial fibrillation (principal); Z79.01 Long term (current) use of anticoagulants; Z79.899 Other long term (current) drug therapy
CPT/HCPCS: 36415; 71045; 80053; 81003; 82550; 83735; 84443; 84484; 85025; 92960; 93005; 93010; 96374; 96375; 96376; 99152; 99285; J2704

== ENCOUNTER 2023-05-31 08:01 | Observation (INO) | payer OTHER, SELFPAY ==
[2023-02-14 07:28] VITALS: BMI 36.1
[2023-05-31] VITALS (99 sets, daily range): BP systolic 100–153; BP diastolic 54–92; PULSE 57–129; RESP 8–34; TEMP 36–37; O2SAT 91–100; BMI 31.4; BMI 31.8
[2023-05-31] MEDS: SODIUM CHLORIDE 0.9% 1,000 ML 1000 ML IV (08:10)
--- NOTE | 2023-05-31 08:28 | ED.ARRPALP ---
HPI - Arrhythmia/Palpitations General Chief Complaint: Arrhythmia/Palpitations Stated Complaint: heart rate 120 Time Seen by Provider: 05/31/23 08:03 Source: patient Mode of arrival: Ambulatory History of Present Illness HPI narrative: 77-year-old female with history of AFib on Eliquis, hypertension and hyperlipidemia presents with a chief complaint of palpitations and a racing heart as high as 120. She was seen and evaluated a few days ago at our facility and found to be in rapid AFib and was successfully cardioverted. She recently had her metoprolol increased from 20/5 twice daily to 50 mg twice daily. She states she started having some palpitations last night which persist this morning. She did not take her morning medications yet but otherwise has been compliant. She feels a bit short of breath and fatigued. She denies fever or chills. She has no nausea, vomiting or diarrhea. Related Data Home Medications Medication Instructions Recorded Confirmed Zicam 1 dose intranasal 1XD 05/18/19 02/14/23 irbesartan 75 mg tablet 75 mg PO DAILY 05/18/19 02/14/23 omeprazole 20 mg capsule,delayed 20 mg PO DAILY 05/18/19 02/14/23 release tumeric root 500 mg PO 1XD 05/18/19 02/14/23 acetylcysteine 600 mg capsule 600 mg PO DAILY 11/25/22 02/14/23 amlodipine 5 mg tablet (Norvasc) 5 mg PO DAILY 11/25/22 02/14/23 clobetasol 0.05 % topical ointment 1 applic topical BID 11/25/22 02/14/23 (Temovate) garlic 1 cap PO 1XD 11/25/22 02/14/23 quercetin 500 mg capsule 50 mg PO 1XD 11/25/22 02/14/23 triamcinolone acetonide 0.1 % 1 applic topical BID 11/25/22 02/14/23 topical cream Vitamin B-12 5,000 mcg sublingual DAILY 02/14/23 02/14/23 atorvastatin 20 mg tablet 20 mg PO DAILY 02/14/23 02/14/23 Previous Rx's Medication Instructions Recorded apixaban 5 mg tablet 5 mg PO BID #60 tabs 07/17/22 diclofenac sodium 1 % topical gel 2 g topical QID PRN arm pain #100 11/29/22 (Arthritis Pain (diclofenac)) grams hydrocodone 5 mg-acetaminophen 325 1 tab PO TID PRN pain #10 tabs 11/29/22 mg tablet meclizine 25 mg tablet 25 mg PO BID-TID PRN dizziness #14 12/28/22 tabs metoprolol succinate 50 mg 50 mg PO BID #60 tabs 05/29/23 tablet,extended release 24 hr Allergies Allergy/AdvReac Type Severity Reaction Status Date / Time milk [MILK] Allergy Unknown ACHE ALL Verified 03/02/23 09:30 OVER LIKE COMING DOWN WITH FLU X3 DAYS lisinopril [LISINOPRIL] AdvReac Unknown COUGH Verified 03/02/23 09:30 Review of Systems Review of Systems Narrative: GENERAL: See HPI HEENT: Denies sinus pain, ear pain, sore throat, difficulty swallowing, dizziness. RESPIRATORY: Denies dyspnea, cough, wheezing, hemoptysis, sputum. CARDIOVASCULAR: See HPI GASTROINTESTINAL: Denies nausea, vomiting, abdominal pain, diarrhea, constipation, melena. : Denies dysuria, frequency, incontinence, hematuria, urinary retention. MUSCULOSKELETAL: denies weakness, joint pain, or bony pain SKIN: Denies rash, skin lesions, or other NEUROLOGIC: Denies weakness, headache, numbness, change in speech, confusion, seizures, incoordination. PSYCHIATRIC: No concerning psychosocial issues. 12 point review of systems is negative except for those stated above Patient History Medical History Paroxysmal atrial fibrillation Pelvic relaxation Postmenopausal atrophic vaginitis Surgical History History of cataract surgery Family History Mother Congestive heart failure Brother CAD (coronary artery disease) of artery bypass graft Social History household members: friend(s) Smoking Status: Never smoker Smoking Status: Never smoker alcohol intake frequency: holidays/special occasions only Substance Use Type: does not use Exam Narrative Exam Narrative: GENERAL: [77] year old patient appears stated age. Well-developed patient, in mild distress. HEAD: Atraumatic. Normocephalic. EYES: Pupils equal round and reactive. Extraocular motions intact. No scleral icterus. No injection or drainage. ENT: Nose without bleeding, purulent drainage. Throat without erythema, tonsillar hypertrophy or exudate. Airway patent. NECK: Trachea midline. Non tender CARDIOVASCULAR: Tachycardic and irregular rhythm without murmurs, gallops, or rubs. RESPIRATORY: Clear to auscultation. Breath sounds equal bilaterally. No wheezes, rales, or rhonchi. GASTROINTESTINAL: Abdomen soft, non-tender, nondistended. EXTREMITIES: No edema or joint tenderness. BACK: Nontender without deformity or crepitance. No flank tenderness. NEURO: AOx3. SKIN: No rash or erythema of visible areas Initial Vital Signs Initial Vital Signs: Vital Signs Pulse Rate 129 H 05/31/23 08:16 Pulse Oximetry 96 05/31/23 08:16 Procedures Cardioversion Consent Signed: Yes Indication: rapid afib Stability: Stable Number of attempts (shocks): 2 Joules used: 120 and 200 Cardiac rhythm post-cardioversion: Rapid A Fib Procedural Sedation Consent signed: Yes Time out performed: Yes Indication: cardioversion ASA Class: II Mallampati Airway Classification: Class II IV Propofol dose (mg): 60 Intraservice time/total sedation time (min): 12 ED Sedation Level: Moderate (Concious) Patient Tolerated Procedure: Well Complications: none Course Orders Ordered: ED Orders 05/31/23 08:25 EKG-12 Lead Stat 05/31/23 08:42 Complete Blood Count AUTO DIFF Stat Comprehensive Metabolic Panel Stat Magnesium Stat Acetaminophen (Acetaminophen 325 Mg Tablet) 650 mg PO Q6H PRN PRN Reason: Fever/Mild Pain (1-3) Hydrocodone Bitart/Acetaminophen (Hydrocodone/Acet 5/325 Tablet) 1 tab PO TID PRN PRN Reason: pain Apixaban (Apixaban 5 Mg Tablet) 5 mg PO BID STACIE Atorvastatin Calcium (Atorvastatin 20 Mg Tablet) 20 mg PO DAILY STACIE DILTIAZEM (Diltiazem 125 Mg/125 Ml-D5w) 125 mg in 125 mls @ 5 mls/hr IV TITRATE STACIE; Protocol Last Titration: 05/31/23 12:57 Dose: 15 mg/hr, 15 mls/hr Documented By: Titration: 05/31/23 12:21 Dose: 10 mg/hr, 10 mls/hr Documented By: Admin: 05/31/23 11:46 Dose: 5 mg/hr, 5 mls/hr Documented By: MANDEEP Magnesium Sulfate (Magnesium Sulfate) 2 gm in 50 mls @ 25 mls/hr IV NOW ONE Stop: 05/31/23 15:28 Naloxone HCl (Naloxone 0.4 Mg/Ml Vial) 0.2 mg IV Q2MIN PRN PRN Reason: Opiate Reversal Nf - Quercetin 500 (Mg Capsule) 50 mg PO DAILY STACIE Pantoprazole Sodium (Pantoprazole Dr 20 Mg Tablet) 20 mg PO 0600 STACIE Polyethylene Glycol (Polyethylene Glycol 3350 17 Gm Powd.Pack) 17 gm PO DAILY PRN PRN Reason: Constipation Sennosides (Sennosides 8.6 Mg Tablet) 8.6 mg PO BID PRN PRN Reason: Constipation Discontinued Medications Apixaban (Apixaban 5 Mg Tablet) 5 mg PO NOW ONE Stop: 05/31/23 11:03 Last Admin: 05/31/23 11:47 Dose: 5 mg Documented By: MANDEEP Diltiazem HCl (Diltiazem 5 Mg/Ml Sdv) 10 mg IV NOW ONE Stop: 05/31/23 11:03 Last Admin: 05/31/23 11:43 Dose: 10 mg Documented By: MANDEEP Sodium Chloride (Normal Saline 0.9%) 1,000 mls @ 1,000 mls/hr IV BOLUS ONE Stop: 05/31/23 09:05 Last Infusion: 05/31/23 09:56 Dose: Infused Documented By: Admin: 05/31/23 08:10 Dose: 1,000 mls/hr Documented By: LIU Potassium Chloride (Potassium Chloride 20 Meq Tab) 40 meq PO NOW ONE Stop: 05/31/23 13:30 Propofol (Propofol 200 Mg/20 Ml Vial) 85 mg 1 mg/kg (85 mg) IV NOW ONE Stop: 05/31/23 08:33 Last Admin: 05/31/23 10:45 Dose: 85 mg Documented By: LIU Vital Signs Vital signs: Vital Signs - 8 hr 05/31/23 08:16 05/31/23 08:17 05/31/23 08:17 Temperature Pulse Rate 129 H 119 H Respiratory Rate Blood Pressure 110/74 Pulse Oximetry 96 96 Oxygen Delivery Method 05/31/23 08:20 05/31/23 08:30 05/31/23 08:30 Temperature 97.9 F Pulse Rate 129 H 126 H Respiratory Rate 18 24 Blood Pressure 110/74 119/64 Pulse Oximetry 97 97 Oxygen Delivery Method Room Air 05/31/23 08:47 05/31/23 08:47 05/31/23 08:53 Temperature Pulse Rate 123 H Respiratory Rate 19 Blood Pressure 115/67 110/70 Pulse Oximetry 99 Oxygen Delivery Method 05/31/23 08:53 05/31/23 09:00 05/31/23 09:00 Temperature Pulse Rate 123 H 121 H Respiratory Rate 16 16 Blood Pressure 115/72 Pulse Oximetry 100 100 Oxygen Delivery Method 05/31/23 09:15 05/31/23 09:15 05/31/23 09:30 Temperature Pulse Rate 119 H Respiratory Rate 16 Blood Pressure 120/72 Pulse Oximetry 99 91 Oxygen Delivery Method 05/31/23 09:43 05/31/23 09:43 05/31/23 09:45 Temperature Pulse Rate 118 H Respiratory Rate 14 Blood Pressure 140/84 153/79 H Pulse Oximetry 100 Oxygen Delivery Method 05/31/23 09:45 05/31/23 09:50 05/31/23 09:50 Temperature Pulse Rate 119 H 120 H Respiratory Rate 15 15 Blood Pressure 132/81 Pulse Oximetry 99 98 Oxygen Delivery Method 05/31/23 09:56 05/31/23 09:56 05/31/23 10:00 Temperature Pulse Rate 122 H Respiratory Rate 13 Blood Pressure 138/88 137/86 Pulse Oximetry 98 Oxygen Delivery Method 05/31/23 10:00 05/31/23 10:05 05/31/23 10:05 Temperature Pulse Rate 120 H 123 H Respiratory Rate 15 16 Blood Pressure 132/85 Pulse Oximetry 97 97 Oxygen Delivery Method 05/31/23 10:14 05/31/23 10:14 05/31/23 10:15 Temperature Pulse Rate 124 H Respiratory Rate 16 Blood Pressure 137/86 144/76 H Pulse Oximetry 97 Oxygen Delivery Method 05/31/23 10:15 05/31/23 10:20 05/31/23 10:20 Temperature Pulse Rate 122 H 122 H Respiratory Rate 15 16 Blood Pressure 141/83 H Pulse Oximetry 98 98 Oxygen Delivery Method 05/31/23 10:25 05/31/23 10:25 05/31/23 10:30 Temperature Pulse Rate 121 H Respiratory Rate 14 Blood Pressure 126/80 132/80 Pulse Oximetry 97 Oxygen Delivery Method 05/31/23 10:30 05/31/23 10:35 05/31/23 10:35 Temperature Pulse Rate 122 H 124 H Respiratory Rate 15 15 Blood Pressure 127/74 Pulse Oximetry 97 97 Oxygen Delivery Method 05/31/23 10:40 05/31/23 10:40 05/31/23 10:43 Temperature Pulse Rate 120 H 121 H Respiratory Rate 15 23 Blood Pressure 141/81 H Pulse Oximetry 96 97 Oxygen Delivery Method 05/31/23 10:44 05/31/23 10:44 05/31/23 10:45 Temperature Pulse Rate 120 H 120 H Respiratory Rate 21 Blood Pressure 141/73 H Pulse Oximetry 97 96 Oxygen Delivery Method 05/31/23 10:45 05/31/23 10:46 05/31/23 10:51 Temperature Pulse Rate 121 H 119 H Respiratory Rate 26 H 21 Blood Pressure 136/67 112/74 Pulse Oximetry 95 96 Oxygen Delivery Method 05/31/23 10:51 05/31/23 10:56 05/31/23 10:56 Temperature Pulse Rate 122 H Respiratory Rate 20 Blood Pressure 132/68 109/60 Pulse Oximetry 93 Oxygen Delivery Method 05/31/23 11:00 05/31/23 11:01 05/31/23 11:01 Temperature Pulse Rate 121 H 122 H Respiratory Rate 22 20 Blood Pressure 108/77 Pulse Oximetry 96 96 Oxygen Delivery Method 05/31/23 11:05 05/31/23 11:05 05/31/23 11:11 Temperature Pulse Rate 121 H Respiratory Rate 20 Blood Pressure 100/65 110/76 Pulse Oximetry 97 Oxygen Delivery Method 05/31/23 11:11 05/31/23 11:15 05/31/23 11:15 Temperature Pulse Rate 123 H 121 H Respiratory Rate 18 18 Blood Pressure 114/73 Pulse Oximetry 95 95 Oxygen Delivery Method 05/31/23 11:17 05/31/23 11:20 05/31/23 11:20 Temperature Pulse Rate 120 H 122 H Respiratory Rate 16 15 Blood Pressure 112/74 Pulse Oximetry 95 Oxygen Delivery Method 05/31/23 11:24 05/31/23 11:25 05/31/23 11:25 Temperature Pulse Rate 120 H 121 H Respiratory Rate 21 16 Blood Pressure 112/71 Pulse Oximetry 96 96 Oxygen Delivery Method 05/31/23 11:30 05/31/23 11:30 05/31/23 11:35 Temperature Pulse Rate 120 H Respiratory Rate 14 Blood Pressure 116/73 117/73 Pulse Oximetry 96 Oxygen Delivery Method 05/31/23 11:35 05/31/23 11:40 05/31/23 11:40 Temperature Pulse Rate 120 H 120 H Respiratory Rate 21 Blood Pressure 122/83 Pulse Oximetry 96 Oxygen Delivery Method 05/31/23 11:43 05/31/23 11:45 05/31/23 11:45 Temperature Pulse Rate 118 H 115 H Respiratory Rate 21 Blood Pressure 122/83 127/85 Pulse Oximetry Oxygen Delivery Method 05/31/23 11:50 05/31/23 11:50 05/31/23 11:55 Temperature Pulse Rate 115 H Respiratory Rate 25 H Blood Pressure 139/92 H 119/80 Pulse Oximetry Oxygen Delivery Method 05/31/23 11:55 05/31/23 12:00 05/31/23 12:00 Temperature Pulse Rate 114 H 117 H Respiratory Rate 12 11 L Blood Pressure 132/67 Pulse Oximetry 96 96 Oxygen Delivery Method 05/31/23 12:05 05/31/23 12:05 05/31/23 12:10 Temperature Pulse Rate 112 H Respiratory Rate 11 L Blood Pressure 114/74 115/79 Pulse Oximetry 96 Oxygen Delivery Method 05/31/23 12:10 05/31/23 12:15 05/31/23 12:15 Temperature Pulse Rate 113 H 113 H Respiratory Rate Blood Pressure 127/62 Pulse Oximetry 96 97 Oxygen Delivery Method 05/31/23 12:20 05/31/23 12:20 05/31/23 12:25 Temperature Pulse Rate 114 H Respiratory Rate 14 Blood Pressure 126/74 118/70 Pulse Oximetry 97 Oxygen Delivery Method 05/31/23 12:25 05/31/23 12:30 05/31/23 12:30 Temperature Pulse Rate 113 H 114 H Respiratory Rate 15 18 Blood Pressure 121/60 Pulse Oximetry 96 96 Oxygen Delivery Method 05/31/23 12:36 05/31/23 12:36 05/31/23 12:40 Temperature Pulse Rate 115 H Respiratory Rate Blood Pressure 123/76 120/83 Pulse Oximetry 96 Oxygen Delivery Method 05/31/23 12:40 05/31/23 12:45 05/31/23 12:45 Temperature Pulse Rate 113 H 115 H Respiratory Rate 17 Blood Pressure 124/66 Pulse Oximetry 96 95 Oxygen Delivery Method 05/31/23 12:50 05/31/23 12:50 05/31/23 12:55 Temperature Pulse Rate 113 H 113 H Respiratory Rate 14 22 Blood Pressure 115/59 L Pulse Oximetry 95 96 Oxygen Delivery Method 05/31/23 12:55 05/31/23 12:59 05/31/23 12:59 Temperature Pulse Rate 112 H Respiratory Rate 20 Blood Pressure 116/56 L 112/61 Pulse Oximetry 96 Oxygen Delivery Method 05/31/23 13:00 05/31/23 13:00 05/31/23 13:05 Temperature Pulse Rate 112 H 112 H Respiratory Rate 19 22 Blood Pressure 109/72 Pulse Oximetry 96 95 Oxygen Delivery Method 05/31/23 13:05 05/31/23 13:09 05/31/23 13:09 Temperature Pulse Rate 101 H Respiratory Rate 26 H Blood Pressure 110/60 121/58 L Pulse Oximetry 96 Oxygen Delivery Method 05/31/23 13:10 05/31/23 13:10 05/31/23 13:15 Temperature Pulse Rate 105 H Respiratory Rate 21 Blood Pressure 112/59 L 109/59 L Pulse Oximetry 96 Oxygen Delivery Method 05/31/23 13:15 05/31/23 13:20 05/31/23 13:20 Temperature Pulse Rate 90 112 H Respiratory Rate 19 23 Blood Pressure 110/57 L Pulse Oximetry 96 95 Oxygen Delivery Method 05/31/23 13:25 05/31/23 13:25 Temperature Pulse Rate 108 H Respiratory Rate 22 Blood Pressure 114/62 Pulse Oximetry 96 Oxygen Delivery Method MDM - Arrhythmia/Palpitations Lab Data 05/31/23 08:42 05/31/23 08:42 Labs: Lab Results 05/31/23 Range/Units 08:42 WBC 5.6 (4.5-11.0) X10^3/uL RBC 4.55 (4.0-5.2) X10^6/uL Hgb 14.1 (12.0-16.0) g/dL Hct 41.7 (36-46) % MCV 91.5 (80-100) fL MCH 30.9 (26-34) PG MCHC 33.8 (30-36) % RDW 13.5 (11.6-14.8) % Plt Count 255 (150-400) X10^3/uL Neut % (Auto) 58.9 (50-75) % Lymph % (Auto) 26.0 (25-40) % [place] % (Auto) 10.0 (3-14) % Eos % (Auto) 4.1 H (2-4) % Baso % (Auto) 1.0 (0-2) % Neut # (Auto) 3300 (3187-7586) /uL Lymph # (Auto) 1400 (0498-6702) /uL [place] # (Auto) 600 (0-900) /uL Eos # (Auto) 200 (0-450) /uL Baso # (Auto) 100 (0-100) /uL Sodium 139 (137-145) mmol/L Potassium 3.8 (3.4-5.1) mmol/L Chloride 106 (98-107) mmol/L Carbon Dioxide 24 (22-32) mmol/L BUN 15 (7-17) mg/dL Creatinine 0.96 (0.52-1.04) mg/dL Estimated GFR > 60 (>60) mL/min BUN/Creatinine Ratio 15.6 (6-22) Glucose 109 (80-110) mg/dL Calcium 9.4 (8.4-10.2) mg/dL Magnesium 1.9 (1.6-2.3) mg/dL Total Bilirubin 0.6 (0.2-1.3) mg/dL AST 26 (14-36) IU/L ALT 21 (<35) IU/L Alkaline Phosphatase 60 (38-126) U/L Total Protein 7.1 (6.3-8.2) g/dL Albumin 4.2 (3.5-5.0) g/dL Globulin 2.9 (1.7-4.1) g/dL Albumin/Globulin Ratio 1.4 (1.0-2.8) Urine Dip Bedside Urine Glucose Negative Bedside Urine Bilirubin - Negative Bedside Urine Ketone - Negative Urine Specific [place] 1.015 Bedside Urine Occult Blood - Negative Bedside Urine pH 6.0 Bedside Urine Protein - Negative Bedside Urine Urobilinogen - Negative Bedside Urine Nitrite - Negative Bedside Urine Leukocytes - Negative Esterase ECG Data Interpretation: [0825] EKG is rapid Atrial fib with rate 117. No ST segmental elevation or depression. No T wave inversions MDM Narrative Medical decision making narrative: [77] year old patient presents with rapid heart rate, known AFib Multiple etiologies for patient's symptoms considered including, but not limited to: [Rapid AFib versus other] Prior Charts reviewed in our EMR Primary Historian: patient Labs reviewed and interpreted by myself: No significant abnormalities requiring intervention Imaging reviewed: Chest x-ray without acute findings Treatments: Propofol and cardioversion without success Consultations: hospitalist ([place]) Discharge Plan Departure Patient Disposition: Admitted as Observation Clinical Impression: Atrial fibrillation with rapid ventricular response Admit Date/Time: 05/31/23 13:25 Admit Provider: Luis F Delarosa
[2023-05-31 09:03] LABS: Add Manual Diff / Slide Review NO; Basophils Absolute Auto 100 /uL (0-100); Eosinophils Absolute Auto 200 /uL (0-450); Eosinophils Percent Auto 4.1 % (2-4); Hematocrit 41.7 % (36-46); Hemoglobin 14.1 g/dL (12.0-16.0); Lymphocytes Absolute Auto 1400 /uL (1100-4500); Mean Corpuscular HGB Conc 33.8 % (30-36); Mean Corpuscular Hemoglobin 30.9 PG (26-34); Mean Corpuscular Volume 91.5 fL (80-100); Monocytes Absolute Auto 600 /uL (0-900); Neutrophils Absolute Auto 3300 /uL (1500-7000); Neutrophils Percent Auto 58.9 % (50-75); Platelet Count 255 X10^3/uL (150-400); Red Blood Cell Count 4.55 X10^6/uL (4.0-5.2); Red Cell Distribution Width 13.5 % (11.6-14.8); White Blood Cell Count 5.6 X10^3/uL (4.5-11.0)
[2023-05-31 09:26] LABS: Alanine Aminotransferase 21 IU/L (<35); Albumin 4.2 g/dL (3.5-5.0); Albumin Globulin Ratio 1.4 (1.0-2.8); Alkaline Phosphatase 60 U/L (38-126); Aspartate Aminotransferase 26 IU/L (14-36); BUN Creatinine Ratio 15.6 (6-22); Bilirubin Total 0.6 mg/dL (0.2-1.3); Blood Urea Nitrogen 15 mg/dL (7-17); Calcium 9.4 mg/dL (8.4-10.2); Carbon Dioxide 24 mmol/L (22-32); Chloride 106 mmol/L (98-107); Estimated Glomerular Filt Rate > 60 mL/min (>60); Globulin 2.9 g/dL (1.7-4.1); Glucose 109 mg/dL (80-110); HEMOLYSIS < 15 (0-50); Magnesium 1.9 mg/dL (1.6-2.3); Potassium 3.8 mmol/L (3.4-5.1); Sodium 139 mmol/L (137-145); Total Protein 7.1 g/dL (6.3-8.2)
[2023-05-31] MEDS: propofoL 200 MG/20 ML VIAL 85 MG IV (10:45)
[2023-05-31] MEDS: dilTIAZem 5 MG/ML SDV 10 MG IV (11:43)
[2023-05-31] MEDS: DILTIAZEM 125 MG/125 ML PIGGYBACK IV (11:46)
[2023-05-31] MEDS: APIXABAN 5 MG TABLET PO ×2 (11:47→21:27)
--- NOTE | 2023-05-31 13:32 | DI.ECHO.S_ITS ---
[facility] +---------+ : : [address] : : : : [id number] : : : : Phone: [phone] Echocardiogram Report + + :Name: MEGHNA ROSALES Study Date: 05/31/2023 Height: 65 in : :[facility] ReadingLocation: Weight: 188 lb : : Gender: Female BSA: 1.9 m2 : :: 1945 Age: 77 yrs BP: 126/89 mmHg: :Reason For Study: AFIB RVR, EF AND WALL MOTION : : Performed By: Marilyn Luu : :Referring: LORRI RODRIGUEZ : + + Interpretation Summary A two-dimensional transthoracic echocardiogram with color flow and Doppler was performed in limited views only to assess left ventricular wall motion and ejection fraction.. The ejection fraction is estimated to be 50-55%. There are no obvious focal wall motion abnormalities noted but poor endocardial definition reduces the sensitivity for the detection of such. Procedure: A two-dimensional transthoracic echocardiogram with color flow and Doppler was performed in limited views only to assess left ventricular wall motion and ejection fraction.. The study quality was technically adequate. Comparison is made with the echocardiogram of 11/25/2022. The patient was in normal sinus rhythm during the exam. Left Ventricle: The left ventricle is normal in size and wall thickness. The ejection fraction is estimated to be 50-55%. There are no obvious focal wall motion abnormalities noted but poor endocardial definition reduces the sensitivity for the detection of such. MMode/2D Measurements & Calculations LVIDd: 4.1 cm LVIDs: 3.3 cm FS: 19.4 % IVSd: 0.72 cm LVPWd: 0.77 cm LV brown. diameter/BSA (cm/m^2): 2.1 LV sys. diameter/BSA (cm/m^2): 1.7 Reading Physician:KIMBER
--- NOTE | 2023-05-31 13:36 | P.HP_ITS ---
History of Present Illness History of Present Illness Date Patient Seen: 05/31/23 Chief complaint: heart rate 120 Narrative: Irma Agudelo is a 77-year-old female with past medical history of A-fib on Eliquis and frequent admissions for RVR, hypertension, hyperlipidemia and GERD who presents for A-fib RVR. She was cardioverted successfully on 05/29 for A-fib RVR then sent home from ED. She then developed palpitations and high HR to 120's since last night so represented to the ED. Found to be in RVR again and cardioversion attempted but was unsuccessful x2. She reports her metoprolol was recently raised a few days ago from 25mg BID to 50mg BID. She reports compliance with her eliquis. Currently she is on a dilt drip at 15/hr and HR is 70-90's. She denies CP, SOB, NV, abd pain or diarrhea. [facility] Medical History Paroxysmal atrial fibrillation Pelvic relaxation Postmenopausal atrophic vaginitis Surgical History History of cataract surgery Family History Mother Congestive heart failure Brother CAD (coronary artery disease) of artery bypass graft Social History household members: friend(s) Smoking Status: Never smoker Meds Home Medications and Allergies Home Medications Medication Instructions Recorded Confirmed Type Zicam 1 dose intranasal 1XD 05/18/19 05/31/23 History irbesartan 75 mg tablet 75 mg PO DAILY 05/18/19 05/31/23 History omeprazole 20 mg capsule,delayed 20 mg PO DAILY 05/18/19 05/31/23 History release tumeric root 500 mg PO 1XD 05/18/19 05/31/23 History apixaban 5 mg tablet 5 mg PO BID #60 tabs 07/17/22 05/31/23 Rx acetylcysteine 600 mg capsule 600 mg PO DAILY 11/25/22 05/31/23 History amlodipine 5 mg tablet (Norvasc) 5 mg PO DAILY 11/25/22 05/31/23 History clobetasol 0.05 % topical ointment 1 applic topical BID 11/25/22 05/31/23 History (Temovate) garlic 1 cap PO 1XD 11/25/22 05/31/23 History quercetin 500 mg capsule 50 mg PO 1XD 11/25/22 05/31/23 History triamcinolone acetonide 0.1 % 1 applic topical BID 11/25/22 05/31/23 History topical cream diclofenac sodium 1 % topical gel 2 g topical QID PRN arm pain #100 11/29/22 05/31/23 Rx (Arthritis Pain (diclofenac)) grams hydrocodone 5 mg-acetaminophen 325 1 tab PO TID PRN pain #10 tabs 11/29/22 05/31/23 Rx mg tablet meclizine 25 mg tablet 25 mg PO BID-TID PRN dizziness #14 12/28/22 05/31/23 Rx tabs Vitamin B-12 5,000 mcg sublingual DAILY 02/14/23 05/31/23 History atorvastatin 20 mg tablet 20 mg PO DAILY 02/14/23 05/31/23 History metoprolol succinate 50 mg 50 mg PO BID #60 tabs 05/29/23 05/31/23 Rx tablet,extended release 24 hr Allergies Allergy/AdvReac Type Severity Reaction Status Date / Time milk [MILK] Allergy Unknown ACHE ALL Verified 03/02/23 09:30 OVER LIKE COMING DOWN WITH FLU X3 DAYS lisinopril [LISINOPRIL] AdvReac Unknown COUGH Verified 03/02/23 09:30 Review of Systems Review of Systems Narrative: All other systems reviewed with the patient and are negative unless otherwise stated. Exam Vital Signs (past 8 hours): - 05/31/23 08:16 05/31/23 08:17 05/31/23 08:17 Temperature Pulse Rate 129 H 119 H Respiratory Rate Blood Pressure 110/74 Pulse Oximetry 96 96 Oxygen Delivery Method 05/31/23 08:20 05/31/23 08:30 05/31/23 08:30 Temperature 97.9 F Pulse Rate 129 H 126 H Respiratory Rate 18 24 Blood Pressure 110/74 119/64 Pulse Oximetry 97 97 Oxygen Delivery Method Room Air 05/31/23 08:47 05/31/23 08:47 05/31/23 08:53 Temperature Pulse Rate 123 H Respiratory Rate 19 Blood Pressure 115/67 110/70 Pulse Oximetry 99 Oxygen Delivery Method 05/31/23 08:53 05/31/23 09:00 05/31/23 09:00 Temperature Pulse Rate 123 H 121 H Respiratory Rate 16 16 Blood Pressure 115/72 Pulse Oximetry 100 100 Oxygen Delivery Method 05/31/23 09:15 05/31/23 09:15 05/31/23 09:30 Temperature Pulse Rate 119 H Respiratory Rate 16 Blood Pressure 120/72 Pulse Oximetry 99 91 Oxygen Delivery Method 05/31/23 09:43 05/31/23 09:43 05/31/23 09:45 Temperature Pulse Rate 118 H Respiratory Rate 14 Blood Pressure 140/84 153/79 H Pulse Oximetry 100 Oxygen Delivery Method 05/31/23 09:45 05/31/23 09:50 05/31/23 09:50 Temperature Pulse Rate 119 H 120 H Respiratory Rate 15 15 Blood Pressure 132/81 Pulse Oximetry 99 98 Oxygen Delivery Method 05/31/23 09:56 05/31/23 09:56 05/31/23 10:00 Temperature Pulse Rate 122 H Respiratory Rate 13 Blood Pressure 138/88 137/86 Pulse Oximetry 98 Oxygen Delivery Method 05/31/23 10:00 05/31/23 10:05 05/31/23 10:05 Temperature Pulse Rate 120 H 123 H Respiratory Rate 15 16 Blood Pressure 132/85 Pulse Oximetry 97 97 Oxygen Delivery Method 05/31/23 10:14 05/31/23 10:14 05/31/23 10:15 Temperature Pulse Rate 124 H Respiratory Rate 16 Blood Pressure 137/86 144/76 H Pulse Oximetry 97 Oxygen Delivery Method 05/31/23 10:15 05/31/23 10:20 05/31/23 10:20 Temperature Pulse Rate 122 H 122 H Respiratory Rate 15 16 Blood Pressure 141/83 H Pulse Oximetry 98 98 Oxygen Delivery Method 05/31/23 10:25 05/31/23 10:25 05/31/23 10:30 Temperature Pulse Rate 121 H Respiratory Rate 14 Blood Pressure 126/80 132/80 Pulse Oximetry 97 Oxygen Delivery Method 05/31/23 10:30 05/31/23 10:35 05/31/23 10:35 Temperature Pulse Rate 122 H 124 H Respiratory Rate 15 15 Blood Pressure 127/74 Pulse Oximetry 97 97 Oxygen Delivery Method 05/31/23 10:40 05/31/23 10:40 05/31/23 10:43 Temperature Pulse Rate 120 H 121 H Respiratory Rate 15 23 Blood Pressure 141/81 H Pulse Oximetry 96 97 Oxygen Delivery Method 05/31/23 10:44 05/31/23 10:44 05/31/23 10:45 Temperature Pulse Rate 120 H 120 H Respiratory Rate 21 Blood Pressure 141/73 H Pulse Oximetry 97 96 Oxygen Delivery Method 05/31/23 10:45 05/31/23 10:46 05/31/23 10:51 Temperature Pulse Rate 121 H 119 H Respiratory Rate 26 H 21 Blood Pressure 136/67 112/74 Pulse Oximetry 95 96 Oxygen Delivery Method 05/31/23 10:51 05/31/23 10:56 05/31/23 10:56 Temperature Pulse Rate 122 H Respiratory Rate 20 Blood Pressure 132/68 109/60 Pulse Oximetry 93 Oxygen Delivery Method 05/31/23 11:00 05/31/23 11:01 05/31/23 11:01 Temperature Pulse Rate 121 H 122 H Respiratory Rate 22 20 Blood Pressure 108/77 Pulse Oximetry 96 96 Oxygen Delivery Method 05/31/23 11:05 05/31/23 11:05 05/31/23 11:11 Temperature Pulse Rate 121 H Respiratory Rate 20 Blood Pressure 100/65 110/76 Pulse Oximetry 97 Oxygen Delivery Method 05/31/23 11:11 05/31/23 11:15 05/31/23 11:15 Temperature Pulse Rate 123 H 121 H Respiratory Rate 18 18 Blood Pressure 114/73 Pulse Oximetry 95 95 Oxygen Delivery Method 05/31/23 11:17 05/31/23 11:20 05/31/23 11:20 Temperature Pulse Rate 120 H 122 H Respiratory Rate 16 15 Blood Pressure 112/74 Pulse Oximetry 95 Oxygen Delivery Method 05/31/23 11:24 05/31/23 11:25 05/31/23 11:25 Temperature Pulse Rate 120 H 121 H Respiratory Rate 21 16 Blood Pressure 112/71 Pulse Oximetry 96 96 Oxygen Delivery Method 05/31/23 11:30 05/31/23 11:30 05/31/23 11:35 Temperature Pulse Rate 120 H Respiratory Rate 14 Blood Pressure 116/73 117/73 Pulse Oximetry 96 Oxygen Delivery Method 05/31/23 11:35 05/31/23 11:40 05/31/23 11:40 Temperature Pulse Rate 120 H 120 H Respiratory Rate 21 Blood Pressure 122/83 Pulse Oximetry 96 Oxygen Delivery Method 05/31/23 11:43 05/31/23 11:45 05/31/23 11:45 Temperature Pulse Rate 118 H 115 H Respiratory Rate 21 Blood Pressure 122/83 127/85 Pulse Oximetry Oxygen Delivery Method 05/31/23 11:50 05/31/23 11:50 05/31/23 11:55 Temperature Pulse Rate 115 H Respiratory Rate 25 H Blood Pressure 139/92 H 119/80 Pulse Oximetry Oxygen Delivery Method 05/31/23 11:55 05/31/23 12:00 05/31/23 12:00 Temperature Pulse Rate 114 H 117 H Respiratory Rate 12 11 L Blood Pressure 132/67 Pulse Oximetry 96 96 Oxygen Delivery Method 05/31/23 12:05 05/31/23 12:05 05/31/23 12:10 Temperature Pulse Rate 112 H Respiratory Rate 11 L Blood Pressure 114/74 115/79 Pulse Oximetry 96 Oxygen Delivery Method 05/31/23 12:10 05/31/23 12:15 05/31/23 12:15 Temperature Pulse Rate 113 H 113 H Respiratory Rate Blood Pressure 127/62 Pulse Oximetry 96 97 Oxygen Delivery Method 05/31/23 12:20 05/31/23 12:20 05/31/23 12:25 Temperature Pulse Rate 114 H Respiratory Rate 14 Blood Pressure 126/74 118/70 Pulse Oximetry 97 Oxygen Delivery Method 05/31/23 12:25 05/31/23 12:30 05/31/23 12:30 Temperature Pulse Rate 113 H 114 H Respiratory Rate 15 18 Blood Pressure 121/60 Pulse Oximetry 96 96 Oxygen Delivery Method 05/31/23 12:36 05/31/23 12:36 05/31/23 12:40 Temperature Pulse Rate 115 H Respiratory Rate Blood Pressure 123/76 120/83 Pulse Oximetry 96 Oxygen Delivery Method 05/31/23 12:40 05/31/23 12:45 05/31/23 12:45 Temperature Pulse Rate 113 H 115 H Respiratory Rate 17 Blood Pressure 124/66 Pulse Oximetry 96 95 Oxygen Delivery Method 05/31/23 12:50 05/31/23 12:50 05/31/23 12:55 Temperature Pulse Rate 113 H 113 H Respiratory Rate 14 22 Blood Pressure 115/59 L Pulse Oximetry 95 96 Oxygen Delivery Method 05/31/23 12:55 05/31/23 12:59 05/31/23 12:59 Temperature Pulse Rate 112 H Respiratory Rate 20 Blood Pressure 116/56 L 112/61 Pulse Oximetry 96 Oxygen Delivery Method 05/31/23 13:00 05/31/23 13:00 05/31/23 13:05 Temperature Pulse Rate 112 H 112 H Respiratory Rate 19 22 Blood Pressure 109/72 Pulse Oximetry 96 95 Oxygen Delivery Method 05/31/23 13:05 05/31/23 13:09 05/31/23 13:09 Temperature Pulse Rate 101 H Respiratory Rate 26 H Blood Pressure 110/60 121/58 L Pulse Oximetry 96 Oxygen Delivery Method 05/31/23 13:10 05/31/23 13:10 05/31/23 13:15 Temperature Pulse Rate 105 H Respiratory Rate 21 Blood Pressure 112/59 L 109/59 L Pulse Oximetry 96 Oxygen Delivery Method 05/31/23 13:15 05/31/23 13:20 05/31/23 13:20 Temperature Pulse Rate 90 112 H Respiratory Rate 19 23 Blood Pressure 110/57 L Pulse Oximetry 96 95 Oxygen Delivery Method 05/31/23 13:25 05/31/23 13:25 Temperature Pulse Rate 108 H Respiratory Rate 22 Blood Pressure 114/62 Pulse Oximetry 96 Oxygen Delivery Method Oxygen Delivery Method Room Air Narrative Exam Narrative: GEN: no acute distress HEENT: moist mucous membranes, PERRL NECK: trachea midline, no JVD CV: irregularly irregular, no murmurs PULM: clear bilaterally ABD: soft, nontender, nondistended, no organomegaly EXT: warm and well perfused with no edema NEURO: awake, alert, oriented, no focal deficits Objective Labs 05/31/23 08:42 05/31/23 08:42 Labs: Laboratory Results - last 24 hr 05/31/23 08:42 WBC 5.6 RBC 4.55 Hgb 14.1 Hct 41.7 MCV 91.5 MCH 30.9 MCHC 33.8 RDW 13.5 Plt Count 255 Neut % (Auto) 58.9 Lymph % (Auto) 26.0 Pettis % (Auto) 10.0 Eos % (Auto) 4.1 H Baso % (Auto) 1.0 Neut # (Auto) 3300 Lymph # (Auto) 1400 Pettis # (Auto) 600 Eos # (Auto) 200 Baso # (Auto) 100 Sodium 139 Potassium 3.8 Chloride 106 Carbon Dioxide 24 BUN 15 Creatinine 0.96 Estimated GFR > 60 BUN/Creatinine Ratio 15.6 Glucose 109 Calcium 9.4 Magnesium 1.9 Total Bilirubin 0.6 AST 26 ALT 21 Alkaline Phosphatase 60 Total Protein 7.1 Albumin 4.2 Globulin 2.9 Albumin/Globulin Ratio 1.4 Assessment & Plan Assessment & Plan narrative: # atrial fibrillation with RVR -failed cardioversion x2 in ED, placed on dilt drip -last Echo 11/24/2022 with EF 50-55%, sinus chantal, frequent PACs, occasional PVCs -continue eliquis -repeat limited echo -HR now improved to 70-90's on dilt drip at 15/hr -wean dilt as able per protocol, if BP becomes soft will switch to amio -will likely transition to po dilt in AM # HTN -hold home amlodipine and irbesartan while on drip # HLD -continue Lipitor # GERD -continue omeprazole Code status is full code. DVT prophylaxis with Eliquis. Proxy is Loc Agudelo. I have reviewed home meds and used all available resources to reconcile the home meds. Case discussed with ED physician/APC and patient will be admitted to the hospitalist service for further workup and management. This patient will be admitted as ICU observation and will require less than 2 midnights of hospital time to treat AFib RVR.
[2023-05-31] MEDS: POTASSIUM CHLORIDE 20 MEQ TAB 40 MEQ PO (14:48)
[2023-05-31] MEDS: MAGNESIUM SULFATE 2 GM/50 ML PIGGYBACK IV (14:51)
[2023-05-31 17:50] LABS: MRSA (Nasal) PCR Not Detected (Not Detect)
--- NOTE | 2023-05-31 18:28 | PC.ADMIT ---
[email or web address] Admission Note: The patient,Irma Agudelo,77 y/o, was given written information regarding hospital policies, unit procedures and contact persons. Patient's smoking status: Never smoker. Vital Signs - 8 hr 05/31/23 10:30 05/31/23 10:30 05/31/23 10:35 Temperature Pulse Rate 122 H Respiratory Rate 15 Blood Pressure 132/80 127/74 Pulse Oximetry 97 Oxygen Delivery Method 05/31/23 10:35 05/31/23 10:40 05/31/23 10:40 Temperature Pulse Rate 124 H 120 H Respiratory Rate 15 15 Blood Pressure 141/81 H Pulse Oximetry 97 96 Oxygen Delivery Method 05/31/23 10:43 05/31/23 10:44 05/31/23 10:44 Temperature Pulse Rate 121 H 120 H Respiratory Rate 23 21 Blood Pressure 141/73 H Pulse Oximetry 97 97 Oxygen Delivery Method 05/31/23 10:45 05/31/23 10:45 05/31/23 10:46 Temperature Pulse Rate 120 H 121 H Respiratory Rate 26 H Blood Pressure 136/67 112/74 Pulse Oximetry 96 95 Oxygen Delivery Method 05/31/23 10:51 05/31/23 10:51 05/31/23 10:56 Temperature Pulse Rate 119 H Respiratory Rate 21 Blood Pressure 132/68 109/60 Pulse Oximetry 96 Oxygen Delivery Method 05/31/23 10:56 05/31/23 11:00 05/31/23 11:01 Temperature Pulse Rate 122 H 121 H Respiratory Rate 20 22 Blood Pressure 108/77 Pulse Oximetry 93 96 Oxygen Delivery Method 05/31/23 11:01 05/31/23 11:05 05/31/23 11:05 Temperature Pulse Rate 122 H 121 H Respiratory Rate 20 20 Blood Pressure 100/65 Pulse Oximetry 96 97 Oxygen Delivery Method 05/31/23 11:11 05/31/23 11:11 05/31/23 11:15 Temperature Pulse Rate 123 H Respiratory Rate 18 Blood Pressure 110/76 114/73 Pulse Oximetry 95 Oxygen Delivery Method 05/31/23 11:15 05/31/23 11:17 05/31/23 11:20 Temperature Pulse Rate 121 H 120 H Respiratory Rate 18 16 Blood Pressure 112/74 Pulse Oximetry 95 Oxygen Delivery Method 05/31/23 11:20 05/31/23 11:24 05/31/23 11:25 Temperature Pulse Rate 122 H 120 H Respiratory Rate 15 21 Blood Pressure 112/71 Pulse Oximetry 95 96 Oxygen Delivery Method 05/31/23 11:25 05/31/23 11:30 05/31/23 11:30 Temperature Pulse Rate 121 H 120 H Respiratory Rate 16 14 Blood Pressure 116/73 Pulse Oximetry 96 96 Oxygen Delivery Method 05/31/23 11:35 05/31/23 11:35 05/31/23 11:40 Temperature Pulse Rate 120 H 120 H Respiratory Rate 21 Blood Pressure 117/73 Pulse Oximetry 96 Oxygen Delivery Method 05/31/23 11:40 05/31/23 11:43 05/31/23 11:45 Temperature Pulse Rate 118 H Respiratory Rate Blood Pressure 122/83 122/83 127/85 Pulse Oximetry Oxygen Delivery Method 05/31/23 11:45 05/31/23 11:50 05/31/23 11:50 Temperature Pulse Rate 115 H 115 H Respiratory Rate 21 25 H Blood Pressure 139/92 H Pulse Oximetry Oxygen Delivery Method 05/31/23 11:55 05/31/23 11:55 05/31/23 12:00 Temperature Pulse Rate 114 H Respiratory Rate 12 Blood Pressure 119/80 132/67 Pulse Oximetry 96 Oxygen Delivery Method 05/31/23 12:00 05/31/23 12:05 05/31/23 12:05 Temperature Pulse Rate 117 H 112 H Respiratory Rate 11 L 11 L Blood Pressure 114/74 Pulse Oximetry 96 96 Oxygen Delivery Method 05/31/23 12:10 05/31/23 12:10 05/31/23 12:15 Temperature Pulse Rate 113 H 113 H Respiratory Rate Blood Pressure 115/79 Pulse Oximetry 96 97 Oxygen Delivery Method 05/31/23 12:15 05/31/23 12:20 05/31/23 12:20 Temperature Pulse Rate 114 H Respiratory Rate 14 Blood Pressure 127/62 126/74 Pulse Oximetry 97 Oxygen Delivery Method 05/31/23 12:25 05/31/23 12:25 05/31/23 12:30 Temperature Pulse Rate 113 H Respiratory Rate 15 Blood Pressure 118/70 121/60 Pulse Oximetry 96 Oxygen Delivery Method 05/31/23 12:30 05/31/23 12:36 05/31/23 12:36 Temperature Pulse Rate 114 H 115 H Respiratory Rate 18 Blood Pressure 123/76 Pulse Oximetry 96 96 Oxygen Delivery Method 05/31/23 12:40 05/31/23 12:40 05/31/23 12:45 Temperature Pulse Rate 113 H Respiratory Rate Blood Pressure 120/83 124/66 Pulse Oximetry 96 Oxygen Delivery Method 05/31/23 12:45 05/31/23 12:50 05/31/23 12:50 Temperature Pulse Rate 115 H 113 H Respiratory Rate 17 14 Blood Pressure 115/59 L Pulse Oximetry 95 95 Oxygen Delivery Method 05/31/23 12:55 05/31/23 12:55 05/31/23 12:59 Temperature Pulse Rate 113 H 112 H Respiratory Rate 22 20 Blood Pressure 116/56 L Pulse Oximetry 96 96 Oxygen Delivery Method 05/31/23 12:59 05/31/23 13:00 05/31/23 13:00 Temperature Pulse Rate 112 H Respiratory Rate 19 Blood Pressure 112/61 109/72 Pulse Oximetry 96 Oxygen Delivery Method 05/31/23 13:05 05/31/23 13:05 05/31/23 13:09 Temperature Pulse Rate 112 H Respiratory Rate 22 Blood Pressure 110/60 121/58 L Pulse Oximetry 95 Oxygen Delivery Method 05/31/23 13:09 05/31/23 13:10 05/31/23 13:10 Temperature Pulse Rate 101 H 105 H Respiratory Rate 26 H 21 Blood Pressure 112/59 L Pulse Oximetry 96 96 Oxygen Delivery Method 05/31/23 13:15 05/31/23 13:15 05/31/23 13:20 Temperature Pulse Rate 90 Respiratory Rate 19 Blood Pressure 109/59 L 110/57 L Pulse Oximetry 96 Oxygen Delivery Method 05/31/23 13:20 05/31/23 13:25 05/31/23 13:25 Temperature Pulse Rate 112 H 108 H Respiratory Rate 23 22 Blood Pressure 114/62 Pulse Oximetry 95 96 Oxygen Delivery Method 05/31/23 13:30 05/31/23 13:30 05/31/23 13:35 Temperature Pulse Rate 104 H Respiratory Rate 16 Blood Pressure 105/78 114/70 Pulse Oximetry 95 Oxygen Delivery Method 05/31/23 13:35 05/31/23 13:41 05/31/23 13:41 Temperature Pulse Rate 105 H 90 Respiratory Rate 19 Blood Pressure 102/54 L Pulse Oximetry 96 95 Oxygen Delivery Method 05/31/23 13:45 05/31/23 13:45 05/31/23 13:50 Temperature Pulse Rate 79 Respiratory Rate 8 L Blood Pressure 113/64 107/65 Pulse Oximetry 95 Oxygen Delivery Method 05/31/23 13:50 05/31/23 13:55 05/31/23 13:55 Temperature Pulse Rate 76 93 H Respiratory Rate 11 L 12 Blood Pressure 119/67 Pulse Oximetry 94 95 Oxygen Delivery Method 05/31/23 14:00 05/31/23 14:00 05/31/23 14:05 Temperature Pulse Rate 76 Respiratory Rate 12 Blood Pressure 102/63 109/65 Pulse Oximetry 95 Oxygen Delivery Method 05/31/23 14:05 05/31/23 14:10 05/31/23 14:10 Temperature Pulse Rate 103 H 82 Respiratory Rate 19 16 Blood Pressure 112/61 Pulse Oximetry 94 95 Oxygen Delivery Method 05/31/23 14:15 05/31/23 14:15 05/31/23 14:17 Temperature Pulse Rate 73 76 Respiratory Rate 18 29 H Blood Pressure 133/59 L Pulse Oximetry 95 96 Oxygen Delivery Method 05/31/23 14:17 05/31/23 14:20 05/31/23 14:20 Temperature Pulse Rate 73 Respiratory Rate 14 Blood Pressure 123/58 L 109/61 Pulse Oximetry 95 Oxygen Delivery Method 05/31/23 14:25 05/31/23 14:35 05/31/23 14:37 Temperature Pulse Rate 97 H Respiratory Rate Blood Pressure 125/81 Pulse Oximetry Oxygen Delivery Method Room Air 05/31/23 14:37 05/31/23 15:00 05/31/23 15:00 Temperature 98 F Pulse Rate 92 H 68 Respiratory Rate 16 19 Blood Pressure 126/89 Pulse Oximetry 95 Oxygen Delivery Method 05/31/23 15:30 05/31/23 16:00 05/31/23 16:00 Temperature Pulse Rate 64 72 Respiratory Rate 13 20 Blood Pressure 130/77 Pulse Oximetry 95 95 Oxygen Delivery Method 05/31/23 16:30 05/31/23 17:00 05/31/23 17:00 Temperature Pulse Rate 64 66 Respiratory Rate 19 24 Blood Pressure 128/73 Pulse Oximetry 96 94 Oxygen Delivery Method 05/31/23 17:30 05/31/23 18:00 05/31/23 18:01 Temperature 98.6 F Pulse Rate 68 59 L Respiratory Rate 22 26 H Blood Pressure 122/67 Pulse Oximetry 95 95 Oxygen Delivery Method 05/31/23 18:01 Temperature Pulse Rate 62 Respiratory Rate 34 H Blood Pressure Pulse Oximetry 95 Oxygen Delivery Method Pt arrived via Nancy pires, Dilt gtt infusing 15ml/hr HR 93 BP 125/81, moved to bed via slide board, connected to all monitoring equipment, oriented to room and call light system. No further needs at this time
[2023-05-31] MEDS: dilTIAZem CD 180 MG CAP PO (19:41)
[2023-06-01] VITALS (40 sets, daily range): BP systolic 105–140; BP diastolic 56–95; PULSE 49–123; RESP 13–34; TEMP 36.7–37.1; O2SAT 93–96
[2023-06-01] MEDS: PANTOPRAZOLE DR 20 MG TABLET PO (05:49)
--- NOTE | 2023-06-01 05:56 | PC.NURSE ---
transport pilot RN note Pt resting quietly in bed, A&Ox4, slighlty LANI, SHI, VSS, afebrile, PPPx4, 2+ ankle edema, initially afib 50-60s, PO dilt given per order and dilt gtt stopped, 0430 pt sustaining in 110-120s, dilt gtt restarted with effect, lungs clear, O2 sats >92% on RA, abd soft with BS, purwick in place for yellow urine, occasional leak, attends on, frequent pericare with attends on, skin warm and intact, x2 periph IV sites patent, meds and labs as ordered, call martinez within reach, continue to monitor
[2023-06-01 06:20] LABS: Add Manual Diff / Slide Review NO; Basophils Absolute Auto 100 /uL (0-100); Basophils Percent Auto 1.3 % (0-2); Eosinophils Absolute Auto 200 /uL (0-450); Eosinophils Percent Auto 3.8 % (2-4); Hematocrit 43.2 % (36-46); Hemoglobin 14.8 g/dL (12.0-16.0); Lymphocytes Absolute Auto 1900 /uL (1100-4500); Lymphocytes Percent Auto 29.4 % (25-40); Mean Corpuscular HGB Conc 34.3 % (30-36); Mean Corpuscular Hemoglobin 31.4 PG (26-34); Mean Corpuscular Volume 91.5 fL (80-100); Monocytes Absolute Auto 600 /uL (0-900); Monocytes Percent Auto 9.5 % (3-14); Neutrophils Absolute Auto 3600 /uL (1500-7000); Platelet Count 266 X10^3/uL (150-400); Red Blood Cell Count 4.72 X10^6/uL (4.0-5.2); Red Cell Distribution Width 13.5 % (11.6-14.8); White Blood Cell Count 6.4 X10^3/uL (4.5-11.0)
[2023-06-01 06:35] LABS: BUN Creatinine Ratio 24.4 (6-22); Blood Urea Nitrogen 20 mg/dL (7-17); Calcium 9.2 mg/dL (8.4-10.2); Carbon Dioxide 25 mmol/L (22-32); Chloride 106 mmol/L (98-107); Estimated Glomerular Filt Rate > 60 mL/min (>60); Glucose 105 mg/dL (80-110); HEMOLYSIS 31 (0-50); Potassium 4.4 mmol/L (3.4-5.1); Sodium 137 mmol/L (137-145)
[2023-06-01 06:36] LABS: Magnesium 2.1 mg/dL (1.6-2.3)
[2023-06-01] MEDS: DILTIAZEM 125 MG/125 ML PIGGYBACK 10 MG IV (06:48)
[2023-06-01] MEDS: ATORVASTATIN 20 MG TABLET PO (08:15)
[2023-06-01] MEDS: APIXABAN 5 MG TABLET PO ×2 (08:16→20:14)
[2023-06-01] MEDS: HYDROCODONE/ACET 5/325 TABLET 1 TAB PO (10:43)
[2023-06-01] MEDS: dilTIAZem CD 180 MG CAP 360 MG PO (10:43)
--- NOTE | 2023-06-01 14:19 | CM.DANOTE ---
Initial DCP Assessment Note Pt is a 77 yo female, resident of [place], presents with rapid heart rate, PMH includes frequent afib w/RVR. Admitted OBS for management and dilt drip- possible discharge home today on po meds. PCP: Aye iLu Payer: [employer] Reviewed chart, pt discussed in multidisciplinary rounds this morning. Patient eager to return home today and has a sleep study scheduled tonight at [facility]. Patient is indp in all aspects, drives. No barriers identified at this time to patient's safe discharge home w/family and friends to assist as needed; close outpatient f/u recommended. CM team will plan to follow closely in case any DC needs or concerns arise. MANJINDER Garcia Discharge Planning/Care Management CM Discharge Assessment Start: 06/01/23 14:18 Freq: Status: Active Protocol: Document 06/01/23 14:18 MARILYN (Rec: 06/01/23 14:19 MARILYN [id number]) Discharge Planning Assessment Assigned Delivery Recruiter MANJINDER Toth DPOA/Assigned Designee Name Herbert Agudelo, son ([place]) Contact Information [phone] Advance Directives? Yes Advance Directives on File No History Provided By Patient,Medical Record Prior Living Arrangements Apartment/Condo Household Members friend(s) Type of transporation used prior to Drives own vehicle admit Independent with ADL's Yes Is patient alert and oriented? Yes Barriers to Discharge No Comment Admitted OBS w/afib w/RVR , home w/close outpatient follow up recommended Discharge Plan Home Transportation Arrangement POV Referrals Initiated None needed Additional Comment At this time.
--- NOTE | 2023-06-01 17:20 | PM.PN.1 ---
Subjective Subjective Interval history: Patient went into RVR again at 0430 this AM. Dilt drip restarted. HR down to 40's at 10/hr so transitioned to 360mg po dilt XL. EKG with junctional rhythm HR 40's. Asymptomatic. Exam Vital Signs (past 8 hours): - 06/01/23 09:30 06/01/23 10:00 06/01/23 10:00 Pulse Rate 72 76 Respiratory Rate 28 H 17 Blood Pressure 115/58 L Pulse Oximetry 94 95 Oxygen Delivery Method 06/01/23 10:30 06/01/23 11:00 06/01/23 11:00 Pulse Rate 86 67 Respiratory Rate 28 H 23 Blood Pressure 112/65 Pulse Oximetry 95 94 Oxygen Delivery Method 06/01/23 11:30 06/01/23 12:00 06/01/23 12:00 Pulse Rate 67 64 Respiratory Rate 17 16 Blood Pressure 105/56 L Pulse Oximetry 95 95 Oxygen Delivery Method 06/01/23 12:30 06/01/23 13:00 06/01/23 13:00 Pulse Rate 76 71 Respiratory Rate 19 16 Blood Pressure Pulse Oximetry 95 94 Oxygen Delivery Method Room Air 06/01/23 13:00 06/01/23 13:30 06/01/23 14:00 Pulse Rate 69 68 Respiratory Rate 25 H 22 Blood Pressure 117/70 Pulse Oximetry 94 94 Oxygen Delivery Method 06/01/23 14:01 06/01/23 14:01 06/01/23 14:30 Pulse Rate 69 68 Respiratory Rate 19 17 Blood Pressure 120/64 Pulse Oximetry 95 94 Oxygen Delivery Method 06/01/23 15:00 06/01/23 15:01 06/01/23 15:01 Pulse Rate 68 67 Respiratory Rate 16 17 Blood Pressure 118/58 L Pulse Oximetry 94 94 Oxygen Delivery Method 06/01/23 15:30 06/01/23 16:00 06/01/23 16:00 Pulse Rate 74 49 L Respiratory Rate 21 20 Blood Pressure 118/65 Pulse Oximetry 95 94 Oxygen Delivery Method 06/01/23 16:30 Pulse Rate 51 L Respiratory Rate 25 H Blood Pressure Pulse Oximetry Oxygen Delivery Method Oxygen Delivery Method Room Air Narrative Exam Narrative: GEN: no acute distress HEENT: moist mucous membranes, PERRL NECK: trachea midline, no JVD CV: bradycardic, no murmurs PULM: clear bilaterally ABD: soft, nontender, nondistended, no organomegaly EXT: warm and well perfused with no edema NEURO: awake, alert, oriented, no focal deficits Objective Labs 06/01/23 06:08 06/01/23 06:08 Labs: Laboratory Results - last 24 hr 05/31/23 06/01/23 16:13 06:08 WBC 6.4 RBC 4.72 Hgb 14.8 Hct 43.2 MCV 91.5 MCH 31.4 MCHC 34.3 RDW 13.5 Plt Count 266 Neut % (Auto) 56.0 Lymph % (Auto) 29.4 [place] % (Auto) 9.5 Eos % (Auto) 3.8 Baso % (Auto) 1.3 Neut # (Auto) 3600 Lymph # (Auto) 1900 [place] # (Auto) 600 Eos # (Auto) 200 Baso # (Auto) 100 Sodium 137 Potassium 4.4 Chloride 106 Carbon Dioxide 25 BUN 20 H Creatinine 0.82 Estimated GFR > 60 BUN/Creatinine Ratio 24.4 H Glucose 105 Calcium 9.2 Magnesium 2.1 Nasal Screen MRSA (PCR) Not detected [facility] Medical History Paroxysmal atrial fibrillation Pelvic relaxation Postmenopausal atrophic vaginitis Surgical History History of cataract surgery Family History Mother Congestive heart failure Brother CAD (coronary artery disease) of artery bypass graft Social History household members: friend(s) Smoking Status: Never smoker Assessment & Plan Assessment & Plan narrative: # atrial fibrillation with RVR, resolved -failed cardioversion x2 in ED, placed on dilt drip -last Echo 11/24/2022 with EF 50-55%, sinus chantal, frequent PACs, occasional PVCs -continue eliquis -repeat limited echo, reassuring with EF 50-55%, no WMA -need to go back on dilt drip aftering failing 180mg dilt XL po -HR improved on dilt 10/hr so transitioned to 360mg dilt XL po -continue to monitor overnight, EKG showing junctional rhythm # HTN -hold home amlodipine and irbesartan as normotensive # HLD -continue Lipitor # GERD -continue omeprazole Code status is full code. DVT prophylaxis with Eliquis. Proxy is Loc Agudelo. Dispo: Likely home on 06/02.
[2023-06-02] VITALS: BP 127/61; PULSE 61; RESP 19; TEMP 37.1; O2SAT 94
[2023-06-02 04:00] VITALS: BP 142/63; PULSE 68; TEMP 36.5; O2SAT 95
[2023-06-02 04:57] LABS: Add Manual Diff / Slide Review NO; Basophils Absolute Auto 100 /uL (0-100); Basophils Percent Auto 1.1 % (0-2); Eosinophils Absolute Auto 400 /uL (0-450); Eosinophils Percent Auto 4.4 % (2-4); Hematocrit 41.1 % (36-46); Hemoglobin 13.9 g/dL (12.0-16.0); Lymphocytes Absolute Auto 1900 /uL (1100-4500); Lymphocytes Percent Auto 22.7 % (25-40); Mean Corpuscular HGB Conc 33.8 % (30-36); Mean Corpuscular Volume 91.8 fL (80-100); Monocytes Absolute Auto 900 /uL (0-900); Neutrophils Absolute Auto 5200 /uL (1500-7000); Neutrophils Percent Auto 60.8 % (50-75); Platelet Count 235 X10^3/uL (150-400); Red Blood Cell Count 4.48 X10^6/uL (4.0-5.2); Red Cell Distribution Width 13.5 % (11.6-14.8); White Blood Cell Count 8.5 X10^3/uL (4.5-11.0)
[2023-06-02 05:04] LABS: BUN Creatinine Ratio 35.3 (6-22); Blood Urea Nitrogen 36 mg/dL (7-17); Calcium 9.1 mg/dL (8.4-10.2); Carbon Dioxide 22 mmol/L (22-32); Chloride 107 mmol/L (98-107); Estimated Glomerular Filt Rate 57 mL/min (>60); Glucose 112 mg/dL (80-110); HEMOLYSIS 30 (0-50); Sodium 136 mmol/L (137-145)
[2023-06-02] MEDS: PANTOPRAZOLE DR 20 MG TABLET PO (05:54)
--- NOTE | 2023-06-02 06:40 | PC.NURSE ---
shift engineer RN note Pt awake in bed, A&Ox4, up with SBY assist to bathroom, slow and steady ambulation, VSS, afebrile, SB 50s, PPPx4, 2+ ankle edema, lungs clear, O2 sats >92% on RA, abd soft with BS, pt states she feels constipated, voiding yellow urine, skin warm, dry and intact, x2 periph IV sites patent, denies pain, meds and labs as ordered, continue to monitor
[2023-06-02 08:00] VITALS: BP 145/67; PULSE 65; RESP 17; TEMP 37.2; O2SAT 98
[2023-06-02] MEDS: dilTIAZem CD 180 MG CAP 360 MG PO (08:19)
[2023-06-02] MEDS: APIXABAN 5 MG TABLET PO (08:19)
[2023-06-02] MEDS: ATORVASTATIN 20 MG TABLET PO (08:19)
--- NOTE | 2023-06-02 10:35 | P.DS_ITS ---
History of Present Illness History of Present Illness Chief complaint: heart rate 120 Narrative: Irma Agudelo is a 77-year-old female with past medical history of A-fib on Eliquis and frequent admissions for RVR, hypertension, hyperlipidemia and GERD who presents for A-fib RVR. She was cardioverted successfully on 05/29 for A-fib RVR then sent home from ED. She then developed palpitations and high HR to 120's since last night so represented to the ED. Found to be in RVR again and cardioversion attempted but was unsuccessful x2. She reports her metoprolol was recently raised a few days ago from 25mg BID to 50mg BID. She reports compliance with her eliquis. Currently she is on a dilt drip at 15/hr and HR is 70-90's. She denies CP, SOB, NV, abd pain or diarrhea. Discharge Providers Provider Date of admission: 05/31/23 13:25 Discharge Date: 06/02/23 Primary care physician: Aye Liu MD Discharge provider: Luis F Delarosa DO Summary Hospital Course Discharge Diagnosis: # atrial fibrillation with RVR, resolved -failed cardioversion x2 in ED, placed on dilt drip -last Echo 11/24/2022 with EF 50-55%, sinus chantal, frequent PACs, occasional PVCs -continue eliquis -repeat limited echo, reassuring with EF 50-55%, no WMA -need to go back on dilt drip aftering failing 180mg dilt XL po -HR improved on dilt 10/hr so transitioned to 360mg dilt XL po -continue to monitor overnight, EKG showing junctional rhythm -dilt po worked well and HR in 60-70's, so continued this and stopped her home metoprolol # HTN -hold home amlodipine and irbesartan as normotensive, restarted on dc # HLD -continue Lipitor # GERD -continue omeprazole Hospital Course: Admitted for A-fib RVR nonresponsive to cardioversion in ED x2. Put on dilt drip and responded nicely. Transitioned to po dilt and HR held in 60-70's without RVR for 24 hours. Discharged home on po dilt and stopped her metoprolol. Exam Vital Signs (past 8 hours): - 06/02/23 04:00 06/02/23 08:00 Temperature 97.7 F 98.9 F Pulse Rate 68 65 Respiratory Rate 17 Blood Pressure 142/63 H 145/67 H Pulse Oximetry 95 98 Oxygen Flow Rate 0 Oxygen Delivery Method Room Air Oxygen Flow Rate 0 Narrative Exam Narrative: GEN: no acute distress HEENT: moist mucous membranes, PERRL NECK: trachea midline, no JVD CV: regular rate, junctional rhythm, no murmurs PULM: clear bilaterally ABD: soft, nontender, nondistended, no organomegaly EXT: warm and well perfused with no edema NEURO: awake, alert, oriented, no focal deficits Objective Labs 06/02/23 04:30 06/02/23 04:30 Labs: Laboratory Results - last 24 hr 06/02/23 04:30 WBC 8.5 RBC 4.48 Hgb 13.9 Hct 41.1 MCV 91.8 MCH 31.0 MCHC 33.8 RDW 13.5 Plt Count 235 Neut % (Auto) 60.8 Lymph % (Auto) 22.7 L [place] % (Auto) 11.0 Eos % (Auto) 4.4 H Baso % (Auto) 1.1 Neut # (Auto) 5200 Lymph # (Auto) 1900 [place] # (Auto) 900 Eos # (Auto) 400 Baso # (Auto) 100 Sodium 136 L Potassium 4.0 Chloride 107 Carbon Dioxide 22 BUN 36 H Creatinine 1.02 Estimated GFR 57 L BUN/Creatinine Ratio 35.3 H Glucose 112 H Calcium 9.1 Magnesium 2.0 PFSH Medical History Paroxysmal atrial fibrillation Pelvic relaxation Postmenopausal atrophic vaginitis Surgical History History of cataract surgery Family History Mother Congestive heart failure Brother CAD (coronary artery disease) of artery bypass graft Social History household members: friend(s) Smoking Status: Never smoker Discharge Plan Discharge Plan Patient Disposition: Home Provider Discharge Comment: You were admitted for A-fib RVR which responded to diltiazem well. You are now on oral daily diltiazem instead of your metoprolol. You may continue the rest of your meds as you normally take, except the quercetin which I recommend stopping as it can interact with your heart meds and drop your blood pressure more, and can also interact with your eliquis making your blood too thin. Please see your general assignment reporter soon. Discharge orders & Medications Prescriptions: New diltiazem HCl 360 mg capsule,extended release 24 hr 360 mg PO DAILY Qty: 90 0RF Continued irbesartan 75 mg tablet 75 mg PO DAILY omeprazole 20 mg capsule,delayed release(DR/EC) 20 mg PO DAILY tumeric root 500 mg capsule 500 mg PO 1XD Zicam 1 dose intranasal 1XD amlodipine [Norvasc] 5 mg Tablet 5 mg PO DAILY garlic Capsule 1 cap PO 1XD clobetasol [Temovate] 0.05 % Ointment 1 applic TOPICAL BID acetylcysteine 600 mg Capsule 600 mg PO DAILY triamcinolone acetonide 0.1 % Cream 1 applic TOPICAL BID diclofenac sodium [Arthritis Pain (diclofenac)] 1 % gel 2 g topical QID PRN (Reason: arm pain) Qty: 100 0RF Rx Instructions: apply to arm as needed for pain hydrocodone-acetaminophen 5-325 mg tablet 1 tab PO TID PRN (Reason: pain) Qty: 10 0RF meclizine 25 mg tablet 25 mg PO BID-TID PRN (Reason: dizziness) Qty: 14 0RF apixaban 5 mg tablet 5 mg PO BID Qty: 60 0RF atorvastatin 20 mg tablet 20 mg PO DAILY Vitamin B-12 5,000 mcg sublingual DAILY Discontinued quercetin 500 mg Capsule 50 mg PO 1XD metoprolol succinate 50 mg tablet extended release 24 hr 50 mg PO BID Qty: 60 0RF Follow up/Referrals: Aye Liu MD [Primary Care Provider] - 2 Weeks Visit Report/Discharge Packet Stand Alone Forms: Patient Portal/API, Stroke Signs & Symptoms Discharge Data Primary Care Provider: Aye Liu Attending Provider: Luis F Delarosa Admit Date/Time: 05/31/23 13:25
--- NOTE | 2023-06-02 11:20 | CM.DPNOTE ---
DC Note Patient discharged home today, recommendation for close outpatient follow up. No needs identified from this CM team. MARILYN
== END 2023-06-02 11:50 | disposition home or self-care (01) ==
LOC: ED 11:05 → AC 13:26 → ICU 13:45
PROVIDERS: Admitting Provider Student in an Organized Health Care Education/Training Program; Emergency Provider Emergency Medicine; Family Provider Physician Assistant; PCP Internal Medicine; Referring Provider Emergency Medicine; Visit Provider Student in an Organized Health Care Education/Training Program
DX: R00.2 Palpitations (principal); Z79.01 Long term (current) use of anticoagulants; E78.5 Hyperlipidemia, unspecified; K21.9 Gastro-esophageal reflux disease without esophagitis; I48.0 Paroxysmal atrial fibrillation
CPT/HCPCS: 36415; 80048; 80053; 81003; 83735; 85025; 87797; 92960; 93005; 93010; 93307; 96365; 96366; 96375; 99152; 99285; G0378; J2704; J3475

== ENCOUNTER 2023-06-05 11:07 | Emergency (ER) | payer OTHER, SELFPAY ==
[2023-05-31 14:28] VITALS: BMI 31.8
[2023-06-05] VITALS (27 sets, daily range): BP systolic 113–145; BP diastolic 59–79; PULSE 58–120; RESP 12–16; TEMP 36.4; O2SAT 97–98; BMI 36.3
--- NOTE | 2023-06-05 11:11 | DI.RAD.S_ITS ---
PROCEDURE: XR CHEST 1V INDICATIONS: chest pain TECHNIQUE: One view of the chest was acquired. COMPARISON: [facility], CR, XR CHEST 1V, 05/29/2023, 9:25. [facility], CR, XR CHEST 1V, 02/14/2023, 1:55. FINDINGS: Surgical changes and devices: None. Lungs and pleura: Lungs are clear. No pleural effusions or pneumothorax. Mediastinum: Mediastinal contours appear normal. Heart size is normal. Bones and chest wall: No suspicious bony lesions. Overlying soft tissues appear unremarkable. IMPRESSION: Portable chest within normal limits for age. Dictated by: Oswaldo Jones M.D. on 06/05/2023 at 11:43 Approved by: Oswaldo Jones M.D. on 06/05/2023 at 11:43
--- NOTE | 2023-06-05 11:26 | ED.GENADULT ---
HPI - General Adult General Chief complaint: Arrhythmia/Palpitations Stated complaint: is in AFIB Time Seen by Provider: 06/05/23 11:23 Source: patient Mode of arrival: Ambulatory History of Present Illness HPI narrative: 77-year-old female presents for atrial fibrillation. Patient has history of paroxysmal atrial fibrillation on Eliquis. She was seen by myself on 05/29 for the same, she was successfully electrically cardioverted and discharged home with medication changes. She returned on 05/31, this time she was not able to be electrically cardioverted and admitted on a diltiazem drip. She was discharged in normal sinus rhythm on diltiazem. She is been compliant with her medications, but after a stressful event this morning she felt herself go back into atrial fibrillation. She states she feels ?weird?, which is a general unwell feeling, denies any other complaints including chest pain or shortness of breath. Related Data Home Medications Medication Instructions Recorded Confirmed Zicam 1 dose intranasal 1XD 05/18/19 05/31/23 irbesartan 75 mg tablet 75 mg PO DAILY 05/18/19 05/31/23 omeprazole 20 mg capsule,delayed 20 mg PO DAILY 05/18/19 05/31/23 release tumeric root 500 mg PO 1XD 05/18/19 05/31/23 acetylcysteine 600 mg capsule 600 mg PO DAILY 11/25/22 05/31/23 amlodipine 5 mg tablet (Norvasc) 5 mg PO DAILY 11/25/22 05/31/23 clobetasol 0.05 % topical ointment 1 applic topical BID 11/25/22 05/31/23 (Temovate) garlic 1 cap PO 1XD 11/25/22 05/31/23 triamcinolone acetonide 0.1 % 1 applic topical BID 11/25/22 05/31/23 topical cream Vitamin B-12 5,000 mcg sublingual DAILY 02/14/23 05/31/23 atorvastatin 20 mg tablet 20 mg PO DAILY 02/14/23 05/31/23 Previous Rx's Medication Instructions Recorded apixaban 5 mg tablet 5 mg PO BID #60 tabs 07/17/22 diclofenac sodium 1 % topical gel 2 g topical QID PRN arm pain #100 11/29/22 (Arthritis Pain (diclofenac)) grams hydrocodone 5 mg-acetaminophen 325 1 tab PO TID PRN pain #10 tabs 11/29/22 mg tablet meclizine 25 mg tablet 25 mg PO BID-TID PRN dizziness #14 12/28/22 tabs diltiazem HCl 360 mg capsule,24 360 mg PO DAILY #90 caps 06/02/23 hr,extended release metoprolol succinate 50 mg 50 mg PO BID #60 tabs 06/05/23 tablet,extended release 24 hr Allergies Allergy/AdvReac Type Severity Reaction Status Date / Time milk [MILK] Allergy Unknown ACHE ALL Verified 06/05/23 12:20 OVER LIKE COMING DOWN WITH FLU X3 DAYS lisinopril [LISINOPRIL] AdvReac Unknown COUGH Verified 06/05/23 12:20 Review of Systems Review of Systems Narrative: Negative except as noted above Patient History Medical History Paroxysmal atrial fibrillation Pelvic relaxation Postmenopausal atrophic vaginitis Surgical History History of cataract surgery Family History Mother Congestive heart failure Brother CAD (coronary artery disease) of artery bypass graft Social History household members: friend(s) Smoking Status: Never smoker Smoking Status: Never smoker alcohol intake frequency: holidays/special occasions only Substance Use Type: does not use Exam Initial Vital Signs Initial Vital Signs: Vital Signs Pulse Rate 120 H 06/05/23 11:15 Pulse Oximetry 97 06/05/23 11:15 Const: Awake, alert, no acute distress, nontoxic appearing Eyes: PERRL, EOMI, conjunctiva normal ENT: Atraumatic, dentition normal, mucous membranes moist Cardiac: Tachycardia, irregularly irregular RESP: unlabored, clear bilaterally, no wheezing GI: Atraumatic, soft, nontender, nondistended, no rebound, no guarding MSK: Atraumatic, full range of motion, pulses equal Skin: Warm, Dry, intact, no rashes Neuro: AO x3, CN II-XII grossly intact, moves all extremities Psych: affect normal, mood normal, not suicidal, not homicidal Course Course Course Narrative: Well-appearing patient with recurrent atrial fibrillation. Repeat laboratory work is negative for acute findings. She was given IV metoprolol x3 with improvement in heart rate to 70-80 beats per minute, still in atrial fibrillation. Call placed to patient's border measurer and cutter Dr. Anderson Moore, who stated that patient has failed rhythm control and now the goal is rate controlled. She has an EP consult pending. He recommends continuing metoprolol 50 b.i.d. and stopping diltiazem. He does not recommend starting amiodarone or any other antiarrhythmic at this time. Patient spontaneously converted to normal sinus rhythm at 55 beats per minute. She was informed of her medication changes, she will make sure that she follows with the sap crm developer. ED return precautions discussed at bedside. Patient expressed understanding of the plan and is in agreement at this time. All questions answered at the time of discharge. Orders Ordered: ED Orders 06/05/23 11:11 XR chest 1V Stat EKG-12 Lead Stat 06/05/23 11:54 Complete Blood Count AUTO DIFF Stat Comprehensive Metabolic Panel Stat Lipase Stat Magnesium Stat Troponin & CK Cardiac Panel Stat 06/05/23 12:18 PTT Partial Thromboplastin Lars Stat Prothrombin Time INR Stat 06/05/23 12:59 Urinalysis and Microscopic Stat Discontinued Medications Sodium Chloride (Normal Saline 0.9%) 1,000 mls @ 1,000 mls/hr IV BOLUS ONE Stop: 06/05/23 14:08 Last Infusion: 06/05/23 14:15 Dose: Infused Documented By: Admin: 06/05/23 13:20 Dose: 1,000 mls/hr Documented By: TANGELA Metoprolol Succinate (Metoprolol Er 50 Mg Tablet) 50 mg PO NOW ONE Stop: 06/05/23 14:26 Last Admin: 06/05/23 14:47 Dose: Not Given Documented By: ANNABEL Metoprolol Tartrate (Metoprolol Tartrate 5 Mg/5 Ml Inj) 5 mg IV Q5M STACIE Stop: 06/05/23 13:26 Last Admin: 06/05/23 13:45 Dose: 5 mg Documented By: Admin: 06/05/23 13:34 Dose: 5 mg Documented By: Admin: 06/05/23 13:21 Dose: 5 mg Documented By: TANGELA Vital Signs Vital signs: Vital Signs - 8 hr 06/05/23 11:15 06/05/23 11:16 06/05/23 11:16 Temperature Pulse Rate 120 H 118 H Respiratory Rate Blood Pressure 145/77 H Pulse Oximetry 97 97 Oxygen Delivery Method 06/05/23 11:21 06/05/23 11:30 06/05/23 11:30 Temperature 97.6 F Pulse Rate 113 H 99 H Respiratory Rate 16 12 Blood Pressure 145/77 H 131/60 Pulse Oximetry 97 97 Oxygen Delivery Method Room Air 06/05/23 12:00 06/05/23 12:01 06/05/23 12:01 Temperature Pulse Rate 104 H 83 Respiratory Rate 13 12 Blood Pressure 113/66 Pulse Oximetry 97 97 Oxygen Delivery Method 06/05/23 12:30 06/05/23 12:33 06/05/23 12:33 Temperature Pulse Rate 97 H 103 H Respiratory Rate 12 12 Blood Pressure 121/68 Pulse Oximetry 98 97 Oxygen Delivery Method 06/05/23 13:01 06/05/23 13:01 06/05/23 13:05 Temperature Pulse Rate 113 H 105 H Respiratory Rate 13 12 Blood Pressure 131/68 Pulse Oximetry 97 98 Oxygen Delivery Method 06/05/23 13:10 06/05/23 13:15 06/05/23 13:20 Temperature Pulse Rate 98 H 99 H 107 H Respiratory Rate 12 12 12 Blood Pressure Pulse Oximetry 97 97 97 Oxygen Delivery Method 06/05/23 13:23 06/05/23 13:23 06/05/23 13:25 Temperature Pulse Rate 106 H 108 H Respiratory Rate 16 12 Blood Pressure 124/79 Pulse Oximetry 98 97 Oxygen Delivery Method 06/05/23 13:25 06/05/23 13:30 06/05/23 13:30 Temperature Pulse Rate 86 Respiratory Rate 12 Blood Pressure 132/72 131/59 L Pulse Oximetry 97 Oxygen Delivery Method 06/05/23 13:34 06/05/23 13:34 06/05/23 13:35 Temperature Pulse Rate 100 H 82 Respiratory Rate 12 14 Blood Pressure 144/67 H Pulse Oximetry 97 97 Oxygen Delivery Method 06/05/23 13:40 06/05/23 13:45 06/05/23 13:55 Temperature Pulse Rate 77 95 H 89 Respiratory Rate 14 16 15 Blood Pressure Pulse Oximetry 98 98 97 Oxygen Delivery Method 06/05/23 14:10 06/05/23 14:15 06/05/23 14:20 Temperature Pulse Rate 84 91 H 97 H Respiratory Rate 15 16 16 Blood Pressure Pulse Oximetry 97 97 97 Oxygen Delivery Method 06/05/23 14:25 06/05/23 14:40 06/05/23 14:42 Temperature Pulse Rate 83 60 58 L Respiratory Rate 13 14 12 Blood Pressure Pulse Oximetry 97 97 98 Oxygen Delivery Method 06/05/23 14:42 Temperature Pulse Rate Respiratory Rate Blood Pressure 122/62 Pulse Oximetry Oxygen Delivery Method Medical Decision Making Lab Data 06/05/23 11:54 06/05/23 11:54 Labs: Lab Results 06/05/23 06/05/23 06/05/23 Range/Units 11:54 12:18 12:59 WBC 5.6 (4.5-11.0) X10^3/uL RBC 4.25 (4.0-5.2) X10^6/uL Hgb 13.3 (12.0-16.0) g/dL Hct 39.2 (36-46) % MCV 92.3 (80-100) fL MCH 31.2 (26-34) PG MCHC 33.8 (30-36) % RDW 13.7 (11.6-14.8) % Plt Count 250 (150-400) X10^3/uL Neut % (Auto) 63.4 (50-75) % Lymph % (Auto) 22.7 L (25-40) % [place] % (Auto) 9.6 (3-14) % Eos % (Auto) 3.2 (2-4) % Baso % (Auto) 1.1 (0-2) % Neut # (Auto) 3500 (0595-2713) /uL Lymph # (Auto) 1300 (2298-7517) /uL [place] # (Auto) 500 (0-900) /uL Eos # (Auto) 200 (0-450) /uL Baso # (Auto) 100 (0-100) /uL PT 19.1 H (10.1-12.7) SECONDS INR 1.7 H (0.9-1.3) APTT 32 (26-36) SECONDS Sodium 139 (137-145) mmol/L Potassium 4.2 (3.4-5.1) mmol/L Chloride 104 (98-107) mmol/L Carbon Dioxide 27 (22-32) mmol/L BUN 18 H (7-17) mg/dL Creatinine 0.90 (0.52-1.04) mg/dL Estimated GFR > 60 (>60) mL/min BUN/Creatinine Ratio 20.0 (6-22) Glucose 116 H (80-110) mg/dL Calcium 10.0 (8.4-10.2) mg/dL Magnesium 2.1 (1.6-2.3) mg/dL Total Bilirubin 0.6 (0.2-1.3) mg/dL AST 25 (14-36) IU/L ALT 24 (<35) IU/L Alkaline Phosphatase 64 (38-126) U/L Total Creatine Kinase 57 (30-135) U/L Troponin I < 0.012 (0.01-0.034) ng/mL Total Protein 6.9 (6.3-8.2) g/dL Albumin 4.2 (3.5-5.0) g/dL Globulin 2.7 (1.7-4.1) g/dL Albumin/Globulin Ratio 1.6 (1.0-2.8) Lipase 113 (23-300) U/L Urine Color Yellow Urine Appearance Clear Urine pH 7.5 (4.5-8.0) Ur Specific [place] 1.010 (1.000-1.035) Urine Protein Negative (Negative) Urine Glucose (UA) Negative (Negative) g/dL Urine Ketones Negative (NEGATIVE) Urine Occult Blood Negative (Negative) Urine Nitrate Negative (Negative) Urine Bilirubin Negative (NEGATIVE) Urine Urobilinogen 0.2 (0.2) E.U./dL Ur Leukocyte Esterase Negative (NEGATIVE) Urine RBC None seen (0-5/HPF) Urine WBC None seen (0-5/HPF) Ur Squamous Epith Cells 1-5 /hpf (0-5/HPF) Urine Bacteria None seen (None) Ur Culture Indicated? Cult not indicated ECG Data Interpretation: Atrial fibrillation at 92 beats per minute. Normal axis, no ST T wave changes, no STEMI Discharge Plan Departure Patient Disposition: Home Clinical Impression: Paroxysmal atrial fibrillation Instructions: DI for Atrial Fibrillation Activity Restrictions/Additional Instructions: Your border measurer and cutter recommended stopping diltiazem and continuing metoprolol 50 mg twice daily. Follow up as soon as possible with the sap crm developer. Prescriptions: New metoprolol succinate 50 mg tablet extended release 24 hr 50 mg PO BID Qty: 60 0RF No Action irbesartan 75 mg tablet 75 mg PO DAILY omeprazole 20 mg capsule,delayed release(DR/EC) 20 mg PO DAILY tumeric root 500 mg capsule 500 mg PO 1XD Zicam 1 dose intranasal 1XD amlodipine [Norvasc] 5 mg Tablet 5 mg PO DAILY garlic Capsule 1 cap PO 1XD clobetasol [Temovate] 0.05 % Ointment 1 applic TOPICAL BID acetylcysteine 600 mg Capsule 600 mg PO DAILY triamcinolone acetonide 0.1 % Cream 1 applic TOPICAL BID diclofenac sodium [Arthritis Pain (diclofenac)] 1 % gel 2 g topical QID PRN (Reason: arm pain) Qty: 100 0RF Rx Instructions: apply to arm as needed for pain hydrocodone-acetaminophen 5-325 mg tablet 1 tab PO TID PRN (Reason: pain) Qty: 10 0RF meclizine 25 mg tablet 25 mg PO BID-TID PRN (Reason: dizziness) Qty: 14 0RF diltiazem HCl 360 mg capsule,extended release 24 hr 360 mg PO DAILY Qty: 90 0RF apixaban 5 mg tablet 5 mg PO BID Qty: 60 0RF atorvastatin 20 mg tablet 20 mg PO DAILY Vitamin B-12 5,000 mcg sublingual DAILY Referrals: Aye Liu MD [Primary Care Provider] - Stand Alone Forms: Patient Portal/API
[2023-06-05 12:09] LABS: Add Manual Diff / Slide Review NO; Basophils Absolute Auto 100 /uL (0-100); Basophils Percent Auto 1.1 % (0-2); Eosinophils Absolute Auto 200 /uL (0-450); Eosinophils Percent Auto 3.2 % (2-4); Hematocrit 39.2 % (36-46); Hemoglobin 13.3 g/dL (12.0-16.0); Lymphocytes Absolute Auto 1300 /uL (1100-4500); Lymphocytes Percent Auto 22.7 % (25-40); Mean Corpuscular HGB Conc 33.8 % (30-36); Mean Corpuscular Hemoglobin 31.2 PG (26-34); Mean Corpuscular Volume 92.3 fL (80-100); Monocytes Absolute Auto 500 /uL (0-900); Monocytes Percent Auto 9.6 % (3-14); Neutrophils Absolute Auto 3500 /uL (1500-7000); Neutrophils Percent Auto 63.4 % (50-75); Platelet Count 250 X10^3/uL (150-400); Red Blood Cell Count 4.25 X10^6/uL (4.0-5.2); Red Cell Distribution Width 13.7 % (11.6-14.8); White Blood Cell Count 5.6 X10^3/uL (4.5-11.0)
[2023-06-05 12:18] LABS: Alanine Aminotransferase 24 IU/L (<35); Albumin 4.2 g/dL (3.5-5.0); Albumin Globulin Ratio 1.6 (1.0-2.8); Alkaline Phosphatase 64 U/L (38-126); Aspartate Aminotransferase 25 IU/L (14-36); Bilirubin Total 0.6 mg/dL (0.2-1.3); Blood Urea Nitrogen 18 mg/dL (7-17); Carbon Dioxide 27 mmol/L (22-32); Chloride 104 mmol/L (98-107); Creatine Kinase 57 U/L (30-135); Estimated Glomerular Filt Rate > 60 mL/min (>60); Globulin 2.7 g/dL (1.7-4.1); Glucose 116 mg/dL (80-110); HEMOLYSIS < 15 (0-50); Lipase 113 U/L (23-300); Magnesium 2.1 mg/dL (1.6-2.3); Potassium 4.2 mmol/L (3.4-5.1); Sodium 139 mmol/L (137-145); Total Protein 6.9 g/dL (6.3-8.2)
[2023-06-05 12:29] LABS: Troponin I < 0.012 ng/mL (0.01-0.034)
[2023-06-05 13:11] LABS: INR 1.7 (0.9-1.3); Prothrombin Time 19.1 SECONDS (10.1-12.7)
[2023-06-05 13:14] LABS: PTT Partial Thromboplastin Tim 32 SECONDS (26-36)
[2023-06-05] MEDS: SODIUM CHLORIDE 0.9% 1,000 ML 1000 ML IV (13:20)
[2023-06-05] MEDS: METOPROLOL TARTRATE 5 MG/5 ML INJ IV ×3 (13:21→13:45)
[2023-06-05 13:32] LABS: Appearance Urine UA CLEAR; Bilirubin Urine UA NEGATIVE (NEGATIVE); Color Urine UA YELLOW; Glucose Urine UA NEGATIVE (Negative); Ketones Urine UA NEGATIVE (NEGATIVE); Leukocyte Esterase Urine UA NEGATIVE (NEGATIVE); Nitrite Urine UA NEGATIVE (Negative); Occult Blood Urine UA NEGATIVE (Negative); Protein Urine UA NEGATIVE (Negative); Urobilinogen Urine UA 0.2 E.U./dL (0.2)
[2023-06-05 13:34] LABS: pH Urine UA 7.5 (4.5-8.0)
[2023-06-05 13:51] LABS: Bacteria Urine None Seen; Culture Indicated Urine Cult Not Indicated; RBC Urine None Seen (0-5/HPF); Squamous Epithelial Cell Urine 1-5 /HPF (0-5/HPF); WBC Urine None Seen (0-5/HPF)
== END 2023-06-05 15:07 | disposition home or self-care (01) ==
PROVIDERS: Emergency Provider Emergency Medicine; Family Provider Physician Assistant; PCP Internal Medicine
DX: I48.0 Paroxysmal atrial fibrillation (principal); Z79.01 Long term (current) use of anticoagulants
CPT/HCPCS: 36415; 71045; 80053; 81001; 82550; 83690; 83735; 84484; 85025; 85610; 85730; 93005; 96361; 96374; 99284

== ENCOUNTER 2023-07-30 22:07 | Emergency (ER) | payer OTHER, SELFPAY ==
[2023-05-31 14:28] VITALS: BMI 31.8
[2023-07-30 22:10] VITALS: BP 148/91; PULSE 98; RESP 20; TEMP 37.2; O2SAT 96; BMI 36.7
--- NOTE | 2023-07-30 22:18 | DI.RAD.S_ITS ---
PROCEDURE: XR CHEST 1V INDICATIONS: chest pain TECHNIQUE: One view of the chest was acquired. COMPARISON: [facility], CR, XR CHEST 1V, 06/05/2023, 11:15. FINDINGS: Surgical changes and devices: None. Lungs and pleura: Lungs are clear. No pleural effusions or pneumothorax. Mediastinum: Mediastinal contours appear normal. Heart size is normal. Bones and chest wall: No suspicious bony lesions. Overlying soft tissues appear unremarkable. IMPRESSION: No acute cardiopulmonary abnormality is seen. Dictated by: Charley Castillo M.D. on 07/30/2023 at 23:58 Approved by: Charley Castillo M.D. on 07/30/2023 at 23:59
--- NOTE | 2023-07-30 22:54 | ED_ITS ---
HPI - Arrhythmia/Palpitations General Chief Complaint: Arrhythmia/Palpitations Stated Complaint: AFIB Time Seen by Provider: 07/30/23 22:21 Source: patient Mode of arrival: Ambulatory History of Present Illness HPI narrative: Patient is a 78-year-old female. History of atrial fibrillation. Is on metoprolol 50 mg twice a day. She is also on apixaban. She was scheduled for an ablation just after the beginning of next month. She comes in the emergency department today for concerns of AFib. She has not having chest pain. Slight shortness of breath. She states she just feels a slight fluttering in her heart. She has taken all of her medications as directed. She contacted the nurse in her primary doctor's office who advised that she come into the emergency department. She also was exposed to someone who had COVID several days ago. She denies any fevers. Related Data Home Medications Medication Instructions Recorded Confirmed Zicam 1 dose intranasal 1XD 05/18/19 05/31/23 irbesartan 75 mg tablet 75 mg PO DAILY 05/18/19 05/31/23 omeprazole 20 mg capsule,delayed 20 mg PO DAILY 05/18/19 05/31/23 release tumeric root 500 mg PO 1XD 05/18/19 05/31/23 acetylcysteine 600 mg capsule 600 mg PO DAILY 11/25/22 05/31/23 amlodipine 5 mg tablet (Norvasc) 5 mg PO DAILY 11/25/22 05/31/23 clobetasol 0.05 % topical ointment 1 applic topical BID 11/25/22 05/31/23 (Temovate) garlic 1 cap PO 1XD 11/25/22 05/31/23 triamcinolone acetonide 0.1 % 1 applic topical BID 11/25/22 05/31/23 topical cream Vitamin B-12 5,000 mcg sublingual DAILY 02/14/23 05/31/23 atorvastatin 20 mg tablet 20 mg PO DAILY 02/14/23 05/31/23 Previous Rx's Medication Instructions Recorded apixaban 5 mg tablet 5 mg PO BID #60 tabs 07/17/22 diclofenac sodium 1 % topical gel 2 g topical QID PRN arm pain #100 11/29/22 (Arthritis Pain (diclofenac)) grams hydrocodone 5 mg-acetaminophen 325 1 tab PO TID PRN pain #10 tabs 11/29/22 mg tablet meclizine 25 mg tablet 25 mg PO BID-TID PRN dizziness #14 12/28/22 tabs diltiazem HCl 360 mg capsule,24 360 mg PO DAILY #90 caps 06/02/23 hr,extended release metoprolol succinate 50 mg 50 mg PO BID #60 tabs 06/05/23 tablet,extended release 24 hr Allergies Allergy/AdvReac Type Severity Reaction Status Date / Time milk [MILK] Allergy Unknown ACHE ALL Verified 06/05/23 12:20 OVER LIKE COMING DOWN WITH FLU X3 DAYS lisinopril [LISINOPRIL] AdvReac Unknown COUGH Verified 06/05/23 12:20 Review of Systems Review of Systems ROS Unobtainable: All systems reviewed & are unremarkable except as noted in HPI and below Patient History Medical History Paroxysmal atrial fibrillation Pelvic relaxation Postmenopausal atrophic vaginitis Surgical History History of cataract surgery Family History Mother Congestive heart failure Brother CAD (coronary artery disease) of artery bypass graft Social History household members: friend(s) Smoking Status: Never smoker Smoking Status: Never smoker alcohol intake frequency: holidays/special occasions only Substance Use Type: does not use Exam Initial Vital Signs Initial Vital Signs: Vital Signs Temperature 99.0 F 07/30/23 22:10 Pulse Rate 98 H 07/30/23 22:10 Respiratory Rate 20 07/30/23 22:10 Blood Pressure 148/91 H 07/30/23 22:10 Pulse Oximetry 96 07/30/23 22:10 Oxygen Delivery Method Room Air 07/30/23 22:10 Const General: cooperative, comfortable and No ill appearing HENGA Head: normal to inspection and normocephalic Resp Effort & Inspection: normal respiratory effort Auscultation: clear to auscultation bilaterally Cardio Rate: tachycardic Rhythm: abnormal rhythm Skin General: no rashes or lesions noted Neuro General: patient alert, patient awake, patient oriented x3 and moves all extremities Extrem General: capillary refill normal Procedures Cardioversion Consent Signed: Yes Indication: Atrial fibrillation Stability: Stable Number of attempts (shocks): 3 Joules used: 120, 150 and 200 Cardiac rhythm post-cardioversion: Atrial fibrillation Procedural Sedation Consent signed: Yes Time out performed: Yes Indication: cardioversion ASA Class: III Mallampati Airway Classification: Class II Preparation: title i paraprofessional applied, pulse oximeter, capnometry used, supplemental O2 applied, suction/airway equipment at bedside and IV secured Fentanyl: IV Fentanyl dose (mcg): 12 IV Propofol dose (mg): 50 Intraservice time/total sedation time (min): 15 ED Sedation Level: Moderate (Concious) Patient Tolerated Procedure: Well and No complications Complications: none Course Orders Ordered: ED Orders 07/30/23 22:18 XR chest 1V Stat EKG-12 Lead Stat 07/30/23 22:45 COVID19 -Nasal RAPID Stat Complete Blood Count AUTO DIFF Stat Comprehensive Metabolic Panel Stat Lipase Stat Magnesium Stat PTT Partial Thromboplastin Lars Stat Prothrombin Time INR Stat Troponin & CK Cardiac Panel Stat Discontinued Medications Aspirin (Aspirin 81 Mg Chew Tab) 324 mg PO NOW ONE Stop: 07/30/23 22:19 Last Admin: 07/30/23 22:37 Dose: Not Given Documented By: AKANKSHA Fentanyl (Fentanyl 100 Mcg/2 Ml Inj) 12.5 mcg IV NOW ONE Stop: 07/30/23 22:56 Last Admin: 07/30/23 23:25 Dose: 12.5 mcg Documented By: AKANKSHA Amiodarone HCl/Dextrose (Nexterone) 150 mg in 100 mls @ 600 mls/hr IV NOW ONE; Protocol Stop: 07/30/23 23:39 Last Infusion: 07/30/23 23:59 Dose: Infused Documented By: Admin: 07/30/23 23:34 Dose: 600 mls/hr Documented By: DEJAN Metoprolol Tartrate (Metoprolol Ir 25 Mg Tablet) 50 mg PO NOW ONE Stop: 07/31/23 01:40 Last Admin: 07/31/23 01:51 Dose: 50 mg Documented By: AKANKSHA Propofol (Propofol 200 Mg/20 Ml Vial) 100 mg IV NOW ONE Stop: 07/30/23 22:56 Last Admin: 07/30/23 23:26 Dose: 50 mg Documented By: AKANKSHA Vital Signs Vital signs: Vital Signs - 8 hr 07/30/23 22:10 07/30/23 23:20 07/30/23 23:25 Temperature 99.0 F Pulse Rate 98 H 116 H 119 H Respiratory Rate 20 18 12 Blood Pressure 148/91 H 118/77 133/83 Pulse Oximetry 96 97 97 Oxygen Delivery Method Room Air Nasal Cannula Nasal Cannula Oxygen Flow Rate 1 1 07/30/23 23:30 07/30/23 23:35 07/30/23 23:50 Temperature Pulse Rate 117 H 121 H 95 H Respiratory Rate 13 13 13 Blood Pressure 127/70 107/58 L 127/75 Pulse Oximetry 97 12 L 96 Oxygen Delivery Method Nasal Cannula Nasal Cannula Nasal Cannula Oxygen Flow Rate 1 1 1 07/31/23 00:00 07/31/23 00:00 07/31/23 00:15 Temperature Pulse Rate 88 103 H Respiratory Rate 12 13 Blood Pressure 130/68 Pulse Oximetry 97 97 Oxygen Delivery Method Oxygen Flow Rate 07/31/23 00:15 07/31/23 00:32 07/31/23 00:45 Temperature Pulse Rate 102 H 107 H Respiratory Rate 29 H 33 H Blood Pressure 127/72 Pulse Oximetry 95 Oxygen Delivery Method Oxygen Flow Rate 07/31/23 01:00 Temperature Pulse Rate 114 H Respiratory Rate 19 Blood Pressure Pulse Oximetry 96 Oxygen Delivery Method Oxygen Flow Rate MDM - Arrhythmia/Palpitations Medical Records Attestation: I reviewed the patient's medical records. Lab Data Attestation: I reviewed the patient's lab results. 07/30/23 22:45 07/30/23 22:45 Labs: Lab Results 07/30/23 Range/Units 22:45 WBC 6.9 (4.5-11.0) X10^3/uL RBC 4.47 (4.0-5.2) X10^6/uL Hgb 13.8 (12.0-16.0) g/dL Hct 41.3 (36-46) % MCV 92.2 (80-100) fL MCH 30.9 (26-34) PG MCHC 33.5 (30-36) % RDW 14.0 (11.6-14.8) % Plt Count 224 (150-400) X10^3/uL Neut % (Auto) 57.1 (50-75) % Lymph % (Auto) 27.3 (25-40) % [place] % (Auto) 8.5 (3-14) % Eos % (Auto) 5.3 H (2-4) % Baso % (Auto) 1.8 (0-2) % Neut # (Auto) 3900 (5157-2987) /uL Lymph # (Auto) 1900 (0794-2832) /uL [place] # (Auto) 600 (0-900) /uL Eos # (Auto) 400 (0-450) /uL Baso # (Auto) 100 (0-100) /uL PT 15.9 H (9.4-12.5) SECONDS INR 1.4 H (0.9-1.3) APTT 34 (25.1-36.5) SECONDS Sodium 138 (137-145) mmol/L Potassium 3.9 (3.4-5.1) mmol/L Chloride 104 (98-107) mmol/L Carbon Dioxide 27 (22-32) mmol/L BUN 10 (7-17) mg/dL Creatinine 0.83 (0.52-1.04) mg/dL Estimated GFR > 60 (>60) mL/min BUN/Creatinine Ratio 12.0 (6-22) Glucose 108 (80-110) mg/dL Calcium 9.1 (8.4-10.2) mg/dL Magnesium 1.8 (1.6-2.3) mg/dL Total Bilirubin 0.8 (0.2-1.3) mg/dL AST 26 (14-36) IU/L ALT 24 (<35) IU/L Alkaline Phosphatase 67 (38-126) U/L Total Creatine Kinase 47 (30-135) U/L Troponin I < 0.012 (0.01-0.034) ng/mL Total Protein 7.1 (6.3-8.2) g/dL Albumin 4.1 (3.5-5.0) g/dL Globulin 3.0 (1.7-4.1) g/dL Albumin/Globulin Ratio 1.4 (1.0-2.8) Lipase 138 (23-300) U/L SARS-CoV-2 (PCR) Negative (Negative) Point of Care Testing Test Results Not applicable Imaging Data Chest x-ray: Radiologist's Impresson: PROCEDURE: XR CHEST 1V INDICATIONS: chest pain TECHNIQUE: One view of the chest was acquired. COMPARISON: [facility], , XR CHEST 1V, 06/05/2023, 11:15. FINDINGS: Surgical changes and devices: None. Lungs and pleura: Lungs are clear. No pleural effusions or pneumothorax. Mediastinum: Mediastinal contours appear normal. Heart size is normal. Bones and chest wall: No suspicious bony lesions. Overlying soft tissues appear unremarkable. IMPRESSION: No acute cardiopulmonary abnormality is seen. ECG Data Attestation: I personally reviewed and interpreted this ECG as follows: Interpretation: Atrial fibrillation Ventricular rate 120 Normal axis Normal QRS Normal QTC No ST T wave changes MDM Narrative Medical decision making narrative: Patient has been cardioverted in the past. She understands the risks and benefits of this. She is in AFib here in the ER. Not hypotensive. After the discussions of the risks and benefits she opted for the cardioversion. Patient was sedated as described above. We are unsuccessful with cardioversion afterwards. She then was given 150 mg of amiodarone. Patient still continues to be in AFib. Discussed options to include repeating the cardioversion versus trying a dose of metoprolol. Her heart rate now was more consistently in the 105-115 range. She remains normotensive. Patient opted for another dose of metoprolol. She was given 50 mg p.o.. After an hour of observation her heart rate now is more in the 100-110 range and occasionally in the upper 90s. I once again offered another cardioversion to see if we can get her back into a sinus rhythm. Patient states that she is feeling well. She ambulated to the bathroom without chest discomfort. She would like to be discharged home and return if needed. Will have her increase her metoprolol from 50 mg twice a day to 75 mg twice a day. She will start that tomorrow morning. She will keep her appointment for her ablation in a couple weeks. Discharge Plan Departure Patient Disposition: Home Clinical Impression: Atrial fibrillation Instructions: DI for Atrial Fibrillation Activity Restrictions/Additional Instructions: Recommend that you continue to take all of your medications as directed except increase her metoprolol from 50 mg twice a day to 75 mg twice a day. Keep your scheduled appointment with Cardiology at the beginning of next month. Return to the emergency department for new or worsening symptoms. Prescriptions: No Action irbesartan 75 mg tablet 75 mg PO DAILY omeprazole 20 mg capsule,delayed release(DR/EC) 20 mg PO DAILY tumeric root 500 mg capsule 500 mg PO 1XD Zicam 1 dose intranasal 1XD amlodipine [Norvasc] 5 mg Tablet 5 mg PO DAILY garlic Capsule 1 cap PO 1XD clobetasol [Temovate] 0.05 % Ointment 1 applic TOPICAL BID acetylcysteine 600 mg Capsule 600 mg PO DAILY triamcinolone acetonide 0.1 % Cream 1 applic TOPICAL BID diclofenac sodium [Arthritis Pain (diclofenac)] 1 % gel 2 g topical QID PRN (Reason: arm pain) Qty: 100 0RF Rx Instructions: apply to arm as needed for pain hydrocodone-acetaminophen 5-325 mg tablet 1 tab PO TID PRN (Reason: pain) Qty: 10 0RF meclizine 25 mg tablet 25 mg PO BID-TID PRN (Reason: dizziness) Qty: 14 0RF diltiazem HCl 360 mg capsule,extended release 24 hr 360 mg PO DAILY Qty: 90 0RF metoprolol succinate 50 mg tablet extended release 24 hr 50 mg PO BID Qty: 60 0RF apixaban 5 mg tablet 5 mg PO BID Qty: 60 0RF atorvastatin 20 mg tablet 20 mg PO DAILY Vitamin B-12 5,000 mcg sublingual DAILY Referrals: Aye Liu MD [Primary Care Provider] - Stand Alone Forms: Patient Portal/API
[2023-07-30 22:59] LABS: Add Manual Diff / Slide Review NO; Basophils Absolute Auto 100 /uL (0-100); Basophils Percent Auto 1.8 % (0-2); Eosinophils Absolute Auto 400 /uL (0-450); Eosinophils Percent Auto 5.3 % (2-4); Hematocrit 41.3 % (36-46); Hemoglobin 13.8 g/dL (12.0-16.0); Lymphocytes Absolute Auto 1900 /uL (1100-4500); Lymphocytes Percent Auto 27.3 % (25-40); Mean Corpuscular HGB Conc 33.5 % (30-36); Mean Corpuscular Hemoglobin 30.9 PG (26-34); Mean Corpuscular Volume 92.2 fL (80-100); Monocytes Absolute Auto 600 /uL (0-900); Monocytes Percent Auto 8.5 % (3-14); Neutrophils Absolute Auto 3900 /uL (1500-7000); Neutrophils Percent Auto 57.1 % (50-75); Platelet Count 224 X10^3/uL (150-400); Red Blood Cell Count 4.47 X10^6/uL (4.0-5.2); White Blood Cell Count 6.9 X10^3/uL (4.5-11.0)
[2023-07-30 23:04] LABS: INR 1.4 (0.9-1.3); Prothrombin Time 15.9 SECONDS (9.4-12.5)
[2023-07-30 23:06] LABS: PTT Partial Thromboplastin Tim 34 SECONDS (25.1-36.5)
[2023-07-30 23:08] LABS: Alanine Aminotransferase 24 IU/L (<35); Albumin 4.1 g/dL (3.5-5.0); Albumin Globulin Ratio 1.4 (1.0-2.8); Alkaline Phosphatase 67 U/L (38-126); Aspartate Aminotransferase 26 IU/L (14-36); Bilirubin Total 0.8 mg/dL (0.2-1.3); Blood Urea Nitrogen 10 mg/dL (7-17); Calcium 9.1 mg/dL (8.4-10.2); Carbon Dioxide 27 mmol/L (22-32); Chloride 104 mmol/L (98-107); Creatine Kinase 47 U/L (30-135); Estimated Glomerular Filt Rate > 60 mL/min (>60); Glucose 108 mg/dL (80-110); HEMOLYSIS 21 (0-50); Lipase 138 U/L (23-300); Magnesium 1.8 mg/dL (1.6-2.3); Potassium 3.9 mmol/L (3.4-5.1); Sodium 138 mmol/L (137-145); Total Protein 7.1 g/dL (6.3-8.2)
[2023-07-30 23:09] LABS: COVID19 -Nasal RAPID Negative (Negative)
[2023-07-30 23:19] LABS: Troponin I < 0.012 ng/mL (0.01-0.034)
[2023-07-30 23:20] VITALS: BP 118/77; PULSE 116; RESP 18; O2SAT 97
[2023-07-30 23:25] VITALS: BP 133/83; PULSE 119; RESP 12; O2SAT 97
[2023-07-30] MEDS: fentaNYL 100 MCG/2 ML INJ 12.5 MCG IV (23:25)
[2023-07-30] MEDS: propofoL 200 MG/20 ML VIAL 100 MG IV (23:26)
[2023-07-30 23:30] VITALS: BP 127/70; PULSE 117; RESP 13; O2SAT 97
[2023-07-30] MEDS: AMIODARONE 150 MG/100 ML PIGGYBACK 600 MG IV (23:34)
[2023-07-30 23:35] VITALS: BP 107/58; PULSE 121; RESP 13; O2SAT 12
[2023-07-30 23:50] VITALS: BP 127/75; PULSE 95; RESP 13; O2SAT 96
[2023-07-31] VITALS (14 sets, daily range): BP systolic 127–149; BP diastolic 68–92; PULSE 88–116; RESP 12–33; O2SAT 94–97
[2023-07-31] MEDS: METOPROLOL IR 25 MG TABLET 50 MG PO (01:51)
== END 2023-07-31 03:14 | disposition home or self-care (01) ==
PROVIDERS: Emergency Provider Emergency Medicine; Family Provider Physician Assistant; PCP Internal Medicine
DX: I48.91 Unspecified atrial fibrillation (principal); R07.9 Chest pain, unspecified; Z79.01 Long term (current) use of anticoagulants; Z20.822 Contact with and (suspected) exposure to COVID-19
CPT/HCPCS: 36415; 71045; 80053; 82550; 83690; 83735; 84484; 85025; 85610; 85730; 87635; 92960; 93005; 96365; 99152; 99285; C9803; J0282; J2704; J3010

== ENCOUNTER 2023-08-22 14:39 | Emergency (ER) | payer OTHER, SELFPAY ==
[2023-05-31 14:28] VITALS: BMI 31.8
[2023-08-22] VITALS (23 sets, daily range): BP systolic 92–148; BP diastolic 55–98; PULSE 46–127; RESP 18–35; TEMP 36.6; O2SAT 92–95
--- NOTE | 2023-08-22 14:49 | ED.ARRPALP ---
HPI - Arrhythmia/Palpitations General Chief Complaint: Chest Pain Stated Complaint: Chest pressure-pt had an ablation Saturday Time Seen by Provider: 08/22/23 14:44 History of Present Illness HPI narrative: 78-year-old female with history of atrial fibrillation presents by EMS from home for chest pain and pressure and atrial fibrillation. Patient underwent ablation for her AFib with Dr. Patel at [facility] earlier this week. She is continued on 75mg BID metoprolol. Patient reports chest pressure and pain with breathing. Related Data Home Medications Medication Instructions Recorded Confirmed Zicam 1 dose intranasal 1XD 05/18/19 05/31/23 irbesartan 75 mg tablet 75 mg PO DAILY 05/18/19 05/31/23 omeprazole 20 mg capsule,delayed 20 mg PO DAILY 05/18/19 05/31/23 release tumeric root 500 mg PO 1XD 05/18/19 05/31/23 acetylcysteine 600 mg capsule 600 mg PO DAILY 11/25/22 05/31/23 amlodipine 5 mg tablet (Norvasc) 5 mg PO DAILY 11/25/22 05/31/23 clobetasol 0.05 % topical ointment 1 applic topical BID 11/25/22 05/31/23 (Temovate) garlic 1 cap PO 1XD 11/25/22 05/31/23 triamcinolone acetonide 0.1 % 1 applic topical BID 11/25/22 05/31/23 topical cream Vitamin B-12 5,000 mcg sublingual DAILY 02/14/23 05/31/23 atorvastatin 20 mg tablet 20 mg PO DAILY 02/14/23 05/31/23 Previous Rx's Medication Instructions Recorded apixaban 5 mg tablet 5 mg PO BID #60 tabs 07/17/22 diclofenac sodium 1 % topical gel 2 g topical QID PRN arm pain #100 11/29/22 (Arthritis Pain (diclofenac)) grams hydrocodone 5 mg-acetaminophen 325 1 tab PO TID PRN pain #10 tabs 11/29/22 mg tablet meclizine 25 mg tablet 25 mg PO BID-TID PRN dizziness #14 12/28/22 tabs diltiazem HCl 360 mg capsule,24 360 mg PO DAILY #90 caps 06/02/23 hr,extended release metoprolol succinate 50 mg 50 mg PO BID #60 tabs 06/05/23 tablet,extended release 24 hr amoxicillin 875 mg-potassium 1 tab PO Q12H #10 tabs 08/22/23 clavulanate 125 mg tablet doxycycline hyclate 100 mg capsule 100 mg PO BID #10 caps 08/22/23 Allergies Allergy/AdvReac Type Severity Reaction Status Date / Time milk [MILK] Allergy Unknown ACHE ALL Verified 08/22/23 14:53 OVER LIKE COMING DOWN WITH FLU X3 DAYS lisinopril [LISINOPRIL] AdvReac Unknown COUGH Verified 08/22/23 14:53 Review of Systems Review of Systems Narrative: Negative except as noted above Patient History Medical History Paroxysmal atrial fibrillation Pelvic relaxation Postmenopausal atrophic vaginitis Surgical History History of cataract surgery Family History Mother Congestive heart failure Brother CAD (coronary artery disease) of artery bypass graft Social History household members: friend(s) Smoking Status: Never smoker Smoking Status: Never smoker alcohol intake frequency: holidays/special occasions only Substance Use Type: does not use Exam Initial Vital Signs Initial Vital Signs: Vital Signs Pulse Rate 115 H 08/22/23 14:43 Blood Pressure 139/98 H 08/22/23 14:43 Pulse Oximetry 92 08/22/23 14:43 Const: Awake, alert, frail Cardiac: Tachycardia, irregularly irregular RESP: unlabored, clear bilaterally, no wheezing Skin: Warm, Dry, intact, no rashes, no edema Neuro: AO x3, CN II-XII grossly intact, moves all extremities Course Orders Ordered: Discontinued Medications Aspirin (Aspirin 81 Mg Chew Tab) 324 mg PO NOW ONE Stop: 08/22/23 14:55 Last Admin: 08/22/23 14:57 Dose: Not Given Documented By: STEPHANIE Diltiazem HCl (Diltiazem 5 Mg/Ml Sdv) 10 mg IV NOW ONE Stop: 08/22/23 17:35 Last Admin: 08/22/23 18:27 Dose: Not Given Documented By: LIU Ceftriaxone Sodium 1,000 mg/ (Sodium Chloride) 100 mls @ 200 mls/hr IV NOW ONE Stop: 08/22/23 16:41 Last Infusion: 08/22/23 17:13 Dose: Infused Documented By: Admin: 08/22/23 16:48 Dose: 200 mls/hr Documented By: PRAVEEN Azithromycin 500 mg/ Dextrose 250 mls @ 250 mls/hr IV NOW ONE Stop: 08/22/23 16:41 Last Infusion: 08/22/23 18:31 Dose: Infused Documented By: Admin: 08/22/23 17:10 Dose: 250 mls/hr Documented By: PRAVEEN Amiodarone HCl/Dextrose (Nexterone) 360 mg in 200 mls @ 16.7 mls/hr IV CONT STACIE; Protocol Stop: 08/23/23 05:44 Last Admin: 08/22/23 18:28 Dose: Not Given Documented By: LIU Amiodarone HCl/Dextrose (Nexterone) 150 mg in 100 mls @ 600 mls/hr IV NOW ONE Stop: 08/22/23 17:54 Last Admin: 08/22/23 18:27 Dose: Not Given Documented By: LIU Vital Signs Vital signs: Vital Signs - 8 hr 08/22/23 14:43 08/22/23 14:43 08/22/23 14:45 Temperature 98 F Pulse Rate 115 H 121 H Respiratory Rate 26 H Blood Pressure 139/98 H 139/98 H Pulse Oximetry 92 93 Oxygen Delivery Method Room Air 08/22/23 15:00 08/22/23 15:00 08/22/23 15:30 Temperature Pulse Rate 126 H Respiratory Rate 24 Blood Pressure 105/69 110/78 Pulse Oximetry 94 Oxygen Delivery Method Room Air 08/22/23 15:30 08/22/23 16:00 08/22/23 16:30 Temperature Pulse Rate 127 H 123 H 125 H Respiratory Rate 20 18 21 Blood Pressure Pulse Oximetry 94 94 95 Oxygen Delivery Method Room Air 08/22/23 16:59 08/22/23 16:59 08/22/23 17:00 Temperature Pulse Rate 127 H 123 H Respiratory Rate 29 H 27 H Blood Pressure 128/62 Pulse Oximetry 94 94 Oxygen Delivery Method 08/22/23 17:00 08/22/23 17:30 08/22/23 17:31 Temperature Pulse Rate 124 H 127 H Respiratory Rate 35 H 22 Blood Pressure 113/65 Pulse Oximetry 94 93 Oxygen Delivery Method 08/22/23 17:31 08/22/23 18:00 08/22/23 18:01 Temperature Pulse Rate 50 L 51 L Respiratory Rate 22 33 H Blood Pressure 148/88 H Pulse Oximetry 94 94 Oxygen Delivery Method 08/22/23 18:01 08/22/23 18:11 08/22/23 18:11 Temperature Pulse Rate 50 L Respiratory Rate 27 H Blood Pressure 103/55 L 100/59 L Pulse Oximetry 95 Oxygen Delivery Method 08/22/23 18:15 08/22/23 18:15 Temperature Pulse Rate 50 L Respiratory Rate 34 H Blood Pressure 103/65 Pulse Oximetry 95 Oxygen Delivery Method MDM - Arrhythmia/Palpitations Differential Diagnosis Differential diagnosis: Likely palpitations, artial fibrillation and artial flutter Lab Data 08/22/23 14:54 08/22/23 14:54 Labs: Lab Results 08/22/23 08/22/23 Range/Units 14:54 17:25 WBC 14.0 H (4.5-11.0) X10^3/uL RBC 4.02 (4.0-5.2) X10^6/uL Hgb 12.4 (12.0-16.0) g/dL Hct 37.4 (36-46) % MCV 92.9 (80-100) fL MCH 30.8 (26-34) PG MCHC 33.1 (30-36) % RDW 14.1 (11.6-14.8) % Plt Count 198 (150-400) X10^3/uL Neut % (Auto) 76.5 H (50-75) % Lymph % (Auto) 12.9 L (25-40) % [place] % (Auto) 9.6 (3-14) % Eos % (Auto) 0.7 L (2-4) % Baso % (Auto) 0.3 (0-2) % Neut # (Auto) 61358 H (2940-9527) /uL Lymph # (Auto) 1800 (1586-0372) /uL [place] # (Auto) 1300 H (0-900) /uL Eos # (Auto) 100 (0-450) /uL Baso # (Auto) 0 (0-100) /uL PT 15.1 H (9.4-12.5) SECONDS INR 1.3 (0.9-1.3) APTT 28 (25.1-36.5) SECONDS Sodium 134 L (137-145) mmol/L Potassium 4.1 (3.4-5.1) mmol/L Chloride 101 (98-107) mmol/L Carbon Dioxide 29 (22-32) mmol/L BUN 19 H (7-17) mg/dL Creatinine 0.90 (0.52-1.04) mg/dL Estimated GFR > 60 (>60) mL/min BUN/Creatinine Ratio 21.1 (6-22) Glucose 115 H (80-110) mg/dL Calcium 9.1 (8.4-10.2) mg/dL Magnesium 1.9 (1.6-2.3) mg/dL Total Bilirubin 1.0 (0.2-1.3) mg/dL AST 41 H (14-36) IU/L ALT 34 (<35) IU/L Alkaline Phosphatase 64 (38-126) U/L Total Creatine Kinase 93 (30-135) U/L Troponin I 0.761 H* 0.674 H* (0.01-0.034) ng/mL Total Protein 7.0 (6.3-8.2) g/dL Albumin 4.0 (3.5-5.0) g/dL Globulin 3.0 (1.7-4.1) g/dL Albumin/Globulin Ratio 1.3 (1.0-2.8) Lipase 97 (23-300) U/L Urine Dip Bedside Urine Glucose Negative Bedside Urine Bilirubin - Negative Bedside Urine Ketone - Negative Urine Specific [place] 1.010 Bedside Urine Occult Blood - Negative Bedside Urine pH 7.5 Bedside Urine Protein - Negative Bedside Urine Urobilinogen - Negative Bedside Urine Nitrite - Negative Bedside Urine Leukocytes - Negative Esterase MDM Narrative Medical decision making narrative: Patient is very well known in this emergency department presenting again for atrial fibrillation shortly after undergoing ablation at outside hospital. She is in AFib with RVR at a rate of 120 to 130 beats per minute, blood pressure is within normal limits. We will repeat laboratory work, based on recent hospital stay and procedure we will order CT angio to assess for PE since patient is complaining of pleuritic chest pain. Laboratory work is at patient's baseline. Chest x-ray shows possible lower lobe pneumonia. CT angio confirms lower lobe pneumonia but no PE. Troponin 0.7, however she did just have ablation an EKG is nonischemic. Patient remained in atrial fibrillation with RVR while laboratory work was pending. Call placed to electrophysiology, spoke with Dr. Johnston, who recommended loading with amiodarone, but states that up to 90 days post ablation it is common for patients to have episodes of atrial fibrillation. He also agrees that the elevated troponin is nonischemic and likely due to the procedure from 2 days ago. Prior to amiodarone administration patient self converted to sinus rhythm at 50 beats per minute, and remained that way for over an hour with no repeat episodes of atrial fibrillation. Re paged electrophysiology, who stated that patient could continue her normal medications and did not need amiodarone or diltiazem at this time. Patient will be treated for pneumonia on an outpatient basis. For PSH score 66 based on age and female gender. She was saturating well on room air, conversational without dyspnea, blood pressure is within normal limits and patient is not tachypneic or acidotic. Patient counseled on electrophysiology recommendations, counseled to call 1st thing next business day for follow up appointment. Discharge Plan Departure Patient Disposition: Home Clinical Impression: Pneumonia, Atrial fibrillation Instructions: DI for Pneumonia -- Adult, DI for Atrial Fibrillation Activity Restrictions/Additional Instructions: You self converted your atrial fibrillation while you were here in the emergency department. Your scratcher tender's office recommends that you stay on the same medication regimen of metoprolol twice daily. You were incidentally found to have a small amount of pneumonia on the bottom of your lungs. You were given a dose of IV medications while in the emergency department and a prescription for 2 antibiotics has been sent to the [facility] in [place]. Please return if you notice new or worsening symptoms. Please call your scratcher tender's office 1st thing tomorrow morning for a follow up appointment Prescriptions: New amoxicillin-pot clavulanate 875-125 mg tablet 1 tab PO Q12H Qty: 10 0RF doxycycline hyclate 100 mg capsule 100 mg PO BID Qty: 10 0RF No Action irbesartan 75 mg tablet 75 mg PO DAILY omeprazole 20 mg capsule,delayed release(DR/EC) 20 mg PO DAILY tumeric root 500 mg capsule 500 mg PO 1XD Zicam 1 dose intranasal 1XD amlodipine [Norvasc] 5 mg Tablet 5 mg PO DAILY garlic Capsule 1 cap PO 1XD clobetasol [Temovate] 0.05 % Ointment 1 applic TOPICAL BID acetylcysteine 600 mg Capsule 600 mg PO DAILY triamcinolone acetonide 0.1 % Cream 1 applic TOPICAL BID diclofenac sodium [Arthritis Pain (diclofenac)] 1 % gel 2 g topical QID PRN (Reason: arm pain) Qty: 100 0RF Rx Instructions: apply to arm as needed for pain hydrocodone-acetaminophen 5-325 mg tablet 1 tab PO TID PRN (Reason: pain) Qty: 10 0RF meclizine 25 mg tablet 25 mg PO BID-TID PRN (Reason: dizziness) Qty: 14 0RF diltiazem HCl 360 mg capsule,extended release 24 hr 360 mg PO DAILY Qty: 90 0RF metoprolol succinate 50 mg tablet extended release 24 hr 50 mg PO BID Qty: 60 0RF apixaban 5 mg tablet 5 mg PO BID Qty: 60 0RF atorvastatin 20 mg tablet 20 mg PO DAILY Vitamin B-12 5,000 mcg sublingual DAILY Referrals: Aye Liu MD [Primary Care Provider] - Stand Alone Forms: Patient Portal/API
--- NOTE | 2023-08-22 14:54 | DI.RAD.S_ITS ---
PROCEDURE: XR CHEST 1V INDICATIONS: chest pain TECHNIQUE: One view of the chest was acquired. COMPARISON: [facility], CR, XR CHEST 1V, 07/30/2023, 22:31. FINDINGS: Surgical changes and devices: None. Lungs and pleura: Mild patchy right basilar opacity. No pleural effusions or pneumothorax. Mediastinum: Mediastinal contours appear normal. Heart size is normal. Bones and chest wall: No suspicious bony lesions. Overlying soft tissues appear unremarkable. IMPRESSION: Right basilar pneumonia. Continued plain film surveillance is recommended to ensure resolution, and to exclude underlying or central malignancy. Dictated by: Joan Palacios M.D. on 08/22/2023 at 15:27 Approved by: Joan Palacios M.D. on 08/22/2023 at 15:27
--- NOTE | 2023-08-22 15:03 | DI.CT.S_ITS ---
PROCEDURE: CT ANGIO CHEST PE PROTOCOL INDICATIONS: chest pressure, recent hospitalization TECHNIQUE: After the administration of intravenous contrast, 2 mm thick sections acquired from the pulmonary apices to the posterior costophrenic angles. 3-dimensional maximum intensity projection (MIP) coronal and sagittal reformats were then acquired through the thorax. For radiation dose reduction, the following was used: automated exposure control, adjustment of mA and/or kV according to patient size. COMPARISON: None. FINDINGS: Image quality: Diagnostic. Pulmonary arteries: Pulmonary arteries are normal in size, and demonstrate no intraluminal filling defects to suggest central pulmonary embolism. Lower Neck: No enlarged lymph nodes. Thyroid: No thyroid nodules which require sonographic follow up, per consensus guidelines. Axillae: No enlarged lymph nodes. Chest Wall: Unremarkable. Bones: Unremarkable. Lungs and Pleura: No pneumothorax . Small bilateral pleural effusions. Moderate bilateral lower lung predominant patchy airspace opacities. Heart: Heart size is normal. No pericardial effusion. Thoracic Vessels: No aortic aneurysm. The right subclavian artery arises from the distal arch and is retroesophageal. Mediastinum and Elif: No enlarged lymph nodes. Esophagus: No wall thickening. No hiatal hernia. Upper Abdomen: Visualized portions of the upper abdomen demonstrate a calcific focus within the gallbladder lumen. IMPRESSION: 1. No pulmonary embolus. 2. Bilateral pneumonia with small parapneumonic effusions. 3. Retroaortic right subclavian artery. This has been associated with dysphagia. 4. Cholelithiasis. Dictated by: Joan Palacios M.D. on 08/22/2023 at 16:08 Approved by: Joan Palacios M.D. on 08/22/2023 at 16:12
[2023-08-22 15:04] LABS: Add Manual Diff / Slide Review NO; Basophils Absolute Auto 0 /uL (0-100); Basophils Percent Auto 0.3 % (0-2); Eosinophils Absolute Auto 100 /uL (0-450); Eosinophils Percent Auto 0.7 % (2-4); Hematocrit 37.4 % (36-46); Hemoglobin 12.4 g/dL (12.0-16.0); Lymphocytes Absolute Auto 1800 /uL (1100-4500); Lymphocytes Percent Auto 12.9 % (25-40); Mean Corpuscular HGB Conc 33.1 % (30-36); Mean Corpuscular Hemoglobin 30.8 PG (26-34); Mean Corpuscular Volume 92.9 fL (80-100); Monocytes Absolute Auto 1300 /uL (0-900); Monocytes Percent Auto 9.6 % (3-14); Neutrophils Absolute Auto 10700 /uL (1500-7000); Neutrophils Percent Auto 76.5 % (50-75); Platelet Count 198 X10^3/uL (150-400); Red Blood Cell Count 4.02 X10^6/uL (4.0-5.2); Red Cell Distribution Width 14.1 % (11.6-14.8)
[2023-08-22 15:20] LABS: Alanine Aminotransferase 34 IU/L (<35); Albumin Globulin Ratio 1.3 (1.0-2.8); Alkaline Phosphatase 64 U/L (38-126); Aspartate Aminotransferase 41 IU/L (14-36); BUN Creatinine Ratio 21.1 (6-22); Blood Urea Nitrogen 19 mg/dL (7-17); Calcium 9.1 mg/dL (8.4-10.2); Carbon Dioxide 29 mmol/L (22-32); Chloride 101 mmol/L (98-107); Creatine Kinase 93 U/L (30-135); Estimated Glomerular Filt Rate > 60 mL/min (>60); Glucose 115 mg/dL (80-110); HEMOLYSIS < 15 (0-50); Lipase 97 U/L (23-300); Magnesium 1.9 mg/dL (1.6-2.3); Potassium 4.1 mmol/L (3.4-5.1); Sodium 134 mmol/L (137-145)
[2023-08-22 15:29] LABS: INR 1.3 (0.9-1.3); Prothrombin Time 15.1 SECONDS (9.4-12.5)
[2023-08-22 15:32] LABS: PTT Partial Thromboplastin Tim 28 SECONDS (25.1-36.5)
[2023-08-22 15:58] LABS: Troponin I 0.761 ng/mL (0.01-0.034)
[2023-08-22] MEDS: cefTRIAXone 1,000 MG in SODIUM CHLORIDE 0.9% 100 ML 200 MG IV (16:48)
[2023-08-22] MEDS: AZITHROMYCIN 500 MG in DEXTROSE 5% IN WATER 250 ML 250 MG IV (17:10)
[2023-08-22 17:59] LABS: Troponin I 0.674 ng/mL (0.01-0.034)
== END 2023-08-22 20:26 | disposition home or self-care (01) ==
PROVIDERS: Emergency Provider Emergency Medicine; Family Provider Physician Assistant; PCP Internal Medicine
DX: J18.9 Pneumonia, unspecified organism (principal); I48.91 Unspecified atrial fibrillation; Z79.01 Long term (current) use of anticoagulants
CPT/HCPCS: 36415; 71045; 71275; 80053; 81003; 82550; 83690; 83735; 84484; 85025; 85610; 85730; 93005; 93010; 96365; 96367; 99284; J0696; Q9967

== ENCOUNTER 2023-09-16 11:19 | Emergency (ER) | payer OTHER, SELFPAY ==
[2023-05-31 14:28] VITALS: BMI 31.8
[2023-09-16 12:14] VITALS: BP 166/77; PULSE 60; RESP 18; TEMP 36.5; O2SAT 97; BMI 35.9
--- NOTE | 2023-09-16 12:53 | DI.RAD.S_ITS ---
PROCEDURE: XR CHEST 1V INDICATIONS: chest pain TECHNIQUE: One view of the chest was acquired. COMPARISON: [facility], CR, XR CHEST 1V, 08/22/2023, 15:10. FINDINGS: Surgical changes and devices: None. Lungs and pleura: Lungs are clear. No pleural effusions or pneumothorax. Mediastinum: Mediastinal contours appear normal. Heart size is normal. Bones and chest wall: No suspicious bony lesions. Overlying soft tissues appear unremarkable. IMPRESSION: No acute cardiopulmonary abnormality is seen. Dictated by: Joan Palacios M.D. on 09/16/2023 at 14:18 Approved by: Joan Palacios M.D. on 09/16/2023 at 14:18
[2023-09-16 13:39] LABS: Add Manual Diff / Slide Review NO; Basophils Absolute Auto 0 /uL (0-100); Basophils Percent Auto 0.9 % (0-2); Eosinophils Absolute Auto 200 /uL (0-450); Eosinophils Percent Auto 3.7 % (2-4); Hematocrit 41.8 % (36-46); Hemoglobin 14.2 g/dL (12.0-16.0); Lymphocytes Absolute Auto 1700 /uL (1100-4500); Lymphocytes Percent Auto 31.9 % (25-40); Mean Corpuscular Hemoglobin 30.9 PG (26-34); Mean Corpuscular Volume 90.9 fL (80-100); Monocytes Absolute Auto 500 /uL (0-900); Monocytes Percent Auto 10.1 % (3-14); Neutrophils Absolute Auto 2900 /uL (1500-7000); Neutrophils Percent Auto 53.4 % (50-75); Platelet Count 238 X10^3/uL (150-400); Red Cell Distribution Width 14.1 % (11.6-14.8); White Blood Cell Count 5.4 X10^3/uL (4.5-11.0)
[2023-09-16 13:53] LABS: INR 1.3 (0.9-1.3); Prothrombin Time 15.4 SECONDS (9.4-12.5)
[2023-09-16 13:56] LABS: PTT Partial Thromboplastin Tim 40 SECONDS (25.1-36.5)
[2023-09-16 13:57] LABS: Alanine Aminotransferase 31 IU/L (<35); Albumin 4.4 g/dL (3.5-5.0); Albumin Globulin Ratio 1.3 (1.0-2.8); Alkaline Phosphatase 63 U/L (38-126); Aspartate Aminotransferase 32 IU/L (14-36); Bilirubin Total 1.2 mg/dL (0.2-1.3); Blood Urea Nitrogen 13 mg/dL (7-17); Calcium 9.9 mg/dL (8.4-10.2); Carbon Dioxide 26 mmol/L (22-32); Chloride 103 mmol/L (98-107); Creatine Kinase 38 U/L (30-135); Estimated Glomerular Filt Rate > 60 mL/min (>60); Globulin 3.4 g/dL (1.7-4.1); Glucose 99 mg/dL (80-110); HEMOLYSIS < 15 (0-50); Lipase 111 U/L (23-300); Magnesium 2.1 mg/dL (1.6-2.3); Potassium 4.1 mmol/L (3.4-5.1); Sodium 140 mmol/L (137-145); Total Protein 7.8 g/dL (6.3-8.2)
[2023-09-16 14:08] LABS: Troponin I < 0.012 ng/mL (0.01-0.034)
[2023-09-16 14:28] LABS: Appearance Urine UA CLEAR; Bilirubin Urine UA NEGATIVE (NEGATIVE); Color Urine UA YELLOW; Glucose Urine UA NEGATIVE (Negative); Ketones Urine UA NEGATIVE (NEGATIVE); Leukocyte Esterase Urine UA NEGATIVE (NEGATIVE); Nitrite Urine UA NEGATIVE (Negative); Occult Blood Urine UA NEGATIVE (Negative); Protein Urine UA NEGATIVE (Negative); Urobilinogen Urine UA 0.2 E.U./dL (0.2)
[2023-09-16 14:35] LABS: Bacteria Urine Occasional (0-1); Culture Indicated Urine Specimen Cultured; RBC Urine None Seen (0-5/HPF); Squamous Epithelial Cell Urine 5-10 /HPF (0-5/HPF); Urine Volume 10mL (spun); WBC Urine 5-10/HPF (0-5/HPF)
--- NOTE | 2023-09-16 15:51 | ED.RECABL ---
HPI - Recheck/Abnormal Lab/Rx <Osvaldo Matthew PA-C - Last Filed: 09/16/23 16:06> General Chief Complaint: Recheck/Abnormal Lab/Rx Stated Complaint: low blood pressure fever pnemonia afib history Time Seen by Provider: 09/16/23 13:23 Source: patient Mode of arrival: Ambulatory History of Present Illness HPI narrative: 78-year-old female with past medical history atrial fibrillation presents to the ED for a low home blood pressure reading. Patient states that her home blood pressure reading was in the high 80s for systolic. Patient states that over the last couple of days she has been feeling more tired. Patient does endorse a foul odor with her urine. Patient denies dysuria, urinary frequency, urinary urgency. Patient denies fever, chills, chest pain, shortness of breath, nausea, vomiting, lightheadedness, abdominal pain, diarrhea, constipation. Patient had an ablation procedure on 08/20/2023 for AFib. Patient has also completed to recent courses of antibiotics for pneumonia. Patient endorses subjective fever. Patient states that starting yesterday she felt like she was coming down with another cold with symptoms of sore throat and rhinorrhea. Related Data Home Medications Medication Instructions Recorded Confirmed Zicam 1 dose intranasal 1XD 05/18/19 05/31/23 irbesartan 75 mg tablet 75 mg PO DAILY 05/18/19 05/31/23 omeprazole 20 mg capsule,delayed 20 mg PO DAILY 05/18/19 05/31/23 release tumeric root 500 mg PO 1XD 05/18/19 05/31/23 acetylcysteine 600 mg capsule 600 mg PO DAILY 11/25/22 05/31/23 amlodipine 5 mg tablet (Norvasc) 5 mg PO DAILY 11/25/22 05/31/23 clobetasol 0.05 % topical ointment 1 applic topical BID 11/25/22 05/31/23 (Temovate) garlic 1 cap PO 1XD 11/25/22 05/31/23 triamcinolone acetonide 0.1 % 1 applic topical BID 11/25/22 05/31/23 topical cream Vitamin B-12 5,000 mcg sublingual DAILY 02/14/23 05/31/23 atorvastatin 20 mg tablet 20 mg PO DAILY 07/13/23 10/27/23 Previous Rx's Medication Instructions Recorded apixaban 5 mg tablet 5 mg PO BID #60 tabs 07/17/22 diclofenac sodium 1 % topical gel 2 g topical QID PRN arm pain #100 11/29/22 (Arthritis Pain (diclofenac)) grams hydrocodone 5 mg-acetaminophen 325 1 tab PO TID PRN pain #10 tabs 11/29/22 mg tablet meclizine 25 mg tablet 25 mg PO BID-TID PRN dizziness #14 12/28/22 tabs diltiazem HCl 360 mg capsule,24 360 mg PO DAILY #90 caps 06/02/23 hr,extended release metoprolol succinate 50 mg 50 mg PO BID #60 tabs 06/05/23 tablet,extended release 24 hr amoxicillin 875 mg-potassium 1 tab PO Q12H #10 tabs 08/22/23 clavulanate 125 mg tablet doxycycline hyclate 100 mg capsule 100 mg PO BID #10 caps 08/22/23 cefpodoxime 200 mg tablet 200 mg PO Q12H 10 days #20 tabs 09/16/23 Allergies Allergy/AdvReac Type Severity Reaction Status Date / Time milk [MILK] Allergy Unknown ACHE ALL Verified 09/16/23 12:20 OVER LIKE COMING DOWN WITH FLU X3 DAYS lisinopril [LISINOPRIL] AdvReac Unknown COUGH Verified 09/16/23 12:20 Review of Systems <Osvaldo Matthew PA-C - Last Filed: 09/16/23 16:06> Constitutional Constitutional: Denies chills, Reports fatigue, Reports fever(s), Denies frequent falls, Reports lethargy and Denies weakness Eyes Eyes: Denies change in vision, Denies eye discharge, Denies irritation and Denies loss of vision ENT Ears, Nose, Mouth, and Throat: Denies change in voice, Denies dizziness, Denies neck pain, Denies sore throat and Denies throat swelling Cardiovascular Cardiovascular: Denies chest pain, Denies irregular heart rhythm, Denies lightheadedness, Denies palpitations, Denies dyspnea, Denies dyspnea on exertion and Denies orthopnea Respiratory Respiratory: Denies cough, Denies dyspnea, Denies dyspnea on exertion and Denies wheezing Gastrointestinal Gastrointestinal: Denies abdominal pain, Denies change in bowel habits, Denies diarrhea, Denies nausea and Denies vomiting Genitourinary Comments: Foul-smelling urine Musculoskeletal Musculoskeletal: Denies neck pain and Denies numbness Integumentary/Breasts Skin/Breast: Denies pruritus, Denies erythema, Denies rash and Denies wounds Neurologic Neurologic: Denies behavioral changes, Denies confusion, Denies dizziness, Denies frequent falls, Denies loss of vision, Denies numbness and Denies weakness Psychiatric Psychiatric: Denies anxiety, Denies behavioral changes, Denies confusion, Denies depression, Denies homicidal ideation and Denies suicidal ideation Endocrine Endocrine: Reports fatigue, Denies flushing and Denies palpitations Hematologic/Lymphatic Hematologic/Lymphatic: Denies easy bruising Allergic/Immunologic Allergic/Immunologic: Denies urticaria, Denies throat swelling and Denies wheezing Patient History <Osvaldo Matthew PA-C - Last Filed: 09/16/23 16:06> Medical History Paroxysmal atrial fibrillation Pelvic relaxation Postmenopausal atrophic vaginitis Surgical History History of cataract surgery Family History Mother Congestive heart failure Brother CAD (coronary artery disease) of artery bypass graft Social History household members: friend(s) Smoking Status: Never smoker Smoking Status: Never smoker alcohol intake frequency: holidays/special occasions only Substance Use Type: does not use Exam <Osvaldo Matthew PA-C - Last Filed: 09/16/23 16:06> Narrative Exam Narrative: Const General:?cooperative, healthy appearing and comfortable [facility] Head:?normal to inspection Ears:?hearing grossly normal bilaterally Nose:?external nose normal Face and sinus:?normal facial exam and sinuses nontender Mouth:?oral mucosae normal Throat:?posterior oropharynx normal Eyes General:?appearance normal, both eyes and all related structures Neck Neck:?normal visual inspection and no lymphadenopathy noted Resp Effort & Inspection:?normal respiratory effort Auscultation:?clear to auscultation bilaterally Cardio Rate:?regular rate Rhythm:?regular rhythm Neuro General:?patient alert, patient awake and patient oriented x3 Initial Vital Signs Initial Vital Signs: Vital Signs Temperature 97.7 F 09/16/23 12:14 Pulse Rate 60 09/16/23 12:14 Respiratory Rate 18 09/16/23 12:14 Blood Pressure 166/77 H 09/16/23 12:14 Pulse Oximetry 97 09/16/23 12:14 Oxygen Delivery Method Room Air 09/16/23 12:14 <Geraldine Baum DO - Last Filed: 09/16/23 19:15> Initial Vital Signs Initial Vital Signs: Vital Signs Temperature 97.7 F 09/16/23 12:14 Pulse Rate 60 09/16/23 12:14 Respiratory Rate 18 09/16/23 12:14 Blood Pressure 166/77 H 09/16/23 12:14 Pulse Oximetry 97 09/16/23 12:14 Oxygen Delivery Method Room Air 09/16/23 12:14 Course <Osvaldo Matthew PA-C - Last Filed: 09/16/23 16:06> Orders Ordered: ED Orders 09/16/23 12:53 XR chest 1V Stat EKG-12 Lead Stat 09/16/23 13:25 Complete Blood Count AUTO DIFF Stat Comprehensive Metabolic Panel Stat Lipase Stat Magnesium Stat PTT Partial Thromboplastin Lars Stat Prothrombin Time INR Stat Troponin & CK Cardiac Panel Stat 09/16/23 14:16 Urinalysis and Microscopic Stat Urine Culture Stat Vital Signs Vital signs: Vital Signs - 8 hr 09/16/23 12:14 09/16/23 15:57 Temperature 97.7 F Pulse Rate 60 59 L Respiratory Rate 18 18 Blood Pressure 166/77 H 138/68 Pulse Oximetry 97 96 Oxygen Delivery Method Room Air Room Air <DO Madyson Murray Last Filed: 09/16/23 19:15> Orders Ordered: ED Orders 09/16/23 12:53 XR chest 1V Stat EKG-12 Lead Stat 09/16/23 13:25 Complete Blood Count AUTO DIFF Stat Comprehensive Metabolic Panel Stat Lipase Stat Magnesium Stat PTT Partial Thromboplastin Lars Stat Prothrombin Time INR Stat Troponin & CK Cardiac Panel Stat 09/16/23 14:16 Urinalysis and Microscopic Stat Urine Culture Stat Vital Signs Vital signs: Vital Signs - 8 hr 09/16/23 12:14 09/16/23 15:57 Temperature 97.7 F Pulse Rate 60 59 L Respiratory Rate 18 18 Blood Pressure 166/77 H 138/68 Pulse Oximetry 97 96 Oxygen Delivery Method Room Air Room Air MDM - Recheck/Abnormal Lab/Rx <Osvaldo Matthew PA-C - Last Filed: 09/16/23 16:06> Lab Data 09/16/23 13:25 09/16/23 13:25 Labs: Lab Results 09/16/23 09/16/23 Range/Units 13:25 14:16 WBC 5.4 (4.5-11.0) X10^3/uL RBC 4.60 (4.0-5.2) X10^6/uL Hgb 14.2 (12.0-16.0) g/dL Hct 41.8 (36-46) % MCV 90.9 (80-100) fL MCH 30.9 (26-34) PG MCHC 34.0 (30-36) % RDW 14.1 (11.6-14.8) % Plt Count 238 (150-400) X10^3/uL Neut % (Auto) 53.4 (50-75) % Lymph % (Auto) 31.9 (25-40) % [place] % (Auto) 10.1 (3-14) % Eos % (Auto) 3.7 (2-4) % Baso % (Auto) 0.9 (0-2) % Neut # (Auto) 2900 (6049-1503) /uL Lymph # (Auto) 1700 (3117-8640) /uL [place] # (Auto) 500 (0-900) /uL Eos # (Auto) 200 (0-450) /uL Baso # (Auto) 0 (0-100) /uL PT 15.4 H (9.4-12.5) SECONDS INR 1.3 (0.9-1.3) APTT 40 H (25.1-36.5) SECONDS Sodium 140 (137-145) mmol/L Potassium 4.1 (3.4-5.1) mmol/L Chloride 103 (98-107) mmol/L Carbon Dioxide 26 (22-32) mmol/L BUN 13 (7-17) mg/dL Creatinine 0.93 (0.52-1.04) mg/dL Estimated GFR > 60 (>60) mL/min BUN/Creatinine Ratio 14.0 (6-22) Glucose 99 (80-110) mg/dL Calcium 9.9 (8.4-10.2) mg/dL Magnesium 2.1 (1.6-2.3) mg/dL Total Bilirubin 1.2 (0.2-1.3) mg/dL AST 32 (14-36) IU/L ALT 31 (<35) IU/L Alkaline Phosphatase 63 (38-126) U/L Total Creatine Kinase 38 (30-135) U/L Troponin I < 0.012 (0.01-0.034) ng/mL Total Protein 7.8 (6.3-8.2) g/dL Albumin 4.4 (3.5-5.0) g/dL Globulin 3.4 (1.7-4.1) g/dL Albumin/Globulin Ratio 1.3 (1.0-2.8) Lipase 111 (23-300) U/L Urine Color Yellow Urine Appearance Clear Urine pH 7.0 (4.5-8.0) Ur Specific [place] 1.010 (1.000-1.035) Urine Protein Negative (Negative) Urine Glucose (UA) Negative (Negative) g/dL Urine Ketones Negative (NEGATIVE) Urine Occult Blood Negative (Negative) Urine Nitrate Negative (Negative) Urine Bilirubin Negative (NEGATIVE) Urine Urobilinogen 0.2 (0.2) E.U./dL Ur Leukocyte Esterase Negative (NEGATIVE) Urine RBC None seen (0-5/HPF) Urine WBC 5-10/hpf H (0-5/HPF) Ur Squamous Epith Cells 5-10 /hpf H (0-5/HPF) Urine Bacteria Occasional (0-1) (None) Ur Culture Indicated? Specimen cultured Vol Urine Centrifuged 10ml (spun) MDM Narrative Medical decision making narrative: 78-year-old female with past medical history atrial fibrillation presents to the ED for a low home blood pressure reading. Concerns for ACS versus UTI versus viral URI versus pneumonia versus other. Obtained labs, UA, chest x-ray, EKG, troponin. Labs and troponin within normal limits. UA shows UTI. Chest x-ray without acute findings. EKG is normal sinus rhythm with no acute ST T changes. In the ED, vitals within normal limits. Blood pressure 138/68. Discussed findings with patient. Prescribed antibiotics. Recommend follow-up with PCP as soon as possible. ED return precautions discussed with patient. Patient verbalized understanding. Medical records reviewed: Yes <Geraldine Baum, DO - Last Filed: 09/16/23 19:15> Lab Data Labs: Lab Results 09/16/23 09/16/23 Range/Units 13:25 14:16 WBC 5.4 (4.5-11.0) X10^3/uL RBC 4.60 (4.0-5.2) X10^6/uL Hgb 14.2 (12.0-16.0) g/dL Hct 41.8 (36-46) % MCV 90.9 (80-100) fL MCH 30.9 (26-34) PG MCHC 34.0 (30-36) % RDW 14.1 (11.6-14.8) % Plt Count 238 (150-400) X10^3/uL Neut % (Auto) 53.4 (50-75) % Lymph % (Auto) 31.9 (25-40) % Cand[place] % (Auto) 10.1 (3-14) % Eos % (Auto) 3.7 (2-4) % Baso % (Auto) 0.9 (0-2) % Neut # (Auto) 2900 (5692-3282) /uL Lymph # (Auto) 1700 (9628-6030) /uL [place] # (Auto) 500 (0-900) /uL Eos # (Auto) 200 (0-450) /uL Baso # (Auto) 0 (0-100) /uL PT 15.4 H (9.4-12.5) SECONDS INR 1.3 (0.9-1.3) APTT 40 H (25.1-36.5) SECONDS Sodium 140 (137-145) mmol/L Potassium 4.1 (3.4-5.1) mmol/L Chloride 103 (98-107) mmol/L Carbon Dioxide 26 (22-32) mmol/L BUN 13 (7-17) mg/dL Creatinine 0.93 (0.52-1.04) mg/dL Estimated GFR > 60 (>60) mL/min BUN/Creatinine Ratio 14.0 (6-22) Glucose 99 (80-110) mg/dL Calcium 9.9 (8.4-10.2) mg/dL Magnesium 2.1 (1.6-2.3) mg/dL Total Bilirubin 1.2 (0.2-1.3) mg/dL AST 32 (14-36) IU/L ALT 31 (<35) IU/L Alkaline Phosphatase 63 (38-126) U/L Total Creatine Kinase 38 (30-135) U/L Troponin I < 0.012 (0.01-0.034) ng/mL Total Protein 7.8 (6.3-8.2) g/dL Albumin 4.4 (3.5-5.0) g/dL Globulin 3.4 (1.7-4.1) g/dL Albumin/Globulin Ratio 1.3 (1.0-2.8) Lipase 111 (23-300) U/L Urine Color Yellow Urine Appearance Clear Urine pH 7.0 (4.5-8.0) Ur Specific [place] 1.010 (1.000-1.035) Urine Protein Negative (Negative) Urine Glucose (UA) Negative (Negative) g/dL Urine Ketones Negative (NEGATIVE) Urine Occult Blood Negative (Negative) Urine Nitrate Negative (Negative) Urine Bilirubin Negative (NEGATIVE) Urine Urobilinogen 0.2 (0.2) E.U./dL Ur Leukocyte Esterase Negative (NEGATIVE) Urine RBC None seen (0-5/HPF) Urine WBC 5-10/hpf H (0-5/HPF) Ur Squamous Epith Cells 5-10 /hpf H (0-5/HPF) Urine Bacteria Occasional (0-1) (None) Ur Culture Indicated? Specimen cultured Vol Urine Centrifuged 10ml (spun) Discharge Plan Departure Patient Disposition: Home Clinical Impression: UTI (urinary tract infection) Qualifiers: Urinary tract infection type: site unspecified Hematuria presence: without hematuria Qualified Code(s): N39.0 - Urinary tract infection, site not specified Instructions: DI for Urinary Tract Infection (UTI) Activity Restrictions/Additional Instructions: You were evaluated in the ED today for tiredness and low blood pressure. Your blood pressure was normal in the emergency department. You are being prescribed antibiotics for urinary tract infection, which could likely be making you feel tired. Your labs and chest x-ray were normal. Please take the antibiotics as prescribed. Please follow-up with your PCP as soon as possible. Return to the ED if you have worsening symptoms, chest pain, shortness of breath. Prescriptions: New cefpodoxime 200 mg tablet 200 mg PO Q12H 10 Days Qty: 20 0RF Rx Instructions: must administer with a meal/food No Action irbesartan 75 mg tablet 75 mg PO DAILY omeprazole 20 mg capsule,delayed release(DR/EC) 20 mg PO DAILY tumeric root 500 mg capsule 500 mg PO 1XD Zicam 1 dose intranasal 1XD amlodipine [Norvasc] 5 mg Tablet 5 mg PO DAILY garlic Capsule 1 cap PO 1XD clobetasol [Temovate] 0.05 % Ointment 1 applic TOPICAL BID acetylcysteine 600 mg Capsule 600 mg PO DAILY triamcinolone acetonide 0.1 % Cream 1 applic TOPICAL BID diclofenac sodium [Arthritis Pain (diclofenac)] 1 % gel 2 g topical QID PRN (Reason: arm pain) Qty: 100 0RF Rx Instructions: apply to arm as needed for pain hydrocodone-acetaminophen 5-325 mg tablet 1 tab PO TID PRN (Reason: pain) Qty: 10 0RF meclizine 25 mg tablet 25 mg PO BID-TID PRN (Reason: dizziness) Qty: 14 0RF diltiazem HCl 360 mg capsule,extended release 24 hr 360 mg PO DAILY Qty: 90 0RF metoprolol succinate 50 mg tablet extended release 24 hr 50 mg PO BID Qty: 60 0RF amoxicillin-pot clavulanate 875-125 mg tablet 1 tab PO Q12H Qty: 10 0RF doxycycline hyclate 100 mg capsule 100 mg PO BID Qty: 10 0RF apixaban 5 mg tablet 5 mg PO BID Qty: 60 0RF atorvastatin 20 mg tablet 20 mg PO DAILY Vitamin B-12 5,000 mcg sublingual DAILY Referrals: Aye Liu MD [Primary Care Provider] - Stand Alone Forms: Patient Portal/API ED Sign-out <Geraldine Baum DO - Last Filed: 09/16/23 19:15> Cosign ED Attending Cossuzanneature Attestation: I was immediately available in the department for consultation.
[2023-09-16 15:57] VITALS: BP 138/68; PULSE 59; RESP 18; O2SAT 96
== END 2023-09-16 16:05 | disposition home or self-care (01) ==
PROVIDERS: Emergency Medicine; Emergency Provider Student in an Organized Health Care Education/Training Program; Family Provider Physician Assistant; PCP Internal Medicine
DX: N39.0 Urinary tract infection, site not specified (principal); R03.1 Nonspecific low blood-pressure reading
CPT/HCPCS: 36415; 71045; 80053; 81001; 82550; 83690; 83735; 84484; 85025; 85610; 85730; 87077; 87086; 87186; 93005; 93010; 99284

== ENCOUNTER → 2023-10-24 14:10 | Outpatient (CLI) | payer OTHER, SELFPAY ==
[2023-05-31 14:28] VITALS: BMI 31.8
--- NOTE | 2023-10-24 14:12 | DI.RAD.S_ITS ---
PROCEDURE: XR FOOT RT MIN 3V INDICATIONS: RIGHT FOOT PAIN TECHNIQUE: 3 views of the foot were acquired. COMPARISON: [facility], , FOOT 3V RIGHT, 12/26/2010, 10:35. [facility], , FOOT 3V RIGHT, 12/01/2010, 10:51. FINDINGS: Bones: No fractures or dislocations. Moderate diffuse interphalangeal joint degeneration. Mild plantar and posterior calcaneal spurring. No suspicious bony lesions. Soft tissues: No tibiotalar joint effusion. Achilles tendon appears normal. IMPRESSION: 1. No acute osseous abnormalities. 2. Moderate interphalangeal joint degeneration. 3. Mild plantar and posterior calcaneal spurring. Dictated by: Foreign Martinez M.D. on 10/24/2023 at 16:15 Approved by: Foreign Martinez M.D. on 10/24/2023 at 16:16
== END ==
LOC: RAD 14:11
PROVIDERS: Family Provider Physician Assistant; PCP Internal Medicine; Referring Provider Internal Medicine; Visit Provider Internal Medicine
DX: M19.071 Primary osteoarthritis, right ankle and foot (principal); M77.31 Calcaneal spur, right foot; M79.671 Pain in right foot
CPT/HCPCS: 73630

== ENCOUNTER → 2023-11-06 13:55 | Outpatient (CLI) | payer MEDICARE, SELFPAY ==
[2023-05-31 14:28] VITALS: BMI 31.8
--- NOTE | 2023-11-06 13:57 | DI.CT.S_ITS ---
PROCEDURE: CT ABDOMEN PELVIS W CON INDICATIONS: Unspecified abdominal pain TECHNIQUE: After the administration of intravenous contrast, axial sections acquired from the lung bases to the pubic symphysis. Coronal and sagittal reformats were performed. For radiation dose reduction, the following was used: automated exposure control, adjustment of mA and/or kV according to patient size. COMPARISON: None. FINDINGS: Image quality: Diagnostic. Lower Chest: Right lower lobe linear atelectasis/scar. No suspicious pulmonary nodule. No pleural effusion ABDOMEN: Liver: Mild diffuse hypoattenuation of the liver. No solid lesion. Gallbladder: Cholelithiasis without acute cholecystitis. Biliary ducts: No biliary dilation. Pancreas: No ductal dilation. Spleen: Size is within normal limits. Adrenal Glands: No adrenal nodules. Kidneys and Ureters: No hydronephrosis. No solid mass. No complex renal cystic lesion which requires follow up. A few bilateral subcentimeter cortical hypodensities are too small to characterize, statistically cysts. Stomach and Bowel: No hiatal hernia. Stomach appears grossly normal. Small and large bowel is normal in caliber, without obstruction. Normal appendix (2/58). A few scattered colonic diverticuli, without diverticulitis. Peritoneum: No abnormal intraperitoneal fluid. No free air. Ventral Wall: Tiny fat containing umbilical hernia. Abdominal Nodes: No retroperitoneal or mesenteric adenopathy by size criteria. Vessels: Aorta and inferior vena cava are normal in size. Mild calcification of the abdominal aorta. Patent mesenteric vessels. Patent portal, splenic and bilateral renal veins. PELVIS: Pelvic Organs: Unremarkable. Bladder: No bladder wall thickening, accounting for underdistention. Pelvic Nodes: No enlarged lymph nodes. Miscellaneous: No inguinal hernias are seen. Bones: No aggressive osseous abnormality. No definite acute fractures. Grade 1 anterolisthesis of L4 on L5. Chronic appearing anterior wedging of the T12 vertebral body (4/45). [id number] multilevel degenerative changes of the spine. IMPRESSION: 1. No acute pathology in the abdomen or pelvis. Normal appendix. 2. Cholelithiasis without acute cholecystitis. 3. Colonic diverticulosis, without diverticulitis. 4. Mild diffuse hypoattenuation of the liver which may be seen in the setting of parenchymal disease such as steatosis. Dictated by: Raymundo Bryan M.D. on 11/06/2023 at 19:40 Approved by: Raymundo Bryan M.D. on 11/06/2023 at 19:45
== END ==
LOC: CT 13:56
PROVIDERS: Family Provider Physician Assistant; PCP Internal Medicine; Referring Provider Internal Medicine; Visit Provider Internal Medicine
DX: K80.20 Calculus of gallbladder without cholecystitis without obstruction (principal); K57.90 Diverticulosis of intestine, part unspecified, without perforation or abscess without bleeding; R10.9 Unspecified abdominal pain
CPT/HCPCS: 74177; Q9967

== ENCOUNTER 2023-12-09 19:09 | Observation (INO) | payer MEDICARE, SELFPAY ==
[2023-05-31 14:28] VITALS: BMI 31.8
[2023-12-09] VITALS (13 sets, daily range): BP systolic 126–163; BP diastolic 60–75; PULSE 59–73; RESP 14–28; TEMP 36.7; O2SAT 96–98; BMI 37.8
--- NOTE | 2023-12-09 19:47 | DI.CT.S_ITS ---
PROCEDURE: CT HEAD/BRAIN WO CON INDICATIONS: probable TIA TECHNIQUE: Noncontrast 4.5 mm thick angled axial sections acquired from the foramen magnum to the vertex, with coronal and sagittal reformats. For radiation dose reduction, the following was used: automated exposure control, adjustment of mA and/or kV according to patient size. COMPARISON: [facility], CT, CT HEAD/BRAIN WO CON, 12/28/2022, 13:42. FINDINGS: Image quality: Diagnostic CSF spaces: Basal cisterns are patent. Lateral ventricles are symmetric. Volume: Vascular calcifications. Periventricular white matter disease is commonly seen with chronic microangiopathy. Volume loss is present. These findings are [id number] Brain: No intracranial hemorrhage. Garza-white differentiation is grossly maintained. Craniofacial structures: No displaced fracture. Sinuses are clear. Orbits are intact. IMPRESSION: No acute intracranial abnormality. If there is high concern for infarct, consider MRI. Dictated by: Jaya Gage M.D. on 12/09/2023 at 21:09 Approved by: Jaya Gage M.D. on 12/09/2023 at 21:10
--- NOTE | 2023-12-09 19:47 | DI.CT.S_ITS ---
PROCEDURE: CT ANGIO HEAD AND NECK INDICATIONS: probable TIA TECHNIQUE: After the administration of intravenous contrast, 1 mm thick sections acquired from the aortic arch through the [place] of [place]. 3-dimensional phwlqdn-zxunmpiuu-yvhaqyfdzs (MIP) and/or volume rendering reformats were acquired of the central intracranial vasculature and neck separately. For radiation dose reduction, the following was used: automated exposure control, adjustment of mA and/or kV according to patient size. COMPARISON: None. FINDINGS: Image quality: Diagnostic HEAD ANGIOGRAPHY: Anterior circulation: ICAs: Mild cavernous carotid calcifications. ACAs: Normal and symmetric MCAs: Normal and symmetric AComm: No aneurysm Venous sinuses: Not well evaluated on this study. No definite thrombus Posterior circulation: Dominance: Equal Vertebral arteries: No stenosis or occlusion. No aneurysm. Basilar artery: Unremarkable PComms: No aneurysm computer builder: Unremarkable NECK ANGIOGRAPHY: Aortic arch and subclavian arteries: No stenosis. Incidentally noted retroesophageal course of the right subclavian artery. CCAs: No stenosis, occlusion, or aneurysm. ICA origins (by NASCET criteria): Mild bilateral calcifications, less than 50% narrowing. ICAs: No stenosis, occlusion or aneurysm. ECAs: Origins are patent. Vertebral arteries: Patent. The right vertebral artery arises from the right CCA. Soft tissues: There are prominent mediastinal hilar lymph nodes of uncertain etiology. Lung apices: No pneumothorax Bones: Degenerative changes. Right maxillary sinus mucous cyst. IMPRESSION: No high-grade stenosis or large vessel occlusion. Other findings as above. Borderline enlarged mediastinal and hilar lymph nodes of uncertain etiology partially visualized. If there is further concern for infarct, consider MRI. Any quantitative measurements of stenosis were performed using NASCET criteria. Dictated by: Jaya Gage M.D. on 12/09/2023 at 21:11 Approved by: Jaya Gage M.D. on 12/09/2023 at 21:17
[2023-12-09 19:49] LABS: Add Manual Diff / Slide Review NO; Basophils Absolute Auto 100 /uL (0-100); Basophils Percent Auto 1.1 % (0-2); Eosinophils Absolute Auto 300 /uL (0-450); Eosinophils Percent Auto 4.7 % (2-4); Hematocrit 39.8 % (36-46); Hemoglobin 13.3 g/dL (12.0-16.0); Lymphocytes Absolute Auto 2100 /uL (1100-4500); Lymphocytes Percent Auto 36.3 % (25-40); Mean Corpuscular HGB Conc 33.4 % (30-36); Mean Corpuscular Hemoglobin 31.1 PG (26-34); Monocytes Absolute Auto 600 /uL (0-900); Monocytes Percent Auto 10.4 % (3-14); Neutrophils Absolute Auto 2700 /uL (1500-7000); Neutrophils Percent Auto 47.5 % (50-75); Platelet Count 220 X10^3/uL (150-400); Red Blood Cell Count 4.28 X10^6/uL (4.0-5.2); Red Cell Distribution Width 14.1 % (11.6-14.8); White Blood Cell Count 5.8 X10^3/uL (4.5-11.0)
[2023-12-09 19:51] LABS: INR 1.1 (0.9-1.3); Prothrombin Time 12.4 SECONDS (9.4-12.5)
--- NOTE | 2023-12-09 19:51 | ED.GENADULT ---
HPI - General Adult General Chief complaint: Dizziness Stated complaint: feeling funny could be meds or stroke Time Seen by Provider: 12/09/23 19:25 Source: patient Mode of arrival: Ambulatory History of Present Illness HPI narrative: 78-year-old female who comes in the emergency department for evaluation of potentially a adverse reaction to her medication versus having a stroke. She states that at about 12 30 today she noticed that she was having problems speaking. States she was having word-finding problems and also getting the words out. She states she was talking to people at the time. She was at a ?meeting? and she stated that other individuals in the meeting had to finish her sentences. Also with the time she noticed some tingling on the left side of face and also in the left side of her arm. She was unsure as to how long the symptoms lasted although she does feel like they have come and gone over the past several hours. She denies headache, chest pain, shortness of breath, abdominal pain, nausea vomiting, lower extremity symptoms or vision changes. She does have a history of atrial fibrillation but had an ablation earlier this year. She is on anticoagulation. She also states that she is on gabapentin. She thinks that maybe the gabapentin was causing the symptoms although this is not a new medication for her. Related Data Home Medications Medication Instructions Recorded Confirmed Zicam 1 dose intranasal 1XD 05/18/19 05/31/23 irbesartan 75 mg tablet 75 mg PO DAILY 05/18/19 05/31/23 omeprazole 20 mg capsule,delayed 20 mg PO DAILY 05/18/19 05/31/23 release tumeric root 500 mg PO 1XD 05/18/19 05/31/23 acetylcysteine 600 mg capsule 600 mg PO DAILY 11/25/22 05/31/23 amlodipine 5 mg tablet (Norvasc) 5 mg PO DAILY 11/25/22 05/31/23 clobetasol 0.05 % topical ointment 1 applic topical BID 11/25/22 05/31/23 (Temovate) garlic 1 cap PO 1XD 11/25/22 05/31/23 triamcinolone acetonide 0.1 % 1 applic topical BID 11/25/22 05/31/23 topical cream Vitamin B-12 5,000 mcg sublingual DAILY 02/14/23 05/31/23 atorvastatin 20 mg tablet 20 mg PO DAILY 02/14/23 05/31/23 Previous Rx's Medication Instructions Recorded apixaban 5 mg tablet 5 mg PO BID #60 tabs 07/17/22 diclofenac sodium 1 % topical gel 2 g topical QID PRN arm pain #100 11/29/22 (Arthritis Pain (diclofenac)) grams hydrocodone 5 mg-acetaminophen 325 1 tab PO TID PRN pain #10 tabs 11/29/22 mg tablet meclizine 25 mg tablet 25 mg PO BID-TID PRN dizziness #14 12/28/22 tabs diltiazem HCl 360 mg capsule,24 360 mg PO DAILY #90 caps 06/02/23 hr,extended release metoprolol succinate 50 mg 50 mg PO BID #60 tabs 06/05/23 tablet,extended release 24 hr amoxicillin 875 mg-potassium 1 tab PO Q12H #10 tabs 08/22/23 clavulanate 125 mg tablet doxycycline hyclate 100 mg capsule 100 mg PO BID #10 caps 08/22/23 Allergies Allergy/AdvReac Type Severity Reaction Status Date / Time milk [MILK] Allergy Unknown ACHE ALL Verified 09/16/23 12:20 OVER LIKE COMING DOWN WITH FLU X3 DAYS lisinopril [LISINOPRIL] AdvReac Unknown COUGH Verified 09/16/23 12:20 Review of Systems Review of Systems ROS Unobtainable: All systems reviewed & are unremarkable except as noted in HPI and below Patient History Medical History Paroxysmal atrial fibrillation Pelvic relaxation Postmenopausal atrophic vaginitis Surgical History History of cataract surgery Family History Mother Congestive heart failure Brother CAD (coronary artery disease) of artery bypass graft Social History household members: friend(s) Smoking Status: Never smoker Smoking Status: Never smoker alcohol intake frequency: holidays/special occasions only Substance Use Type: does not use Exam Initial Vital Signs Initial Vital Signs: Vital Signs Temperature 98.1 F 12/09/23 19:18 Pulse Rate 73 12/09/23 19:18 Respiratory Rate 16 12/09/23 19:18 Blood Pressure 161/75 H 05/06/24 19:18 Pulse Oximetry 96 12/09/23 19:18 Oxygen Delivery Method Room Air 12/09/23 19:18 Const General: cooperative, comfortable and No ill appearing HENMT Head: normal to inspection and normocephalic Resp Effort & Inspection: normal respiratory effort Auscultation: clear to auscultation bilaterally Cardio Rate: regular rate Rhythm: regular rhythm GI Inspection: normal to inspection and non-distended Neuro General: patient alert, patient awake, patient oriented x3 and moves all extremities Cranial Nerves: CN's II-XI intact bilaterally Cognition: normal cognition Speech: speech normal Sensory Exam: no sensory deficits noted Coordination: xsoopg-uk-wrdn test normal and ietp-xs-jmiq test normal Extrem General: normal to inspection and capillary refill normal Scores ABCD2 Age >= 60 years: yes Initial BP. Either SBP >= 140 or DBP >= 90.: yes Clinical features of the TIA: speech disturbance without weakness Duration of symptoms: 10-59 minutes History of diabetes: no ABCD2 Score: 4 GCS Logan coma scale eye opening: Spontaneous Logan coma scale verbal response: Orientated Logan coma scale motor response: Obey commands [place] coma scale total score: 15 NIH Stroke Scale Level of Conciousness: Alert, keenly responsive Ask month/age: Answers both questions correctly. Open/close eyes, close hand: Performs both tasks correctly Best gaze horizontal: Normal Visual palm: No visual loss Facial palsy: Normal symetrical movement Left arm drift: No drift for full 10 sec Right arm drift: No drift for full 10 sec Left leg drift: No drift for full 5 sec Right leg drift: No drift for full 5 sec Limb ataxia: Absent Sensory on face/arms/legs: Normal, no sensory loss Best language: No aphasia, normal Dysarthria: Normal Extinction or inattention: No abnormality Total NIH Stroke scale score: 0 Course Orders Ordered: ED Orders 12/09/23 19:30 Complete Blood Count AUTO DIFF Stat Comprehensive Metabolic Panel Stat Lipase Stat PTT Partial Thromboplastin Lars Stat Prothrombin Time INR Stat Troponin & CK Cardiac Panel Stat 12/09/23 19:40 EKG-12 Lead Stat 12/09/23 19:47 CT angio head and neck Stat CT head/brain wo con Stat Acetaminophen (Acetaminophen 325 Mg Tablet) 650 mg PO Q6H PRN PRN Reason: Fever/Mild Pain (1-3) Naloxone HCl (Naloxone 0.4 Mg/Ml Vial) 0.2 mg IV Q2MIN PRN PRN Reason: Opiate Reversal Vital Signs Vital signs: Vital Signs - 8 hr 12/09/23 19:18 12/09/23 19:55 12/09/23 20:00 Temperature 98.1 F Pulse Rate 73 62 63 Respiratory Rate 16 19 20 Blood Pressure 161/75 H Pulse Oximetry 96 96 96 Oxygen Delivery Method Room Air 12/09/23 20:28 12/09/23 20:28 12/09/23 20:30 Temperature Pulse Rate 65 Respiratory Rate 20 Blood Pressure 163/71 H 163/72 H Pulse Oximetry 96 Oxygen Delivery Method 12/09/23 20:30 12/09/23 21:00 12/09/23 21:01 Temperature Pulse Rate 64 61 Respiratory Rate 14 28 H Blood Pressure 134/62 Pulse Oximetry 98 97 Oxygen Delivery Method 12/09/23 21:01 12/09/23 21:30 12/09/23 21:30 Temperature Pulse Rate 64 59 L Respiratory Rate 20 17 Blood Pressure 126/60 Pulse Oximetry 96 96 Oxygen Delivery Method 12/09/23 22:00 12/09/23 22:00 12/09/23 22:30 Temperature Pulse Rate 59 L 62 Respiratory Rate 18 18 Blood Pressure 130/63 146/70 H Pulse Oximetry 96 97 Oxygen Delivery Method Room Air Medical Decision Making Lab Data Lab results reviewed: Yes I reviewed the patient's lab results. 12/09/23 19:30 12/09/23 19:30 Labs: Lab Results 12/09/23 Range/Units 19:30 WBC 5.8 (4.5-11.0) X10^3/uL RBC 4.28 (4.0-5.2) X10^6/uL Hgb 13.3 (12.0-16.0) g/dL Hct 39.8 (36-46) % MCV 93.0 (80-100) fL MCH 31.1 (26-34) PG MCHC 33.4 (30-36) % RDW 14.1 (11.6-14.8) % Plt Count 220 (150-400) X10^3/uL Neut % (Auto) 47.5 L (50-75) % Lymph % (Auto) 36.3 (25-40) % [place] % (Auto) 10.4 (3-14) % Eos % (Auto) 4.7 H (2-4) % Baso % (Auto) 1.1 (0-2) % Neut # (Auto) 2700 (2253-1589) /uL Lymph # (Auto) 2100 ([address]-4547) /uL [place] # (Auto) 600 (0-900) /uL Eos # (Auto) 300 (0-450) /uL Baso # (Auto) 100 (0-100) /uL PT 12.4 (9.4-12.5) SECONDS INR 1.1 (0.9-1.3) APTT 37 H (25.1-36.5) SECONDS Sodium 139 (137-145) mmol/L Potassium 4.2 (3.4-5.1) mmol/L Chloride 106 (98-107) mmol/L Carbon Dioxide 27 (22-32) mmol/L BUN 17 (7-17) mg/dL Creatinine 1.04 (0.52-1.04) mg/dL Estimated GFR 55 L (>60) mL/min BUN/Creatinine Ratio 16.3 (6-22) Glucose 123 H (80-110) mg/dL Calcium 9.4 (8.4-10.2) mg/dL Total Bilirubin 0.8 (0.2-1.3) mg/dL AST 38 H (14-36) IU/L ALT 39 H (<35) IU/L Alkaline Phosphatase 72 (38-126) U/L Total Creatine Kinase 67 (30-135) U/L Troponin I < 0.012 (0.01-0.034) ng/mL Total Protein 7.3 (6.3-8.2) g/dL Albumin 4.5 (3.5-5.0) g/dL Globulin 2.8 (1.7-4.1) g/dL Albumin/Globulin Ratio 1.6 (1.0-2.8) Lipase 98 (23-300) U/L Point of Care Testing Glucose POC 123 Urine Dip Bedside Urine Glucose Negative Bedside Urine Bilirubin - Negative Bedside Urine Ketone - Negative Urine Specific [place] 1.005 Bedside Urine Occult Blood - Negative Bedside Urine pH 6.5 Bedside Urine Protein - Negative Bedside Urine Urobilinogen - Negative Bedside Urine Nitrite - Negative Bedside Urine Leukocytes - Negative Esterase Point of care testing: Point of Care Testing Glucose POC 123 Urine Dip Bedside Urine Glucose Negative Bedside Urine Bilirubin - Negative Bedside Urine Ketone - Negative Urine Specific [place] 1.005 Bedside Urine Occult Blood - Negative Bedside Urine pH 6.5 Bedside Urine Protein - Negative Bedside Urine Urobilinogen - Negative Bedside Urine Nitrite - Negative Bedside Urine Leukocytes - Negative Esterase Imaging Data CT scan - head: Radiologist's Impression: PROCEDURE: CT HEAD/BRAIN WO CON INDICATIONS: probable TIA TECHNIQUE: Noncontrast 4.5 mm thick angled axial sections acquired from the foramen magnum to the vertex, with coronal and sagittal reformats. For radiation dose reduction, the following was used: automated exposure control, adjustment of mA and/or kV according to patient size. COMPARISON: [facility], CT, CT HEAD/BRAIN WO CON, 12/28/2022, 13:42. FINDINGS: Image quality: Diagnostic CSF spaces: Basal cisterns are patent. Lateral ventricles are symmetric. Volume: Vascular calcifications. Periventricular white matter disease is commonly seen with chronic microangiopathy. Volume loss is present. These findings are uhak-hd-qbyuyyuv Brain: No intracranial hemorrhage. Garza-white differentiation is grossly maintained. Craniofacial structures: No displaced fracture. Sinuses are clear. Orbits are intact. IMPRESSION: No acute intracranial abnormality. If there is high concern for infarct, consider MRI. CTA - brain/neck: Radiologist's Impression: PROCEDURE: CT ANGIO HEAD AND NECK INDICATIONS: probable TIA TECHNIQUE: After the administration of intravenous contrast, 1 mm thick sections acquired from the aortic arch through the [place] of [place]. 3-dimensional kryztfi-yhgyodhyw-nxgkqvncch (MIP) and/or volume rendering reformats were acquired of the central intracranial vasculature and neck separately. For radiation dose reduction, the following was used: automated exposure control, adjustment of mA and/or kV according to patient size. COMPARISON: None. FINDINGS: Image quality: Diagnostic HEAD ANGIOGRAPHY: Anterior circulation: ICAs: Mild cavernous carotid calcifications. ACAs: Normal and symmetric MCAs: Normal and symmetric AComm: No aneurysm Venous sinuses: Not well evaluated on this study. No definite thrombus Posterior circulation: Dominance: Equal Vertebral arteries: No stenosis or occlusion. No aneurysm. Basilar artery: Unremarkable PComms: No aneurysm tune up mechanic: Unremarkable NECK ANGIOGRAPHY: Aortic arch and subclavian arteries: No stenosis. Incidentally noted retroesophageal course of the right subclavian artery. CCAs: No stenosis, occlusion, or aneurysm. ICA origins (by NASCET criteria): Mild bilateral calcifications, less than 50% narrowing. ICAs: No stenosis, occlusion or aneurysm. ECAs: Origins are patent. Vertebral arteries: Patent. The right vertebral artery arises from the right CCA. Soft tissues: There are prominent mediastinal hilar lymph nodes of uncertain etiology. Lung apices: No pneumothorax Bones: Degenerative changes. Right maxillary sinus mucous cyst. IMPRESSION: No high-grade stenosis or large vessel occlusion. Other findings as above. Borderline enlarged mediastinal and hilar lymph nodes of uncertain etiology partially visualized. If there is further concern for infarct, consider MRI. Any quantitative measurements of stenosis were performed using NASCET criteria. ECG Data Attestation: I personally reviewed and interpreted this ECG as follows: Interpretation: Sinus rhythm Ventricular rate is 61 Normal axis QRS Normal QTC No ST T wave changes MDM Narrative Medical decision making narrative: NIH score of 0. No objective findings on her neurologic exam. ABCD2 score of 4. She was on anticoagulation. Patient is not a candidate for tPA. No CTA findings that would lead to a code IR. I did discuss the case with Dr. Sandhu hospitalist on-call. We will admit for TIA and further workup. Discussed the need for admission with the patient. She expressed understanding and agreement with plan. Discharge Plan Departure Patient Disposition: Admitted as Observation Clinical Impression: Brain TIA Admit Date/Time: 12/09/23 22:32 Admit Provider: Dereje Goldstein
[2023-12-09 19:53] LABS: PTT Partial Thromboplastin Tim 37 SECONDS (25.1-36.5)
[2023-12-09 19:56] LABS: Alanine Aminotransferase 39 IU/L (<35); Albumin 4.5 g/dL (3.5-5.0); Albumin Globulin Ratio 1.6 (1.0-2.8); Alkaline Phosphatase 72 U/L (38-126); Aspartate Aminotransferase 38 IU/L (14-36); BUN Creatinine Ratio 16.3 (6-22); Bilirubin Total 0.8 mg/dL (0.2-1.3); Blood Urea Nitrogen 17 mg/dL (7-17); Calcium 9.4 mg/dL (8.4-10.2); Carbon Dioxide 27 mmol/L (22-32); Chloride 106 mmol/L (98-107); Creatine Kinase 67 U/L (30-135); Estimated Glomerular Filt Rate 55 mL/min (>60); Globulin 2.8 g/dL (1.7-4.1); Glucose 123 mg/dL (80-110); HEMOLYSIS 17 (0-50); Lipase 98 U/L (23-300); Potassium 4.2 mmol/L (3.4-5.1); Sodium 139 mmol/L (137-145); Total Protein 7.3 g/dL (6.3-8.2)
[2023-12-09 20:06] LABS: Troponin I < 0.012 ng/mL (0.01-0.034)
[2023-12-10] VITALS (11 sets, daily range): BP systolic 132–150; BP diastolic 61–73; PULSE 56–62; RESP 12–28; TEMP 36.5–36.6; O2SAT 96–98; BMI 37.8
--- NOTE | 2023-12-10 00:34 | P.HP_ITS ---
History of Present Illness History of Present Illness Date Patient Seen: 12/09/23 Time Patient Seen: 23:30 Chief complaint: feeling funny could be meds or stroke Narrative: 78-year-old female with history of PAF, s/p ablation with Dr. Patel at [facility] in August this year, maintained on Eliquis, presented to ED with left facial tingling and difficulty finding appropriate words. She was having these symptoms on and off, apparently the whole day before her presentation. In the ED initial stroke workup not revealing. CTH, CTA w/o evidence of CVA. Symptoms were still present as faint tingling at the time of admission. BP in the ED elevated. She denies muscle weakness, palpitations, SOB or dysuria. She was seen in the ED in the past several times, last time in September for UTI. Placed in observation with suspected TIA, to r/o CVA [facility], [facility] Medical History Paroxysmal atrial fibrillation Pelvic relaxation Postmenopausal atrophic vaginitis Surgical History History of cataract surgery Family History Mother Congestive heart failure Brother CAD (coronary artery disease) of artery bypass graft Social History household members: friend(s) Smoking Status: Never smoker alcohol intake: current Meds Home Medications and Allergies Home Medications Medication Instructions Recorded Confirmed Type Zicam 1 dose intranasal 1XD 05/18/19 05/31/23 History irbesartan 75 mg tablet 75 mg PO DAILY 05/18/19 05/31/23 History omeprazole 20 mg capsule,delayed 20 mg PO DAILY 05/18/19 05/31/23 History release tumeric root 500 mg PO 1XD 05/18/19 05/31/23 History apixaban 5 mg tablet 5 mg PO BID #60 tabs 07/17/22 08/22/23 Rx acetylcysteine 600 mg capsule 600 mg PO DAILY 11/25/22 05/31/23 History amlodipine 5 mg tablet (Norvasc) 5 mg PO DAILY 11/25/22 05/31/23 History clobetasol 0.05 % topical ointment 1 applic topical BID 11/25/22 05/31/23 History (Temovate) garlic 1 cap PO 1XD 11/25/22 05/31/23 History triamcinolone acetonide 0.1 % 1 applic topical BID 11/25/22 05/31/23 History topical cream diclofenac sodium 1 % topical gel 2 g topical QID PRN arm pain #100 11/29/22 05/31/23 Rx (Arthritis Pain (diclofenac)) grams hydrocodone 5 mg-acetaminophen 325 1 tab PO TID PRN pain #10 tabs 11/29/22 05/31/23 Rx mg tablet meclizine 25 mg tablet 25 mg PO BID-TID PRN dizziness #14 12/28/22 05/31/23 Rx tabs Vitamin B-12 5,000 mcg sublingual DAILY 02/14/23 05/31/23 History atorvastatin 20 mg tablet 20 mg PO DAILY 02/14/23 05/31/23 History diltiazem HCl 360 mg capsule,24 360 mg PO DAILY #90 caps 06/02/23 Rx hr,extended release metoprolol succinate 50 mg 50 mg PO BID #60 tabs 06/05/23 08/22/23 Rx tablet,extended release 24 hr amoxicillin 875 mg-potassium 1 tab PO Q12H #10 tabs 08/22/23 Rx clavulanate 125 mg tablet doxycycline hyclate 100 mg capsule 100 mg PO BID #10 caps 08/22/23 Rx Allergies Allergy/AdvReac Type Severity Reaction Status Date / Time milk [MILK] Allergy Unknown ACHE ALL Verified 09/16/23 12:20 OVER LIKE COMING DOWN WITH FLU X3 DAYS lisinopril [LISINOPRIL] AdvReac Unknown COUGH Verified 09/16/23 12:20 Review of Systems Constitutional Comments: w/o fever, chills, sweats Eyes Comments: w/o recent vision changes Cardiovascular Comments: w/o palpitations or chest pain Respiratory Comments: w/o shortness of breath Gastrointestinal Comments: w/o complaints Neurologic Comments: Left facial numbness / tingling, difficulties with words finding, all acute,episodic, starting earlier today Exam Vital Signs (past 8 hours): - 12/09/23 19:18 12/09/23 19:55 12/09/23 20:00 Temperature 98.1 F Pulse Rate 73 62 63 Respiratory Rate 16 19 20 Blood Pressure 161/75 H Pulse Oximetry 96 96 96 Oxygen Delivery Method Room Air 12/09/23 20:28 12/09/23 20:28 12/09/23 20:30 Temperature Pulse Rate 65 Respiratory Rate 20 Blood Pressure 163/71 H 163/72 H Pulse Oximetry 96 Oxygen Delivery Method 12/09/23 20:30 12/09/23 21:00 12/09/23 21:01 Temperature Pulse Rate 64 61 Respiratory Rate 14 28 H Blood Pressure 134/62 Pulse Oximetry 98 97 Oxygen Delivery Method 12/09/23 21:01 12/09/23 21:30 12/09/23 21:30 Temperature Pulse Rate 64 59 L Respiratory Rate 20 17 Blood Pressure 126/60 Pulse Oximetry 96 96 Oxygen Delivery Method 12/09/23 22:00 12/09/23 22:00 12/09/23 22:30 Temperature Pulse Rate 59 L 62 Respiratory Rate 18 18 Blood Pressure 130/63 146/70 H Pulse Oximetry 96 97 Oxygen Delivery Method Room Air Oxygen Delivery Method Room Air Const Other: In no distress Neck Other: supple Cardio Other: RRR, w/o murmurs, w/o JVD, w/o edemas GI Other: not distended Skin Other: w/o rashes Neuro Other: episodes of expressive aphasia and left facial paresthesia today - on admission she still feels minor tingling of left face Without focal weakness Extrem Other: w/o swelling Psych Other: appropriate mood, lucid Objective ECG Impression: NSR, w/o ischemic changes Labs 12/09/23 19:30 12/09/23 19:30 Labs: Laboratory Results - last 24 hr 12/09/23 19:30 WBC 5.8 RBC 4.28 Hgb 13.3 Hct 39.8 MCV 93.0 MCH 31.1 MCHC 33.4 RDW 14.1 Plt Count 220 Neut % (Auto) 47.5 L Lymph % (Auto) 36.3 [place] % (Auto) 10.4 Eos % (Auto) 4.7 H Baso % (Auto) 1.1 Neut # (Auto) 2700 Lymph # (Auto) 2100 [place] # (Auto) 600 Eos # (Auto) 300 Baso # (Auto) 100 PT 12.4 INR 1.1 APTT 37 H Sodium 139 Potassium 4.2 Chloride 106 Carbon Dioxide 27 BUN 17 Creatinine 1.04 Estimated GFR 55 L BUN/Creatinine Ratio 16.3 Glucose 123 H Calcium 9.4 Total Bilirubin 0.8 AST 38 H ALT 39 H Alkaline Phosphatase 72 Total Creatine Kinase 67 Troponin I < 0.012 Total Protein 7.3 Albumin 4.5 Globulin 2.8 Albumin/Globulin Ratio 1.6 Lipase 98 Assessment & Plan Assessment and plan (1) Brain TIA: Status: Acute (2) Paroxysmal atrial fibrillation: Status: Acute (3) HTN (hypertension): Status: Acute (4) GERD (gastroesophageal reflux disease): Status: Acute Assessment & Plan narrative: TIA - at risk for stroke - placed in observation on outsole tacker - MRI pending, CTs non-revealing - last echo > 1 year ago, unremarkable - echo with bubble study - lipid panel, A1C, TSH pending PAF - s/p ablation - maintains NSR on BB and CCB - anticoagulated with Eliquis, compliant, w/o a history of easy bruising or bleeding HTN - continuing with CCB and BB - holding Norvasc and irbesartan to allow for permissive HTN GERD - PPI Scores NIHSS Sensory on face/arms/legs: Mild to moderate sensory loss, can tell touch
--- NOTE | 2023-12-10 01:12 | PC.NURSE ---
Admission assessment completed in the ED prior to transfer to ACU.
--- NOTE | 2023-12-10 06:25 | PC.NURSE ---
Pt resting on stretcher, RR even and unlabored, NAD noted.
[2023-12-10] MEDS: PANTOPRAZOLE DR 20 MG TABLET PO (06:33)
[2023-12-10 06:43] LABS: Add Manual Diff / Slide Review NO; Basophils Absolute Auto 100 /uL (0-100); Eosinophils Absolute Auto 200 /uL (0-450); Eosinophils Percent Auto 4.2 % (2-4); Hematocrit 39.6 % (36-46); Hemoglobin 13.4 g/dL (12.0-16.0); Lymphocytes Absolute Auto 1500 /uL (1100-4500); Lymphocytes Percent Auto 26.9 % (25-40); Mean Corpuscular HGB Conc 33.7 % (30-36); Mean Corpuscular Hemoglobin 31.5 PG (26-34); Mean Corpuscular Volume 93.4 fL (80-100); Monocytes Absolute Auto 700 /uL (0-900); Monocytes Percent Auto 12.2 % (3-14); Neutrophils Absolute Auto 3100 /uL (1500-7000); Neutrophils Percent Auto 55.7 % (50-75); Platelet Count 197 X10^3/uL (150-400); Red Blood Cell Count 4.24 X10^6/uL (4.0-5.2); Red Cell Distribution Width 14.1 % (11.6-14.8); White Blood Cell Count 5.5 X10^3/uL (4.5-11.0)
[2023-12-10 07:04] LABS: BUN Creatinine Ratio 17.9 (6-22); Blood Urea Nitrogen 14 mg/dL (7-17); Calcium 8.7 mg/dL (8.4-10.2); Carbon Dioxide 27 mmol/L (22-32); Chloride 109 mmol/L (98-107); Cholesterol 124 mg/dL (140-199); Estimated Glomerular Filt Rate > 60 mL/min (>60); Glucose 94 mg/dL (80-110); HDL Cholesterol 53 mg/dL (40-60); HEMOLYSIS < 15 (0-50); LDL Cholesterol Calculated 58 mg/dL (<100); Magnesium 2.1 mg/dL (1.6-2.3); Potassium 4.1 mmol/L (3.4-5.1); Sodium 140 mmol/L (137-145); Triglycerides 64 mg/dL (35-150)
[2023-12-10 07:31] LABS: Hemoglobin A1C% w Est Avg Glu 5.6 % (4.0-6.0)
--- NOTE | 2023-12-10 07:41 | DI.MRI.S_ITS ---
PROCEDURE: MR HEAD/BRAIN WO CON INDICATIONS: Please evaluate for cva TECHNIQUE: Non-contrast axial T1 spin echo, axial T2 fast spin echo, sagittal and axial FLAIR, coronal T2 fast spin echo, axial gradient echo, axial diffusion and ADC through the brain. COMPARISON: [facility], MR, MR BRAIN WITHOUT CONTRAST, 02/13/2023, 17:48. [facility], CT, CT ANGIO HEAD AND NECK, 12/09/2023, 20:11. [facility], CT, CT HEAD/BRAIN WO CON, 12/09/2023, 20:11. FINDINGS: Image quality: Excellent. CSF spaces: Ventricles appear symmetric in size and shape. Basal cisterns are patent. No extra-axial fluid collections. Brain: No intracranial bleeds or mass effects. There is cerebral volume loss for age. There are periventricular and deep white matter chronic small vessel ischemic changes. Brainstem appears normal. Diffusion-weighted images show no acute infarct. No chronic ischemic insults. Normal intravascular flow voids are present. Relatively prominent perivascular spaces are noted. Skull and face: Calvarial bone marrow is normal in signal. Orbits are normal. Note is made of bilateral lens replacements. Sinuses: There is a mucous retention cyst within the right maxillary sinus. Sinuses and mastoids are otherwise clear. IMPRESSION: No findings of acute or subacute infarction can be seen. Dictated by: Adelfo Casas M.D. on 12/10/2023 at 9:46 Approved by: Adelfo Casas M.D. on 12/10/2023 at 9:48
[2023-12-10] MEDS: ATORVASTATIN 20 MG TABLET PO (08:39)
[2023-12-10] MEDS: APIXABAN 5 MG TABLET PO (08:40)
--- NOTE | 2023-12-10 09:23 | PC.NURSE ---
Pharmacy contacted about pt med discrepancy. Med list updated. Pharmacy stated to contact Hospitalist. MD Oneil called and informed of needed updated med list.
[2023-12-10 10:38] LABS: Thyroid Stimulating Hormone 3.61 uIU/mL (0.47-4.68)
--- NOTE | 2023-12-10 11:02 | P.DS_ITS ---
History of Present Illness History of Present Illness Date Patient Seen: 12/10/23 Time Patient Seen: 11:02 Chief complaint: feeling funny could be meds or stroke Narrative: Per admitting provider, 78-year-old female with history of PAF, s/p ablation with Dr. Patel at [facility] in August this year, maintained on Eliquis, presented to ED with left facial tingling and difficulty finding appropriate words. She was having these symptoms on and off, apparently the whole day before her presentation. In the ED initial stroke workup not revealing. CTH, CTA w/o evidence of CVA. Symptoms were still present as faint tingling at the time of admission. BP in the ED elevated. She denies muscle weakness, palpitations, SOB or dysuria. She was seen in the ED in the past several times, last time in September for UTI. Placed in observation with suspected TIA, to r/o CVA Discharge Providers Provider Date of admission: 12/09/23 22:32 Discharge Date: 12/10/23 Primary care physician: Aye iLu MD Discharge provider: Octavio Oneil DO Summary Hospital Course Discharge Diagnosis: 1. TIA 2. chronic atrial fibrillation Hospital Course: This is a 78 year old female with PMH of chronic afib on AC, HTN, HLD who presented with word finding difficulties and facial tingling. She had an MRI which was negative and symptoms resolved fairly quickly. This is consistent with probable TIA. She has previous TTE without evidence for PFO. No medications were changed over admission and patient returned to her baseline. This is presumed secondary to atrial fibrillation, patient will continue on home apixaban at the time of discharge. Continued outpatient follow up with PCP and non morse intercept technician as previously scheduled is recommended. Time Spent with Patient Time spent: Greater than 30 minutes Exam Vital Signs (past 8 hours): - 12/10/23 06:25 12/10/23 07:00 12/10/23 07:01 Temperature Pulse Rate 59 L 56 L Respiratory Rate 18 12 Blood Pressure 144/72 H 138/65 Pulse Oximetry 98 97 Oxygen Delivery Method Room Air 12/10/23 07:01 12/10/23 07:30 12/10/23 07:30 Temperature Pulse Rate 57 L 56 L Respiratory Rate 17 23 Blood Pressure 139/63 Pulse Oximetry 97 97 Oxygen Delivery Method 12/10/23 08:00 12/10/23 08:00 12/10/23 08:30 Temperature Pulse Rate 57 L 59 L Respiratory Rate 19 23 Blood Pressure 139/65 Pulse Oximetry 96 97 Oxygen Delivery Method 12/10/23 08:31 12/10/23 08:31 12/10/23 09:00 Temperature Pulse Rate 57 L 57 L Respiratory Rate 21 24 Blood Pressure 132/61 Pulse Oximetry 97 98 Oxygen Delivery Method 12/10/23 09:00 Temperature 97.7 F Pulse Rate Respiratory Rate Blood Pressure 144/70 H Pulse Oximetry Oxygen Delivery Method Oxygen Delivery Method Room Air Const Other: In no distress Neck Other: supple Cardio Other: RRR, w/o murmurs, w/o JVD, w/o edemas GI Other: not distended Skin Other: w/o rashes Neuro Other: No focal deficits. Extrem Other: w/o swelling Psych Other: appropriate mood, lucid Objective Labs 12/10/23 06:34 12/10/23 06:34 Labs: Laboratory Results - last 24 hr 12/09/23 12/10/23 19:30 06:34 WBC 5.8 5.5 RBC 4.28 4.24 Hgb 13.3 13.4 Hct 39.8 39.6 MCV 93.0 93.4 MCH 31.1 31.5 MCHC 33.4 33.7 RDW 14.1 14.1 Plt Count 220 197 Neut % (Auto) 47.5 L 55.7 Lymph % (Auto) 36.3 26.9 [place] % (Auto) 10.4 12.2 Eos % (Auto) 4.7 H 4.2 H Baso % (Auto) 1.1 1.0 Neut # (Auto) 2700 3100 Lymph # (Auto) 2100 1500 [place] # (Auto) 600 700 Eos # (Auto) 300 200 Baso # (Auto) 100 100 PT 12.4 INR 1.1 APTT 37 H Sodium 139 140 Potassium 4.2 4.1 Chloride 106 109 H Carbon Dioxide 27 27 BUN 17 14 Creatinine 1.04 0.78 Estimated GFR 55 L > 60 BUN/Creatinine Ratio 16.3 17.9 Glucose 123 H 94 Hemoglobin A1c 5.6 Calcium 9.4 8.7 Magnesium 2.1 Total Bilirubin 0.8 AST 38 H ALT 39 H Alkaline Phosphatase 72 Total Creatine Kinase 67 Troponin I < 0.012 Total Protein 7.3 Albumin 4.5 Globulin 2.8 Albumin/Globulin Ratio 1.6 Triglycerides 64 Cholesterol 124 L LDL Cholesterol, Calc 58 HDL Cholesterol 53 Lipase 98 TSH 3.61 PFSH Medical History Paroxysmal atrial fibrillation Pelvic relaxation Postmenopausal atrophic vaginitis Surgical History History of cataract surgery Family History Mother Congestive heart failure Brother CAD (coronary artery disease) of artery bypass graft Social History household members: friend(s) Smoking Status: Never smoker alcohol intake: current Discharge Plan Discharge Plan Patient Disposition: Home Provider Discharge Comment: You were admitted to the hospital for possible stroke. MRI negative for stroke, this is a possible TIA likely related to your afib. No medication changes are recommended on discharge. Please follow up with PCP and non morse intercept technician as previously scheduled. Discharge orders & Medications Prescriptions: Continued irbesartan 75 mg tablet 75 mg PO DAILY Zicam 1 dose intranasal 1XD amlodipine [Norvasc] 5 mg Tablet 5 mg PO DAILY triamcinolone acetonide 0.1 % Cream 1 applic TOPICAL BID vitamin B complex Tablet 1 tab PO DAILY gabapentin 300 mg Tablet 300 mg PO BEDTIME metoprolol succinate 50 mg tablet extended release 24 hr 75 mg PO BID apixaban 5 mg tablet 5 mg PO BID Qty: 60 0RF atorvastatin 20 mg tablet 20 mg PO DAILY Vitamin B-12 5,000 mcg sublingual DAILY Follow up/Referrals: Aye Liu MD [Primary Care Provider] - Diet/Activity/Treatments Diet: Diet as Tolerated and Regular Activity: As tolerated, no restrictions Visit Report/Discharge Packet Instructions: DI for Prescription Opioid Use Stand Alone Forms: Congestive Heart Failure, Patient Portal/API, Stroke Signs & Symptoms Discharge Data Primary Care Provider: Aye Liu Attending Provider: Dereje Goldstein Admit Date/Time: 12/09/23 22:32 Quality VTE Deep Vein Thrombosis/Pulmonary Embolism Present on Admission: No
--- NOTE | 2023-12-10 12:16 | PC.NURSE ---
no cp reported
--- NOTE | 2023-12-10 12:16 | PC.NURSE ---
denies dizziness; ambulates w/o assistance. states her symptoms have resolved.
== END 2023-12-10 13:15 | disposition home or self-care (01) ==
LOC: ED 19:25 → AC 22:32
PROVIDERS: Admitting Provider Internal Medicine; Emergency Provider Emergency Medicine; Family Provider Physician Assistant; PCP Internal Medicine; Referring Provider Emergency Medicine; Visit Provider Internal Medicine
DX: G45.9 Transient cerebral ischemic attack, unspecified (principal); I48.0 Paroxysmal atrial fibrillation; I10 Essential (primary) hypertension; K21.9 Gastro-esophageal reflux disease without esophagitis; R29.700 NIHSS score 0
CPT/HCPCS: 36415; 70450; 70496; 70498; 70551; 80048; 80053; 80061; 81003; 82550; 82962; 83036; 83690; 83735; 84443; 84484; 85025; 85610; 85730; 93005; 99283; 99284; G0378; A9579; Q9967

== ENCOUNTER 2024-03-16 16:45 | Outpatient (RCR) | payer MEDICARE, SELFPAY ==
[2023-05-31 14:28] VITALS: BMI 31.8
[2023-12-10 01:01] VITALS: BMI 37.8
--- NOTE | 2024-01-10 17:22 | PT.OIE ---
Current Diagnoses Low back pain, unspecified (01/10/24) Muscle weakness (generalized) (01/10/24) Unsteadiness on feet (01/10/24) Past Medical History (Last Reviewed 12/10/23 @ 00:57 by Dereje Sandhu MD) Paroxysmal atrial fibrillation Pelvic relaxation Postmenopausal atrophic vaginitis Past Surgical History (Last Reviewed 12/10/23 @ 00:57 by Dereje Sandhu MD) History of cataract surgery Visit Care Team Role Provider Type Vanessa Merino PA-C Family Provider Advanced Bonding Equipment Operator Specialty: Medical Address: [address] [place] [address], [id number] Email: Aye Liu MD Attending Provider Physician Primary Care Provider Referring Provider Specialty: Internal Medicine Address: [place], [address] Email: Physical Therapy Initial Evaluation PT-OP-A Visit Information Start: 01/10/24 16:55 Freq: Status: Active Protocol: Document 01/10/24 14:30 DCW (Rec: 01/10/24 17:22 [facility] [id number]) Out-Patient Physical Therapy Visit Information Visit Information Visit Type Initial Evaluation Visit Start Time 14:30 Visit Stop Time 15:15 Visit Number 1 Number of BIZTALK SOFTWARE DEVELOPER Visits 0 Evaluation Information Evaluation Date 01/10/24 PT-OP-B Current Condition Start: 01/10/24 16:55 Freq: Status: Active Protocol: Document 01/10/24 14:30 DCW (Rec: 01/10/24 17:22 [facility] [id number]) Current Condition History of Current Condition Current Complaints Back pain, instability in leg and ankle, limitations in standing, stairs History of Current Condition Pt is a 78 year old female presenting with a long- standing history of low back pain, which has begun affecting her gait and stability of her LEs. Pt notes she is unable to do any activity which requires standing for an extended period of time, like cleaning dishes. Because she has been less active, her strength and endurance is declining, which has made ascending stairs more difficult, and her weakness has also created worsening instability in her right ankle , which she frequently feels almost rolls when she is out walking. Back has been slightly better over the past few weeks after starting massage therapy. Due to her ankle instability, pt has been wearing an ankle brace and occasionally using a cane. Treatment Goals Patient/Caregiver Goals Decrease back pain and make ankle more stable. PT-OP-C Subjective Start: 01/10/24 16:55 Freq: Status: Active Protocol: Document 01/10/24 14:30 DCW (Rec: 01/10/24 17:22 DCW [id number]) OP-PT Subjective Patient Comments Patient Comments It is currently improving, but it's still limiting. Patient Questionnaires Quick Dash- Upper Extremity Quick Dash UE Score 17/50 = 34% Quick Dash UE Impairment 20 to 39% Impaired (Score 20- 39) PT-OP-F Manual Assessment Start: 01/10/24 16:55 Freq: Status: Active Protocol: Document 01/10/24 14:30 DCW (Rec: 01/10/24 17:22 DCW [id number]) Manual Assessments Soft Tissue Assessment Soft Tissue Mobility Assessment Tenderness to palpation 3/4: Wincing and withdraw R>L lumbar paraspinals Joint Mobility Assessment Joint Mobility Assessment No notable instability of right ankle joint, however increased tenderness along Deltoid ligament, ATFL, CC ligament, and PTFL on right side PT-OP-K Range of Motion Start: 01/10/24 16:55 Freq: Status: Active Protocol: Document 01/10/24 14:30 DCW (Rec: 01/10/24 17:22 DCW [id number]) Lumbar Spine Range of Motion Lumbar Spine Active Degrees Testing Position Standing Flexion 67 Extension 20 Lateral Flexion Left 44 Lateral Flexion Right 46 Comments Lateral flexion measured in cm from fingertips to floor Ankle and Foot Goniometric Range of Motion Ankle and Foot Right Active Testing Position Sitting Inversion 35 Eversion 10 PT-OP-L Special Tests Start: 01/10/24 16:55 Freq: Status: Active Protocol: Document 01/10/24 14:30 DCW (Rec: 01/10/24 17:22 DCW [id number]) Special Tests Foot/Ankle Special Tests Peroneal Subluxation Test Results Negative Anterior Draw Test Results Negative PT-OP-M Strength Start: 01/10/24 16:55 Freq: Status: Active Protocol: Document 01/10/24 14:30 DCW (Rec: 01/10/24 17:22 [facility] [id number]) Hip Strength Hip Manual Muscle Testing Right Flexion (L2) 3+ Fair+ Abduction 4 Good Adduction 3+ Fair+ External Rotation 4 Good Internal Rotation 4 Good Left Flexion (L2) 3+ Fair+ Abduction 4 Good Adduction 3+ Fair+ External Rotation 4- Good- Internal Rotation 4- Good- Knee Strength Knee Manual Muscle Testing Right Flexion (S2) 4 Good Extension (L3) 4 Good Left Flexion (S2) 4 Good Extension (L3) 4 Good Ankle/Foot Strength Ankle and Foot Manual Muscle Testing Right Dorsiflexion (L4) 4 Good Plantarflexion (S1) 4 Good Inversion 4 Good Eversion (S1) 4 Good Left Dorsiflexion (L4) 4+ Good+ Plantarflexion (S1) 4+ Good+ Inversion 4+ Good+ Eversion (S1) 4+ Good+ PT-OP-Q Treatments Start: 01/10/24 16:55 Freq: Status: Active Protocol: Document 01/10/24 14:30 DCW (Rec: 01/10/24 17:22 [facility] [id number]) Therapeutic Exercises Sitting Exercises Ankle flexion Sitting Exercise Name 4-way ankle flexion Side right Resistance Lv 3 Equipment Used T-band Comments HEP PT-OP-T Assessment and Plan Start: 01/10/24 16:55 Freq: Status: Active Protocol: Document 01/10/24 14:30 DCW (Rec: 01/10/24 17:22 [facility] [id number]) Physical Therapy Assessment Rehab Potential Rehabilitation Potential Good Evaluation Complexity Number of Personal Factors/Comorbidities 1-2 Number of Body Systems Impaired 1-2 Clinical Presentation at Evaluation Stable Impairments Impairments Activity Tolerance,Functional Activities,Functional Mobility ,Gait,Posture,ROM,Soft Tissue Mobility,Strength,Tone Goals Three Impairment Bilateral hip weakness with flexion and adduction (3+/5) Marketing Automation Manager Goal (LTG) Pt to test at least 4/5 with LE MMT in all tested planes in order to improve LE stability during gait LTG Duration 03/11/24 Two Impairment Pt unable to stand >10 minutes before low back pain forces her to sit Marketing Automation Manager Goal (LTG) Pt to report ability to stand >25 minutes in order to 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 LTG Duration 03/11/24 One Impairment Pt does not have an appropriate home exercise program Short Term Goal (STG) Pt to be independent and compliant with an appropriate HEP STG Duration 02/09/24 Assessment Summary Assessment Pt presents with signs and symptoms consistent with general weakness and deconditioning secondary to recent episodes of low back pain. Pt admits that her back has largely been feeling better after getting into her massage therapist more regularly, however after ~one year of decreased activity levels, it has impacted her ability to stand for longer periods of time, as well as difficulty ascending stairs or getting out for walking. This , in turn, and made her feel as though her hips and ankles have been getting less stable, and she has gotten to the point where she feel like she needs to use an ankle brace and cane to limit potential for falls. Pt should benefit from skilled therapy focusing on increasing activity tolerance, improving core and LE strength, decrease hip and ankle instability, and decrease pain in low back and ankle. Physical Therapy Plan Frequency and Duration Frequency of Treatment 2x/Week Plan of Care Start Date 01/10/24 Plan of Care End Date 03/11/24 Therapeutic Interventions Therapeutic Interventions Balance Training,Gait Training ,Home Exercise Program,Joint Mobilizations,Manual Therapy, Neuromuscular Re-education, Patient/Caregiver Education, Self-Care/Home Management,Soft Tissue Mobilization, Therapeutic Activities, Therapeutic Exercises Modalities Cold Pack/Ice Massage,Hot Packs,Ultrasound Next Visit Focus/Plan Next Note Type Treatment Note Next Visit Plan Ankle and hip strengthening, core strengthening, static/ dynamic ankle stabilization, STM if low back is flared-up.
--- NOTE | 2024-01-10 17:23 | PT.OPPOC ---
Physical, Occupational & Speech Therapy At [facility] Current Diagnoses Low back pain, unspecified (01/10/24) Muscle weakness (generalized) (01/10/24) Unsteadiness on feet (01/10/24) Visit Care Team Role Provider Type Vanessa Merino PA-C Family Provider Advanced Transactional Paralegal Specialty: Medical Address: [address] [place] [address], [id number] Email: Aye Liu MD Attending Provider Physician Primary Care Provider Referring Provider Specialty: Internal Medicine Address: [place], [address] Email: Plan Of Care PT-OP-T Assessment and Plan Start: 01/10/24 16:55 Freq: Status: Active Protocol: Document 01/10/24 14:30 DCW (Rec: 01/10/24 17:22 DCW [id number]) Physical Therapy Assessment Rehab Potential Rehabilitation Potential Good Evaluation Complexity Number of Personal Factors/Comorbidities 1-2 Number of Body Systems Impaired 1-2 Clinical Presentation at Evaluation Stable Impairments Impairments Activity Tolerance,Functional Activities,Functional Mobility ,Gait,Posture,ROM,Soft Tissue Mobility,Strength,Tone Goals Three Impairment Bilateral hip weakness with flexion and adduction (3+/5) Jail Goal (LTG) Pt to test at least 4/5 with LE MMT in all tested planes in order to improve LE stability during gait LTG Duration 03/11/24 Two Impairment Pt unable to stand >10 minutes before low back pain forces her to sit Color Straining Bag Washer Goal (LTG) Pt to report ability to stand >25 minutes in order to 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 LTG Duration 03/11/24 One Impairment Pt does not have an appropriate home exercise program Short Term Goal (STG) Pt to be independent and compliant with an appropriate HEP STG Duration 02/09/24 Assessment Summary Assessment Pt presents with signs and symptoms consistent with general weakness and deconditioning secondary to recent episodes of low back pain. Pt admits that her back has largely been feeling better after getting into her massage therapist more regularly, however after ~one year of decreased activity levels, it has impacted her ability to stand for longer periods of time, as well as difficulty ascending stairs or getting out for walking. This , in turn, and made her feel as though her hips and ankles have been getting less stable, and she has gotten to the point where she feel like she needs to use an ankle brace and cane to limit potential for falls. Pt should benefit from skilled therapy focusing on increasing activity tolerance, improving core and LE strength, decrease hip and ankle instability, and decrease pain in low back and ankle. Physical Therapy Plan Frequency and Duration Frequency of Treatment 2x/Week Plan of Care Start Date 01/10/24 Plan of Care End Date 03/11/24 Therapeutic Interventions Therapeutic Interventions Balance Training,Gait Training ,Home Exercise Program,Joint Mobilizations,Manual Therapy, Neuromuscular Re-education, Patient/Caregiver Education, Self-Care/Home Management,Soft Tissue Mobilization, Therapeutic Activities, Therapeutic Exercises Modalities Cold Pack/Ice Massage,Hot Packs,Ultrasound Next Visit Focus/Plan Next Note Type Treatment Note Next Visit Plan Ankle and hip strengthening, core strengthening, static/ dynamic ankle stabilization, STM if low back is flared-up. Plan of Care Dates Plan of Care Start Date 01/10/24 Plan of Care End Date 03/11/24 Electronically Signed by: Que Roberto, PT 01/10/24 [id number] If you are in agreement with this Plan of Care, please return a signed and dated copy. I have reviewed this Plan of Care and certify that the skilled therapy services above are required to meet the patient?s needs. Physician Signature Date Printed Name and Credentials Clinical Instructor Signature Printed Name and Credentials
--- NOTE | 2024-01-20 17:34 | PT.OTN ---
Current Diagnoses Low back pain, unspecified (01/20/24) Muscle weakness (generalized) (01/20/24) Unsteadiness on feet (01/20/24) Physical Therapy Treatment Note PT-OP-A Visit Information Start: 01/10/24 16:55 Freq: Status: Active Protocol: Document 01/20/24 16:45 DCW (Rec: 01/20/24 17:33 DCW [id number]) Out-Patient Physical Therapy Visit Information Visit Information Visit Type Treatment Note Visit Start Time 16:45 Visit Stop Time 17:30 Visit Number 2 Number of LEAD PRODUCER Visits 0 Evaluation Information Evaluation Date 01/10/24 PT-OP-B Current Condition Start: 01/10/24 16:55 Freq: Status: Active Protocol: Document 01/10/24 14:30 DCW (Rec: 01/10/24 17:22 DCW [id number]) Current Condition History of Current Condition Current Complaints Back pain, instability in leg and ankle, limitations in standing, stairs History of Current Condition Pt is a 78 year old female presenting with a long- standing history of low back pain, which has begun affecting her gait and stability of her LEs. Pt notes she is unable to do any activity which requires standing for an extended period of time, like cleaning dishes. Because she has been less active, her strength and endurance is declining, which has made ascending stairs more difficult, and her weakness has also created worsening instability in her right ankle , which she frequently feels almost rolls when she is out walking. Back has been slightly better over the past few weeks after starting massage therapy. Due to her ankle instability, pt has been wearing an ankle brace and occasionally using a cane. Treatment Goals Patient/Caregiver Goals Decrease back pain and make ankle more stable. PT-OP-C Subjective Start: 01/10/24 16:55 Freq: Status: Active Protocol: Document 01/20/24 16:45 DCW (Rec: 01/20/24 17:33 DCW [id number]) OP-PT Subjective Patient Comments Patient Comments Pt comes in ready to work. PT-OP-F Manual Assessment Start: 01/10/24 16:55 Freq: Status: Active Protocol: Document 01/10/24 14:30 DCW (Rec: 01/10/24 17:22 DCW [id number]) Manual Assessments Soft Tissue Assessment Soft Tissue Mobility Assessment Tenderness to palpation 3/4: Wincing and withdraw R>L lumbar paraspinals Joint Mobility Assessment Joint Mobility Assessment No notable instability of right ankle joint, however increased tenderness along Deltoid ligament, ATFL, CC ligament, and PTFL on right side PT-OP-K Range of Motion Start: 01/10/24 16:55 Freq: Status: Active Protocol: Document 01/10/24 14:30 DCW (Rec: 01/10/24 17:22 DCW [id number]) Lumbar Spine Range of Motion Lumbar Spine Active Degrees Testing Position Standing Flexion 67 Extension 20 Lateral Flexion Left 44 Lateral Flexion Right 46 Comments Lateral flexion measured in cm from fingertips to floor Ankle and Foot Goniometric Range of Motion Ankle and Foot Right Active Testing Position Sitting Inversion 35 Eversion 10 PT-OP-L Special Tests Start: 01/10/24 16:55 Freq: Status: Active Protocol: Document 01/10/24 14:30 DCW (Rec: 01/10/24 17:22 DCW [id number]) Special Tests Foot/Ankle Special Tests Peroneal Subluxation Test Results Negative Anterior Draw Test Results Negative PT-OP-M Strength Start: 01/10/24 16:55 Freq: Status: Active Protocol: Document 01/10/24 14:30 DCW (Rec: 01/10/24 17:22 DCW [id number]) Hip Strength Hip Manual Muscle Testing Right Flexion (L2) 3+ Fair+ Abduction 4 Good Adduction 3+ Fair+ External Rotation 4 Good Internal Rotation 4 Good Left Flexion (L2) 3+ Fair+ Abduction 4 Good Adduction 3+ Fair+ External Rotation 4- Good- Internal Rotation 4- Good- Knee Strength Knee Manual Muscle Testing Right Flexion (S2) 4 Good Extension (L3) 4 Good Left Flexion (S2) 4 Good Extension (L3) 4 Good Ankle/Foot Strength Ankle and Foot Manual Muscle Testing Right Dorsiflexion (L4) 4 Good Plantarflexion (S1) 4 Good Inversion 4 Good Eversion (S1) 4 Good Left Dorsiflexion (L4) 4+ Good+ Plantarflexion (S1) 4+ Good+ Inversion 4+ Good+ Eversion (S1) 4+ Good+ PT-OP-Q Treatments Start: 01/10/24 16:55 Freq: Status: Active Protocol: Document 01/20/24 16:45 DCW (Rec: 01/20/24 17:33 DCW [id number]) Cardio Equipment Recumbent Elliptical (Biodex) Duration (Minutes) 3 Resistance 4 Seat Position 6 Gym Equipment Shuttle Recovery Bilateral Heel Raises Resistance 37# Unilateral Squats Resistance 37# Bilateral Squats Resistance 62# Therapeutic Exercises Other Exercises Step-ups Other Exercise Name Step-ups/downs Side bilateral Equipment Used 6 step Resisted Ambulation Other Exercise Name Resisted side-stepping Resistance Lv 1 Neuro Re-Education Treatment Balance Activities Hurdles Details Hurdles Equipment // bars Comments Fwd, Side-stepping Foam Details Foam stance Surface AirEx Comments EO/EC, X1 Tandem Details Tandem Ambulation Equipment // bars PT-OP-T Assessment and Plan Start: 01/10/24 16:55 Freq: Status: Active Protocol: Document 01/20/24 16:45 DCW (Rec: 01/20/24 17:33 DCW [id number]) Physical Therapy Assessment Impairments Impairments Activity Tolerance,Functional Activities,Functional Mobility ,Gait,Posture,ROM,Soft Tissue Mobility,Strength,Tone Goals Three Impairment Bilateral hip weakness with flexion and adduction (3+/5) Lead Cytogenetic Technologist Goal (LTG) Pt to test at least 4/5 with LE MMT in all tested planes in order to improve LE stability during gait LTG Duration 03/11/24 Two Impairment Pt unable to stand >10 minutes before low back pain forces her to sit Shelter Goal (LTG) Pt to report ability to stand >25 minutes in order to 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 LTG Duration 03/11/24 One Impairment Pt does not have an appropriate home exercise program Short Term Goal (STG) Pt to be independent and compliant with an appropriate HEP STG Duration 02/09/24 Assessment Summary Assessment Good overall response to activity today, did require brief seated rest breaks following most activities. Did well with step-ups/downs, noted no leg or back pain. Physical Therapy Plan Frequency and Duration Frequency of Treatment 2x/Week Plan of Care Start Date 01/10/24 Plan of Care End Date 03/11/24 Therapeutic Interventions Therapeutic Interventions Balance Training,Gait Training ,Home Exercise Program,Joint Mobilizations,Manual Therapy, Neuromuscular Re-education, Patient/Caregiver Education, Self-Care/Home Management,Soft Tissue Mobilization, Therapeutic Activities, Therapeutic Exercises Modalities Cold Pack/Ice Massage,Hot Packs,Ultrasound Next Visit Focus/Plan Next Note Type Treatment Note Next Visit Plan Ankle and hip strengthening, core strengthening, static/ dynamic ankle stabilization, STM if low back is flared-up.
--- NOTE | 2024-01-24 16:17 | PT.OTN ---
Current Diagnoses Low back pain, unspecified (01/24/24) Muscle weakness (generalized) (01/24/24) Unsteadiness on feet (01/24/24) Physical Therapy Treatment Note PT-OP-A Visit Information Start: 01/10/24 16:55 Freq: Status: Active Protocol: Document 01/24/24 13:22 AB (Rec: 01/24/24 16:17 AB [id number]) Out-Patient Physical Therapy Visit Information Visit Information Visit Type Treatment Note Visit Note Access Code: [email or web address] Visit Start Time 15:18 Visit Stop Time 16:03 Visit Number 3 Number of CULTURE MEDIA LABORATORY ASSISTANT Visits 1 Evaluation Information Evaluation Date 01/10/24 PT-OP-B Current Condition Start: 01/10/24 16:55 Freq: Status: Active Protocol: Document 01/10/24 14:30 DCW (Rec: 01/10/24 17:22 DCW [id number]) Current Condition History of Current Condition Current Complaints Back pain, instability in leg and ankle, limitations in standing, stairs History of Current Condition Pt is a 78 year old female presenting with a long- standing history of low back pain, which has begun affecting her gait and stability of her LEs. Pt notes she is unable to do any activity which requires standing for an extended period of time, like cleaning dishes. Because she has been less active, her strength and endurance is declining, which has made ascending stairs more difficult, and her weakness has also created worsening instability in her right ankle , which she frequently feels almost rolls when she is out walking. Back has been slightly better over the past few weeks after starting massage therapy. Due to her ankle instability, pt has been wearing an ankle brace and occasionally using a cane. Treatment Goals Patient/Caregiver Goals Decrease back pain and make ankle more stable. PT-OP-C Subjective Start: 01/10/24 16:55 Freq: Status: Active Protocol: Document 01/24/24 13:22 AB (Rec: 01/24/24 16:17 AB [id number]) OP-PT Subjective Patient Comments Patient Comments Patient reports having no back pain start of session, describes TL junction area as area of pain when it does occur. Patient reports she even walked a mile this week and due to stretching over objects in clinic gave her confidence to walk out to a scenic over look ie walking over stones. PT-OP-F Manual Assessment Start: 01/10/24 16:55 Freq: Status: Active Protocol: Document 01/10/24 14:30 DCW (Rec: 01/10/24 17:22 DCW [id number]) Manual Assessments Soft Tissue Assessment Soft Tissue Mobility Assessment Tenderness to palpation 3/4: Wincing and withdraw R>L lumbar paraspinals Joint Mobility Assessment Joint Mobility Assessment No notable instability of right ankle joint, however increased tenderness along Deltoid ligament, ATFL, CC ligament, and PTFL on right side PT-OP-K Range of Motion Start: 01/10/24 16:55 Freq: Status: Active Protocol: Document 01/10/24 14:30 DCW (Rec: 01/10/24 17:22 DCW [id number]) Lumbar Spine Range of Motion Lumbar Spine Active Degrees Testing Position Standing Flexion 67 Extension 20 Lateral Flexion Left 44 Lateral Flexion Right 46 Comments Lateral flexion measured in cm from fingertips to floor Ankle and Foot Goniometric Range of Motion Ankle and Foot Right Active Testing Position Sitting Inversion 35 Eversion 10 PT-OP-L Special Tests Start: 01/10/24 16:55 Freq: Status: Active Protocol: Document 01/10/24 14:30 DCW (Rec: 01/10/24 17:22 DCW [id number]) Special Tests Foot/Ankle Special Tests Peroneal Subluxation Test Results Negative Anterior Draw Test Results Negative PT-OP-M Strength Start: 01/10/24 16:55 Freq: Status: Active Protocol: Document 01/10/24 14:30 DCW (Rec: 01/10/24 17:22 DCW [id number]) Hip Strength Hip Manual Muscle Testing Right Flexion (L2) 3+ Fair+ Abduction 4 Good Adduction 3+ Fair+ External Rotation 4 Good Internal Rotation 4 Good Left Flexion (L2) 3+ Fair+ Abduction 4 Good Adduction 3+ Fair+ External Rotation 4- Good- Internal Rotation 4- Good- Knee Strength Knee Manual Muscle Testing Right Flexion (S2) 4 Good Extension (L3) 4 Good Left Flexion (S2) 4 Good Extension (L3) 4 Good Ankle/Foot Strength Ankle and Foot Manual Muscle Testing Right Dorsiflexion (L4) 4 Good Plantarflexion (S1) 4 Good Inversion 4 Good Eversion (S1) 4 Good Left Dorsiflexion (L4) 4+ Good+ Plantarflexion (S1) 4+ Good+ Inversion 4+ Good+ Eversion (S1) 4+ Good+ PT-OP-Q Treatments Start: 01/10/24 16:55 Freq: Status: Active Protocol: Document 01/24/24 13:22 AB (Rec: 01/24/24 16:17 AB [id number]) Therapeutic Exercises Sitting Exercises seated hip abduction with band Side bilateral Resistance level one band Reps/Minutes X10 X 2 without hold X 1 with one min hold Comments HEP Ankle flexion Sitting Exercise Name 4-way ankle flexion Side right Resistance Lv 3 Equipment Used T-band Comments HEP Other Exercises bilateral heel raise Side bilateral Reps/Minutes X15 Comments VC to lower heels slowly to floor Therapeutic Activity Therapeutic Activity self STM Reps/Minutes 2 Comments seated with racquet ball and tennis ball Manual Therapy Treatment Soft Tissue Mobilization T-L paraspinals Body Location lower thoracic to lumbar paraspinals Mobilization Type Sustained Pressure Intensity/Depth Moderate Body Position Hooklying Comments bilateral, monitored for pain Neuro Re-Education Treatment Balance Activities step up taps Equipment 6 inch step Reps/Duration X10 Comments CGA Hurdles Details Hurdles Equipment // bars Comments Fwd CGA Tandem Details Tandem Ambulation Equipment // bars Comments CGA PT-OP-T Assessment and Plan Start: 01/10/24 16:55 Freq: Status: Active Protocol: Document 01/24/24 13:22 AB (Rec: 01/24/24 16:17 AB [id number]) Physical Therapy Assessment Goals Three Impairment Bilateral hip weakness with flexion and adduction (3+/5) Business Change Manager Goal (LTG) Pt to test at least 4/5 with LE MMT in all tested planes in order to improve LE stability during gait LTG Duration 03/11/24 Two Impairment Pt unable to stand >10 minutes before low back pain forces her to sit Longterm Goal (LTG) Pt to report ability to stand >25 minutes in order to 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 LTG Duration 03/11/24 One Impairment Pt does not have an appropriate home exercise program Short Term Goal (STG) Pt to be independent and compliant with an appropriate HEP STG Duration 02/09/24 Assessment Summary Assessment Irma reports pain ambulating out of session with reports of back pain no worse than usual. Patient into session with reports of increased confidence with ambulation on uneven surfaces attributes to balance exercises with PT Mukesh. Physical Therapy Plan Frequency and Duration Frequency of Treatment 2x/Week Plan of Care Start Date 01/10/24 Plan of Care End Date 03/11/24 Next Visit Focus/Plan Next Note Type Treatment Note Next Visit Plan Ankle and hip strengthening, core strengthening, static/ dynamic ankle stabilization, STM if low back is flared-up.
--- NOTE | 2024-01-27 17:35 | PT.OTN ---
Current Diagnoses Low back pain, unspecified (01/27/24) Muscle weakness (generalized) (01/27/24) Unsteadiness on feet (01/27/24) Physical Therapy Treatment Note PT-OP-A Visit Information Start: 01/10/24 16:55 Freq: Status: Active Protocol: Document 01/27/24 16:45 DCW (Rec: 01/27/24 17:35 DCW [id number]) Out-Patient Physical Therapy Visit Information Visit Information Visit Type Treatment Note Visit Start Time 16:45 Visit Stop Time 17:30 Visit Number 4 Number of HAIRSPRING INSPECTOR Visits 0 Evaluation Information Evaluation Date 01/10/24 PT-OP-B Current Condition Start: 01/10/24 16:55 Freq: Status: Active Protocol: Document 01/10/24 14:30 DCW (Rec: 01/10/24 17:22 DCW [id number]) Current Condition History of Current Condition Current Complaints Back pain, instability in leg and ankle, limitations in standing, stairs History of Current Condition Pt is a 78 year old female presenting with a long- standing history of low back pain, which has begun affecting her gait and stability of her LEs. Pt notes she is unable to do any activity which requires standing for an extended period of time, like cleaning dishes. Because she has been less active, her strength and endurance is declining, which has made ascending stairs more difficult, and her weakness has also created worsening instability in her right ankle , which she frequently feels almost rolls when she is out walking. Back has been slightly better over the past few weeks after starting massage therapy. Due to her ankle instability, pt has been wearing an ankle brace and occasionally using a cane. Treatment Goals Patient/Caregiver Goals Decrease back pain and make ankle more stable. PT-OP-C Subjective Start: 01/10/24 16:55 Freq: Status: Active Protocol: Document 01/27/24 16:45 DCW (Rec: 01/27/24 17:35 DCW [id number]) OP-PT Subjective Patient Comments Patient Comments Pt reports she has been doing slightly better. PT-OP-F Manual Assessment Start: 01/10/24 16:55 Freq: Status: Active Protocol: Document 01/10/24 14:30 DCW (Rec: 01/10/24 17:22 DCW [id number]) Manual Assessments Soft Tissue Assessment Soft Tissue Mobility Assessment Tenderness to palpation 3/4: Wincing and withdraw R>L lumbar paraspinals Joint Mobility Assessment Joint Mobility Assessment No notable instability of right ankle joint, however increased tenderness along Deltoid ligament, ATFL, CC ligament, and PTFL on right side PT-OP-K Range of Motion Start: 01/10/24 16:55 Freq: Status: Active Protocol: Document 01/10/24 14:30 DCW (Rec: 01/10/24 17:22 DCW [id number]) Lumbar Spine Range of Motion Lumbar Spine Active Degrees Testing Position Standing Flexion 67 Extension 20 Lateral Flexion Left 44 Lateral Flexion Right 46 Comments Lateral flexion measured in cm from fingertips to floor Ankle and Foot Goniometric Range of Motion Ankle and Foot Right Active Testing Position Sitting Inversion 35 Eversion 10 PT-OP-L Special Tests Start: 01/10/24 16:55 Freq: Status: Active Protocol: Document 01/10/24 14:30 DCW (Rec: 01/10/24 17:22 DCW [id number]) Special Tests Foot/Ankle Special Tests Peroneal Subluxation Test Results Negative Anterior Draw Test Results Negative PT-OP-M Strength Start: 01/10/24 16:55 Freq: Status: Active Protocol: Document 01/10/24 14:30 DCW (Rec: 01/10/24 17:22 DCW [id number]) Hip Strength Hip Manual Muscle Testing Right Flexion (L2) 3+ Fair+ Abduction 4 Good Adduction 3+ Fair+ External Rotation 4 Good Internal Rotation 4 Good Left Flexion (L2) 3+ Fair+ Abduction 4 Good Adduction 3+ Fair+ External Rotation 4- Good- Internal Rotation 4- Good- Knee Strength Knee Manual Muscle Testing Right Flexion (S2) 4 Good Extension (L3) 4 Good Left Flexion (S2) 4 Good Extension (L3) 4 Good Ankle/Foot Strength Ankle and Foot Manual Muscle Testing Right Dorsiflexion (L4) 4 Good Plantarflexion (S1) 4 Good Inversion 4 Good Eversion (S1) 4 Good Left Dorsiflexion (L4) 4+ Good+ Plantarflexion (S1) 4+ Good+ Inversion 4+ Good+ Eversion (S1) 4+ Good+ PT-OP-Q Treatments Start: 01/10/24 16:55 Freq: Status: Active Protocol: Document 01/27/24 16:45 DCW (Rec: 01/27/24 17:35 DCW [id number]) Cardio Equipment Recumbent Elliptical (Biodex) Duration (Minutes) 5 Resistance 4 Seat Position 6 Gym Equipment Shuttle Recovery Bilateral Heel Raises Resistance 37# Unilateral Squats Resistance 37# Bilateral Squats Resistance 62# Therapeutic Exercises Standing Exercises Pallof Press Standing Exercise Name Pallof Press Side bilateral Resistance [place] Other Exercises Resisted Ambulation Other Exercise Name Resisted side-stepping Resistance [place] Neuro Re-Education Treatment Balance Activities Stepping Stones Details Foam stepping stones Equipment // bars Hurdles Details Hurdles Equipment // bars Comments Fwd CGA Foam Details Foam stance Surface AirEx Comments EO/EC, X1 Tandem Details Tandem Ambulation Equipment // bars Comments CGA PT-OP-T Assessment and Plan Start: 01/10/24 16:55 Freq: Status: Active Protocol: Document 01/27/24 16:45 DCW (Rec: 01/27/24 17:35 DCW [id number]) Physical Therapy Assessment Impairments Impairments Activity Tolerance,Functional Activities,Functional Mobility ,Gait,Posture,ROM,Soft Tissue Mobility,Strength,Tone Goals Three Impairment Bilateral hip weakness with flexion and adduction (3+/5) College Sports Assistant Goal (LTG) Pt to test at least 4/5 with LE MMT in all tested planes in order to improve LE stability during gait LTG Duration 03/11/24 Two Impairment Pt unable to stand >10 minutes before low back pain forces her to sit College Sports Assistant Goal (LTG) Pt to report ability to stand >25 minutes in order to 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 LTG Duration 03/11/24 One Impairment Pt does not have an appropriate home exercise program Short Term Goal (STG) Pt to be independent and compliant with an appropriate HEP STG Duration 02/09/24 Assessment Summary Assessment Pt appears to be responding well to treatment so far, demonstrating increased activity tolerance, able to more fully participate in PT with fewer rest breaks. Pt reports to be consistent with HEP. Physical Therapy Plan Frequency and Duration Frequency of Treatment 2x/Week Plan of Care Start Date 01/10/24 Plan of Care End Date 03/11/24 Therapeutic Interventions Therapeutic Interventions Balance Training,Gait Training ,Home Exercise Program,Joint Mobilizations,Manual Therapy, Neuromuscular Re-education, Patient/Caregiver Education, Self-Care/Home Management,Soft Tissue Mobilization, Therapeutic Activities, Therapeutic Exercises Modalities Cold Pack/Ice Massage,Hot Packs,Ultrasound Next Visit Focus/Plan Next Note Type Treatment Note Next Visit Plan Ankle and hip strengthening, core strengthening, static/ dynamic ankle stabilization, STM if low back is flared-up.
--- NOTE | 2024-01-31 16:22 | PT.OTN ---
Current Diagnoses Low back pain, unspecified (01/31/24) Muscle weakness (generalized) (01/31/24) Unsteadiness on feet (01/31/24) Physical Therapy Treatment Note PT-OP-A Visit Information Start: 01/10/24 16:55 Freq: Status: Active Protocol: Document 01/31/24 15:19 AB (Rec: 01/31/24 16:22 AB [id number]) Out-Patient Physical Therapy Visit Information Visit Information Visit Type Treatment Note Visit Note Access Code: [email or web address] Visit Start Time 15:21 Visit Stop Time 16:06 Visit Number 5 Number of BAGGAGE INSPECTOR Visits 1 PT-OP-B Current Condition Start: 01/10/24 16:55 Freq: Status: Active Protocol: Document 01/10/24 14:30 DCW (Rec: 01/10/24 17:22 DCW [id number]) Current Condition History of Current Condition Current Complaints Back pain, instability in leg and ankle, limitations in standing, stairs History of Current Condition Pt is a 78 year old female presenting with a long- standing history of low back pain, which has begun affecting her gait and stability of her LEs. Pt notes she is unable to do any activity which requires standing for an extended period of time, like cleaning dishes. Because she has been less active, her strength and endurance is declining, which has made ascending stairs more difficult, and her weakness has also created worsening instability in her right ankle , which she frequently feels almost rolls when she is out walking. Back has been slightly better over the past few weeks after starting massage therapy. Due to her ankle instability, pt has been wearing an ankle brace and occasionally using a cane. Treatment Goals Patient/Caregiver Goals Decrease back pain and make ankle more stable. PT-OP-C Subjective Start: 01/10/24 16:55 Freq: Status: Active Protocol: Document 01/31/24 15:19 AB (Rec: 01/31/24 16:22 AB [id number]) OP-PT Subjective Patient Comments Patient Comments Patient reports she is better. Patient report she is doing her exercises. PT-OP-F Manual Assessment Start: 01/10/24 16:55 Freq: Status: Active Protocol: Document 01/10/24 14:30 DCW (Rec: 01/10/24 17:22 DCW [id number]) Manual Assessments Soft Tissue Assessment Soft Tissue Mobility Assessment Tenderness to palpation 3/4: Wincing and withdraw R>L lumbar paraspinals Joint Mobility Assessment Joint Mobility Assessment No notable instability of right ankle joint, however increased tenderness along Deltoid ligament, ATFL, CC ligament, and PTFL on right side PT-OP-K Range of Motion Start: 01/10/24 16:55 Freq: Status: Active Protocol: Document 01/10/24 14:30 DCW (Rec: 01/10/24 17:22 DCW [id number]) Lumbar Spine Range of Motion Lumbar Spine Active Degrees Testing Position Standing Flexion 67 Extension 20 Lateral Flexion Left 44 Lateral Flexion Right 46 Comments Lateral flexion measured in cm from fingertips to floor Ankle and Foot Goniometric Range of Motion Ankle and Foot Right Active Testing Position Sitting Inversion 35 Eversion 10 PT-OP-L Special Tests Start: 01/10/24 16:55 Freq: Status: Active Protocol: Document 01/10/24 14:30 DCW (Rec: 01/10/24 17:22 DCW [id number]) Special Tests Foot/Ankle Special Tests Peroneal Subluxation Test Results Negative Anterior Draw Test Results Negative PT-OP-M Strength Start: 01/10/24 16:55 Freq: Status: Active Protocol: Document 01/10/24 14:30 DCW (Rec: 01/10/24 17:22 DCW [id number]) Hip Strength Hip Manual Muscle Testing Right Flexion (L2) 3+ Fair+ Abduction 4 Good Adduction 3+ Fair+ External Rotation 4 Good Internal Rotation 4 Good Left Flexion (L2) 3+ Fair+ Abduction 4 Good Adduction 3+ Fair+ External Rotation 4- Good- Internal Rotation 4- Good- Knee Strength Knee Manual Muscle Testing Right Flexion (S2) 4 Good Extension (L3) 4 Good Left Flexion (S2) 4 Good Extension (L3) 4 Good Ankle/Foot Strength Ankle and Foot Manual Muscle Testing Right Dorsiflexion (L4) 4 Good Plantarflexion (S1) 4 Good Inversion 4 Good Eversion (S1) 4 Good Left Dorsiflexion (L4) 4+ Good+ Plantarflexion (S1) 4+ Good+ Inversion 4+ Good+ Eversion (S1) 4+ Good+ PT-OP-Q Treatments Start: 01/10/24 16:55 Freq: Status: Active Protocol: Document 01/31/24 15:19 AB (Rec: 01/31/24 16:22 AB [id number]) Gym Equipment Shuttle Balance red Details WBOS and facing bar Weight shifting Comments CGA increased shaking throughout Therapeutic Exercises Sitting Exercises seated hip abduction with band Side bilateral Resistance level 2 band Reps/Minutes X10 X 2 without hold X 1 with one min hold Comments HEP Standing Exercises mini squat with band Side bilateral Resistance level 2 band Reps/Minutes 2X10 Other Exercises Resisted Ambulation Other Exercise Name Resisted side-stepping Resistance Green loop Reps/Minutes 10 feet X4 Neuro Re-Education Treatment Balance Activities obstical course Comments mat with small uneven ramp to ascend, small objects under, 2 hurdles on, and hoola hoop at end to pick up operator and trial X3 over and back min assist to CGA step up taps Equipment 6 inch step Reps/Duration X12 Comments CGA Foam Details Foam stance badminton Surface AirEx WBOS, narrow KONRAD, Stagger stance Comments CGA PT-OP-T Assessment and Plan Start: 01/10/24 16:55 Freq: Status: Active Protocol: Document 01/31/24 15:19 AB (Rec: 01/31/24 16:22 AB [id number]) Physical Therapy Assessment Goals Three Impairment Bilateral hip weakness with flexion and adduction (3+/5) Bet Taker Goal (LTG) Pt to test at least 4/5 with LE MMT in all tested planes in order to improve LE stability during gait LTG Duration 03/11/24 Two Impairment Pt unable to stand >10 minutes before low back pain forces her to sit Senior Living Goal (LTG) Pt to report ability to stand >25 minutes in order to 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 LTG Duration 03/11/24 One Impairment Pt does not have an appropriate home exercise program Short Term Goal (STG) Pt to be independent and compliant with an appropriate HEP STG Duration 02/09/24 Assessment Summary Assessment Patient reports having no back pain during or post session. Increased difficulty with shuttle balance, but good tolerance to obstical course. Physical Therapy Plan Frequency and Duration Frequency of Treatment 2x/Week Plan of Care Start Date 01/10/24 Plan of Care End Date 03/11/24 Next Visit Focus/Plan Next Note Type Treatment Note Next Visit Plan Ankle and hip strengthening, core strengthening, static/ dynamic ankle stabilization, STM if low back is flared-up.
--- NOTE | 2024-02-14 14:33 | PT.OTN ---
Current Diagnoses Low back pain, unspecified (02/14/24) Muscle weakness (generalized) (02/14/24) Unsteadiness on feet (02/14/24) Physical Therapy Treatment Note PT-OP-A Visit Information Start: 01/10/24 16:55 Freq: Status: Active Protocol: Document 02/14/24 14:31 TS (Rec: 02/14/24 16:29 TS [id number]) Out-Patient Physical Therapy Visit Information Visit Information Visit Type Treatment Note Visit Note Access Code: [email or web address] Visit Start Time 14:33 Visit Stop Time 15:15 Visit Number 6 Number of INCINERATOR ATTENDANT Visits 2 PT-OP-B Current Condition Start: 01/10/24 16:55 Freq: Status: Active Protocol: Document 01/10/24 14:30 DCW (Rec: 01/10/24 17:22 DCW [id number]) Current Condition History of Current Condition Current Complaints Back pain, instability in leg and ankle, limitations in standing, stairs History of Current Condition Pt is a 78 year old female presenting with a long- standing history of low back pain, which has begun affecting her gait and stability of her LEs. Pt notes she is unable to do any activity which requires standing for an extended period of time, like cleaning dishes. Because she has been less active, her strength and endurance is declining, which has made ascending stairs more difficult, and her weakness has also created worsening instability in her right ankle , which she frequently feels almost rolls when she is out walking. Back has been slightly better over the past few weeks after starting massage therapy. Due to her ankle instability, pt has been wearing an ankle brace and occasionally using a cane. Treatment Goals Patient/Caregiver Goals Decrease back pain and make ankle more stable. PT-OP-C Subjective Start: 01/10/24 16:55 Freq: Status: Active Protocol: Document 02/14/24 14:31 TS (Rec: 02/14/24 16:29 TS [id number]) OP-PT Subjective Patient Comments Patient Comments Pt reports she is tired today. Her back feels ok but will hurt if she is standing for a long time. PT-OP-F Manual Assessment Start: 01/10/24 16:55 Freq: Status: Active Protocol: Document 01/10/24 14:30 DCW (Rec: 01/10/24 17:22 DCW [id number]) Manual Assessments Soft Tissue Assessment Soft Tissue Mobility Assessment Tenderness to palpation 3/4: Wincing and withdraw R>L lumbar paraspinals Joint Mobility Assessment Joint Mobility Assessment No notable instability of right ankle joint, however increased tenderness along Deltoid ligament, ATFL, CC ligament, and PTFL on right side PT-OP-K Range of Motion Start: 01/10/24 16:55 Freq: Status: Active Protocol: Document 01/10/24 14:30 DCW (Rec: 01/10/24 17:22 [facility] [id number]) Lumbar Spine Range of Motion Lumbar Spine Active Degrees Testing Position Standing Flexion 67 Extension 20 Lateral Flexion Left 44 Lateral Flexion Right 46 Comments Lateral flexion measured in cm from fingertips to floor Ankle and Foot Goniometric Range of Motion Ankle and Foot Right Active Testing Position Sitting Inversion 35 Eversion 10 PT-OP-L Special Tests Start: 01/10/24 16:55 Freq: Status: Active Protocol: Document 01/10/24 14:30 DCW (Rec: 01/10/24 17:22 [facility] [id number]) Special Tests Foot/Ankle Special Tests Peroneal Subluxation Test Results Negative Anterior Draw Test Results Negative PT-OP-M Strength Start: 01/10/24 16:55 Freq: Status: Active Protocol: Document 01/10/24 14:30 DCW (Rec: 01/10/24 17:22 [facility] [id number]) Hip Strength Hip Manual Muscle Testing Right Flexion (L2) 3+ Fair+ Abduction 4 Good Adduction 3+ Fair+ External Rotation 4 Good Internal Rotation 4 Good Left Flexion (L2) 3+ Fair+ Abduction 4 Good Adduction 3+ Fair+ External Rotation 4- Good- Internal Rotation 4- Good- Knee Strength Knee Manual Muscle Testing Right Flexion (S2) 4 Good Extension (L3) 4 Good Left Flexion (S2) 4 Good Extension (L3) 4 Good Ankle/Foot Strength Ankle and Foot Manual Muscle Testing Right Dorsiflexion (L4) 4 Good Plantarflexion (S1) 4 Good Inversion 4 Good Eversion (S1) 4 Good Left Dorsiflexion (L4) 4+ Good+ Plantarflexion (S1) 4+ Good+ Inversion 4+ Good+ Eversion (S1) 4+ Good+ PT-OP-Q Treatments Start: 01/10/24 16:55 Freq: Status: Active Protocol: Document 02/14/24 14:31 TS (Rec: 02/14/24 16:29 TS [id number]) Therapeutic Exercises Sitting Exercises seated hip abduction with band Side bilateral Resistance level 2 band Reps/Minutes X10 X 2 without hold X 1 with one min hold Comments HEP, not feeling in glutes Standing Exercises Side Steps Resistance LVL 2 band Equipment Used rail for balance Reps/Minutes 2x10' Comments Feels in glutes, mini squat with band Side bilateral Resistance level 2 band Reps/Minutes 1x10 Comments cued for hip hinge, feels in quads. Pallof Press Standing Exercise Name Pallof Press Side bilateral Resistance Iron Reps/Minutes 1x5 Comments Discomfort in low back on bilateral sides Other Exercises bilateral heel raise Side bilateral Reps/Minutes X15 Comments VC to lower heels slowly to floor Step-ups Other Exercise Name Step-ups/downs Side bilateral Equipment Used 6 step Comments R side weaker, requires one rail Neuro Re-Education Treatment Balance Activities obstical course Comments Mats x2 with foam, pods and boards underneath, x4 trips. Requires Levy for balance at times. PT-OP-T Assessment and Plan Start: 01/10/24 16:55 Freq: Status: Active Protocol: Document 02/14/24 14:31 TS (Rec: 02/14/24 16:29 TS [id number]) Physical Therapy Assessment Goals Three Impairment Bilateral hip weakness with flexion and adduction (3+/5) Secretary Of State Goal (LTG) Pt to test at least 4/5 with LE MMT in all tested planes in order to improve LE stability during gait LTG Duration 03/11/24 Two Impairment Pt unable to stand >10 minutes before low back pain forces her to sit Shelter Goal (LTG) Pt to report ability to stand >25 minutes in order to 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 LTG Duration 03/11/24 One Impairment Pt does not have an appropriate home exercise program Short Term Goal (STG) Pt to be independent and compliant with an appropriate HEP STG Duration 02/09/24 Assessment Summary Assessment Pt reported lower back pain with pallof press bilaterally. Step ups and mini squats challenging for pt but tolerated well. She required Levy at times for obstacle course. Physical Therapy Plan Next Visit Focus/Plan Next Note Type Treatment Note Next Visit Plan Ankle and hip strengthening, core strengthening, static/ dynamic ankle stabilization, STM if low back is flared-up.
--- NOTE | 2024-03-16 17:35 | PT.OTN ---
Current Diagnoses Low back pain, unspecified (03/16/24) Muscle weakness (generalized) (03/16/24) Unsteadiness on feet (03/16/24) Physical Therapy Treatment Note PT-OP-A Visit Information Start: 01/10/24 16:55 Freq: Status: Active Protocol: Document 03/16/24 16:45 DCW (Rec: 03/16/24 17:35 DCW [id number]) Out-Patient Physical Therapy Visit Information Visit Information Visit Type Discharge Summary Visit Start Time 16:45 Visit Stop Time 17:25 Visit Number 7 Number of HOME CARE MUSIC THERAPIST Visits 0 Evaluation Information Evaluation Date 01/10/24 PT-OP-B Current Condition Start: 01/10/24 16:55 Freq: Status: Active Protocol: Document 01/10/24 14:30 DCW (Rec: 01/10/24 17:22 DCW [id number]) Current Condition History of Current Condition Current Complaints Back pain, instability in leg and ankle, limitations in standing, stairs History of Current Condition Pt is a 78 year old female presenting with a long- standing history of low back pain, which has begun affecting her gait and stability of her LEs. Pt notes she is unable to do any activity which requires standing for an extended period of time, like cleaning dishes. Because she has been less active, her strength and endurance is declining, which has made ascending stairs more difficult, and her weakness has also created worsening instability in her right ankle , which she frequently feels almost rolls when she is out walking. Back has been slightly better over the past few weeks after starting massage therapy. Due to her ankle instability, pt has been wearing an ankle brace and occasionally using a cane. Treatment Goals Patient/Caregiver Goals Decrease back pain and make ankle more stable. PT-OP-C Subjective Start: 01/10/24 16:55 Freq: Status: Active Protocol: Document 03/16/24 16:45 DCW (Rec: 03/16/24 17:35 DCW [id number]) OP-PT Subjective Patient Comments Patient Comments My ankle isn't bothering me anymore, but my back still hurts if I stand too long, not if I'm walking, though. PT-OP-F Manual Assessment Start: 01/10/24 16:55 Freq: Status: Active Protocol: Document 03/16/24 16:45 DCW (Rec: 03/16/24 16:57 DCW [id number]) Manual Assessments Soft Tissue Assessment Soft Tissue Mobility Assessment Tenderness to palpation 2/4: Pain with wincing R>L lumbar paraspinals Joint Mobility Assessment Joint Mobility Assessment No notable instability of right ankle joint, no notable tenderness along Deltoid ligament, ATFL, CC ligament, or PTFL PT-OP-K Range of Motion Start: 01/10/24 16:55 Freq: Status: Active Protocol: Document 03/16/24 16:45 DCW (Rec: 03/16/24 16:57 DCW [id number]) Lumbar Spine Range of Motion Lumbar Spine Active Degrees Testing Position Standing Flexion 72 Extension 30 Lateral Flexion Left 40 Lateral Flexion Right 41 Comments Lateral flexion measured in cm from fingertips to floor Ankle and Foot Goniometric Range of Motion Ankle and Foot Left Active Testing Position Sitting Plantarflexion 35 Inversion 15 Right Active Testing Position Sitting Inversion 35 Eversion 15 PT-OP-L Special Tests Start: 01/10/24 16:55 Freq: Status: Active Protocol: Document 01/10/24 14:30 DCW (Rec: 01/10/24 17:22 DCW [id number]) Special Tests Foot/Ankle Special Tests Peroneal Subluxation Test Results Negative Anterior Draw Test Results Negative PT-OP-M Strength Start: 01/10/24 16:55 Freq: Status: Active Protocol: Document 03/16/24 16:45 DCW (Rec: 03/16/24 16:57 DCW [id number]) Hip Strength Hip Manual Muscle Testing Right Flexion (L2) 4 Good Abduction 4 Good Adduction 4 Good External Rotation 4 Good Internal Rotation 4 Good Left Flexion (L2) 4 Good Abduction 4 Good Adduction 4 Good External Rotation 4- Good- Internal Rotation 4- Good- Knee Strength Knee Manual Muscle Testing Right Flexion (S2) 4 Good Extension (L3) 4 Good Left Flexion (S2) 4 Good Extension (L3) 4 Good Ankle/Foot Strength Ankle and Foot Manual Muscle Testing Right Dorsiflexion (L4) 4 Good Plantarflexion (S1) 4 Good Inversion 4 Good Eversion (S1) 4 Good Left Dorsiflexion (L4) 4+ Good+ Plantarflexion (S1) 4+ Good+ Inversion 4+ Good+ Eversion (S1) 4+ Good+ PT-OP-Q Treatments Start: 01/10/24 16:55 Freq: Status: Active Protocol: Document 03/16/24 16:45 DCW (Rec: 03/16/24 17:35 [facility] [id number]) Therapeutic Activity Therapeutic Activity Floor Transfers Reps/Minutes x2 Comments Supine->Quadruped->Long kneel- >Standing Manual Therapy Treatment Other Other Manual Treatments ROM, Manual assessment, MMT PT-OP-T Assessment and Plan Start: 01/10/24 16:55 Freq: Status: Active Protocol: Document 03/16/24 16:45 DCW (Rec: 03/16/24 17:35 [facility] [id number]) Physical Therapy Assessment Goals Three Impairment Bilateral hip weakness with flexion and adduction (3+/5) Patient Intake Representative Goal (LTG) Pt to test at least 4/5 with LE MMT in all tested planes in order to improve LE stability during gait LTG Duration Met Two Impairment Pt unable to stand >10 minutes before low back pain forces her to sit Patient Intake Representative Goal (LTG) Pt to report ability to stand >25 minutes in order to 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 LTG Duration 03/11/24 - Unchanged One Impairment Pt does not have an appropriate home exercise program Short Term Goal (STG) Pt to be independent and compliant with an appropriate HEP STG Duration Met Assessment Summary Assessment Pt having procedure next week on her heart, getting minimally invasive WATCHMAN implant inserted. Notes she was informed there is a ~45 day recovery. Due to this change in medical status, pt will be discharged from skilled therapy, with instructions to return with a new referral when cleared. Did discuss pt's desire to work on getting out of a kayak and performing floor transfers. Pt able to demonstrate ability to get from supine->quadruped- >standing without assistance, no concerns at this point for floor transfers. Physical Therapy Plan Frequency and Duration Frequency of Treatment 1x/Week Plan of Care Start Date 03/16/24 Plan of Care End Date 03/17/24 Discharge Physical Therapy Discharge Reasons Change in Medical Status Next Visit Focus/Plan Next Note Type Discharge Summary
--- NOTE | 2024-03-16 17:36 | PT.OPPOC ---
Physical, Occupational & Speech Therapy At [facility] Current Diagnoses Low back pain, unspecified (03/16/24) Muscle weakness (generalized) (03/16/24) Unsteadiness on feet (03/16/24) Visit Care Team Role Provider Type Vanessa Merino PA-C Family Provider Advanced Security Patrol Officer Specialty: Medical Address: [address] [place] [address], [address] Email: Aye Liu MD Attending Provider Physician Primary Care Provider Referring Provider Specialty: Internal Medicine Address: [place], [address] Email: Plan Of Care PT-OP-B Current Condition Start: 01/10/24 16:55 Freq: Status: Active Protocol: Document 01/10/24 14:30 DCW (Rec: 01/10/24 17:22 DCW [id number]) Current Condition History of Current Condition Current Complaints Back pain, instability in leg and ankle, limitations in standing, stairs History of Current Condition Pt is a 78 year old female presenting with a long- standing history of low back pain, which has begun affecting her gait and stability of her LEs. Pt notes she is unable to do any activity which requires standing for an extended period of time, like cleaning dishes. Because she has been less active, her strength and endurance is declining, which has made ascending stairs more difficult, and her weakness has also created worsening instability in her right ankle , which she frequently feels almost rolls when she is out walking. Back has been slightly better over the past few weeks after starting massage therapy. Due to her ankle instability, pt has been wearing an ankle brace and occasionally using a cane. Treatment Goals Patient/Caregiver Goals Decrease back pain and make ankle more stable. PT-OP-T Assessment and Plan Start: 01/10/24 16:55 Freq: Status: Active Protocol: Document 03/16/24 16:45 DCW (Rec: 03/16/24 17:35 DCW [id number]) Physical Therapy Assessment Goals Three Impairment Bilateral hip weakness with flexion and adduction (3+/5) Longterm Goal (LTG) Pt to test at least 4/5 with LE MMT in all tested planes in order to improve LE stability during gait LTG Duration Met Two Impairment Pt unable to stand >10 minutes before low back pain forces her to sit Longterm Goal (LTG) Pt to report ability to stand >25 minutes in order to 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 LTG Duration 03/11/24 - Unchanged One Impairment Pt does not have an appropriate home exercise program Short Term Goal (STG) Pt to be independent and compliant with an appropriate HEP STG Duration Met Assessment Summary Assessment Pt having procedure next week on her heart, getting minimally invasive WATCHMAN implant inserted. Notes she was informed there is a ~45 day recovery. Due to this change in medical status, pt will be discharged from skilled therapy, with instructions to return with a new referral when cleared. Did discuss pt's desire to work on getting out of a kayak and performing floor transfers. Pt able to demonstrate ability to get from supine->quadruped- >standing without assistance, no concerns at this point for floor transfers. Physical Therapy Plan Frequency and Duration Frequency of Treatment 1x/Week Plan of Care Start Date 03/16/24 Plan of Care End Date 03/17/24 Discharge Physical Therapy Discharge Reasons Change in Medical Status Next Visit Focus/Plan Next Note Type Discharge Summary Plan of Care Dates Plan of Care Start Date 03/16/24 Plan of Care End Date 03/17/24 Electronically Signed by: Que Roberto, PT 03/16/24 [id number] If you are in agreement with this Plan of Care, please return a signed and dated copy. I have reviewed this Plan of Care and certify that the skilled therapy services above are required to meet the patient?s needs. Physician Signature Date Printed Name and Credentials Clinical Instructor Signature Printed Name and Credentials
== END 2024-09-23 11:17 | disposition home or self-care (01) ==
LOC: PHYS 16:45
PROVIDERS: Family Provider Physician Assistant; PCP Internal Medicine; Referring Provider Internal Medicine; Visit Provider Internal Medicine
DX: M54.50 Low back pain, unspecified (principal); M62.81 Muscle weakness (generalized); R26.81 Unsteadiness on feet
CPT/HCPCS: 97110; 97112; 97140; 97161; 97530

== ENCOUNTER 2024-05-30 17:55 | Emergency (ER) | payer MEDICARE, SELFPAY ==
[2023-12-10 01:01] VITALS: BMI 37.8
[2024-05-30] VITALS (16 sets, daily range): BP systolic 176–206; BP diastolic 76–94; PULSE 54–66; RESP 18–44; TEMP 36.7; O2SAT 94–98; BMI 35.1
--- NOTE | 2024-05-30 18:08 | DI.RAD.S_ITS ---
PROCEDURE: XR CHEST 1V INDICATIONS: chest pain TECHNIQUE: One view of the chest was acquired. COMPARISON: [facility], CR, XR CHEST 1V, 09/16/2023, 12:57. [facility], CR, XR CHEST 1V, 08/22/2023, 15:10. FINDINGS: Surgical changes and devices: None. Lungs and pleura: Lungs are clear. No pleural effusions or pneumothorax. Mediastinum: Mediastinal contours appear normal. Heart size is normal. Bones and chest wall: No suspicious bony lesions. Overlying soft tissues appear unremarkable. IMPRESSION: No acute cardiopulmonary abnormality is seen. Dictated by: Ever Clements M.D. on 05/30/2024 at 19:12 Approved by: Ever Clements M.D. on 05/30/2024 at 19:13
--- NOTE | 2024-05-30 18:19 | EKG_ITS ---
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
[2024-05-30 18:39] LABS: Add Manual Diff / Slide Review NO; Basophils Absolute Auto 100 /uL (0-100); Basophils Percent Auto 1.2 % (0-2); Eosinophils Absolute Auto 400 /uL (0-450); Eosinophils Percent Auto 6.5 % (2-4); Hematocrit 39.3 % (36-46); Hemoglobin 12.9 g/dL (12.0-16.0); Lymphocytes Absolute Auto 1800 /uL (1100-4500); Lymphocytes Percent Auto 30.6 % (25-40); Mean Corpuscular HGB Conc 32.7 % (30-36); Mean Corpuscular Volume 91.6 fL (80-100); Monocytes Absolute Auto 600 /uL (0-900); Monocytes Percent Auto 10.5 % (3-14); Neutrophils Absolute Auto 2900 /uL (1500-7000); Neutrophils Percent Auto 51.2 % (50-75); Platelet Count 231 X10^3/uL (150-400); Red Blood Cell Count 4.29 X10^6/uL (4.0-5.2); Red Cell Distribution Width 14.4 % (11.6-14.8); White Blood Cell Count 5.7 X10^3/uL (4.5-11.0)
[2024-05-30 18:56] LABS: Prothrombin Time 11.5 SECONDS (9.4-12.5)
[2024-05-30 18:59] LABS: PTT Partial Thromboplastin Tim 35 SECONDS (25.1-36.5)
--- NOTE | 2024-05-30 18:59 | ED.CHESTPAIN ---
HPI - Chest Pain General Chief Complaint: Chest Pain Stated Complaint: high blood pressure Time Seen by Provider: 05/30/24 18:08 Source: patient Mode of arrival: Ambulatory Limitations: no limitations History of Present Illness HPI narrative: 78-year-old female here predominantly for elevated blood pressure, taking irbesartan 75 mg daily, also taking metoprolol for history of atrial fibrillation, recent Watchman procedure no longer taking anticoagulation, home blood pressure medications elevated. She used to take amlodipine but this was discontinued due to leg swelling. She used to take water pills remotely, does not recently take them, as they were not working in the past. She sees primary care provider Aye liu, recent weekly visits, due to see in the next month or so. She admitted to chest pain for about 5 minutes duration this afternoon, no associated diaphoresis, nonradiating, resolved without specific treatment. Denies headache, generalized weakness, focal weakness to face arm or leg, focal numbness to face arm or leg. Denies fevers or chills. Denies nausea vomiting diarrhea. Denies abdominal pain. No recent cough shortness of breath. Related Data Home Medications Medication Instructions Recorded Confirmed Zicam 1 dose intranasal 1XD 05/18/19 05/31/23 irbesartan 75 mg tablet 75 mg PO DAILY 05/18/19 12/10/23 triamcinolone acetonide 0.1 % 1 applic topical BID 11/25/22 05/31/23 topical cream Vitamin B-12 5,000 mcg sublingual DAILY 02/14/23 05/31/23 atorvastatin 20 mg tablet 20 mg PO DAILY 02/14/23 12/10/23 gabapentin 300 mg tablet 300 mg PO BEDTIME 12/10/23 12/10/23 metoprolol succinate 50 mg 75 mg PO BID 12/10/23 12/10/23 tablet,extended release 24 hr vitamin B complex 1 tab PO DAILY 12/10/23 12/10/23 Allergies Allergy/AdvReac Type Severity Reaction Status Date / Time milk [MILK] Allergy Unknown ACHE ALL Verified 09/16/23 12:20 OVER LIKE COMING DOWN WITH FLU X3 DAYS lisinopril [LISINOPRIL] AdvReac Unknown COUGH Verified 09/16/23 12:20 Review of Systems Review of Systems Narrative: See HPI Patient History Medical History Paroxysmal atrial fibrillation Pelvic relaxation Postmenopausal atrophic vaginitis Surgical History History of cataract surgery Family History Mother Congestive heart failure Brother CAD (coronary artery disease) of artery bypass graft Social History household members: friend(s) Smoking Status: Never smoker alcohol intake: current Smoking Status: Never smoker alcohol intake frequency: holidays/special occasions only Substance Use Type: does not use Exam Narrative Exam Narrative: GENERAL: Well-developed patient, in mild distress. HEAD: Atraumatic. Normocephalic. EYES: Pupils equal round and reactive. Extraocular motions intact. No scleral icterus. No injection or drainage. ENT: Nose without bleeding, purulent drainage. Throat without erythema, tonsillar hypertrophy or exudate. Airway patent. NECK: Trachea midline. Non tender CARDIOVASCULAR: Regular rate and rhythm without murmurs, gallops, or rubs. RESPIRATORY: Clear to auscultation. Breath sounds equal bilaterally. No wheezes, rales, or rhonchi. GASTROINTESTINAL: Abdomen soft, non-tender, nondistended. EXTREMITIES: No edema or joint tenderness. BACK: Nontender without deformity or crepitance. No flank tenderness. NEURO: AOx3. Motor functions grossly nonfocal SKIN: No rash or erythema of visible areas Initial Vital Signs Initial Vital Signs: Vital Signs Pulse Rate 66 05/30/24 18:03 Pulse Oximetry 96 05/30/24 18:03 Course Orders Ordered: Discontinued Medications Hydralazine HCl (Hydralazine 20 Mg/Ml Vial) 5 mg IV NOW ONE Stop: 05/30/24 20:21 Last Admin: 05/30/24 20:23 Dose: 5 mg Documented By: ANN Vital Signs Vital signs: Vital Signs - 8 hr 05/30/24 18:03 05/30/24 18:04 05/30/24 18:04 Temperature Pulse Rate 66 65 Respiratory Rate Blood Pressure 196/92 H Pulse Oximetry 96 94 Oxygen Delivery Method 05/30/24 18:09 05/30/24 18:30 05/30/24 18:31 Temperature 98.1 F Pulse Rate 60 57 L Respiratory Rate 18 21 Blood Pressure 196/92 H 194/81 H Pulse Oximetry 95 96 Oxygen Delivery Method Room Air 05/30/24 18:31 05/30/24 19:00 05/30/24 19:01 Temperature Pulse Rate 57 L 56 L Respiratory Rate 22 20 Blood Pressure 176/78 H Pulse Oximetry 94 95 Oxygen Delivery Method Room Air 05/30/24 19:01 05/30/24 19:30 05/30/24 19:31 Temperature Pulse Rate 56 L 56 L Respiratory Rate 35 H 40 H Blood Pressure 176/76 H Pulse Oximetry 95 97 Oxygen Delivery Method Room Air 05/30/24 19:31 05/30/24 20:00 05/30/24 20:01 Temperature Pulse Rate 55 L 56 L Respiratory Rate 44 H 37 H Blood Pressure 205/94 H Pulse Oximetry 95 96 Oxygen Delivery Method Room Air Room Air 05/30/24 20:01 05/30/24 20:07 05/30/24 20:07 Temperature Pulse Rate 54 L 54 L Respiratory Rate 31 H 41 H Blood Pressure 206/92 H Pulse Oximetry 95 97 Oxygen Delivery Method 05/30/24 20:30 05/30/24 20:31 05/30/24 20:31 Temperature Pulse Rate 58 L 59 L Respiratory Rate 25 H 28 H Blood Pressure 197/82 H Pulse Oximetry 97 97 Oxygen Delivery Method 05/30/24 21:00 05/30/24 21:01 05/30/24 21:01 Temperature Pulse Rate 61 64 Respiratory Rate 35 H 29 H Blood Pressure 189/91 H Pulse Oximetry 98 98 Oxygen Delivery Method MDM - Chest Pain Lab Data Attestation: I reviewed the patient's lab results. Lab results narrative: White blood cell count 5700, hemoglobin 12.9, platelets adequate. Basic metabolic panel unremarkable, electrolytes unremarkable, normal renal function. Liver functions normal. Troponin negative. 05/30/24 18:30 05/30/24 18:30 Labs: Lab Results 05/30/24 05/30/24 Range/Units 18:30 20:30 WBC 5.7 (4.5-11.0) X10^3/uL RBC 4.29 (4.0-5.2) X10^6/uL Hgb 12.9 (12.0-16.0) g/dL Hct 39.3 (36-46) % MCV 91.6 (80-100) fL MCH 30.0 (26-34) PG MCHC 32.7 (30-36) % RDW 14.4 (11.6-14.8) % Plt Count 231 (150-400) X10^3/uL Neut % (Auto) 51.2 (50-75) % Lymph % (Auto) 30.6 (25-40) % [place] % (Auto) 10.5 (3-14) % Eos % (Auto) 6.5 H (2-4) % Baso % (Auto) 1.2 (0-2) % Neut # (Auto) 2900 (3581-5552) /uL Lymph # (Auto) 1800 (9292-9306) /uL [place] # (Auto) 600 (0-900) /uL Eos # (Auto) 400 (0-450) /uL Baso # (Auto) 100 (0-100) /uL PT 11.5 (9.4-12.5) SECONDS INR 1.0 (0.9-1.3) APTT 35 (25.1-36.5) SECONDS Sodium 142 (137-145) mmol/L Potassium 3.9 (3.4-5.1) mmol/L Chloride 107 (98-107) mmol/L Carbon Dioxide 28 (22-32) mmol/L BUN 10 (7-17) mg/dL Creatinine 0.86 (0.52-1.04) mg/dL Estimated GFR > 60 (>60) mL/min BUN/Creatinine Ratio 11.6 (6-22) Glucose 110 (80-110) mg/dL Calcium 9.8 (8.4-10.2) mg/dL Magnesium 1.9 (1.6-2.3) mg/dL Total Bilirubin 0.8 (0.2-1.3) mg/dL AST 30 (14-36) IU/L ALT 22 (<35) IU/L Alkaline Phosphatase 74 (38-126) U/L Total Creatine Kinase 49 (30-135) U/L Troponin I < 0.012 < 0.012 (0.01-0.034) ng/mL NT-Pro-B Natriuret Pep 729 H (<450) pg/mL Total Protein 7.0 (6.3-8.2) g/dL Albumin 4.1 (3.5-5.0) g/dL Globulin 2.9 (1.7-4.1) g/dL Albumin/Globulin Ratio 1.4 (1.0-2.8) Lipase 112 (23-300) U/L Imaging Data Chest x-ray: Radiologist's Impression: [address] [address] XRay Report Signed Patient: Irma Agudelo MR#: [id number] : 1945 Acct:[id number] Age/Sex: 78 / F Date of Service: 05/30/24 Loc: ED Accession Number: [id number] Procedure: XR chest 1V Ordering Provider: Joshua Smith MD PROCEDURE: XR CHEST 1V INDICATIONS: chest pain TECHNIQUE: One view of the chest was acquired. COMPARISON: [facility], CR, XR CHEST 1V, 09/16/2023, 12:57. [facility], CR, XR CHEST 1V, 08/22/2023, 15:10. FINDINGS: Surgical changes and devices: None. Lungs and pleura: Lungs are clear. No pleural effusions or pneumothorax. Mediastinum: Mediastinal contours appear normal. Heart size is normal. Bones and chest wall: No suspicious bony lesions. Overlying soft tissues appear unremarkable. IMPRESSION: No acute cardiopulmonary abnormality is seen. Dictated by: Ever Clements M.D. on 05/30/2024 at 19:12 Approved by: Ever Clements M.D. on 05/30/2024 at 19:13 ECG Data Attestation: I personally reviewed and interpreted this ECG as follows: Interpretation: Sinus bradycardia with rate of 56, no obvious ST segment elevation or depression changes. T-wave flattening lead 3 but upright in leads 2 and F contiguous inferior leads. HI 136, QRS 76, QTC 451. MDM Narrative Medical decision making narrative: 78-year-old female with history of atrial fibrillation, Watchman procedure, no longer on anticoagulation, hypertension for which she most recently is taking irbesartan and metoprolol. No longer takes amlodipine, states that it cause swelling. No longer takes water pills, apparently did not work decades prior. She had 5 minutes duration anterior chest pain earlier this afternoon, no diaphoresis, no recurrence. Screening EKG sinus bradycardia noted, no obvious ischemic changes. Initial troponin negative. Chest x-ray unremarkable. Elevated blood pressure despite her irbesartan, sinus bradycardia on metoprolol noted, we will avoid further beta blockers and calcium channel blockers. History of amlodipine associated lower extremity swelling in the past. IV hydralazine for now. We will repeat interval troponin. Repeat troponin also negative/unmeasurable. Blood pressure 180/90 reduced, improving. Continue current blood pressure regimen at home with irbesartan and metoprolol, follow up advised with your regular doctor early next week for further blood pressure evaluation, could consider addition of diuretic if needed. Discharged home. Return precautions discussed. Discharge Plan Departure Patient Disposition: Home Clinical Impression: Hypertension, Chest pain Instructions: Essential Hypertension, DI for Atypical Chest Pain Activity Restrictions/Additional Instructions: Concern tonight for elevated blood pressure, taking irbesartan and metoprolol, heart rate low so no additional metoprolol appropriate. Consider higher dose of irbesartan if there is a higher therapeutic range in follow up, discussed with your primary care provider. History of swelling legs with amlodipine, we will not start this for now. Consider diuretic medication, though you did not have response in the past, it can be useful in combination with her losartan for example. Continue her metoprolol dosing. You had brief episode of chest pain earlier today, no chest pain while in the emergency department, EKG reassuring, blood testing not suggestive of recent heart attack. IV hydralazine low dose given, improved blood pressure on discharge. Continue taking your regular medication. Hydralazine is available as an oral formulation but this is not necessarily the best choice of further blood pressure control class of medication, discuss further blood pressure control measures with your primary care doctor in close follow up. Further testing and evaluation as an outpatient. Contact your doctor early this week for follow up blood pressure evaluation, and further workup of chest discomfort as needed. Return to this/nearest emergency department for any change worsening symptoms or any concerns prior Prescriptions: No Action irbesartan 75 mg tablet 75 mg PO DAILY Zicam 1 dose intranasal 1XD triamcinolone acetonide 0.1 % Cream 1 applic TOPICAL BID vitamin B complex Tablet 1 tab PO DAILY gabapentin 300 mg Tablet 300 mg PO BEDTIME metoprolol succinate 50 mg tablet extended release 24 hr 75 mg PO BID atorvastatin 20 mg tablet 20 mg PO DAILY Vitamin B-12 5,000 mcg sublingual DAILY Referrals: Aye Liu MD [Primary Care Provider] - Stand Alone Forms: Patient Portal/API
[2024-05-30 19:01] LABS: Alanine Aminotransferase 22 IU/L (<35); Albumin 4.1 g/dL (3.5-5.0); Albumin Globulin Ratio 1.4 (1.0-2.8); Alkaline Phosphatase 74 U/L (38-126); Aspartate Aminotransferase 30 IU/L (14-36); BUN Creatinine Ratio 11.6 (6-22); Bilirubin Total 0.8 mg/dL (0.2-1.3); Blood Urea Nitrogen 10 mg/dL (7-17); Calcium 9.8 mg/dL (8.4-10.2); Carbon Dioxide 28 mmol/L (22-32); Chloride 107 mmol/L (98-107); Creatine Kinase 49 U/L (30-135); Estimated Glomerular Filt Rate > 60 mL/min (>60); Globulin 2.9 g/dL (1.7-4.1); Glucose 110 mg/dL (80-110); HEMOLYSIS < 15 (0-50); Lipase 112 U/L (23-300); Magnesium 1.9 mg/dL (1.6-2.3); Potassium 3.9 mmol/L (3.4-5.1); Sodium 142 mmol/L (137-145)
[2024-05-30 19:12] LABS: NT-proBNP (BNP-Adult 18+) 729 pg/mL (<450); Troponin I < 0.012 ng/mL (0.01-0.034)
--- NOTE | 2024-05-30 19:18 | PC.NURSE ---
Pt awake and alert sitting in Ed stretcher speaking with friend at bedside. No distress noted at this time. No complaints stated at this time. Pt remains connected to cardiac, resp, blood pressure, and pulse ox monitors with alarms on and audible. Call light within reach.
--- NOTE | 2024-05-30 20:00 | PC.NURSE ---
Police Superintendent and other yazdanism staff at bedside.
--- NOTE | 2024-05-30 20:15 | PC.NURSE ---
Dr. Simth at bedside
[2024-05-30] MEDS: HYDRALAZINE 20 MG/ML VIAL 5 MG IV (20:23)
--- NOTE | 2024-05-30 20:28 | PC.NURSE ---
2nd trop drawn from existing IV line
[2024-05-30 20:59] LABS: Troponin I < 0.012 ng/mL (0.01-0.034)
== END 2024-05-30 21:23 | disposition home or self-care (01) ==
PROVIDERS: Emergency Provider Emergency Medicine; Family Provider Physician Assistant; PCP Internal Medicine
DX: I10 Essential (primary) hypertension (principal); R07.9 Chest pain, unspecified; R00.1 Bradycardia, unspecified
CPT/HCPCS: 36415; 71045; 80053; 82550; 83690; 83735; 83880; 84484; 85025; 85610; 85730; 93005; 96374; 99284; J0360

== ENCOUNTER → 2024-06-26 14:19 | Outpatient (CLI) | payer MEDICARE, SELFPAY ==
[2023-12-10 01:01] VITALS: BMI 37.8
--- NOTE | 2024-06-26 14:21 | DI.NM.S_ITS ---
PROCEDURE: NM JEFFERSON PERF SPECT REST & STR Rest and exercise myocardial perfusion SPECT with gated imaging and ejection fraction RADIOPHARMACEUTICAL: 27.5 mCi Tc-99m sestamibi IV at rest and 24.42 mCi Tc-99m sestamibi IV at peak exercise. A [id number] was performed. INDICATIONS: CHEST PAIN TECHNIQUE: Radiopharmaceutical was injected at peak stress test, and also at rest. SPECT images were obtained. SPECT myocardial perfusion images were displayed in short axis, horizontal long axis, and vertical long axis views. Gated images were reviewed using Phantom software. COMPARISON: None. CARDIAC STRESS: A standard Kane treadmill exercise tolerance test was performed by the patient under the supervision of an attending staff. The patient exercised for 7 minutes and 0 seconds; 7.0 METS; functional aerobic impairment (VALE) is -39%. Hemodynamic data: There is normal blood pressure response to exercise stress. The heart rate response to exercise was blunted due to the patient taking metoprolol the morning of the test. Patient achieved 79% of maximum predicted heart rate at peak exercise. Maximum blood pressure 152/82. Symptoms: Patient denied chest pain during exercise. EKG: Rest ECG sinus rhythm 63 bpm. Exercise ECG sinus rhythm up to [address] segment changes or arrhythmia. FINDINGS: Raw data: There is good myocardial labeling by radiotracer. No significant motion artifacts. Left ventricle function: Gated images demonstrate normal left ventricle wall thickening. No segmental wall motion abnormality. No transient ischemic dilation; TID is 0.95 (normal less than 1.3). The left ventricle resting end-diastolic volume is 77 mL. Left ventricle stress ejection fraction is >75%; normal values are above 45%. Myocardial perfusion: There is normal distribution of activity in the left and right ventricular myocardium. No fixed or reversible perfusion defects. IMPRESSION: Equivocal study. Submaximal exercise stress test, achieving 79% peak predicted HR due to a beta-era being on board. No evidence of exercise-induced ischemia at the level of heart rate achieved. Normal LV size with hyperdynamic function. Normal blood pressure response. Very good exercise capacity. Dictated by: Alta Carmichael D.O. on 06/29/2024 at 17:02 Approved by: Alta Carmichael D.O. on 06/29/2024 at 17:08
== END ==
LOC: NUCM 14:20
PROVIDERS: Family Provider Physician Assistant; PCP Internal Medicine; Referring Provider Internal Medicine; Visit Provider Internal Medicine
DX: R07.9 Chest pain, unspecified (principal); I10 Essential (primary) hypertension; E78.5 Hyperlipidemia, unspecified; E66.9 Obesity, unspecified; Z68.35 Body mass index [BMI] 35.0-35.9, adult
CPT/HCPCS: 78452; 93017; A9502

== ENCOUNTER → 2024-09-27 10:31 | Outpatient (CLI) | payer MEDICARE, SELFPAY ==
[2023-12-10 01:01] VITALS: BMI 37.8
--- NOTE | 2024-09-27 10:34 | DI.RAD.S_ITS ---
PROCEDURE: XR FOOT LT MIN 3V INDICATIONS: Left foot injury/pain TECHNIQUE: 3 views of the foot were acquired. COMPARISON: [facility], CR, XR FOOT RT MIN 3V, 10/24/2023, 14:14. FINDINGS AND IMPRESSION: Mild background degenerative changes. No acute displaced fracture or dislocation. No suspicious calcifications. Soft tissue swelling is seen, especially dorsally. If there is high concern for occult injury, consider repeat radiography or cross-sectional imaging. Dictated by: Jaya Gage M.D. on 09/27/2024 at 11:01 Approved by: Jaya Gage M.D. on 09/27/2024 at 11:02
== END ==
LOC: RAD 10:33
PROVIDERS: Family Provider Physician Assistant; PCP Internal Medicine; Referring Provider Physician Assistant Surgical; Visit Provider Physician Assistant Surgical
DX: S99.922A Unspecified injury of left foot, initial encounter (principal); X58.XXXA Exposure to other specified factors, initial encounter
CPT/HCPCS: 73630

== ENCOUNTER → 2024-10-05 11:46 | Outpatient (CLI) | payer MEDICARE, SELFPAY ==
[2023-12-10 01:01] VITALS: BMI 37.8
--- NOTE | 2024-10-05 11:49 | DI.CT.S_ITS ---
PROCEDURE: CT FOOT LEFT WITHOUT CON INDICATIONS: FOOT PAIN,PERSISTENT POST-TRAUMATIC TECHNIQUE: Noncontrast 1-1.5 mm axial sections acquired from above the tibiotalar joint to the bottom of the calcaneus, with coronal and sagittal reformats. COMPARISON: [facility], CR, XR FOOT LT MIN 3V, 09/27/2024, 10:37. FINDINGS: Image quality: Excellent. Bones: Diffuse osseous demineralization, which limits the sensitivity for fracture detection. No acute fracture or dislocation. No talar dome osteochondral defect. Small type 1 accessory navicular (2/50) Joints: The Lisfranc interval is preserved. Muscles: Mild diffuse muscle atrophy. Tendons: Visualized flexor and extensor tendon contours are preserved. Mild Achilles calcaneal enthesopathy. Vessels: Mild tibialis posterior arterial calcifications without aneurysmal dilatation. Other soft tissues: Subcutaneous edema along the lateral aspect of the distal fibula (5/30) and dorsum of the forefoot/midfoot (4/52). IMPRESSION: 1. No acute fracture or dislocation of the left foot. 2. Subcutaneous edema overlying the dorsum of the forefoot/midfoot, and along the lateral aspect of the distal fibula. Dictated by: Mark Arias M.D. on 10/05/2024 at 16:43 Approved by: Mark Arias M.D. on 10/05/2024 at 16:50
== END ==
LOC: CT 11:48
PROVIDERS: Family Provider Physician Assistant; PCP Internal Medicine; Referring Provider Family Medicine; Visit Provider Family Medicine
DX: S90.32XD Contusion of left foot, subsequent encounter (principal); M25.475 Effusion, left foot
CPT/HCPCS: 73700

== ENCOUNTER 2025-02-10 14:25 | Outpatient (RCR) | payer MEDICARE, SELFPAY ==
[2023-12-10 01:01] VITALS: BMI 37.8
--- NOTE | 2025-02-10 15:36 | PT.OIE ---
Current Diagnoses Benign paroxysmal vertigo, unspecified ear (02/10/25) Past Medical History (Last Reviewed 12/10/23 @ 00:57 by Dereje Sandhu MD) Paroxysmal atrial fibrillation Pelvic relaxation Postmenopausal atrophic vaginitis Past Surgical History (Last Reviewed 12/10/23 @ 00:57 by Dereje Sandhu MD) History of cataract surgery Visit Care Team Role Provider Type Aye Liu MD Attending Provider Physician Family Provider Primary Care Provider Referring Provider Specialty: Internal Medicine Address: [place], [place], [facility] Email: Physical Therapy Initial Evaluation PT-OP-A Visit Information Start: 02/10/25 15:14 Freq: Status: Active Protocol: Document 02/10/25 14:35 DCW (Rec: 02/10/25 15:36 DCW [id number]) Out-Patient Physical Therapy Visit Information Visit Information Visit Type Initial Evaluation Visit Start Time 14:35 Visit Stop Time 15:05 Visit Number 1 Number of CROP PULLER Visits 0 Evaluation Information Evaluation Date 02/10/25 PT-OP-B Current Condition Start: 02/10/25 15:14 Freq: Status: Active Protocol: Document 02/10/25 14:35 DCW (Rec: 02/10/25 15:36 DCW [id number]) Current Condition History of Current Condition Onset Date 1.5 month history Current Complaints Unsteadiness/dizziness when getting into and out of bed History of Current Pt is a 79 year old female complaining of a 1.5 month Condition history of motion-induced vertigo. Pt reports episodes last 3-5 seconds. Symptoms are provoked by positional changes, like getting into and out of bed, but also with quick head movements. Notes it has been worsening overall, however her worst day was February 05, and then she actually hasn't noticed any symptoms since. Pt denies recent tinnitus, diplopia, dysarthria, discoordination, or decreased mentation/consciousness. Does note recent improved hearing with change of hearing aids. Pt reports symptoms are waxing/waning in nature. Pt was successfully treated at this facility for right-sided BPPV two years ago. PT-OP-C Subjective Start: 02/10/25 15:14 Freq: Status: Active Protocol: Document 02/10/25 14:35 DCW (Rec: 02/10/25 15:36 DCW [id number]) OP-PT Subjective Patient Comments Patient Comments It feels like I just got off a [id number]. PT-OP-O Vestibular Start: 02/10/25 15:14 Freq: Status: Active Protocol: Document 02/10/25 14:35 DCW (Rec: 02/10/25 15:36 DCW [id number]) Vestibular Assessment Visual Testing Smooth Pursuits WNL Horizontal Smooth Pursuits WNL Vertical Gaze Evoked Positive Nystagmus With Fixation Positional Testing Paz-Hallpike Negative Left,Negative Right Rolling Test Negative Left,Negative Right Comments Vestibular Comments Pt displays direction-changing gaze-evoked nystagmus with fixation PT-OP-T Assessment and Plan Start: 02/10/25 15:14 Freq: Status: Active Protocol: Document 02/10/25 14:35 DCW (Rec: 02/10/25 15:36 DCW [id number]) Physical Therapy Assessment Evaluation Complexity Number of Personal 3 or More Factors/ Comorbidities Number of Body 4 or More Systems Impaired Clinical Stable Presentation at Evaluation Impairments Impairments Balance,Functional Activities,Functional Mobility, Vestibular Goals One Impairment Pt experiences position-dependent vertigo when getting into or out of bed Production Honing Machine Operator Goal (LTG) Pt to report no vertigo when getting into or out of bed for seven straight days LTG Duration 04/13/25 Assessment Summary Assessment Vestibular testing almost entirely negative today. Pt subjective history and her history of prior BPPV likely indicative of recurrence of BPPV, however positional testing negative today. Only notable finding was direction-changing gave-evoked nystagmus, which could potentially indicate central causes of vertigo, however without other symptoms is frequently an age related finding. BPPV does have a tendency to wax and wane, and false negatives are also quite common. Pt would likely benefit from follow-up PT appointment for further positional testing and CRM if indicated. If other central findings are seen, may benefit from intracranial imaging in the future. Physical Therapy Plan Frequency and Duration Frequency of 1-2x/week Treatment Plan of Care Start 02/10/25 Date Plan of Care End 04/13/25 Date Therapeutic Interventions Therapeutic Balance Training,Canalithic Repositioning,Manual Interventions Therapy,Neuromuscular Re-education,Patient/Caregiver Education,Self-Care/Home Management,Therapeutic Activities,Therapeutic Exercises,Vestibular Rehabilitation Next Visit Focus/Plan Next Note Type Treatment Note
--- NOTE | 2025-05-25 16:17 | PT.OPDS ---
Current Diagnoses Benign paroxysmal vertigo, unspecified ear (02/10/25) Visit Care Team Role Provider Type Aye Liu MD Attending Provider Physician Family Provider Primary Care Provider Referring Provider Specialty: Internal Medicine Address: [place], [place], [facility] Email: Visit Number Visit Number 1 Discharge Summary PT-OP-T Assessment and Plan Start: 02/10/25 15:14 Freq: Status: Active Protocol: Document 05/25/25 16:13 DCW (Rec: 05/25/25 16:16 DCW [id number]) Physical Therapy Assessment Assessment Summary Assessment Pt did not return following initial evaluation. Has now not been seen in more than three months, will require a new referral in order to return in the future. Physical Therapy Plan Discharge Physical Therapy Discharge Reasons No Longer Attending PT
== END 2025-05-26 09:56 | disposition home or self-care (01) ==
LOC: PHYS 14:25
PROVIDERS: Family Provider Internal Medicine; PCP Internal Medicine; Referring Provider Internal Medicine; Visit Provider Internal Medicine
DX: H81.10 Benign paroxysmal vertigo, unspecified ear (principal)
CPT/HCPCS: 97161